=== PATIENT | male | born 1940 | race Caucasian/White ===

== ENCOUNTER 2018-05-03 11:19 | Emergency (ER) | payer OTHER ==
--- OUTSIDE RECORDS SUMMARY | 2018-05-03 11:23 | XMS REPORT | Continuity of Care Document ---
:1940 Author Organization Interface Problems Problem Status Onset Classification Date Comments Source Date Reported Discharge Diagnosis: 09/30/ [facility] Unilateral inguinal 2017 8 hernia, without obstruction or gangrene, not specified as recurrent HYPERTENSIVE EMERGENCY Active 2016 [place] CAD - Coronary artery Active 01/09/ Problem 2 stents 2aced [facility] disease<sup>1, 2</sup> 2016 8 Chest Resolved 01/09/ Problem pt describes [facility] discomfort<sup>4</sup> 2016 8 the feeling that he had in his chest as discomfort, states that he has never felt chest pain, pt has nitroglycerine prescribed to take as needed, he states that he has only taken it once and that was when he felt the discomfort in his chest and was taken to the ER Heart Resolved 01/09/ Problem pt stated that [facility] attack<sup>6</sup> 2016 8 he was told that he had a mild heart attack when he went to the ER with "chest discomfort", heart cath was done and 2 stents placed HTN - Hypertension Active 03/11/ Problem [facility] 1980 8 DM - Diabetes Active 03/11/ Problem fbs- 80-200, [facility] mellitus<sup>5</sup> 1978 8 HgbA1c done 09-10-17 was 7.0, takes 2 different insulins bid Coronary artery Resolved Problem [facility] disease 7 [place] Diabetes mellitus Resolved Problem [facility] 7 [place] Hyperlipidemia Resolved Problem [facility] 7 [place] Hypertension Resolved Problem MH 7 [place] Peripheral neuropathy Resolved Problem [facility] 7 [place] Anxiety Active Problem [facility] 8 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 Depression Active Problem [facility] 8 Hard of hearing Active Problem [facility] 8 Hypercholesterolemia Active Problem [facility] 8 Hypothyroidism Active Problem [facility] 8 [place], [facility] Inguinal hernia Active Problem [facility] 8 Neuropathy<sup>7</sup> Active Problem related to [facility] 8 diabetes Pain<sup>8</sup> Active Problem right groin, [facility] 8 ingunial hernia Umbilical hernia Active Problem [facility] 8 HYPERTENSIVE URGENCY Active [facility] Medications Medication Details Route Status Patient Ordering Order Source Instructions Provider [place] [facility] [place] 900 mL, Inactive Soln-IV, IV, 2017 Once, first dose 09/30/17 16:28:00 CDT, stop date 09/30/17 16:28:00 CDT fentaNYL 50 mcg=1 mL, Inactive Injection, 2017 IV, Once, first dose 09/30/17 16:18:00 CDT, stop date 09/30/17 16:18:00 CDT sugammadex 180 mg=1.8 Inactive mL, 2017 Injection, IV, Once, first dose 09/30/17 16:06:00 CDT, stop date 09/30/17 16:06:00 CDT ketorolac 15 mg=0.5 mL, Inactive I Injection, 2017 IV, Once, first dose 09/30/17 16:01:00 CDT, stop date 09/30/17 16:01:00 CDT phenylephrine + 0.1 mg=0.01 Inactive sterile water 1 mL mL, 2017 Injection, IV, Once, first dose 09/30/17 15:24:00 CDT, stop date 09/30/17 15:24:00 CDT phenylephrine + 0.1 mg=0.01 Inactive sterile water 1 mL mL, 2017 Injection, IV, Once, first dose 09/30/17 15:19:00 CDT, stop date 09/30/17 15:19:00 CDT ePHEDrine 10 mg=0.2 mL, Inactive [facility] Injection, 2017 IV, Once, first dose 09/30/17 15:18:00 CDT, stop date 09/30/17 15:18:00 CDT Misc Medication 1,000 mL, Inactive 09/30/ [facility] Soln-IV, IV, 2018 Once, first dose 09/30/17 15:17:00 CDT, stop date 09/30/17 15:17:00 CDT Diphenhydramine 25 mg=0.5 mL, Inactive 09/30/ [facility] Injection, IV 2018 Push, Once PRN for itching, first dose 09/30/17 15:17:00 CDT Labetalol 5 mg=1 mL, Inactive 09/30/ [facility] Injection, IV 2018 Push, As Indicated PRN for hypertension, first dose 09/30/17 15:17:00 CDT Hydralazine 10 mg=0.5 mL, Inactive 09/30/ [facility] Injection, IV 2018 Push, As Indicated PRN for hypertension, first dose 09/30/17 15:17:00 CDT Promethazine 12.5 mg=0.5 Inactive 09/30/ [facility] mL, 2018 Injection, IM, Once PRN for vomiting, first dose 09/30/17 15:17:00 CDT Ondansetron 4 mg=2 mL, Inactive 09/30/ [facility] Injection, IV 2018 Push, q15min PRN for nausea, order duration: 2 doses, first dose 09/30/17 15:17:00 CDT, stop date Limited # of times Levalbuterol 0.21 0.63 mg=3 mL, Inactive 09/30/ [facility] MG/ML Inhalant Soln, [facility], 2018 Solution [Xopenex] Once PRN for wheezing, first dose 09/30/17 15:17:00 CDT Demerol HCl 12.5 mg=0.5 Inactive 09/30/ [facility] mL, 2018 Injection, IV Push, Once PRN for shivers, first dose 09/30/17 15:17:00 CDT Dilaudid 0.5 mg=0.5 Inactive 09/30/ [facility] mL, 2018 Injection, IV Push, q10min PRN for pain severe (7-10), first dose 09/30/17 15:17:00 CDT Saline Lock Flush 10 mL, Soln, Inactive 09/30/ [facility] IV Push, As 2018 Indicated PRN for flush, first dose 09/30/17 15:17:00 CDT LR 1,000 mL 1,000 mL, IV, Inactive 09/30/ [facility] 75 mL/hr, 2018 start date 09/30/17 15:17:00 CDT ondansetron 4 mg=2 mL, Inactive [facility] Injection, 2018 IV, Once, first dose 09/30/17 15:15:00 CDT, stop date 09/30/17 15:15:00 CDT clindamycin 900 mg, Inactive [facility] Soln-IV, IV, 2018 Once, first dose 09/30/17 15:15:00 CDT, stop date 09/30/17 15:15:00 CDT glycopyrrolate 0.2 mg=1 mL, Inactive [facility] Injection, 2018 IV, Once, first dose 09/30/17 15:14:00 CDT, stop date 09/30/17 15:14:00 CDT ePHEDrine 10 mg=0.2 mL, Inactive [facility] Injection, 2018 IV, Once, first dose 09/30/17 15:14:00 CDT, stop date 09/30/17 15:14:00 CDT dexamethasone 8 mg=2 mL, Inactive [facility] Injection, 2018 IV, Once, first dose 09/30/17 15:08:00 CDT, stop date 09/30/17 15:08:00 CDT ePHEDrine 10 mg=0.2 mL, Inactive [facility] Injection, 2018 IV, Once, first dose 09/30/17 15:08:00 CDT, stop date 09/30/17 15:08:00 CDT rocuronium 45 mg=4.5 mL, Inactive [facility] Injection, 2018 IV, Once, first dose 09/30/17 15:04:00 CDT, stop date 09/30/17 15:04:00 CDT propofol 100 mg=10 mL, Inactive [facility] Emulsion, IV, 2018 Once, first dose 09/30/17 14:59:00 CDT, stop date 09/30/17 14:59:00 CDT lidocaine 3 mL, Inactive [facility] Injection, 2018 IV, Once, first dose 09/30/17 14:59:00 CDT, stop date 09/30/17 14:59:00 CDT fentaNYL 150 mcg=3 mL, Inactive [facility] Injection, 2018 IV, Once, first dose 09/30/17 14:59:00 CDT, stop date 09/30/17 14:59:00 CDT succinylcholine 120 mg=6 mL, Inactive [facility] Injection, 2017 IV, Once, first dose 09/30/17 14:59:00 CDT, stop date 09/30/17 14:59:00 CDT rocuronium 5 mg=0.5 mL, Inactive [facility] Injection, 2017 IV, Once, first dose 09/30/17 14:59:00 CDT, stop date 09/30/17 14:59:00 CDT fentaNYL 50 mcg=1 mL, Inactive [facility] Injection, 2017 IV, Once, first dose 09/30/17 14:48:00 CDT, stop date 09/30/17 14:48:00 CDT LR 1,000 mL 1,000 mL, IV, Inactive [facility] 30 mL/hr, 2017 start date 09/30/17 13:05:00 CDT Lidocaine 2% 0.2 mL 0.2 mL, Inactive [facility] IV Start [[place]] Injection, 2018 Subcutaneous, Once PRN for other (see comment), first dose 09/30/17 13:05:00 CDT Lisinopril 40 mg, Oral, Active [facility] Daily, pt 2018 inst not to take am of sx, 0 Refill(s), htn NIFEdipine 60 mg 60 mg=1 tabs, Active [facility] oral tablet, Oral, qNoon, 2018 extended release pt inst to take if he is scheduled for an afternoon sx, 0 Refill(s), htn vortioxetine 10 MG 10 mg=1 tabs, Active 09/17/ [facility] Oral Tablet Oral, qPM, 0 2018 [Trintellix] Refill(s), depression multivitamin 1 tab, Oral, Active 09/17/ [facility] Daily, 0 2018 Refill(s), supplement Nitroglycerin 1 tab, SL, Active [facility] PRN as needed 2018 for chest pain, last time used , 0 Refill(s), angina Aspirin 81 MG Oral 81 mg=1 tabs, Active 09/17/ [facility] Tablet Oral, Daily, 2018 0 Refill(s), heart health Vitamin D3 2000 intl 2,000 Active [facility] units oral capsule IntUnit=1 2018 caps, Oral, BID, 0 Refill(s), supplement clopidogrel 75 MG 75 mg=1 tabs, Active [facility] Oral Tablet [Plavix] Oral, qAM, 0 2018 Refill(s), blood thinner/stent s 24 HR Isosorbide 60 mg=1 tabs, Active [facility] Mononitrate 60 MG Oral, qAM, # 2018 Extended Release 30 tabs, 0 Tablet Refill(s), angina Saw [place] 1 tab, Oral, Active [facility] BID, 0 2018 Refill(s), supplement 12 HR ranolazine 500 500 mg=1 Active 09/17/ [facility] MG Extended Release tabs, Oral, 2018 Tablet [Ranexa] BID, # 60 tabs, 0 Refill(s), chest pains gabapentin 600 mg, Oral, Active [facility] BID, pt inst 2018 ok to take am of sx, 0 Refill(s), neuropathy carvedilol 12.5 MG 12.5 mg=1 Active [facility] Oral Tablet tabs, Oral, 2018 BID, pt inst to take the am of sx, # 60 tabs, 0 Refill(s), htn biotin 1000 mcg oral 1,000 mcg=1 Active 09/17/ [facility] tablet tabs, Oral, 2018 Daily, # 30 tabs, 0 Refill(s), supplement atorvastatin 80 mg See Active 09/17/ [facility] oral tablet Instructions, 2018 1 tab q Saturday, Saturday and , 0 Refill(s), supplement Levoxyl 100 mcg, Active [facility] Oral, qAM, pt 2018 inst to take am of sx, 0 Refill(s), thyroid Regular Insulin, See Active [facility] Human 100 UNT/ML Instructions, 2018 Injectable Solution Subcutaneous, [Humulin R] bid before meals, pt inst to not take am of sx, 0 Refill(s), diabetes NPH Insulin, Human See Active 07/10/ [facility] 100 UNT/ML Instructions, 2018 Injectable Subcutaneous Suspension [Humulin BID Pt inst N] to not take am of sx, 0 Refill(s), diabetes atorvastatin 80 mg, 2 tab, Inactive Route: PO, 2016 [place] Drug form: TAB, Q-Tu and Th, Dosing Weight 96.2, kg, Start date: 01/22/17 21:00:00 [employer], Duration: 30 day, Stop date: 02/19/17 21:00:00 CSTNotes: (Same as: Lipitor) carvedilol 12.5 mg 12.5 mg=1 Active oral tablet tab, PO, 2016 [place] Q12H, # 60 tab, 3 Refill(s) tamsulosin 0.4 mg 0.4 mg=1 cap, Active oral capsule PO, After 2016 [place] Breakfast, # 30 cap, 5 Refill(s) Benicar 40 mg, 2 tab, Inactive Route: PO, 2016 [place] Drug form: TAB, Daily, Start date: 01/22/17 11:00:00 [employer], Duration: 30 day, Stop date: 02/21/17 9:00:00 [employer] hydrochlorothiazide 12.5 mg, 0.5 Inactive 25 mg oral tablet tab, Route: 2016 [place] PO, Drug form: TAB, Daily, Start date: 01/22/17 11:00:00 [employer], Duration: 30 day, Stop date: 02/21/17 9:00:00 CSTNotes: (Same as: Hydrodiuril) With food. Hydrochlorothiazide 1 tab, Route: Inactive 12.5 MG / Olmesartan PO, Drug 2016 [place] medoxomil 40 MG Oral Form: TAB, Tablet [Benicar HCT Dosing Weight 40/12.5] 96.2, kg, Daily, Start date: 01/22/17 9:50:00 [employer], Duration: 30 day, Stop date: 02/21/17 9:49:00 [employer] normal saline 0.9% 1,000 mL, Inactive IV 1,000 mL Rate: 75 2016 [place] ml/hr, Infuse over: 13.3 hr, Route: IV, Dosing Weight 96.2 kg, Total Volume: 1,000, Priority: STAT, Start date: 01/22/17 9:21:00 [employer], Duration: 24 hr, Stop date: 01/23/17 9:20:00 [employer]PECT[employer], 2.06, m2 Flomax 0.4 mg, 1 Inactive cap, Route: 2017 [place] PO, Drug form: CAP, After Breakfast, Dosing Weight 96.2, kg, Start date: 01/22/17 8:30:00 [employer]PECT[employer], Duration: 30 day, Stop date: 02/21/17 8:29:00 CSTNotes: (Same As: Flomax) "Do Not Crush" atorvastatin 80 mg, 2 tab, Inactive Route: PO, 2016 [place] Drug form: TAB, Bedtime, Dosing Weight 96.2, kg, Start date: 01/21/17 21:00:00 [employer]PECT[employer], Duration: 30 day, Stop date: 02/20/17 20:59:00 CSTNotes: (Same as: Lipitor) Coreg 12.5 mg, 1 No Longer tab, Route: Active 2017 [place] PO, Drug form: TAB, Q12H, Dosing Weight 96.2, kg, Start date: 01/21/17 21:00:00 [employer], Duration: 30 day, Stop date: 02/20/17 20:59:00 CSTNotes: Give with food. (Same As: Coreg) Acetylcysteine 200 1,200 mg, 6 No Longer MG/ML Inhalant mL, Route: Active 2016 [place] Solution PO, Drug form: SOLN, BID, Dosing Weight 96.2, kg, Start date: 01/21/17 17:00:00 [employer]ASS INSPECT[employer], Duration: 2 day, Stop date: 01/23/17 16:59:00 CSTNotes: WASTE: F/P - Black; E - Municipal Trash Bin heparin sodium, 5,000 unit, 1 No Longer porcine 2500 UNT/ML mL, Route: Active 2016 [place] Injectable Solution SUB-Q, Drug form: INJ, Q8H, Dosing Weight 96.2, kg, Start date: 01/21/17 16:00:00 [employer] INSPECTOR, Duration: 30 day, Stop date: 02/20/17 15:59:00 CSTNotes: porcine heparin Enoxaparin 40 mg, 0.4 Inactive mL, Route: 2017 [place] SUB-Q, Drug form: INJ, [id number], Dosing Weight 96.2, kg, Start date: 01/21/17 12:00:00 [employer] INSPECT[employer], Duration: 30 day, Stop date: 02/20/17 11:59:00 CSTNotes: (Same as: Lovenox) normal saline 0.9% 1,000 mL, No Longer IV 1,000 mL Rate: 75 Active 2016 [place] ml/hr, Infuse over: 13.3 hr, Route: IV, Dosing Weight 96.2 kg, Total Volume: 1,000, Priority: STAT, Start date: 01/21/17 11:35:00 [employer]PECTOR, Duration: 30 day, Stop date: 02/20/17 11:34:00 [employer], 2.06, m2 Hydralazine 10 mg, 0.5 No Longer mL, Route: Active 2016 [place] IV, Drug form: INJ, Q4H, Dosing Weight 96.2, kg, PRN Hypertension, Start date: 01/21/17 11:35:00 [employer], Duration: 30 day, Stop date: 02/20/17 11:34:00 CSTNotes: (Same as: Apresoline) Push over 5 minutes Acetaminophen 325 MG 650 mg=2 tab, Active Oral Tablet PO, BID, # 60 2016 [place] [Tylenol] tab, 0 Refill(s) Niacin 1,000 mg, PO, Active BID, 0 2016 [place] Refill(s) [place] 2, PO, BID, 0 Active Refill(s) 2017 [place] Regular Insulin, SUB-Q, Active Human 100 UNT/ML BID-Before 2017 [place] Injectable Solution Meals, use [Humulin R] sliding scale before breakfast and dinner, 0 Refill(s) [facility]PH Insulin, Human 84, SUB-Q, Active 100 UNT/ML BID, # 10 mL, 2017 [place] Injectable 0 Refill(s) Suspension [Humulin N] aspirin 81 mg 81 mg, 1 tab, No Longer tablet, enteric Route: PO, Active 2016 [place] coated Drug form: ECTAB, Daily, Dosing Weight 96.2, kg, Start date: 01/21/17 9:00:00 [employer], Duration: 30 day, Stop date: 02/20/17 8:59:00 CSTNotes: Do not crush or chew. (Same As: Ecotrin) isosorbide 60 mg, 1 tab, No Longer mononitrate extended Route: PO, Active 2016 [place] release Drug form: ERTAB, Daily, Dosing Weight 80, kg, Start date: 01/21/17 9:00:00 GLASS INSPECTOR, Duration: 30 day, Stop date: 02/20/17 8:59:00 CSTNotes: (Same as:Imdur) "Do Not Crush" Take on empty stomach/ full glass of water. Do not crush gabapentin 600 MG 600 mg, 2 Inactive Oral Tablet cap, Route: 2016 [place] PO, Drug form: CAP, TID, Dosing Weight 96.2, kg, Start date: 01/21/17 9:00:00 [employer]ASS INSPECTOR, Duration: 30 day, Stop date: 02/20/17 8:59:00 CSTNotes: (Same as: Neurontin) 12 HR ranolazine 500 500 mg, 1 No Longer MG Extended Release tab, Route: Active 2016 [place] Tablet [Ranexa] PO, Drug form: TAB, BID, Dosing Weight 96.2, kg, Start date: 01/21/17 9:00:00 [employer]ASS INSPECTOR, Duration: 30 day, Stop date: 02/20/17 8:59:00 CSTNotes: Same as Ranexa "Do Not Crush" metoprolol extended 200 mg, 2 Inactive release tab, Route: 2017 [place] PO, Drug form: ERTAB, Daily, Start date: 01/21/17 9:00:00 GLASS INSPECTOR, Duration: 30 day, Stop date: 02/20/17 8:59:00 CSTNotes: (Same as: Toprol XL) May split tab, but do not crush. Plavix 75 mg, 1 tab, No Longer Route: PO, Active 2016 [place] Drug form: TAB, Daily, Dosing Weight 96.2, kg, Start date: 01/21/17 9:00:00 GLASS INSPECTOR, Duration: 30 day, Stop date: 02/20/17 8:59:00 CSTNotes: (Same As: Plavix) Humulin N 65 unit, 0.65 No Longer mL, Route: Active 2016 [place] SUB-Q, Drug form: INJ, BID, Dosing Weight 96.2, kg, Start date: 01/21/17 9:00:00 GLASS INSPECTOR, Stop date: 02/20/17 8:59:00 CSTNotes: Roll in palms of hands gently; Do not shake vigorously. (Same as: NovoLIN N, Humulin N) Do not hold insulin without contacting prescriber "single patient use only" WASTE: F/P - Black; E - Cree Trash Bin Stable for 14 days at room temperature Expires in days from _Date Saline Flush 0.9% 10 ml, Route: No Longer IVP, Drug Active 2016 [place] Form: INJ, Dosing Weight 96.2, kg, Q12H, Start date: 01/21/17 9:00:00 GLASS INSPECTOR, Duration: 30 day, Stop date: 02/20/17 8:59:00 CSTNotes: (Same as: BD Posiflush) Vitamin D3 2000 intl 4,000 Active units oral capsule IntlUnit=2 2017 [place] cap, PO, Daily, # 100 cap, 3 Refill(s) Thyroxine 100 No Longer microgram, 1 Active 2016 [place] tab, Route: PO, Drug form: TAB, [id number], Dosing Weight 96.2, kg, Start date: 01/21/17 6:30:00 GLASS INSPECTOR, Duration: 30 day, Stop date: 02/20/17 6:29:00 CSTNotes: Take 1 hour before or 2 hours after meal; Enteral feeds may interefere with the absorption of this medication. (Same as:Levothroid , Synthroid) Glucagon 1 mg, Route: No Longer IM, Drug Active 2016 [place] form: PDR/INJ, PRN, Dosing Weight 96.2, kg, PRN Blood Glucose Results, Start date: 01/21/17 4:52:00 GLASS INSPECTOR, Duration: 30 day, Stop date: 02/20/17 4:51:00 GLASS INSPECTOR Dextrose 50% Syringe 25 gm, 50 mL, No Longer Route: IVP, Active 2016 [place] Drug Form: INJ, Dosing Weight 96.2, kg, PRN, PRN Blood Glucose Results, Start date: 01/21/17 4:52:00 GLASS INSPECTOR, Duration: 30 day, Stop date: 02/20/17 4:51:00 GLASS INSPECTOR Insulin Lispro 4 unit, 0.04 No Longer mL, Route: Active 2016 [place] SUB-Q, Drug form: SOLN, TID-Before Meals, Dosing Weight 96.2, kg, PRN Blood Glucose Results, Start date: 01/21/17 4:52:00 GLASS INSPECTOR, Duration: 30 day, Stop date: 02/20/17 4:51:00 CSTNotes: Roll in palms of hands gently; Do not shake `vigorously. (Same as: Humalog ) "Single Patient Use Only " WASTE: F/P - Black; E - Municipal Trash Bin Stable for 28 days at room temperature. Expires in days from _Date Vitamin D3 2000 intl 2,000 Inactive units oral capsule IntlUnit=1 2016 [place] cap, PO, Daily, # 100 cap, 3 Refill(s) Aspirin 81 MG 81 mg=1 tab, Active Chewable Tablet CHEW, Daily, 2016 [place] 0 Refill(s) multivitamin 1 tab, Daily, Active 0 Refill(s) 2016 [place] clopidogrel 75 MG 75 mg=1 tab, Active Oral Tablet [Plavix] PO, Daily, 0 2016 [place] Refill(s) atorvastatin 80 mg 80 mg=1 tab, Active oral tablet one tablet on 2017 [place] Saturday, Saturday, PM, 0 Refill(s) gabapentin 600 MG 600 mg=1 tab, Active Oral Tablet PO, BID, 0 2016 [place] Refill(s) Hydrochlorothiazide 1 tab, PO, No Longer 12.5 MG / Olmesartan QMon, 0 Active 2016 [place] medoxomil 40 MG Oral Refill(s) Tablet [Benicar HCT 40/12.5] 12 HR ranolazine 500 1,000 mg=2 Active MG Extended Release tab, PO, BID, 2016 [place] Tablet [Ranexa] 0 Refill(s) Levothyroxine Sodium 100 Active 0.1 MG Oral Tablet microgram=1 2016 [place] [Levoxyl] tab, PO, Daily, 0 Refill(s) isosorbide 60 mg=1 tab, Active mononitrate 60 mg PO, QAM, 0 2016 [place] oral tablet, Refill(s) extended release biotin 1000 mcg oral 1,000 Active tablet microgram=1 2016 [place] tab, PO, Daily, # 30 tab, 0 Refill(s) metoprolol 200 mg 200 mg=1 tab, No Longer oral tablet, PO, Daily, 0 Active 2016 [place] extended release Refill(s) hydrochlorothiazide 12.5 mg, 0.5 Inactive 25 mg oral tablet tab, Route: 2016 [place] PO, Drug form: TAB, Daily, Start date: 01/21/17 4:05:00 GLASS INSPECTOR, Duration: 30 day, Stop date: 02/19/17 9:00:00 CSTNotes: (Same as: Hydrodiuril) With food. Benicar 40 mg, 2 tab, Inactive Route: PO, 2016 [place] Drug form: TAB, Daily, Start date: 01/21/17 4:05:00 GLASS INSPECTOR, Duration: 30 day, Stop date: 02/19/17 9:00:00 [employer]ASS [employer]PECT[employer] Hydrochlorothiazide 1 tab, Route: Inactive 12.5 MG / Olmesartan PO, Drug 2016 [place] medoxomil 40 MG Oral Form: TAB, Tablet [Benicar HCT Dosing Weight 40/12.5] 96.2, kg, Daily, Start date: 01/21/17 4:00:00 GLASS INSPECTOR, Duration: 30 day, Stop date: 02/20/17 3:59:00 GLASS INSPECTOR Nicardipine 40 mg, 200 Inactive mL, Rate: 2016 [place] Titrate, Start Dose: 5 mg/hr, Titration: 2.5 mg/hr every 15 minutes, Goal(s): BP Notes: Same as: Cardene Concentration : (0.2 mg /1 ml ) Nitroglycerin 0.4 mg, 1 No Longer tab, Route: Active 2016 [place] SL, Drug form: TAB, Q5Min, Dosing Weight 96.2, kg, PRN Chest Pain, Start date: 01/21/17 3:25:00 GLASS INSPECTOR, Duration: 3 doses or times, Stop date: Limited # of timesNotes: (Same as:Nitroquick , Nitrostat) "Do Not Crush" Sublingual tablet Morphine 2 mg, 2 mL, No Longer Route: IVP, Active 2016 [place] Drug form: SOLN, Q15Min, Dosing Weight 96.2, kg, PRN Chest Pain, Start date: 01/21/17 3:25:00 GLASS INSPECTOR, Duration: 2 doses or times, Stop date: Limited # of timesNotes: Preservative free. (Same as: Morphine Sulfate-PF) Ondansetron 4 mg, 1 tab, No Longer Route: PO, Active 2016 [place] Drug form: TAB, Q8H, Dosing Weight 96.2, kg, PRN Nausea & Vomiting, Start date: 01/21/17 3:25:00 GLASS INSPECTOR, Duration: 30 day, Stop date: 02/20/17 3:24:00 CSTNotes: (Same as: Zofran) Saline Flush 0.9% 10 ml, Route: No Longer IVP, Drug Active 2016 [place] Form: INJ, Dosing Weight 96.2, kg, PRN, PRN Line Flush, Start date: 01/21/17 3:25:00 GLASS INSPECTOR, Duration: 30 day, Stop date: 02/20/17 3:24:00 CSTNotes: (Same as: BD Posiflush) Allergies, Adverse Reactions, Alerts Substance Category Reaction Severity Reaction Status Date Comments Source type Reported penicillin<s Assertion Drug Active Added as up>1, allergy Codified [place] 2</sup> penicillin Assertion Cutaneous Drug Active [facility] eruption allergy (morpholog ic abnormalit y) Immunizations Immunization Date Given Site Status Last Updated Comments Source Results Order Name Results Value Reference Date Interpretation Comments Source Range LABORATORY Blood 83 mg/dL 74 - 106 09/30 [facility] Glucose, /2018 Capillary CHEM PANEL Creatinine 1.45 mg/dL 0.50 - 01/22 [facility] Lvl 1.40 [place] CHEM PANEL BUN 16 mg/dL 7 - 22 01/22 [place] CHEM PANEL Glucose Lvl 111 mg/dL 70 - 99 01/22 [place] CHEM PANEL AGAP 9.6 meq/L 10.0 - 01/22 [facility] 20.0 [place] CHEM PANEL CO2 28 meq/L 24 - 32 01/22 [place] CHEM PANEL eGFR 47 01/22 Result Comment: The eGFR is calculated using the CKD-EPI formula. In most young, healthy individuals the eGFR will be >90 mL/ min/1.73m2. The eGFR declines with age. An eGFR of 60-89 may be normal in mL/min/1.7 some populations, particularly the elderly, for whom the CKD-EPI formula has not been extensively validated. Use of the eGFR is not recommended in the following populations: [place] [id number] Individuals with unstable creatinine concentrations, including patients and those with serious co-morbid conditions. Patients with extremes in muscle mass or diet. The data above are obtained from the National Kidney Disease Education Program (NKDEP) which additionally recommends that when the eGFR is used in patients with extremes of body mass index for purposes of drug dosing, the eGFR should be multiplied by the estimated BMI. CHEM PANEL Calcium Lvl 8.7 mg/dL 8.5 - 10.5 01/22 [place] CHEM PANEL Chloride Lvl 106 meq/L 95 - 109 01/22 [place] CHEM PANEL Potassium 3.6 meq/L 3.5 - 5.1 01/22 [facility] [place] CHEM PANEL Sodium Lvl 140 meq/L 135 - 145 01/22 [place] CHEM PANEL Magnesium 1.8 mg/dL 1.8 - 2.4 01/22 [facility] [place] LIPIDS CHD Risk 3.15 4.00 - 01/22 [facility] 7.30 [place] LIPIDS VLDL 41 01/22 [place] LIPIDS LDL 43 mg/dL <=99 mg/dL 01/22 (Calculated) [place] LIPIDS HDL 39 mg/dL >=61 mg/dL 01/22 [place] LIPIDS Chol 123 mg/dL <=199 01/22 [facility] mg/dL [place] LIPIDS Trig 205 mg/dL <=149 01/22 mg/dL [place] URINE AND UA RBC 0-2 /HPF 0 - 2 01/21 STOOL [place] URINE AND UA Bacteria None Seen None Seen 01/21 STOOL [place] (01/21/17 5:42 PM) URINE AND UA Sq Epi Occasional Few /LPF 01/21 STOOL /LPF [place] URINE AND UA WBC 0-2 /HPF None Seen 01/21 STOOL /HPF [place] URINE AND Micro? Performed 01/21 STOOL [place] (01/21/17 5:42 PM) URINE AND UA Nitrite Negative Negative 01/21 STOOL [place] (01/21/17 5:42 PM) URINE AND UA Leuk Est Negative Negative 01/21 [place] (01/21/17 5:42 PM) URINE AND UA Protein 100 mg/dL Negative 01/21 [facility]OOL mg/dL [place] URINE AND UA Glucose 500 mg/dL Negative 01/21 STOOL mg/dL [place] URINE AND UA Spec Grav 1.025 <=1.030 01/21 [place] URINE AND UA pH 5.5 5.0 - 8.0 01/21 STOOL [place] URINE AND UA Blood Negative Negative 01/21 [place] (01/21/17 5:42 PM) URINE AND UA 0.2 EU/dL 0.1 - 1.0 01/21 [facility] Urobilinogen [place] URINE AND UA Ketones Negative Negative 01/21 [place] *NA* (01/21/17 5:42 PM) URINE AND UA Bili Negative Negative 01/21 STOOL [place] *NA* (01/21/17 5:42 PM) URINE AND UA Turbidity Clear Clear 01/21 STOOL [place] (01/21/17 5:42 PM) URINE AND UA Color Yellow Yellow 01/21 [place] *NA* (01/21/17 5:42 PM) URINE CHEM U Creatinine 154.00 01/21 mg/dL [place] URINE CHEM U Protein 156.0 01/21 mg/dL [place] URINE CHEM U Prot/Creat 1.0 01/21 [place] URINE CHEM U Osmolality 590 300 - 800 01/21 mOsm/kg [place] URINE CHEM U Chloride 148 meq/L 01/21 [place] URINE CHEM U Potassium 42.4 meq/L 01/21 [place] URINE CHEM U Sodium 114 meq/L 01/21 [place] URINE CHEM U Creatinine 154.00 01/21 mg/dL /2016 [place] CARDIAC Total CK 173 unit/L 12 - 191 01/21 ENZYMES [place] CARDIAC Troponin-I 0.36 ng/mL 0.00 - 01/21 MH ENZYMES 0.40 [place] CARDIAC CK-MB INDEX 2.7 0.0 - 2.5 01/21 EN[facility] [place] CARDIAC CK MB 4.7 ng/mL 0.5 - 3.6 01/21 [facility] [place] Retroperito Retroperiton PROCEDURE: RENAL ULTRASOUND 01/21 - [facility] [place] Complete - [place] Complete US US INDICATION: Acute kidney injury. Read by: Andre Oden MD Dictated Date/time: 01/21/17 19:01 Electronically Signed by: Andre Oden MD 01/21/17 19:02 FINAL REPORT COMPARISON: None. TECHNIQUE: Sonographic evaluation of the kidneys and urinary bladder was performed. FINDINGS: KIDNEYS: The right kidney measures 11.6 cm in length. Normal contour and parenchymal echogenicity. There is no hydronephrosis, nephrolithiasis, mass lesion or perinephric collection. The left kidney measures 13.3 cm in length. Normal contour and parenchymal echogenicity. There is no hydronephrosis, nephrolithiasis, mass lesion or perinephric collection. BLADDER: Normal. IMPRESSION: Normal renal ultrasound. END REPORT [id number]-M CARDIAC Total CK 223 unit/L 12 - 191 01/21 ENZYMES [place] CARDIAC Troponin-I 0.39 ng/mL 0.00 - 01/21 MH ENZYMES 0.40 [place] CARDIAC CK-MB INDEX 2.6 0.0 - 2.5 01/21 EN[facility]YM[facility] [place] CARDIAC CK MB 5.9 ng/mL 0.5 - 3.6 01/21 ENZ[facility] [place] SPECIAL Hgb A1C 7.3 % <=5.6 % 01/21 CHEMISTRY [place] CARDIAC Total CK 232 unit/L 12 - 191 01/21 ENZYMES [place] CARDIAC Troponin-I 0.43 ng/mL 0.00 - 01/21 ENZYMES 0.40 [place] CARDIAC CK MB 6.1 ng/mL 0.5 - 3.6 01/21 EN[facility]YM[facility] [place] CARDIAC CK-MB INDEX 2.6 0.0 - 2.5 01/21 EN[facility] [place] CHEM PANEL Phosphorus 2.0 mg/dL 2.5 - 4.5 01/21 [place] CHEM PANEL Magnesium 1.9 mg/dL 1.8 - 2.4 01/21 Lvl [place] ELECTROLYTE AGAP 11.8 meq/L 10.0 - 01/21 S 20.0 [place] ELECTROLYTE eGFR 43 01/21 Result Comment: The eGFR is calculated using the CKD-EPI formula. In most young, healthy individuals the eGFR will be >90 mL/ min/1.73m2. The eGFR declines with age. An eGFR of 60-89 may be normal in mL/min/1.7 some populations, particularly the elderly, for whom the CKD-EPI formula has not been extensively validated. Use of the eGFR is not recommended in the following populations: [address] Individuals with unstable creatinine concentrations, including patients and those with serious co-morbid conditions. Patients with extremes in muscle mass or diet. The data above are obtained from the National Kidney Disease Education Program (NKDEP) which additionally recommends that when the eGFR is used in patients with extremes of body mass index for purposes of drug dosing, the eGFR should be multiplied by the estimated BMI. ELECTROLYTE Calcium Lvl 9.2 mg/dL 8.5 - 10.5 01/21 S [place] ELECTROLYTE BUN 15 mg/dL 7 - 22 01/21 S [place] ELECTROLYTE Glucose Lvl 223 mg/dL 70 - 99 01/21 S [place] ELECTROLYTE Sodium Lvl 137 meq/L 135 - 145 01/21 S [place] ELECTROLYTE Potassium 3.8 meq/L 3.5 - 5.1 01/21 S Lvl [place] ELECTROLYTE Chloride Lvl 104 meq/L 95 - 109 01/21 S [place] ELECTROLYTE CO2 25 meq/L 24 - 32 01/21 S [place] ELECTROLYTE Creatinine 1.55 mg/dL 0.50 - 01/21 S Lvl 1.40 [place] HEMATOLOGY Platelet 110 K/CMM 133 - 450 01/21 [place] HEMATOLOGY MPV 9.0 fL 7.4 - 10.4 01/21 [place] HEMATOLOGY MCH 31.9 pg 27.0 - 01/21 MH 31.0 [place] HEMATOLOGY Hgb 16.2 g/dL 14.0 - 01/21 MH 18.0 [place] HEMATOLOGY Hct 47.6 % 42.0 - 01/21 MH 54.0 [place] HEMATOLOGY MCV 93.9 fL 80.0 - 01/21 MH 94.0 [place] HEMATOLOGY RDW 13.0 % 11.5 - 01/21 MH 14. [place] HEMATOLOGY MCHC 34.0 g/dL 32.0 - 01/21 MH 36.0 [place] HEMATOLOGY WBC X 10x3 8.5 K/CMM 3.7 - 10.4 01/21 [place] HEMATOLOGY RBC X 10x6 5.07 M/CMM 4.70 - 01/21 MH 6. [place] HEMATOLOGY Basophils 0.5 % 0.0 - 1.0 01/21 [place] HEMATOLOGY Segs-Bands # 6.6 K/CMM 1.5 - 8.1 01/21 [place] HEMATOLOGY Eosinophils 0.9 % 0.0 - 4.0 01/21 [place] HEMATOLOGY Lymphocytes 14.9 % 20.0 - 01/21 MH 40.0 [place] HEMATOLOGY Monocytes 6.1 % 2.0 - 12.0 01/21 [place] HEMATOLOGY Segs 77.6 % 45.0 - 01/21 MH 75.0 [place] HEMATOLOGY Eosinophils 0.1 K/CMM 0.0 - 0.5 01/21 MH # /2016 [place] HEMATOLOGY Lymphocytes 1.3 K/CMM 1.0 - 5.5 01/21 # /2016 [place] HEMATOLOGY Monocytes # 0.5 K/CMM 0.0 - 0.8 01/21 [place] Vital Signs Vital Sign Value Date Comments Source Respitory Rate 12 09/30/2017 [facility] Peripheral Pulse Rate 61 09/30/2017 [facility] Respitory Rate 12 09/30/2017 [facility] Systolic (mm Hg) 139 09/30/2017 [facility] Diastolic (mm Hg) 68 09/30/2017 [facility] Heart Rate 68 09/30/2017 [facility] Systolic (mm Hg) 144 09/30/2017 [facility] Diastolic (mm Hg) 73 09/30/2017 [facility] Respitory Rate 12 09/30/2017 [facility] Heart Rate 63 09/30/2017 [facility] Heart Rate 63 09/30/2017 [facility] Systolic (mm Hg) 149 09/30/2017 [facility] Diastolic (mm Hg) 68 09/30/2017 [facility] Temperature Oral (F) 36.6 Sandhya 09/30/2017 [facility] Height 177.8 cm 09/30/2017 [facility] Weight Measured 90.07 09/30/2017 [facility] Temperature Oral (F) 36.7 Sandhya 09/30/2017 [facility] Peripheral Pulse Rate 58 09/30/2017 [facility] Peripheral Pulse Rate 60 09/16/2017 [facility] Weight Measured 97.07 09/16/2017 [facility] Height 177.8 cm 09/16/2017 [facility] Systolic (mm Hg) 147 01/22/2017 [facility] Diastolic (mm Hg) 71 01/22/2017 [facility] Respitory Rate 10 01/22/2017 [facility] Systolic (mm Hg) 136 01/22/2017 [facility] Diastolic (mm Hg) 60 01/22/2017 [facility] Respitory Rate 20 01/22/2017 [facility] Systolic (mm Hg) 136 01/22/2017 [facility] Diastolic (mm Hg) 61 01/22/2017 [facility] Respitory Rate 13 01/22/2017 [facility] Temperature Oral (F) 98.1 F 01/22/2017 [facility] Temperature Oral (F) 98.1 F 01/22/2017 [facility] Temperature Oral (F) 98.2 F 01/22/2017 [facility] Weight 96.2 01/21/2017 [facility] Height 152.4 cm 01/21/2017 [facility] BMI Calculated 41.42 01/21/2017 [facility] Encounters Location Location Encounter Encounter Reason Attending ADM DC Status Source Details Type Number For Provider Date Date Visit [facility] Inpatient [id number] Monalisa 01/21 01/22 BLAZE [place] /2016 [facility] Outpatient [id number] Prabhu 09/30 09/30 [facility] Outpatient [id number] Prabhu 09/30 09/30 [facility] [place] [facility] Procedures Procedure Code Date Perfomer Comments Source REPAIR HERNIA auto-populated [facility] INGUINAL 8 from documented LAPAROSCOPIC-INITIAL surgical case 52333 (Right)<sup>1</sup> REPAIR HERNIA auto-populated [facility] UMBILICAL-OLDER THAN 8 from documented 5 YEARS surgical case OLD-REDUCIBLE 79238 (Other)<sup>2</sup> heart 2 stents placed [facility] cath<sup>3</sup> 7 hernia repair [facility] 9 sx to stop nosebleed [facility] 7 gall bladder removed [facility] 6 Cholecystectomy [id number] [place] Shoulder repair [phone] [facility] colonoscopy [facility] laser eye diabetic [facility] sx<sup>4</sup> retinopathy shoulder sx [facility]
--- OUTSIDE RECORDS SUMMARY | 2018-05-03 11:24 | XMS REPORT | Summary of Care ---
:1940 Author Organization [facility] Address [id number] [place] [phone] Encounter [employer](FIN) [id number] Date(s): 01/21/17 - 01/22/[address] [phone] [phone] Discharge Disposition: Home or Self Care Attending Physician: Monalisa Healy MD Admitting Physician: Monalisa Healy MD Vital Signs Most recent to oldest 1 2 3 [Reference Range]: Height 152.4 cm (01/21/17 3:23 AM) Temperature Oral [96.4-99.1 98.1 DegF 98.1 DegF 98.2 DegF DegF] (01/22/17 12:00 PM) (01/22/17 9:00 AM) (01/22/17 6:00 AM) Blood Pressure 147/71 mmHg 136/60 mmHg 136/61 mmHg [90-140/60-90 mmHg] *HI* (01/22/17 3:00 PM) (01/22/17 2:00 PM) (01/22/17 3:30 PM) Respiratory Rate [14-20 10 BRMIN 20 BRMIN 13 BRMIN BRMIN] *LOW* (01/22/17 3:00 PM) *LOW* (01/22/17 3:30 PM) (01/22/17 2:00 PM) Weight 96.2 kg (01/21/17 3:23 AM) Body Mass Index 41.42 m2 (01/21/17 3:23 AM) Problem List Condition Effective Dates Status Health Status Informant Coronary artery disease(Confirmed) Resolved Diabetes mellitus(Confirmed) Resolved Hyperlipidemia(Confirmed) Resolved Hypertension(Confirmed) Resolved Hypothyroidism(Confirmed) Resolved Peripheral neuropathy(Confirmed) Resolved Allergies, Adverse Reactions, Alerts Substance Reaction Severity Status penicillin1, 2 Active 1Replaced free text [id number] as Codified Medications acetylcysteine oral solution (mg) 1,200 mg, 6 mL, Route: PO, Drug form: SOLN, BID, Dosing Weight 96.2, kg, Start date: 01/21/17 17:00:00 DINING SERVICE SUPERVISOR, Duration: 2 day, Stop date: 01/23/17 16:59:00 DINING SERVICE SUPERVISOR Notes: WASTE: F/P - Black; E - MENABANQER Trash Bin Start Date: 01/21/17 Stop Date: 01/22/17 Status: Discontinuedaspirin 81 mg tablet, chewable 81 mg=1 tab, CHEW, Daily, 0 Refill(s) Start Date: 01/21/17 Status: Orderedaspirin 81 mg tablet, enteric coated 81 mg, 1 tab, Route: PO, Drug form: ECTAB, Daily, Dosing Weight 96.2, kg, Start date: 01/21/17 9:00:00 DINING SERVICE SUPERVISOR, Duration: 30 day, Stop date: 02/20/17 8:59:00 DINING SERVICE SUPERVISOR Notes: Do not crush or chew.(Same As: Ecotrin) Start Date: 01/21/17 Stop Date: 01/22/17 Status: Discontinuedatorvastatin 80 mg, 2 tab, Route: PO, Drug form: TAB, Bedtime, Dosing Weight 96.2, kg, Start date: 01/21/17 21:00:00 DINING SERVICE SUPERVISOR, Duration: 30 day, Stop date: 02/20/17 20:59:00 DINING SERVICE SUPERVISOR Notes: (Same as: Lipitor) Start Date: 01/21/17 Stop Date: 01/21/17 Status: Canceledatorvastatin 80 mg, 2 tab, Route: PO, Drug form: TAB, Q- and , Dosing Weight 96.2, kg, Start date: 01/22/17 21:00:00 DINING SERVICE SUPERVISOR, Duration: 30 day, Stop date: 02/19/17 21:00: 00 DINING SERVICE SUPERVISOR Notes: (Same as: Lipitor) Start Date: 01/22/17 Stop Date: 01/22/17 Status: Canceledatorvastatin 80 mg oral tablet 80 mg=1 tab, one tablet on Saturday, Saturday, PM, 0 Refill(s) Start Date: 01/21/17 Status: OrderedBenicar 40 mg, 2 tab, Route: PO, Drug form: TAB, Daily, Start date: 01/22/17 11:00:00 DINING SERVICE SUPERVISOR, Duration: 30 day,Stop date: 02/21/17 9:00:00 DINING SERVICE SUPERVISOR Start Date: 01/22/17 Stop Date: 01/22/17 Status: DiscontinuedBenicar 40 mg, 2 tab, Route: PO, Drug form: TAB, Daily, Start date: 01/21/17 4:05:00 DINING SERVICE SUPERVISOR , Duration: 30 day, Stop date: 02/19/17 9:00:00 DINING SERVICE SUPERVISOR Start Date: 01/21/17 Stop Date: 01/21/17 Status: DiscontinuedBenicar HCT 12.5 mg-40 mg oral tablet 1 tab, Route: PO, Drug Form: TAB, Dosing Weight 96.2, kg, Daily, Start date: 4:00:00 DINING SERVICE SUPERVISOR, Duration: 30 day, Stop date: 02/20/17 3:59:00 DINING SERVICE SUPERVISOR Start Date: 01/21/17 Stop Date: 01/21/17 Status: DeletedBenicar HCT 12.5 mg-40 mg oral tablet 1 tab, PO, QMon, 0 Refill(s) Start Date: 01/21/17 Stop Date: 01/22/17 Status: DiscontinuedBenicar HCT 12.5 mg-40 mg oral tablet 1 tab, Route: PO, Drug Form: TAB, Dosing Weight 96.2, kg, Daily, Start date: 9:50:00 DINING SERVICE SUPERVISOR, Duration: 30 day, Stop date: 02/21/17 9:49:00 DINING SERVICE SUPERVISOR Start Date: 01/22/17 Stop Date: 01/22/17 Status: Deletedbiotin 1000 mcg oral tablet 1,000 microgram=1 tab, PO, Daily, # 30 tab, 0 Refill(s) Start Date: 01/21/17 Status: Orderedcarvedilol 12.5 mg oral tablet 12.5 mg=1 tab, PO, Q12H, # 60 tab, 3 Refill(s) Start Date: 01/22/17 Stop Date: 05/22/17 Status: OrderedCoreg 12.5 mg, 1 tab, Route: PO, Drug form: TAB, Q12H, Dosing Weight 96.2, kg, Start date: 01/21/17 21:00:00 DINING SERVICE SUPERVISOR, Duration: 30 day, Stop date: 02/20/17 20:59:00 DINING SERVICE SUPERVISOR Notes: Give with food. (Same As: Coreg) Start Date: 01/21/17 Stop Date: 01/22/17 Status: DiscontinuedDextrose 50% Syringe 25 gm, 50 mL, Route: IVP, Drug Form: INJ, Dosing Weight 96.2, kg, PRN, PRN Blood Glucose Results, Start date: 01/21/17 4:52:00 DINING SERVICE SUPERVISOR, Duration: 30 day, Stop date: 02/20/17 4:51:00 DINING SERVICE SUPERVISOR Start Date: 01/21/17 Stop Date: 01/22/17 Status: DiscontinuedDextrose 50% Syringe 12.5 gm, 25 mL, Route: IVP, Drug Form: INJ, Dosing Weight 96.2, kg, PRN, PRN Blood Glucose Results, Start date: 01/21/17 4:52:00 DINING SERVICE SUPERVISOR, Duration: 30 day, Stop date: 02/20/17 4:51:00 DINING SERVICE SUPERVISOR Start Date: 01/21/17 Stop Date: 01/22/17 Status: Discontinuedenoxaparin 40 mg, 0.4 mL, Route: SUB-Q, Drug form: INJ, [id number], Dosing Weight 96.2, kg, Start date: 01/21/17 12:00:00 DINING SERVICE SUPERVISOR, Duration: 30 day, Stop date: 02/20/17 11:59: 00 DINING SERVICE SUPERVISOR Notes: (Same as: Lovenox) Start Date: 01/21/17 Stop Date: 01/21/17 Status: CanceledFlomax 0.4 mg, 1 cap, Route: PO, Drug form: CAP, After Breakfast, Dosing Weight 96.2, kg, Start date: 01/22/17 8:30:00 DINING SERVICE SUPERVISOR, Duration: 30 day, Stop date: 02/21/17 8:29 :00 DINING SERVICE SUPERVISOR Notes: (Same As: Flomax) "Do Not Crush" Start Date: 01/22/17 Stop Date: 01/22/17 Status: Discontinuedgabapentin 600 mg oral tablet 600 mg, 2 cap, Route: PO, Drug form: CAP, TID, Dosing Weight 96.2, kg, Start date: 01/21/17 9:00:00 DINING SERVICE SUPERVISOR, Duration: 30 day, Stop date: 02/20/17 8:59:00 DINING SERVICE SUPERVISOR Notes: (Same as: Neurontin) Start Date: 01/21/17 Stop Date: 01/21/17 Status: Canceledgabapentin 600 mg oral tablet 600 mg=1 tab, PO, BID, 0 Refill(s) Start Date: 01/21/17 Status: Orderedgabapentin 600 mg oral tablet 600 mg, 2 cap, Route: PO, Drug form: CAP, Q12H, Dosing Weight 96.2, kg, Start date: 01/21/17 9:00:00CST, Duration: 30 day, Stop date: 02/20/17 8:59:00 DINING SERVICE SUPERVISOR Notes: (Same as: Neurontin) Start Date: 01/21/17 Stop Date: 01/22/17 Status: Discontinuedglucagon 1 mg, Route: IM, Drug form: PDR/INJ, PRN, Dosing Weight 96.2, kg, PRN Blood Glucose Results, Start date: 01/21/17 4:52:00 DINING SERVICE SUPERVISOR, Duration: 30 day, Stop date: 02/20/17 4:51:00 DINING SERVICE SUPERVISOR Start Date: 01/21/17 Stop Date: 01/22/17 Status: Discontinuedheparin 5000 units/mL injectable solution 5,000 unit, 1 mL, Route: SUB-Q, Drug form: INJ, Q8H, Dosing Weight 96.2, kg, Start date: 01/21/17 16:00:00 DINING SERVICE SUPERVISOR, Duration: 30 day, Stop date: 02/20/17 15:59: 00 DINING SERVICE SUPERVISOR Notes: porcine heparin Start Date: 01/21/17 Stop Date: 01/22/17 Status: DiscontinuedHumulin N 65 unit, 0.65 mL, Route: SUB-Q, Drug form: INJ, BID, Dosing Weight 96.2, kg, Start date: 01/21/17 9:00:00 DINING SERVICE SUPERVISOR, Stop date: 02/20/17 8:59:00 DINING SERVICE SUPERVISOR Notes: Roll in palms of hands gently; Do not shake vigorously. (Same as: NovoLIN N, Humulin N)Do not hold insulin without contacting prescriber"single patient use only"WASTE: F/P - Black; E - Municipal Trash Bin Stable for 14 days at room temperatureExpires in days from Date Start Date: 01/21/17 Stop Date: 01/22/17 Status: DiscontinuedHumulin N 100 units/mL 84, SUB-Q, BID, # 10 mL, 0 Refill(s) Start Date: 01/21/17 Status: OrderedHumulin R 100 units/mL injectable solution SUB-Q, BID-Before Meals, use sliding scale before breakfast and dinner, 0 Refill(s) Start Date: 01/21/17 Status: OrderedhydrALAZINE 10 mg, 0.5 mL, Route: IV, Drug form: INJ, Q4H, Dosing Weight 96.2, kg, PRN Hypertension, Start date:01/21/17 11:35:00 DINING SERVICE SUPERVISOR, Duration: 30 day, Stop date: 11:34:00 DINING SERVICE SUPERVISOR Notes: (Same as: Apresoline)Push over 5 minutes Start Date: 01/21/17 Stop Date: 01/22/17 Status: Discontinuedhydrochlorothiazide 25 mg oral tablet 12.5 mg, 0.5 tab, Route: PO, Drug form: TAB, Daily, Start date: 01/22/17 11:00: 00 DINING SERVICE SUPERVISOR, Duration: 30 day, Stop date: 02/21/17 9:00:00 DINING SERVICE SUPERVISOR Notes: (Same as: Hydrodiuril) With food. Start Date: 01/22/17 Stop Date: 01/22/17 Status: Discontinuedhydrochlorothiazide 25 mg oral tablet 12.5 mg, 0.5 tab, Route: PO, Drug form: TAB, Daily, Start date: 01/21/17 4:05: 00 DINING SERVICE SUPERVISOR, Duration: 30 day, Stop date: 02/19/17 9:00:00 DINING SERVICE SUPERVISOR Notes: (Same as: Hydrodiuril) With food. Start Date: 01/21/17 Stop Date: 01/21/17 Status: Discontinuedinsulin lispro 4 unit, 0.04 mL, Route: SUB-Q, Drug form: SOLN, TID-Before Meals, Dosing Weight 96.2, kg, PRN Blood Glucose Results, Start date: 01/21/17 4:52:00 DINING SERVICE SUPERVISOR, Duration : 30 day, Stop date: 02/20/17 4:51:00 DINING SERVICE SUPERVISOR Notes: Roll in palms of hands gently; Do not shake `vigorously. (Same as: Humalog )"Single Patient Use Only "WASTE: F/P - Black; E - Municipal Trash Bin Stable for 28 days at room temperature.Expiresin days from Date Start Date: 01/21/17 Stop Date: 01/22/17 Status: Discontinuedinsulin lispro 6 unit, 0.06 mL, Route: SUB-Q, Drug form: SOLN, TID-Before Meals, Dosing Weight 96.2, kg, PRN Blood Glucose Results, Start date: 01/21/17 4:52:00 DINING SERVICE SUPERVISOR, Duration : 30 day, Stop date: 02/20/17 4:51:00 DINING SERVICE SUPERVISOR Notes: Roll in palms of hands gently; Do not shake `vigorously. (Same as: Humalog )"Single Patient Use Only "WASTE: F/P - Black; E - Municipal Trash Bin Stable for 28 days at room temperature.Expiresin days from Date Start Date: 01/21/17 Stop Date: 01/22/17 Status: Discontinuedinsulin lispro 2 unit, 0.02 mL, Route: SUB-Q, Drug form: SOLN, TID-Before Meals, Dosing Weight 96.2, kg, PRN Blood Glucose Results, Start date: 01/21/17 4:52:00 DINING SERVICE SUPERVISOR, Duration : 30 day, Stop date: 02/20/17 4:51:00 DINING SERVICE SUPERVISOR Notes: Roll in palms of hands gently; Do not shake `vigorously. (Same as: Humalog )"Single Patient Use Only "WASTE: F/P - Black; E - Municipal Trash Bin Stable for 28 days at room temperature.Expiresin days from Date Start Date: 01/21/17 Stop Date: 01/22/17 Status: Discontinuedinsulin lispro 10 unit, 0.1 mL, Route: SUB-Q, Drug form: SOLN, TID-Before Meals, Dosing Weight 96.2, kg, PRN Blood Glucose Results, Start date: 01/21/17 4:52:00 DINING SERVICE SUPERVISOR, Duration : 30 day, Stop date: 02/20/17 4:51:00 DINING SERVICE SUPERVISOR Notes: Roll in palms of hands gently; Do not shake `vigorously. (Same as: Humalog )"Single Patient Use Only "WASTE: F/P - Black; E - Municipal Trash Bin Stable for 28 days at room temperature.Expiresin days from Date Start Date: 01/21/17 Stop Date: 01/22/17 Status: Discontinuedinsulin lispro 8 unit, 0.08 mL, Route: SUB-Q, Drug form: SOLN, TID-Before Meals, Dosing Weight 96.2, kg, PRN Blood Glucose Results, Start date: 01/21/17 4:52:00 DINING SERVICE SUPERVISOR, Duration : 30 day, Stop date: 02/20/17 4:51:00 DINING SERVICE SUPERVISOR Notes: Roll in palms of hands gently; Do not shake `vigorously. (Same as: Humalog )"Single Patient Use Only "WASTE: F/P - Black; E - Municipal Trash Bin Stable for 28 days at room temperature.Expiresin days from Date Start Date: 01/21/17 Stop Date: 01/22/17 Status: Discontinuedisosorbide mononitrate 60 mg oral tablet, extended release 60 mg=1 tab, PO, QAM, 0 Refill(s) Start Date: 01/21/17 Status: Orderedisosorbide mononitrate extended release 60 mg, 1 tab, Route: PO, Drug form: ERTAB, Daily, Dosing Weight 80, kg, Start date: 01/21/17 9:00:00CST, Duration: 30 day, Stop date: 02/20/17 8:59:00 DINING SERVICE SUPERVISOR Notes: (Same as:Imdur)"Do Not Crush" Take on empty stomach/ full glass of water. Do not crush Start Date: 01/21/17 Stop Date: 01/22/17 Status: Discontinuedlevothyroxine 100 microgram, 1 tab, Route: PO, Drug form: TAB, Q630AM, Dosing Weight 96.2, kg , Start date: 01/21/17 6:30:00 DINING SERVICE SUPERVISOR, Duration: 30 day, Stop date: 02/20/17 6:29: 00 DINING SERVICE SUPERVISOR Notes: Take 1 hour before or 2 hours after meal; Enteral feeds may interefere with the absorption ofthis medication. (Same as:Levothroid, Synthroid) Start Date: 01/21/17 Stop Date: 01/22/17 Status: DiscontinuedLevoxyl 100 mcg (0.1 mg) oral tablet 100 microgram=1 tab, PO, Daily, 0 Refill(s) Start Date: 01/21/17 Status: Orderedmetoprolol 200 mg oral tablet, extended release 200 mg=1 tab, PO, Daily, 0 Refill(s) Start Date: 01/21/17 Stop Date: 01/22/17 Status: Discontinuedmetoprolol extended release 200 mg, 2 tab, Route: PO, Drug form: ERTAB, Daily, Start date: 01/21/17 9:00:00 DINING SERVICE SUPERVISOR, Duration: 30 day, Stop date: 02/20/17 8:59:00 DINING SERVICE SUPERVISOR Notes: (Same as: Toprol XL) May split tab, but do not crush. Start Date: 01/21/17 Stop Date: 01/21/17 Status: Discontinuedmorphine Sulfate 2 mg, 2 mL, Route: IVP, Drug form: SOLN, Q15Min, Dosing Weight 96.2, kg, PRN Chest Pain, Start date:01/21/17 3:25:00 DINING SERVICE SUPERVISOR, Duration: 2 doses or times, Stop date: Limited # of times Notes: Preservative free. (Same as: Morphine Sulfate-PF) Start Date: 01/21/17 Stop Date: 01/22/17 Status: Discontinuedmultivitamin 1 tab, Daily, 0 Refill(s) Start Date: 01/21/17 Status: Orderedniacin 1,000 mg, PO, BID, 0 Refill(s) Start Date: 01/21/17 Status: OrderedniCARdipine 40 mg in NS 200 mL (Titrate.) IV 40 mg 40 mg, 200 mL, Rate: Titrate, Start Dose: 5 mg/hr, Titration: 2.5 mg/hr every 15 minutes, Goal(s): BP <165/100, Max Dose: 15 mg/hr, Route: IV, Dosing Weight 96.2 kg, Total Volume: 200, Start date: 01/21/17 3:28:00 DINING SERVICE SUPERVISOR, Duration: 30 day, Stop date: .. Notes: Same as: CardeneConcentration: (0.2 mg /1 ml ) Start Date: 01/21/17 Stop Date: 01/21/17 Status: Discontinuednitroglycerin SL Tab 0.4 mg, 1 tab, Route: SL, Drug form: TAB, Q5Min, Dosing Weight 96.2, kg, PRN Chest Pain, Start date:01/21/17 3:25:00 DINING SERVICE SUPERVISOR, Duration: 3 doses or times, Stop date: Limited # of times Notes: (Same as:Nitroquick, Nitrostat)"Do Not Crush" Sublingual tablet Start Date: 01/21/17 Stop Date: 01/22/17 Status: Discontinuednormal saline 0.9% IV 1,000 mL 1,000 mL, Rate: 75 ml/hr, Infuse over: 13.3 hr, Route: IV, Dosing Weight 96.2 kg , Total Volume: 1,000, Priority: STAT, Start date: 01/21/17 11:35:00 DINING SERVICE SUPERVISOR, Duration: 30 day, Stop date: 02/20/17 11:34:00 DINING SERVICE SUPERVISOR, 2.06, m2 Start Date: 01/21/17 Stop Date: 01/22/17 Status: Discontinuednormal saline 0.9% IV 1,000 mL 1,000 mL, Rate: 75 ml/hr, Infuse over: 13.3 hr, Route: IV, Dosing Weight 96.2 kg , Total Volume: 1,000, Priority: STAT, Start date: 01/22/17 9:21:00 DINING SERVICE SUPERVISOR, Duration: 24 hr, Stop date: 01/23/17 9:20:00 DINING SERVICE SUPERVISOR, 2.06, m2 Start Date: 01/22/17 Stop Date: 01/22/17 Status: Discontinuedondansetron 4 mg, 1 tab, Route: PO, Drug form: TAB, Q8H, Dosing Weight 96.2, kg, PRN Nausea & Vomiting, Start date: 01/21/17 3:25:00 DINING SERVICE SUPERVISOR, Duration: 30 day, Stop date: 02/20/17 3:24:00 DINING SERVICE SUPERVISOR Notes: (Same as: Zofran) Start Date: 01/21/17 Stop Date: 01/22/17 Status: DiscontinuedPlavix 75 mg, 1 tab, Route: PO, Drug form: TAB, Daily, Dosing Weight 96.2, kg, Start date: 01/21/17 9:00:00CST, Duration: 30 day, Stop date: 02/20/17 8:59:00 DINING SERVICE SUPERVISOR Notes: (Same As: Plavix) Start Date: 01/21/17 Stop Date: 01/22/17 Status: DiscontinuedPlavix 75 mg oral tablet 75 mg=1 tab, PO, Daily, 0 Refill(s) Start Date: 01/21/17 Status: OrderedRanexa 500 mg oral tablet, extended release 500 mg, 1 tab, Route: PO, Drug form: TAB, BID, Dosing Weight 96.2, kg, Start date: 01/21/17 9:00:00 DINING SERVICE SUPERVISOR, Duration: 30 day, Stop date: 02/20/17 8:59:00 DINING SERVICE SUPERVISOR Notes: Same as Ranexa"Do Not Crush" Start Date: 01/21/17 Stop Date: 01/22/17 Status: DiscontinuedRanexa 500 mg oral tablet, extended release 1,000 mg=2 tab, PO, BID, 0 Refill(s) Start Date: 01/21/17 Status: OrderedSaline Flush 0.9% 10 ml, Route: IVP, Drug Form: INJ, Dosing Weight 96.2, kg, Q12H, Start date: 9:00:00 DINING SERVICE SUPERVISOR, Duration: 30 day, Stop date: 02/20/17 8:59:00 DINING SERVICE SUPERVISOR Notes: (Same as: BD Posiflush) Start Date: 01/21/17 Stop Date: 01/22/17 Status: DiscontinuedSaline Flush 0.9% 10 ml, Route: IVP, Drug Form: INJ, Dosing Weight 96.2, kg, PRN, PRN Line Flush, Start date: 173:25:00 DINING SERVICE SUPERVISOR, Duration: 30 day, Stop date: 02/20/17 3:24:00 DINING SERVICE SUPERVISOR Notes: (Same as: BD Posiflush) Start Date: 01/21/17 Stop Date: 01/22/17 Status: DiscontinuedSaw [place] 2, PO, BID, 0 Refill(s) Start Date: 01/21/17 Status: Orderedtamsulosin 0.4 mg oral capsule 0.4 mg=1 cap, PO, After Breakfast, # 30 cap, 5 Refill(s) Start Date: 01/22/17 Stop Date: 07/21/17 Status: OrderedTylenol 325 mg oral tablet 650 mg=2 tab, PO, BID, # 60 tab, 0 Refill(s) Start Date: 01/21/17 Stop Date: 02/20/17 Status: OrderedVitamin D3 2000 intl units oral capsule 2,000 IntlUnit=1 cap, PO, Daily, # 100 cap, 3 Refill(s) Start Date: 01/21/17 Stop Date: 01/21/17 Status: DiscontinuedVitamin D3 2000 intl units oral capsule 4,000 IntlUnit=2 cap, PO, Daily, # 100 cap, 3 Refill(s) Start Date: 01/21/17 Status: Ordered Results ELECTROLYTES Most recent to oldest [Reference Range]: 1 2 3 Sodium Lvl [135-145 mEq/L] 140 mEq/L 137 mEq/L (01/22/17 3:25 AM) (01/21/17 5:07 AM) Potassium Lvl [3.5-5.1 mEq/L] 3.6 mEq/L 3.8 mEq/L (01/22/17 3:25 AM) (01/21/17 5:07 AM) Chloride Lvl [95-109 mEq/L] 106 mEq/L 104 mEq/L (01/22/17 3:25 AM) (01/21/17 5:07 AM) CO2 [24-32 mEq/L] 28 mEq/L 25 mEq/L (01/22/17 3:25 AM) (01/21/17 5:07 AM) AGAP [10.0-20.0 mEq/L] 9.6 mEq/L 11.8 mEq/L *LOW* (01/21/17 5:07 AM) (01/22/17 3:25 AM) CHEM PANEL Most recent to oldest [Reference Range]: 1 2 3 Creatinine Lvl [0.50-1.40 mg/dL] 1.45 mg/dL 1.55 mg/dL *HI* *HI* (01/22/17 3:25 AM) (01/21/17 5:07 AM) eGFR 47 mL/min/1.73m2 1 43 mL/min/1.73m2 2 *NA* *NA* (01/22/17 3:25 AM) (01/21/17 5:07 AM) BUN [7-22 mg/dL] 16 mg/dL 15 mg/dL (01/22/17 3:25 AM) (01/21/17 5:07 AM) Glucose Lvl [70-99 mg/dL] 111 mg/dL 223 mg/dL *HI* *HI* (01/22/17 3:25 AM) (01/21/17:07 AM) Calcium Lvl [8.5-10.5 mg/dL] 8.7 mg/dL 9.2 mg/dL (01/22/17 3:25 AM) (01/21/17 5:07 AM) Phosphorus [2.5-4.5 mg/dL] 2.0 mg/dL *LOW* (01/21/17 5:07 AM) Magnesium Lvl [1.8-2.4 mg/dL] 1.8 mg/dL 1.9 mg/dL (01/22/17 3:25 AM) (01/21/17 5:07 AM) 1Result Comment: The eGFR is calculated using the CKD-EPI formula. In most young , healthy individualsthe eGFR will be >90 mL/min/1.73m2. The eGFR declines with age. An eGFR of 60-89 may be normal insome populations, particularly the elderly, for whom the CKD-EPI formula has not been extensively validated. Use of the eGFR is not recommended in the following populations: Individuals with unstable creatinine concentrations, including patients and those with serious co-morbid conditions. Patients with extremes in muscle mass or diet. The data above are obtained from the National Kidney Disease Education Program ( NKDEP) which additionally recommends that when the eGFR is used in patients with extremes of body mass index for purposesof drug dosing, the eGFR should be multiplied by the estimated BMI.2Result Comment: The eGFR is calculated using the CKD-EPI formula. In most young, healthy individualsthe eGFR will be >90 mL/min/1.73m2. The eGFR declines with age. An eGFR of 60-89 may be normal insome populations, particularly the elderly, for whom the CKD-EPI formula has not been extensively validated. Use of the eGFR is not recommended in the following populations: Individuals with unstable creatinine concentrations, including patients and those with serious co-morbid conditions. Patients with extremes in muscle mass or diet. The data above are obtained from the National Kidney Disease Education Program ( NKDEP) which additionally recommends that when the eGFR is used in patients with extremes of body mass index for purposesof drug dosing, the eGFR should be multiplied by the estimated BMI.CARDIAC ENZYMES Most recent to oldest 1 2 3 [Reference Range]: Total CK [12-191 unit/L] 173 unit/L 223 unit/L 232 unit/L (01/21/17 1:38 PM) *HI* *HI* (01/21/17 9:33 AM) (01/21/17 5:07 AM) CK MB [0.5-3.6 ng/mL] 4.7 ng/mL 5.9 ng/mL 6.1 ng/mL *HI* *HI* *HI* (01/21/17 1:38 PM) (01/21/17 9:33 AM) (01/21/17 5:07 AM) CK MB Index [0.0-2.5] 2.7 2.6 2.6 *HI* *HI* *HI* (01/21/17 1:38 PM) (01/21/17 9:33 AM) (01/21/17 5:07 AM) Troponin-I [0.00-0.40 0.36 ng/mL 0.39 ng/mL 0.43 ng/mL ng/mL] (01/21/17 1:38 PM) (01/21/17 9:33 AM) *HI* (01/21/17 5:07 AM) LIPIDS Most recent to oldest [Reference Range]: 1 2 3 CHD Risk [4.00-7.30] 3.15 *LOW* (01/22/17 3:25 AM) Chol [<=199 mg/dL] 123 mg/dL (01/22/17 3:25 AM) Trig [<=149 mg/dL] 205 mg/dL *HI* (01/22/17 3:25 AM) HDL [>=61 mg/dL] 39 mg/dL *LOW* (01/22/17 3:25 AM) LDL (Calculated) [<=99 mg/dL] 43 mg/dL (01/22/17 3:25 AM) VLDL 41 *NA* (01/22/17 3:25 AM) SPECIAL CHEMISTRY Most recent to oldest [Reference Range]: 1 2 3 Hgb A1C [<=5.6 %] 7.3 % *HI* (01/21/17 9:33 AM) URINE CHEM Most recent to oldest [Reference Range]: 1 2 3 U Creatinine 154.00 mg/dL 154.00 mg/dL *NA* *NA* (01/21/17 5:42 PM) (01/21/17 5:42 PM) U Protein 156.0 mg/dL *NA* (01/21/17 5:42 PM) U Prot/Creat 1.0 *NA* (01/21/17 5:42 PM) U Sodium 114 mEq/L *NA* (01/21/17 5:42 PM) U Potassium 42.4 mEq/L *NA* (01/21/17 5:42 PM) U Chloride 148 mEq/L *NA* (01/21/17 5:42 PM) U Osmolality [300-800 mOsm/kg] 590 mOsm/kg (01/21/17 5:42 PM) URINE AND STOOL Most recent to oldest [Reference Range]: 1 2 3 UA Turbidity [Clear] Clear (01/21/17 5:42 PM) UA Color [Yellow] Yellow *NA* (01/21/17 5:42 PM) UA pH [5.0-8.0] 5.5 (01/21/17 5:42 PM) UA Spec Grav [<=1.030] 1.025 (01/21/17 5:42 PM) UA Glucose [Negative mg/dL] 500 mg/dL *ABN* (01/21/17 5:42 PM) UA Blood [Negative] Negative (01/21/17 5:42 PM) UA Ketones [Negative] Negative *NA* (01/21/17 5:42 PM) UA Protein [Negative mg/dL] 100 mg/dL *ABN* (01/21/17 5:42 PM) UA Urobilinogen [0.1-1.0 EU/dL] 0.2 EU/dL (01/21/17 5:42 PM) UA Bili [Negative] Negative *NA* (01/21/17 5:42 PM) UA Leuk Est [Negative] Negative (01/21/17 5:42 PM) UA Nitrite [Negative] Negative (01/21/17 5:42 PM) UA WBC [None Seen /HPF] 0-2 /HPF (01/21/17 5:42 PM) UA RBC [0-2 /HPF] 0-2 /HPF (01/21/17 5:42 PM) UA Bacteria [None Seen] None Seen (01/21/17 5:42 PM) UA Sq Epi [Few /LPF] Occasional /LPF (01/21/17 5:42 PM) Micro? Performed (01/21/17 5:42 PM) HEMATOLOGY Most recent to oldest [Reference Range]: 1 2 3 WBC [3.7-10.4 K/CMM] 8.5 K/CMM (01/21/17 5:07 AM) RBC [4.70-6.10 M/CMM] 5.07 M/CMM (01/21/17 5:07 AM) Hgb [14.0-18.0 g/dL] 16.2 g/dL (01/21/17 5:07 AM) Hct [42.0-54.0 %] 47.6 % (01/21/17 5:07 AM) MCV [80.0-94.0 fL] 93.9 fL (01/21/17 5:07 AM) MCH [27.0-31.0 pg] 31.9 pg *HI* (01/21/17 5:07 AM) MCHC [32.0-36.0 g/dL] 34.0 g/dL (01/21/17 5:07 AM) RDW [11.5-14.5 %] 13.0 % (01/21/17 5:07 AM) Platelet [133-450 K/CMM] 110 K/CMM *LOW* (01/21/17 5:07 AM) MPV [7.4-10.4 fL] 9.0 fL (01/21/17 5:07 AM) Segs [45.0-75.0 %] 77.6 % *HI* (01/21/17 5:07 AM) Lymphocytes [20.0-40.0 %] 14.9 % *LOW* (01/21/17 5:07 AM) Monocytes [2.0-12.0 %] 6.1 % (01/21/17 5:07 AM) Eosinophils [0.0-4.0 %] 0.9 % (01/21/17 5:07 AM) Basophils [0.0-1.0 %] 0.5 % (01/21/17 5:07 AM) Segs-Bands # [1.5-8.1 K/CMM] 6.6 K/CMM (01/21/17 5:07 AM) Lymphocytes # [1.0-5.5 K/CMM] 1.3 K/CMM (01/21/17 5:07 AM) Monocytes # [0.0-0.8 K/CMM] 0.5 K/CMM (01/21/17 5:07 AM) Eosinophils # [0.0-0.5 K/CMM] 0.1 K/CMM (01/21/17 5:07 AM) Immunizations No data available for this section Procedures Procedure Date Related Diagnosis Body Site Cholecystectomy Shoulder repair Social History Social History Type Response Alcohol Never Smoking Status Never smoker; Exposure to Tobacco Smoke None; Cigarette Smoking Last 365 Days No; Reg Smoking Cessation Counseling No Assessment and Plan Extracted from: Title: PCCM Author: Arturo Buck MD Date: 01/22/17 [facility] Pulmonary/Critical Care Progress Note History of Present Illness Mr. Abad is a 76 year old man with history of hypertension, diabetes, CAD, hypothyroidism who was admitted 01/21/17 for hypertensive urgency and NSTEMI. Overnight events Had low glucose yesterday evening, not eating much Had cardiac catheterization this morning, no intervention needed Review of systems Constitutional: no fever, no chills Respiratory: no cough, no shortness of breath Cardiovascular: no chest pain, no palpitations GI: no vomiting, no diarrhea Allergies (1) Active Reaction penicillin None Documented Vital Signs (last 24 hrs) Last Charted Temp Oral 98.1 DegF (JAN 22 09:00) Heart Rate Apical 69 bpm (JAN 22 12:00) Resp Rate 16 BRMIN (JAN 22 12:00) SBP H 146 mmHg (JAN 22 12:00) DBP 64 mmHg (JAN 22 12:00) SpO2 95 % (JAN 22:00) Physical examination General: Lying in bed with head of bed at 30 degrees, in no distress, appears comfortable Heart: Regular rate and rhythm, S1 and S2 heard Lungs: Clear to auscultation bilaterally, normal work of breathing Abdomen: Soft, nondistended, bowel sounds normoactive Extremities: No edema in legs, extremities are warm Skin: No rashes, no bruises Neurologic: Awake/alert, speech fluent I/O Intake Output Balance 01/21/2017 7a-3p 730.00 400.00 330.00 3p-11p 1241.00 1080.00 161.00 11p-7a 600.00 800.00 -200.00 Totals 2571.00 2280.00 291.00 01/20/2017 7a-3p 0.00 0.00 0.00 3p-11p 0.00 0.00 0.00 11p-7a 204.75 220.00 -15.25 Totals 204.75 220.00 -15.25 Labs Most Recent Results Previous Results Previous Results Previous Results WBC 8.5 (JAN 21) -- -- -- Hgb 16.2 (JAN 21) -- -- -- Hct 47.6 (JAN 21) -- -- -- Plt L 110 (JAN 21) -- -- -- Na 140 (JAN 22) 137 (JAN 21) -- -- K 3.6 (JAN 22) 3.8 (JAN 21) -- -- CO2 28 (JAN 22) 25 (JAN 21) -- -- Cl 106 (JAN 22) 104 (JAN 21) -- -- Cr H 1.45 (JAN 22) H 1.55 (JAN 21) -- -- BUN 16 (JAN 22) 15 (JAN 21) -- -- Glucose Random H 111 (JAN 22) H 223 (JAN 21) -- -- Mg 1.8 (JAN 22) 1.9 (JAN 21) -- -- Phos L 2.0 (JAN 21) -- -- -- Ca 8.7 (JAN 22) 9.2 (JAN 21) -- -- Troponin 0.36 (JAN 21) 0.39 (JAN 21) H 0.43 (JAN 21) -- CK MB H 4.7 (JAN 21) H 5.9 (JAN 21) H 6.1 (JAN 21) -- Total CK 173 (JAN 21) H 223 (JAN 21) H 232 (JAN 21) [facility], -- Imaging/Studies No new studies Impression 1. Hypertensive urgency 2. NSTEMI 3. Acute vs. chronic renal failure 4. Type 2 diabetes Plan 1. Continue antihypertensives, may need uptitration depending on BP during day 2. Holding insulin, decreased scheduled dose by 25% for hypoglycemia and decreased appetite 3. Transfer to telemetry Lines: PIVs, no Banks Prophylaxis: DVT - heparin SQ ; Stress ulcer - not indicated Arturo Buck MD #[id number] Pulmonary/Critical Care Medicine [facility] Extracted from: Title: Nephrology Consultation Author: Michael Wong Date: 01/21/17 Zhou BURROUG[facility] Impression and Plan 76 yo male with history of HTN, DM, Hyperlipidemia, CAD, hypothyodism, admitted with HTN urgency, found to have elevated cardiac enzymes/NSTEMI. Seen by cardiology and planned for Cardiac cath tomorrow. Creat on admission 1.55. No known history of renal failure. Renal was consulted for evaluation renal failure and optimization before contrast studies. 1. BALA. Etiology likely Pre vs ATN vs Acute hypertensive nephrosclerosis in setting of HTN crisis. Proteinuria in outside UA. Evaluate for proteinuria. 2. HTN urgency. BP better controlled. 3. Increased troponin. Supected NSTEMI. History of CAD. Planned for PCI tomorrow. 4. Hypothyroidysm. 5. DM type 2. 6. History of BPH. Low urinary tract symptoms. Add flomax. Recommendaitons. Patient is at risk for contrast nephropathy. IV hydration with Normal saline 75 ml/hour. Mucomyst 1200 po q 12 h x 4 doses. Hold VALERY/ARB and diuretics the day of the proedure. Renal US. Protein/creat random studies. UA. Urine electrolytes. Add flomax. Extracted from: Title: Clinical Document Author: Vera Singleton MD Date: 01/21/17 CC: high blood pressure HPI: 76 yo male with a past medical history of HTN, HLD, CAD, IDDM2 who has undergone some blood pressure medication adjustments in the past week. He knows that one medication was discontinued and another m edication was doubled, but he's unable to provide their names. He was checking his BP at home as part of his routine, and noticed that it was 200s/ 100s. He reports some nausea and dizziness, but no ot her symptoms, including CP or SOB. His took him to a nearby ER, where his blood pressure remained 200s/100s despite interventions. His labs showed a troponin leak of 0.125. He was transferred he re for further evaluation and cardiology consultation. ROS: all 12 systems reviewed, negative except as above PMH: as above PSH: cardiac stents, hernia repain, shoulder surgery Home Meds: please see med rec SH: (-) tobacco FH: (+) father had MIs Physical: Vitals: BP 190/100s on arrival, with reduction to 160s/70s with nicardipine drip. HR 70s, O2 99, RR 16 Gen: Alert, oriented x3, no distress HEENT: moist membranes, no jvd Resp: CTAB Cardio: RRR, no mrg GI: soft, NT, ND, normal BS Neuro: intact grossly MSK: normal mass, no edema. : not examined Psych: normal affect Labs/Imaging: pending Assessment/Plan: Hypertensive emergency NSTEMI IDDM2 HLD Hypothyroidism -nicardipine drip -benicar-HCTZ -metoprolol -aspirin -plavix -statin -troponins x 3 -BMP, Mag, phos -Echocardiogram -Telemetry -EKG -Cardiology consult -restart home insulin -levothyroxine.
--- OUTSIDE RECORDS SUMMARY | 2018-05-03 11:24 | XMS REPORT | Summary of Care ---
:1940 Author Organization [facility] Address [address] [place] [address] Encounter [facility] [id number] Date(s): 09/30/17 - 09/30/17 [facility] [address] [place] [address]- Discharge Diagnosis: Unilateral inguinal hernia, without obstruction or gangrene , not specified as recurrent Discharge Disposition: Discharged to Home or Self Care Attending Physician: Prabhu Luu MD Admitting Physician: Prabhu Luu MD Vital Signs Most recent to oldest 1 2 3 [Reference Range]: Temperature Oral [35.8-37.3 36.7 DegC DegC] (09/30/17 1:21 PM) Temperature Tympanic [36.6-38.1 36.6 DegC DegC] (09/30/17 4:20 PM) Temperature Tympanic Fahrenheit 97.88 (09/30/17 4:20 PM) Peripheral Pulse Rate [55-105 61 bpm 58 bpm 60 bpm bpm] (09/30/17 5:54 PM) (09/30/17 1:21 PM) (09/16/17 2:53 PM) Heart Rate Monitored [60-100 68 bpm 63 bpm 63 bpm bpm] (09/30/17 5:00 PM) (09/30/17 4:50 PM) (09/30/17 4:40 PM) Respiratory Rate [12-20] 12 12 12 (09/30/17 5:54 PM) (09/30/17 5:00 PM) (09/30/17 4:50 PM) SpO2 [90-100 %] 98 % 95 % 95 % (09/30/17 5:54 PM) (09/30/17 5:00 PM) (09/30/17 4:50 PM) Blood Pressure [110-120/65-85 139/68 mmHg 144/73 mmHg 149/68 mmHg mmHg] *HI* *HI* *HI* (09/30/17 5:00 PM) (09/30/17 4:50 PM) (09/30/17 4:40 PM) Mean Arterial Pressure, Cuff 91.7 mmHg 96.7 mmHg 95 mmHg (09/30/17 5:00 PM) (09/30/17 4:50 PM) (09/30/17 4:40 PM) Height 177.8 cm 177.8 cm (09/30/17 1:21 PM) (09/16/17 2:53 PM) Height/Length Dosing 177.8 cm 177.8 cm (09/30/17 1:21 PM) (09/16/17 2:53 PM) Height Inches 70 in 70 in (09/30/17 1:21 PM) (09/16/17 2:53 PM) Weight 90.07 kg 97.07 kg (09/30/17 1:21 PM) (09/16/17 2:53 PM) Weight Dosing 90.07 kg 97.07 kg (09/30/17 1:21 PM) (09/16/17 2:53 PM) Weight Pounds 198 lb 214 lb (09/30/17 1:21 PM) (09/16/17 2:53 PM) Body Mass Index 28.49 kg/m2 30.71 kg/m2 (09/30/17 1:21 PM) (09/16/17 2:53 PM) Problem List Condition Effective Dates Status Health Status Informant Anxiety(Confirmed) Active CAD - Coronary artery 01/2017 Active disease(Confirmed)1, 2 Cancer of skin(Confirmed)3 Resolved Chest discomfort(Confirmed)4 01/2017 Resolved Depression(Confirmed) Active DM - Diabetes mellitus(Confirmed)1978 Active Hard of hearing(Confirmed) Active Heart attack(Confirmed)6 01/2017 - 2016 Resolved HTN - Hypertension(Confirmed) 1979 Active Hypercholesterolemia(Confirmed) Active Hypothyroidism(Confirmed) Active Inguinal hernia(Confirmed) Active Neuropathy(Confirmed)7 Active Pain(Confirmed)8 Active Umbilical hernia(Confirmed) Active 12 stents placed , pt was feeling "discomfort " in his chest, went to ER and some test were done that led to a heart cath where 2 stents were placed, 22 stents [id number] basal cell skin cancers removed from [id number] describes the feeling that he had in his chest as discomfort, states that he has never felt chest pain, pt has nitroglycerine prescribed to take as needed, he states that he has only taken it once and that was when he felt the discomfort in his chest and was taken to the ER5fbs- 80-200, HgbA1c done 09-10-17 was 7.0, takes 2 different insulins bid6pt stated that he was told that he had a mild heart attack when he went to the ER with "chest discomfort", heart cath was done and 2 stents [id number] to [id number] groin, ingunial hernia Allergies, Adverse Reactions, Alerts Substance Reaction Severity Status penicillin Rash Active Medications aspirin 81 mg oral tablet 81 mg=1 tabs, Oral, Daily, 0 Refill(s), heart health Start Date: 09/17/17 Stop Date: 10/01/17 Status: Orderedatorvastatin 80 mg oral tablet See Instructions, 1 tab q Saturday, Saturday and , 0 Refill(s), supplement Start Date: 09/17/17 Status: Orderedbiotin 1000 mcg oral tablet 1,000 mcg=1 tabs, Oral, Daily, # 30 tabs, 0 Refill(s), supplement Start Date: 09/17/17 Stop Date: 10/01/17 Status: Orderedcarvedilol 12.5 mg oral tablet 12.5 mg=1 tabs, Oral, BID, pt inst to take the am of sx, # 60 tabs, 0 Refill(s) , htn Start Date: 09/17/17 Stop Date: 10/01/17 Status: Orderedclindamycin 900 mg, Soln-IV, IV, Once, first dose 09/30/17 15:15:00 CDT, stop date 09/30/17 15:15:00 CDT Start Date: 09/30/17 Stop Date: 09/30/17 Status: CompletedDemerol HCl 12.5 mg=0.5 mL, Injection, IV Push, Once PRN for shivers, first dose 09/30/17 15 :17:00 CDT Start Date: 09/30/17 Stop Date: 09/30/17 Status: Discontinueddexamethasone 8 mg=2 mL, Injection, IV, Once, first dose 09/30/17 15:08:00 CDT, stop date 15:08:00 CDT Start Date: 09/30/17 Stop Date: 09/30/17 Status: CompletedDilaudid 0.5 mg=0.5 mL, Injection, IV Push, q10min PRN for pain severe (7-10), first dose 09/30/17 15:17:00 CDT Start Date: 09/30/17 Stop Date: 09/30/17 Status: DiscontinueddiphenhydrAMINE 25 mg=0.5 mL, Injection, IV Push, Once PRN for itching, first dose 09/30/17 15: 17:00 CDT Start Date: 09/30/17 Stop Date: 09/30/17 Status: DiscontinuedePHEDrine 10 mg=0.2 mL, Injection, IV, Once, first dose 09/30/17 15:14:00 CDT, stop date 09/30/17 15:14:00 CDT Start Date: 09/30/17 Stop Date: 09/30/17 Status: CompletedePHEDrine 10 mg=0.2 mL, Injection, IV, Once, first dose 09/30/17 15:18:00 CDT, stop date 09/30/17 15:18:00 CDT Start Date: 09/30/17 Stop Date: 09/30/17 Status: CompletedePHEDrine 10 mg=0.2 mL, Injection, IV, Once, first dose 09/30/17 15:08:00 CDT, stop date 09/30/17 15:08:00 CDT Start Date: 09/30/17 Stop Date: 09/30/17 Status: CompletedfentaNYL 150 mcg=3 mL, Injection, IV, Once, first dose 09/30/17 14:59:00 CDT, stop date 09/30/17 14:59:00 CDT Start Date: 09/30/17 Stop Date: 09/30/17 Status: CompletedfentaNYL 50 mcg=1 mL, Injection, IV, Once, first dose 09/30/17 14:48:00 CDT, stop date 14:48:00 CDT Start Date: 09/30/17 Stop Date: 09/30/17 Status: CompletedfentaNYL 50 mcg=1 mL, Injection, IV, Once, first dose 09/30/17 16:18:00 CDT, stop date 16:18:00 CDT Start Date: 09/30/17 Stop Date: 09/30/17 Status: Completedgabapentin 600 mg, Oral, BID, pt inst ok to take am of sx, 0 Refill(s), neuropathy Start Date: 09/17/17 Stop Date: 10/01/17 Status: Orderedglycopyrrolate 0.2 mg=1 mL, Injection, IV, Once, first dose 09/30/17 15:14:00 CDT, stop date 15:14:00 CDT Start Date: 09/30/17 Stop Date: 09/30/17 Status: CompletedHumuLIN N 100 units/mL subcutaneous suspension See Instructions, Subcutaneous BID Pt inst to not take am of sx, 0 Refill(s), diabetes Start Date: 09/17/17 Status: OrderedHumuLIN R 100 units/mL injectable solution See Instructions, Subcutaneous, bid before meals, pt inst to not take am of sx, 0 Refill(s), diabetes Start Date: 09/17/17 Status: OrderedhydrALAZINE 10 mg=0.5 mL, Injection, IV Push, As Indicated PRN for hypertension, first dose 09/30/17 15:17:00 CDT Start Date: 09/30/17 Stop Date: 09/30/17 Status: Discontinuedisosorbide mononitrate 60 mg oral tablet, extended release 60 mg=1 tabs, Oral, qAM, # 30 tabs, 0 Refill(s), angina Start Date: 09/17/17 Stop Date: 10/01/17 Status: Orderedketorolac 15 mg=0.5 mL, Injection, IV, Once, first dose 09/30/17 16:01:00 CDT, stop date 09/30/17 16:01:00 CDT Start Date: 09/30/17 Stop Date: 09/30/17 Status: Completedlabetalol 5 mg=1 mL, Injection, IV Push, As Indicated PRN for hypertension, first dose 15:17:00 CDT Start Date: 09/30/17 Stop Date: 09/30/17 Status: DiscontinuedLevoxyl 100 mcg, Oral, qAM, pt inst to take am of sx, 0 Refill(s), thyroid Start Date: 09/17/17 Stop Date: 10/01/17 Status: Orderedlidocaine 3 mL, Injection, IV, Once, first dose 09/30/17 14:59:00 CDT, stop date 09/30/17 14:59:00 CDT Start Date: 09/30/17 Stop Date: 09/30/17 Status: CompletedLidocaine 2% 0.2 mL IV Start [[place]] 0.2 mL, Injection, Subcutaneous, Once PRN for other (see comment), first dose 13:05:00 CDT Start Date: 09/30/17 Stop Date: 09/30/17 Status: Completedlisinopril 40 mg, Oral, Daily, pt inst not to take am of sx, 0 Refill(s), htn Start Date: 09/17/17 Stop Date: 10/01/17 Status: OrderedLR 1,000 mL 1,000 mL, IV, 30 mL/hr, start date 09/30/17 13:05:00 CDT Start Date: 09/30/17 Stop Date: 09/30/17 Status: DiscontinuedLR 1,000 mL 1,000 mL, IV, 75 mL/hr, start date 09/30/17 15:17:00 CDT Start Date: 09/30/17 Stop Date: 09/30/17 Status: DiscontinuedMisc Medication 900 mL, Soln-IV, IV, Once, first dose 09/30/17 16:28:00 CDT, stop date 09/30/17 16:28:00 CDT Start Date: 09/30/17 Stop Date: 09/30/17 Status: CompletedMisc Medication 1,000 mL, Soln-IV, IV, Once, first dose 09/30/17 15:17:00 CDT, stop date 15:17:00 CDT Start Date: 09/30/17 Stop Date: 09/30/17 Status: Completedmultivitamin 1 tab, Oral, Daily, 0 Refill(s), supplement Start Date: 09/17/17 Stop Date: 10/01/17 Status: OrderedNIFEdipine 60 mg oral tablet, extended release 60 mg=1 tabs, Oral, qNoon, pt inst to take if he is scheduled for an afternoon sx, 0 Refill(s), htn Start Date: 09/17/17 Stop Date: 10/01/17 Status: Orderednitroglycerin 1 tab, SL, PRN as needed for chest pain, last time used , 0 Refill(s), angina Start Date: 09/17/17 Stop Date: 10/01/17 Status: Orderedondansetron 4 mg=2 mL, Injection, IV, Once, first dose 09/30/17 15:15:00 CDT, stop date 15:15:00 CDT Start Date: 09/30/17 Stop Date: 09/30/17 Status: Completedondansetron 4 mg=2 mL, Injection, IV Push, q15min PRN for nausea, order duration: 2 doses, first dose 09/30/17 15:17:00 CDT, stop date Limited # of times Start Date: 09/30/17 Stop Date: 09/30/17 Status: Discontinuedphenylephrine + sterile water 1 mL 0.1 mg=0.01 mL, Injection, IV, Once, first dose 09/30/17 15:24:00 CDT, stop date 09/30/17 15:24:00 CDT Start Date: 09/30/17 Stop Date: 09/30/17 Status: Completedphenylephrine + sterile water 1 mL 0.1 mg=0.01 mL, Injection, IV, Once, first dose 09/30/17 15:19:00 CDT, stop date 09/30/17 15:19:00 CDT Start Date: 09/30/17 Stop Date: 09/30/17 Status: CompletedPlavix 75 mg oral tablet 75 mg=1 tabs, Oral, qAM, 0 Refill(s), blood thinner/stents Start Date: 09/17/17 Stop Date: 10/01/17 Status: Orderedpromethazine 12.5 mg=0.5 mL, Injection, IM, Once PRN for vomiting, first dose 09/30/17 15:17: 00 CDT Start Date: 09/30/17 Stop Date: 09/30/17 Status: Discontinuedpropofol 100 mg=10 mL, Emulsion, IV, Once, first dose 09/30/17 14:59:00 CDT, stop date 14:59:00 CDT Start Date: 09/30/17 Stop Date: 09/30/17 Status: CompletedRanexa 500 mg oral tablet, extended release 500 mg=1 tabs, Oral, BID, # 60 tabs, 0 Refill(s), chest pains Start Date: 09/17/17 Stop Date: 10/01/17 Status: Orderedrocuronium 5 mg=0.5 mL, Injection, IV, Once, first dose 09/30/17 14:59:00 CDT, stop date 14:59:00 CDT Start Date: 09/30/17 Stop Date: 09/30/17 Status: Completedrocuronium 45 mg=4.5 mL, Injection, IV, Once, first dose 09/30/17 15:04:00 CDT, stop date 09/30/17 15:04:00 CDT Start Date: 09/30/17 Stop Date: 09/30/17 Status: CompletedSaline Lock Flush 10 mL, Soln, IV Push, As Indicated PRN for flush, first dose 09/30/17 15:17:00 CDT Start Date: 09/30/17 Stop Date: 09/30/17 Status: DiscontinuedSaw [place] 1 tab, Oral, BID, 0 Refill(s), supplement Start Date: 09/17/17 Stop Date: 10/01/17 Status: Orderedsuccinylcholine 120 mg=6 mL, Injection, IV, Once, first dose 09/30/17 14:59:00 CDT, stop date 14:59:00 CDT Start Date: 09/30/17 Stop Date: 09/30/17 Status: Completedsugammadex 180 mg=1.8 mL, Injection, IV, Once, first dose 09/30/17 16:06:00 CDT, stop date 09/30/17 16:06:00 CDT Start Date: 09/30/17 Stop Date: 09/30/17 Status: CompletedTrintellix 10 mg oral tablet 10 mg=1 tabs, Oral, qPM, 0 Refill(s), depression Start Date: 09/17/17 Stop Date: 10/01/17 Status: OrderedVitamin D3 2000 intl units oral capsule 2,000 IntUnit=1 caps, Oral, BID, 0 Refill(s), supplement Start Date: 09/17/17 Stop Date: 10/01/17 Status: OrderedXopenex 0.63 mg/3 mL inhalation solution 0.63 mg=3 mL, Soln, NEB, Once PRN for wheezing, first dose 09/30/17 15:17:00 CDT Start Date: 09/30/17 Stop Date: 09/30/17 Status: Discontinued Results LABORATORY Most recent to oldest [Reference Range]: 1 Blood Glucose, Capillary [74-106 mg/dL] 83 mg/dL (09/30/17 1:54 PM) Immunizations No data available for this section Procedures Procedure Date Related Diagnosis Body Site REPAIR HERNIA INGUINAL LAPAROSCOPIC-INITIAL 72536 09/30/17 (Right)1 REPAIR HERNIA UMBILICAL-OLDER THAN 5 YEARS 09/30/17 OLD-REDUCIBLE 14349 (Other)2 heart cath3 01/2017 hernia repair 2009 sx to stop nosebleed 2007 gall bladder removed 2005 colonoscopy laser eye sx4 shoulder sx 1auto-populated from documented surgical [id number] from documented surgical case32 stents [id number] retinopathy Social History Social History Type Response Smoking Status Never smoker Assessment and Plan No data available for this section
[2018-05-03] MEDS ORDERED: MORPHINE 4 MG/ML SYR ONE (12:12)
[2018-05-03] MEDS ORDERED: ONDANSETRON 4 MG/2 ML VIAL ONE ×2 (12:12→18:49)
[2018-05-03] MEDS ORDERED: NA CHLORIDE 0.9% 1,000 ML ONE (12:12)
[2018-05-03 12:30] LABS: Absolute Lymphocytes (CBC) 0.9 K/uL (0.7-4.9); Absolute Monocytes 0.7 K/uL (0.1-1.3); Absolute Neutrophil 9.8 K/uL (1.8-8.0); Basophils % 0.8 % (0-1.3); Hematocrit 38.3 % (39.6-49.0); Lymphocytes % 7.7 % (15.3-44.8); MPV 7.6 fL (7.6-11.3); RBC Red Blood Cell Count 4.17 M/uL (4.33-5.43)
--- NOTE | 2018-05-03 12:34 | RAD REPORT ---
EXAM DESCRIPTION: RAD - Chest Single View - 05/03/2018 12:18 pm CLINICAL HISTORY: Abdominal pain, abdominal distention, recent abdominal surgery for hernia repair COMPARISON: None. TECHNIQUE: AP portable chest image was obtained 1216 hours . FINDINGS: Lungs are clear. Heart and vasculature are normal. No measurable pleural effusion and no p neumothorax. No acute bony abnormality seen. No acute aortic findings suspected. IMPRESSION: No acute cardiopulmonary process.
[2018-05-03 12:36] LABS: Protime INR 1.2
[2018-05-03 12:48] LABS: Albumin 2.9 g/dL (3.4-5.0); Bilirubin Direct 0.3 mg/dL (0-0.2); Bilirubin Total 0.8 mg/dL (0.2-1.0); Magnesium 2.6 mg/dL (1.8-2.4); Potassium 4.2 mmol/L (3.5-5.1); Protein, Total 7.5 g/dL (6.4-8.2); Troponin (Emerg Dept Use Only) 0.06 ng/mL (0.0-0.045)
--- NOTE | 2018-05-03 14:35 | RAD REPORT ---
EXAM DESCRIPTION: CT - Abdomen Pelvis Wo Contrast - 05/03/2018 2:17 pm CLINICAL HISTORY: Abdominal pain, scrotal pain and swelling, history of recent hernia repair 1 week earlier COMPARISON: None. TECHNIQUE: Axial [address] imaging of the abdomen and pelvis was performed without IV contrast. No IV contrast was given because of allergy, abnormal renal function, patient refusal or physician re quest. Oral contrast was given. All CT scans are performed using dose optimization technique as appropriate and may include automated exposure control or mA/KV adjustment according to patient size. FINDINGS: No suspicious findings in the lung bases. The liver, spleen and pancreas show no suspicious findings on non-contrast imaging. Cholecystectomy c lips are present. No biliary tree dilatation. No hydronephrosis or suspicious renal mass. No significant adrenal finding. Isodense renal masses an d pyelonephritis cannot be excluded in the absence of IV contrast. No dilated bowel loops or bowel wall thickening. No hernia, mass or bulky lymphadenopathy. Appendix i s normal. No suspicious bony findings. Banks catheter is in place. No acute finding in a partially filled urinary bladder. Prostate gland is enlarged. No invasion of the bladder, pelvic side hadley or rectum. Enlarged prostate does projecting into the bladder base. No peritoneal or retroperitoneal air, fluid or blood. Postsurgical changes ar e present at the right inguinal canal from hernia repair. Small amount of fat extends into the origin of an otherwise unremarkable left inguinal canal. Left-sided testicle appears unremarkable. No signi ficant left-sided scrotal abnormality seen. Overall scrotal detail is limited due to lack of contrast . There is a large 11 x 7 centimeter area of soft tissue attenuation that is likely a combination of the right testicle along with a large amount of blood within the right-side scrotum. No pneumatosis, free air or other emergent finding. Scrotal wall is mildly edematous overall. IMPRESSION: Large 11 x 7 centimeter area of soft tissue attenuation filling and enlarging the right- side of the scrotum. Given the recent inguinal surgery this is most likely a large hematoma. No intraperitoneal or retroperitoneal air, fluid or blood. Enlarged prostate gland. Full assessment is limited is the absence of IV contrast.
--- NOTE | 2018-05-03 14:43 | RAD REPORT ---
EXAM DESCRIPTION: US - Scrotum Testicles - 05/03/2018 12:52 pm CLINICAL HISTORY: Scrotal pain and swelling, recent hernia surgery COMPARISON: None. FINDINGS: Right testicle is identifiable in shows no intra testicular abnormality. Doppler evaluatio n shows normal blood flow within the right testicle. Left testicle also shows no focal abnormality as well as a normal blood flow pattern. Minimal left hydrocele is present. Left varicocele is suspected as well. There is a large heterogeneous 8-10 cm mass in the right-side of the scrotum. Given the recent surger y this is most likely a large collection of hemorrhagic byproducts. IMPRESSION: Normal blood flow in the right testicle. Large heterogeneous 8-10 cm subacute hematoma in the right-side scrotum. No left testicle abnormality. Small left varicocele is present.
--- NOTE | 2018-05-03 16:04 | ER ---
Nurse's Notes [facility] Name: Fred Bloom III Age: 77 yrs Sex: Male : 1940 Arrival Date: 05/03/2018 Time: 11:23 Bed 6 Private MD: Diagnosis: Abdominal tenderness-sp herrniorraphy with large right scrotal hematoma Presentation: 05/03 11:28 Presenting complaint: Patient states: Had hernia surgery repair in [facility] about a week ago with , reports abd swelling, scrotal swelling and abd pain that is not controlled with pain medications has prescribed. Transition of care: patient was not received from another setting of care. Onset of symptoms was May 03, 2018. Risk Assessment: Do you want to hurt yourself or someone else? Patient reports no desire to harm self or others. Initial Sepsis Screen: Does the patient meet any 2 criteria? No. Patient's initial sepsis screen is negative. Does the patient have a suspected source of infection? Yes: Skin breakdown/wound Other: surgical incision. Care prior to arrival: None. 11:28 Method Of Arrival: Ambulatory 11:28 Acuity: RASHMI 3 sg Historical: - Allergies: 11:30 PENICILLINS; sg - Home Meds: 11:53 Zofran (as hydrochloride) 4 mg Oral tab 2 tabs every 8 hours for prn [Active]; Tylenol ch #3 Oral [Active]; Levaquin 500 mg Oral tab 1 tab once daily [Active]; levothyroxine oral [Active]; Insulin: Novolin R Sub-Q [Active]; Insulin: Regular Sub-Q [Active]; 13:36 Levoxyl 100 mcg Oral tab 1 tab once daily [Active]; Plavix 75 mg Oral tab 1 tab once ch daily [Active]; Ranexa 1,000 mg oral Tb12 1 tab 2 times per day [Active]; 14:25 Lasix 20 mg Oral tab 1 tab once daily [Active]; aspirin 81 mg Oral chew 1 tab once ch daily [Active]; Lipitor 80 mg Oral tab 1 tab saturday, , [Active]; biotin 1,000 mcg oral chew [Active]; carvedilol 12.5 mg oral tab 1 tab 2 times per day [Active]; gabapentin 600 mg oral tab 1 tab 3 times per day [Active]; isosorbide dinitrate 40 mg Oral TbER 1 tab once daily [Active]; nifedipine 30 mg Oral TbER 1 tab once daily [Active]; Trintellix 10 mg oral tab 1 tab once daily [Active]; lisinopril 20 mg Oral tab 1 tab once daily [Active]; - PMHx: 11:30 Hypertension; sg 11:53 basal carcinoma- resolved; nose bleeds; sciatica; Hyperlipidemia; Hypothyroidism; ch Myocardial infarction; blood pressure, lipid medications unknown; Diabetes - IDDM; - PSHx: 11:30 Hernia repair; sg 11:53 diabetic retinopathy laser eye sx; cardic stents; shoulder; Cholecystectomy; heart cath;ch - Immunization history:: Adult Immunizations up to date. - Social history:: Smoking status: Patient/guardian denies using tobacco. - Ebola Screening: : Patient negative for fever greater than or equal to 101.5 degrees Fahrenheit, and additional compatible Ebola Virus Disease symptoms Patient denies exposure to infectious person Patient denies travel to an Ebola-affected area in the 21 days before illness onset No symptoms or risks identified at this time. - Family history:: not pertinent. Screenin:54 Abuse screen: Denies threats or abuse. Denies injuries from another. Nutritional ch screening: No deficits noted. Tuberculosis screening: No symptoms or risk factors identified. Fall Risk None identified. Assessment: 11:54 General: Appears in no apparent distress. uncomfortable, Behavior is cooperative, ch appropriate for age. Pain: Complains of pain in left testicle, right testicle and scrotum Pain currently is 8 out of 10 on a pain scale. Pain began gradually, 2 weeks ago. Neuro: Level of Consciousness is awake, alert, obeys commands, Oriented to person, place, time, situation, pt is slightly confused and forgetful, per pt norm daughter says. Project Scheduler are equal bilaterally Moves all extremities. Gait is steady, Speech is normal. Cardiovascular: No deficits noted. Respiratory: Airway is patent Respiratory effort is even, unlabored. GI: No signs and/or symptoms were reported involving the gastrointestinal system. Abdomen is round non-distended, Bowel sounds present X 4 quads. : Banks in place to gravity drainage pt has blood at the meatus Urine is clear, bloody, Swelling noted on scrotum pt has tenerness to scrotum, no gurgling or gas movement felt. Derm: Skin is pink, warm \T\ dry. Musculoskeletal: No signs and/or symptoms reported regarding the musculoskeletal system. 12:26 Reassessment: Patient appears in no apparent distress at this time. Patient and/or ch family updated on plan of care and expected duration. Pain level reassessed. pt medicated for pain, and has finished contrast. 13:26 Reassessment: Patient appears in no apparent distress at this time. Patient and/or ch family updated on plan of care and expected duration. Pain level reassessed. Patient is alert, oriented x 3, equal unlabored respirations, skin warm/dry/pink. Patient states feeling better. Patient states symptoms have improved. 13:36 Reassessment: Patient appears in no apparent distress at this time. Patient and/or ch family updated on plan of care and expected duration. Pain level reassessed. Patient is alert, oriented x 3, equal unlabored respirations, skin warm/dry/pink. Patient states feeling better. Patient states symptoms have improved. 16:01 Reassessment: Patient appears in no apparent distress at this time. No changes from previously documented assessment. Patient and/or family updated on plan of care and expected duration. Pain level reassessed. Patient is alert, oriented x 3, equal unlabored respirations, skin warm/dry/pink. General: Appears in no apparent distress. comfortable, Behavior is calm, cooperative, appropriate for age. 17:02 Reassessment: Patient appears in no apparent distress at this time. Patient and/or ch family updated on plan of care and expected duration. Pain level reassessed. Patient is alert, oriented x 3, equal unlabored respirations, skin warm/dry/pink. pt states he feels better, Dr. Browne is still attempting to transfer pt. Dr. Browne speaks with pt daughter about plan of care, and consults another . the issue is the pt surgeon is out of town and the physician covering for him will not accept the pt. 18:01 Reassessment: Patient appears in no apparent distress at this time. No changes from previously documented assessment. Patient and/or family updated on plan of care and expected duration. Pain level reassessed. Patient is alert, oriented x 3, equal unlabored respirations, skin warm/dry/pink. 18:45 Reassessment: Patient appears in no apparent distress at this time. Patient and/or ch family updated on plan of care and expected duration. Pain level reassessed. Patient is alert, oriented x 3, equal unlabored respirations, skin warm/dry/pink. pt c/o increase in pain, pt medicated per orders. pt bgl checked, 197. pt and family are greatful, verb understanding of transfer. report called to Yancy Guerra tower 16. 19:15 General: Appears in no apparent distress. Behavior is calm, cooperative, appropriate ea for age. Pain: Complains of pain in left lower quadrant and right lower quadrant and scrotum and groin. Neuro: Level of Consciousness is awake, alert, obeys commands, Oriented to person, place, time, situation. Cardiovascular: Patient's skin is warm and dry. Respiratory: Airway is patent Respiratory effort is even, unlabored. GI: Abdomen is round distended, Bowel sounds present X 4 quads. Derm: Skin is pink, warm \T\ dry. Derm: Skin is pink, warm \T\ dry. 19:20 Reassessment: Patient and/or family updated on plan of care and expected duration. Pain ea level reassessed. Patient is alert, oriented x 3, equal unlabored respirations, skin warm/dry/pink. EMS at facility for transfer, report given to EMS. Pt left via stretcher per EMS. Tolerating well. Patient states feeling better. Patient states symptoms have improved. Vital Signs: 11:29 BP 203 / 69; Pulse 62; Resp 17; Temp 97.7; Pulse Ox 100% on R/A; Weight 95.25 kg; sg Height 5 ft. 10 in. (177.80 cm); Pain 10/10; 11:54 BP 185 / 102; Pulse 70; Resp 16; Pulse Ox 98% on R/A; Pain 10/10; ch 13:26 BP 181 / 96; Pulse 77; Resp 14; Temp 98.4(O); Pulse Ox 99% on R/A; Pain 2/10; ch 16:01 BP 171 / 59; Pulse 61; Resp 18; Temp 98.4; Pulse Ox 99% on R/A; Pain 3/10; ch 17:02 BP 188 / 78; Pulse 64; Resp 18; Temp 98.4; Pulse Ox 99% on R/A; Pain 2/10; ch 18:01 BP 161 / 72; Pulse 58; Resp 14; Temp 98.4; Pulse Ox 99% on R/A; Pain 6/10; ch 18:45 BP 178 / 62; Pulse 57; Resp 16; Pulse Ox 97% on R/A; Pain 5/10; ch 19:00 BP 177 / 69; Pulse 60; Resp 18; Pulse Ox 100% ; ea 11:29 Body Mass Index 30.13 (95.25 kg, 177.80 cm) ED Course: 11:23 Patient arrived in ED. mr 11:28 René Browne MD is Attending Physician. chemo 11:29 Triage completed. sg 11:29 Chana Ferrera, RN is Primary Nurse. ch 11:30 Arm band placed on. sg 11:54 No apparent distress. Resting quietly. ch 11:54 Patient has correct armband on for positive identification. Bed in low position. Call light in reach. Side rails up X2. Adult w/ patient. Pulse ox on. NIBP on. Warm blanket given. Verbal reassurance given. pt brief changed, cleaned of small amount of stool. 12:17 XRAY Chest (1 view) In Process Unspecified. EDMS 12:22 Initial lab(s) drawn, by me, sent to lab. EKG done, by ED staff, reviewed by René emCarrington Browne MD. Inserted saline lock: 20 gauge in right forearm, using aseptic technique. Blood collected. 12:53 US Scrotum Testicles In Process Unspecified. EDMS 12:55 Ultrasound completed. Patient tolerated well. sg3 14:17 Abdomen In Process Unspecified. EDMS 14:18 CT completed. Patient tolerated procedure well. Patient moved back from CT. kw1 19:17 No provider procedures requiring assistance completed. Patient transferred, IV remains ea in place. Administered Medications: 12:25 Drug: morphine 4 mg Route: IVP; Site: right forearm; ch 13:28 Follow up: Response: No adverse reaction; Marked relief of symptoms ch 12:25 Drug: Zofran 4 mg Route: IVP; Site: left forearm; ch 13:28 Follow up: Response: No adverse reaction; Marked relief of symptoms ch 12:26 Drug: NS 0.9% 1000 ml Route: IV; Rate: 1 bolus; Site: right forearm; ch 13:28 Follow up: IV Status: Completed infusion; IV Intake: 1000ml ch 17:40 Drug: Aspirin 81 mg Route: PO; ch 18:01 Follow up: Response: No adverse reaction ch 18:44 Drug: morphine 2 mg Route: IVP; Site: right forearm; ch 18:47 Follow up: Response: No adverse reaction ch 18:44 Drug: Zofran 4 mg Route: IVP; Site: right forearm; ch 18:47 Follow up: Response: No adverse reaction ch 19:15 Drug: morphine 2 mg Route: IVP; Site: right forearm; ea 19:15 Follow up: Response: No adverse reaction; No adverse reaction, medication administered ea at [facility]. Point of Care Testing: Blood Glucose: 18:45 Blood Glucose: 197 mg/dL; ch Ranges: Intake: 13:28 IV: 1000ml; Total: 1000ml. Outcome: 16:03 ER care complete, transfer ordered by . chemo 19:00 Instructed on the need for transfer. ea 19:22 Transferred by ground EMS to [facility], Transfer form completed. ea 19:22 Condition: stable 19:24 Patient left the ED. ea Signatures: Dispatcher [employer] EDMS Chana Ferrera RN RN ch Gay, Steven, RN RN sg Anderson, Corey, MD MD cha Rivera, Sandra mr Jigar, Neo em1 Kayla Fuchs RN RN ea Wilhelm, Kimberly kw1 Yulia Ritchie sg3 Corrections: (The following items were deleted from the chart) 13:36 11:53 Home Meds: unknown; [facility]
--- NOTE | 2018-05-03 16:04 | EDPHYS ---
Physician Documentation [facility] Name: Fred Bloom III Age: 77 yrs Sex: Male : 1940 Arrival Date: 05/03/2018 Time: 11:23 Bed 6 Private MD: René Lopez HPI: 05/03 11:58 This 77 yrs old Male presents to ER via Ambulatory with complaints of Pain chemo from hernia surgery. 11:58 The patient presents with abdominal pain abdominal distention. Onset: The chemo symptoms/episode began/occurred 3 day(s) ago. The patient presents with a Banks catheter problem, scrotal pain, swelling, tenderness. Onset: The symptoms/episode began/occurred 3 day(s) ago. Modifying factors: The symptoms are alleviated by remaining still, the symptoms are aggravated by movement, pressure. Associated signs and symptoms: Pertinent positives: abdominal pain. The symptoms do not radiate. Severity of pain: At its worst the pain was moderate 3 day(s) ago. Historical: - Allergies: 11:30 PENICILLINS; sg - Home Meds: 11:53 Zofran (as hydrochloride) 4 mg Oral tab 2 tabs every 8 hours for prn [Active]; Tylenol ch #3 Oral [Active]; Levaquin 500 mg Oral tab 1 tab once daily [Active]; levothyroxine oral [Active]; Insulin: Novolin R Sub-Q [Active]; Insulin: Regular Sub-Q [Active]; 13:36 Levoxyl 100 mcg Oral tab 1 tab once daily [Active]; Plavix 75 mg Oral tab 1 tab once ch daily [Active]; Ranexa 1,000 mg oral Tb12 1 tab 2 times per day [Active]; 14:25 Lasix 20 mg Oral tab 1 tab once daily [Active]; aspirin 81 mg Oral chew 1 tab once ch daily [Active]; Lipitor 80 mg Oral tab 1 tab saturday, , [Active]; biotin 1,000 mcg oral chew [Active]; carvedilol 12.5 mg oral tab 1 tab 2 times per day [Active]; gabapentin 600 mg oral tab 1 tab 3 times per day [Active]; isosorbide dinitrate 40 mg Oral TbER 1 tab once daily [Active]; nifedipine 30 mg Oral TbER 1 tab once daily [Active]; Trintellix 10 mg oral tab 1 tab once daily [Active]; lisinopril 20 mg Oral tab 1 tab once daily [Active]; - PMHx: 11:30 Hypertension; sg 11:53 basal carcinoma- resolved; nose bleeds; sciatica; Hyperlipidemia; Hypothyroidism; ch Myocardial infarction; blood pressure, lipid medications unknown; Diabetes - IDDM; - PSHx: 11:30 Hernia repair; sg 11:53 diabetic retinopathy laser eye sx; cardic stents; shoulder; Cholecystectomy; heart cath;ch - Immunization history:: Adult Immunizations up to date. - Social history:: Smoking status: Patient/guardian denies using tobacco. - Ebola Screening: : Patient negative for fever greater than or equal to 101.5 degrees Fahrenheit, and additional compatible Ebola Virus Disease symptoms Patient denies exposure to infectious person Patient denies travel to an Ebola-affected area in the 21 days before illness onset No symptoms or risks identified at this time. - Family history:: not pertinent. ROS: 11:58 Constitutional: Negative for fever, chills, and weight loss, Eyes: Negative for injury, chemo pain, redness, and discharge, ENT: Negative for injury, pain, and discharge, Neck: Negative for injury, pain, and swelling, Cardiovascular: Negative for chest pain, palpitations, and edema, Respiratory: Negative for shortness of breath, cough, wheezing, and pleuritic chest pain, Back: Negative for injury and pain, : Negative for injury, bleeding, discharge, and swelling, MS/Extremity: Negative for injury and deformity, Skin: Negative for injury, rash, and discoloration, Neuro: Negative for headache, weakness, numbness, tingling, and seizure, Psych: Negative for depression, anxiety, suicide ideation, homicidal ideation, and hallucinations, Allergy/Immunology: Negative for hives, rash, and allergies, Endocrine: Negative for neck swelling, polydipsia, polyuria, polyphagia, and marked weight changes, Hematologic/Lymphatic: Negative for swollen nodes, abnormal bleeding, and unusual bruising. 11:58 Abdomen/GI: Positive for abdominal pain, abdominal distension. 11:58 : Positive for testicular pain of the head of penis, left testicle, right testicle and meatus. Exam: 11:58 Constitutional: This is a well developed, well nourished patient who is awake, alert, chemo and in no acute distress. Head/Face: Normocephalic, atraumatic. Eyes: Pupils equal round and reactive to light, extra-ocular motions intact. Lids and lashes normal. Conjunctiva and sclera are non-icteric and not injected. Cornea within normal limits. Periorbital areas with no swelling, redness, or edema. ENT: Nares patent. No nasal discharge, no septal abnormalities noted. Tympanic membranes are normal and external auditory canals are clear. Oropharynx with no redness, swelling, or masses, exudates, or evidence of obstruction, uvula midline. Mucous membranes moist. Neck: Trachea midline, no thyromegaly or masses palpated, and no cervical lymphadenopathy. Supple, full range of motion without nuchal rigidity, or vertebral point tenderness. No Meningismus. Chest/axilla: Normal chest wall appearance and motion. Nontender with no deformity. No lesions are appreciated. Cardiovascular: Regular rate and rhythm with a normal S1 and S2. No gallops, murmurs, or rubs. Normal PMI, no JVD. No pulse deficits. Respiratory: Lungs have equal breath sounds bilaterally, clear to auscultation and percussion. No rales, rhonchi or wheezes noted. No increased work of breathing, no retractions or nasal flaring. Back: No spinal tenderness. No costovertebral tenderness. Full range of motion. Skin: Warm, dry with normal turgor. Normal color with no rashes, no lesions, and no evidence of cellulitis. MS/ Extremity: Pulses equal, no cyanosis. Neurovascular intact. Full, normal range of motion. Neuro: Awake and alert, GCS 15, oriented to person, place, time, and situation. Cranial nerves II-XII grossly intact. Motor strength 5/5 in all extremities. Sensory grossly intact. Cerebellar exam normal. Normal gait. Psych: Awake, alert, with orientation to person, place and time. Behavior, mood, and affect are within normal limits. 11:58 Abdomen/GI: Inspection: distension, Bowel sounds: hyperactive, Palpation: moderate abdominal tenderness, in the right lower quadrant and left lower quadrant, Liver: no appreciated palpable abnormalities, Hernia: not appreciated. Vital Signs: 11:29 BP 203 / 69; Pulse 62; Resp 17; Temp 97.7; Pulse Ox 100% on R/A; Weight 95.25 kg; sg Height 5 ft. 10 in. (177.80 cm); Pain 10/10; 11:54 BP 185 / 102; Pulse 70; Resp 16; Pulse Ox 98% on R/A; Pain 10/10; ch 13:26 BP 181 / 96; Pulse 77; Resp 14; Temp 98.4(O); Pulse Ox 99% on R/A; Pain 2/10; ch 16:01 BP 171 / 59; Pulse 61; Resp 18; Temp 98.4; Pulse Ox 99% on R/A; Pain 3/10; ch 17:02 BP 188 / 78; Pulse 64; Resp 18; Temp 98.4; Pulse Ox 99% on R/A; Pain 2/10; ch 18:01 BP 161 / 72; Pulse 58; Resp 14; Temp 98.4; Pulse Ox 99% on R/A; Pain 6/10; ch 18:45 BP 178 / 62; Pulse 57; Resp 16; Pulse Ox 97% on R/A; Pain 5/10; ch 19:00 BP 177 / 69; Pulse 60; Resp 18; Pulse Ox 100% ; ea 11:29 Body Mass Index 30.13 (95.25 kg, 177.80 cm) sg MDM: 11:28 Patient medically screened. [facility] 12:00 Data reviewed: vital signs, nurses notes, lab test result(s), EKG, radiologic studies, [facility] CT scan, plain films. 05/03 11:57 Order name: Basic Metabolic Panel; Complete Time: 13:27 [facility] 05/03 11:57 Order name: CBC with Diff; Complete Time: 13:27 [facility] 05/03 11:57 Order name: LFT's; Complete Time: 13:27 [facility] 05/03 11:57 Order name: Magnesium; Complete Time: 13:27 [facility] 05/03 11:57 Order name: NT PRO-BNP; Complete Time: 13:27 [facility] 05/03 11:57 Order name: PT-INR; Complete Time: 13:27 [facility] 05/03 11:57 Order name: Troponin (emerg Dept Use Only); Complete Time: 13:27 [facility] 05/03 11:57 Order name: XRAY Chest (1 view); Complete Time: 13:27 [facility] 05/03 11:57 Order name: Lipase; Complete Time: 13:27 [facility] 05/03 11:57 Order name: US Scrotum Testicles; Complete Time: 15:03 [facility] 05/03 14:16 Order name: Abdomen ; Complete Time: 15:03 EDPR 05/03 18:44 Order name: Glucose, Ancillary Testing [facility] 05/03 11:57 Order name: EKG; Complete Time: 11:57 [facility] 05/03 11:57 Order name: Cardiac monitoring; Complete Time: 12:27 [facility] 05/03 11:57 Order name: EKG - Nurse/Tech; Complete Time: 12:22 [facility] 05/03 11:57 Order name: IV Saline Lock; Complete Time: 12:22 [facility] 05/03 11:57 Order name: Labs collected and sent; Complete Time: 12:22 [facility] 05/03 11:57 Order name: O2 Per Protocol; Complete Time: 12:27 [facility] 05/03 11:57 Order name: O2 Sat Monitoring; Complete Time: 12:27 [facility] Administered Medications: 12:25 Drug: morphine 4 mg Route: IVP; Site: right forearm; ch 13:28 Follow up: Response: No adverse reaction; Marked relief of symptoms ch 12:25 Drug: Zofran 4 mg Route: IVP; Site: left forearm; ch 13:28 Follow up: Response: No adverse reaction; Marked relief of symptoms ch 12:26 Drug: NS 0.9% 1000 ml Route: IV; Rate: 1 bolus; Site: right forearm; ch 13:28 Follow up: IV Status: Completed infusion; IV Intake: 1000ml ch 17:40 Drug: Aspirin 81 mg Route: PO; ch 18:01 Follow up: Response: No adverse reaction ch 18:44 Drug: morphine 2 mg Route: IVP; Site: right forearm; ch 18:47 Follow up: Response: No adverse reaction ch 18:44 Drug: Zofran 4 mg Route: IVP; Site: right forearm; ch 18:47 Follow up: Response: No adverse reaction ch 19:15 Drug: morphine 2 mg Route: IVP; Site: right forearm; ea 19:15 Follow up: Response: No adverse reaction; No adverse reaction, medication administered ea at [facility]. Point of Care Testing: Blood Glucose: 18:45 Blood Glucose: 197 mg/dL; ch Ranges: Critical Glucose Levels:Adult <50 mg/dl or >400 mg/dl <40 mg/dl or >180 mg/dl Disposition: 05/03/18 16:[address] [facility]. Diagnosis is Abdominal tenderness - sp herrniorraphy with large right scrotal hematoma. - Reason for transfer: Higher level of care. - Accepting physician is to [facility]. - Condition is Fair. - Problem is new. - Symptoms have improved. Signatures: Dispatcher [employer] [facility] Chana Ferrera, RN Good Paz ch, RN RN sg Anderson, Corey, MD MD cha Antunez, Elena, RN RN ea Corrections: (The following items were deleted from the chart) 13:36 11:53 Home Meds: unknown; [facility] 14:16 11:58 Abdomen Pelvis W Con+CT.RAD.BRZ ordered. [facility] 17:30 16:03 05/03/2018 16:03 Transfer ordered to Other Acute Care Facility. Diagnosis is chemo Abdominal tenderness - sp herrniorraphy with large right scrotal hematoma. Reason for transfer: Higher level of care. Accepting physician is to [facility]. Condition is Fair. Problem is new. Symptoms have improved. [facility] 19:24 17:30 05/03/2018 16:[address] [facility]. Diagnosis is ea Abdominal tenderness - sp herrniorraphy with large right scrotal hematoma. Reason for transfer: Higher level of care. Accepting physician is to [facility]. Condition is Fair. Problem is new. Symptoms have improved. chemo
[2018-05-03] MEDS ORDERED: ASPIRIN 81 MG CHEWABLE TABLET ONE (17:50)
--- NOTE | 2018-05-03 18:31 | EKG ---
Test Date: 2018-05-03 Test Time: 12:03:42 [employer]oline Service Attendant: ANGELINA MEASUREMENT RESULTS: Intervals: Rate: 60 OK: 174 QRSD: 82 QT: 440 QTc: 440 [place]: P: 46 OK: 174 QRS: 10 T: 56 INTERPRETIVE STATEMENTS: Normal sinus rhythm Cannot rule out Inferior infarct, age undetermined Abnormal ECG No previous ECG available for comparison Electronically Signed On 05-03-18 18:30:38 AUXILIARY EQUIPMENT OPERATOR by Amado Dennison
[2018-05-03] MEDS ORDERED: MORPHINE 2 MG/ML SYR ONE ×2 (18:48→19:20)
== END 2018-05-03 19:24 | disposition short-term general hospital (02) ==
LOC: ER 11:19
DX: R10.9 Unspecified abdominal pain (principal); S30.22XA Contusion of scrotum and testes, initial encounter; Z98.890 Other specified postprocedural states; I10 Essential (primary) hypertension; Z85.828 Personal history of other malignant neoplasm of skin; E78.5 Hyperlipidemia, unspecified; E03.9 Hypothyroidism, unspecified; I25.2 Old myocardial infarction; Z79.4 Long term (current) use of insulin; Z79.82 Long term (current) use of aspirin; Z88.0 Allergy status to penicillin
CPT/HCPCS: 36415; 71045; 74176; 76870; 80048; 80076; 82962; 83690; 83735; 83880; 84484; 85025; 85610; 93005; 99285; J2270 ×2; J2405 ×2; J7030

== ENCOUNTER 2022-02-26 14:12 | Emergency (ER) | payer OTHER ==
--- OUTSIDE RECORDS SUMMARY | 2022-02-26 14:21 | XMS REPORT | Continuity of Care Document ---
:1940 Author Organization [facility] t Address [address] [place] [address] Care Team Providers Name Role Phone Ramonita Ray Primary Care Physician ARTURO HERNANDEZ Attending Clinician Unavailable Arturo Hernandez MD Attending Clinician Doctor Unassigned, [place] Attending Clinician Unavailable Only, Adc Test Attending Clinician Unavailable Pob, Adc Lab Main Attending Clinician Unavailable IHDE_G Attending Clinician Unavailable ALYCIA SCOTT Attending Clinician Unavailable Prabhu Luu Attending Clinician Monalisa Healy Attending Clinician ARTURO HERNANDEZ Admitting Clinician Unavailable Arturo Hrenandez MD Admitting Clinician IHDE_G Admitting Clinician Unavailable ALYCIA SCOTT Admitting Clinician Unavailable Prabhu Luu Admitting Clinician Monalisa Healy Admitting Clinician Payers Payer Name Policy Type Policy Number Effective Date Expiration Date [facility] [id number] 2020 [facility] [place] 00:00:00 PPO [employer] (MEDICARE [id number] REPLACEMENT/ADVANTA GE - PPO) Problems Condition Condition Condition Status Onset Resolution Last Treating Co mments Source Name Details Category Date Date Treatment Clinician Date Hematoma Hematoma Disease [facility] HYPERTENSI Diagnosis Active 2016-032017-01-25 Memoria VE HYPERTENSI -12 21:59:00 l EMERGENCY VE 00:00: [place] EMERG[facility] 00 Active 01/20/2017 [facility] Coronary Coronary Problem Active 2016-032017-10-02 Memoria arterioscl arterioscl 1 04:00:43 l erosis erosis 00:00: [place] (disorder) (disorder) 00 Active 01/09/2017 Problem 10/02/2017 2 stents placed , pt was feeling "discomfor t " in his chest, went to ER and some test were done that led to a heart cath where 2 stents were placed,
2 stents 2aced [facility] Hypertensi Hypertens Problem Active 2017-10-02 Memoria ve william 03-11 04:00:43 l disorder, disorder, 00:00: Herm edward systemic systemic 00 arterial arterial (disorder) (disorder) Active 03/11/1979 Problem 10/02/2017 [facility] Diabetes Diabetes Problem Active 2017-10-02 Memoria mellitus mellitus 1- 04:00:43 l (disorder) (disorder) 00:00: He r[place] Active 03/11/1978 Problem 10/02/2017 fbs- 80-200, HgbA1c done 09-10-17 was 7.0, takes 2 different insulins bid [facility] Hyperlipid Problem Resolve 2017-01-25 Memoria emia Hyperlipid d 03:41:16 l (disorder) emia [place] n (disorder) Resolved Problem 01/25/2017 [facility] Peripheral Periphera Problem Resolve 2017-01-25 Memoria nerve l nerve d 03:41:16 l disease disease [place] (disorder) (disorder) Resolved Problem 01/25/2017 [facility] Malignant Malignant Problem Resolve 2017-10-02 Memoria neoplasm neoplasm d 04:00:43 l of skin of skin Arnie (disorder) (disorder) Resolved Problem 10/02/2017 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 [facility] Anxiety Anxiety Problem Active 2017-10-02 Me moria (finding) (finding) 04:00:43 l Active [place] Problem 10/02/2017 [facility] Depressive Problem Active 2017-10-02 M emoria disorder Depressive 04:00:43 l (disorder) disorder Herm edward (disorder) Active Problem 10/02/2017 [facility] Hearing Hearing Problem Active 2017-10-02 Me moria loss loss 04:00:43 l (finding) (finding) Herm edward Active Problem 10/02/2017 [facility] Hyperchole Hyperchol Problem Active 2017-10-02 Memoria sterolemia esterolemi 04:00:43 l (disorder) a [place] n (disorder) Active Problem 10/02/2017 [facility] Hypothyroi Problem Active 2017-10-02 M emoria dism Hypothyroi 04:00:43 l (disorder) dism [place] n (disorder) Active Problem 10/02/2017 [facility] Inguinal Inguinal Problem Active 2017-10-02 Memoria hernia hernia 04:00:43 l (disorder) (disorder) [place] r[place] Active Problem 10/02/2017 [facility] Neuropathy Neuropath Problem Active 2017-10-02 Memoria (disorder) y 04:00:43 l (disorder) [place] n Active Problem 10/02/2017 related to diabetes [facility] Pain Pain Problem Active 2017-10-02 Memor ia (finding) (finding) 04:00:43 l Active Arnie Problem 10/02/2017 right groin, ingunial hernia [facility] Umbilical Umbilical Problem Active 2017-10-02 Memoria hernia hernia 04:00:43 l (disorder) (disorder) [place] rmann Active Problem 10/02/2017 [facility] HYPERTENSI HYPERTENS Diagnosis Active 2017-01-25 Memoria VE URGENCY WILLIAM 21:59:00 l URGENCY [place] Active [facility] Chest Chest Problem Resolve 2016-032017-10-02 2017-10-02 Memoria discomfort discomfort d 03-11 04:00:43 04:00:43 l (finding) (finding) 00:00: Herm edward Resolved 00 01/09/2017 Problem 10/02/2017 pt describes the feeling that he had in his chest as discomfort , states that he has never felt chest pain, pt has nitroglyce rine prescribed to take as needed, he states that he has only taken it once and that was when he felt the discomfort in his chest and was taken to the ER [facility] Myocardial Myocardia Problem Resolve 2016-032017-10-02 2017-10-02 Memoria infarction l d 03-11 04:00:43 04:00:43 l (disorder) infarction 00:00: [place] rmann (disorder) 00 Resolved 01/09/2017 Problem 10/02/2017 pt stated that he was told that he had a mild heart attack when he went to the ER with "chest discomfort ", heart cath was done and 2 stents placed [facility] History of Past Illness Condition Condition Condition Status Onset Resolution Last Treating Co mments Source Name Details Category Date Date Treatment Clinician Date Unilateral Unilatera Problem 2017-10-02 2017-10-02 Memoria inguinal l inguinal 09-30 04:00:43 04:00:43 l hernia, hernia, 05:00: [place] without without 00 obstructio obstructio n or n or gangrene, gangrene, not not specified specified as as recurrent recurrent 09/30/2017 10/02/2017 [facility] Allergies, Adverse Reactions, Alerts Allergy Allergy Status Severity Reaction(s) Onset Inactive Treating Comm ents Source Name Type Date Date Clinician PENICILL Drug Active Rash Univers INS Class 3-16 ity of 00:00: [place] 00 Medical Branch Penicill Propensi Active Rash Univer s ins ty to 3-16 ity of adverse 00:00: [place] reaction 00 Medical s Branch Penicill Propensi Active Rash Univer s ins ty to 3-16 ity of adverse 00:00: [place] reaction 00 Medical s Branch Penicill Propensi Active Hives, Rash [facility] adverse [facility] Medical reaction 00 Center s NO KNOWN Drug Active Univers ALLERGIE Class ity of S [place] [facility] penicill penicill Active Memori a in<sup>1 in<sup>1 l , , Arnie 2</sup> 2</sup> penicill 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 (event) Branch History SDOH 2018-05-04 2018-05-[address] [facility] Alcohol Frequency 00:00:00 00:00:00 [facility] Tobacco use and 2018-05-03 2018-05-[address] [facility] [facility] exposure 00:00:00 00:00:00 [facility] Alcohol intake 2018-05-03 2018-05-[address] [facility] 00:00:00 00:00:00 non-drinker of Medical Ce nter alcohol (finding) Social History 2017-01-21 2017-01-21 [facility] 09:44:26 09:44:26 Sex Assigned At [address] [facility] 00:00:00 00:00:00 [facility] Smoking Status Start Date Stop Date Source Unknown if ever smoked [facility] Social History [facility] Medications Ordered Filled Start Stop Current Ordering Indication Dosage Frequency Signature Comments Components Source Medication Medication Date Date Medication? Clinician (SIG) Name Name lactated Yes 1000mL at 75 Univer s ringers IV 9-14 mL/hr, ity of infusion 14:30: 1,000 [place], [place] 1[place]000 [place] 00 IV Medical Infusion, Branch CONTINUOUS , Starting on Sat11/22/21 at 0930, Until Discontinu ed, Routine, PACU lactated 2021- No 1000mL at 75 Unive rs ringers IV 9-14 09-14 mL/hr, ity of infusion 14:30: 17:08 1,000 mL, Alan as 1,000 mL 00 :01 IV Medical Infusion, Branch CONTINUOUS , Starting on Sat11/22/21 at 0930, Until Sat11/22/21 at 1208, Routine, PACU HYDROmorphO Yes .2mg 0.2 mg, Uni vers ne 11-22 Slow IV ity of (DILAUDID) 14:24: Push, [place] injection 04 Q5MIN PRN, Medi luci 0.2 mg 10 doses, Branch Starting on Sat11/22/21 at 0924, Until Discontinu ed, Routine, Pain (scale 7-10), PACU
Us e approved by (Faculty): PACU USE -ANESTHESI A SERVICE-HY DROMORPHON E INJECTIONS FENTanyl PF 0 Yes 25ug 25 mcg, Uni vers (SUBLIMAZE 11-22 Slow IV ity of (PF)) 14:24: Push, [place] injection 04 Q5MIN PRN, Medi luci 25 mcg 4 doses, Branch Starting on Sat11/22/21 at 0924, Until Discontinu ed, Routine, Pain (scale 4-6), PACU ondansetron Yes 4mg 4 mg, Slow Univers (ZOFRAN 11-22 IV Push, ity of (PF)) 14:24: PRN, 1 [place] injection 4 04 dose, Medical mg Starting Branch on Sat11/22/21 at 0924, Until Discontinu ed, Routine, Nausea and Vomiting (N/V), PACU HYDROmorphO 2021- No .2mg 0.2 mg, Un pat ne 11-22 Slow IV ity of (DILAUDID) 14:24: 17:08 Push, [place] injection 04 :01 Q5MIN PRN, Medi luci 0.2 mg 10 doses, Branch Starting on Sat11/22/21 at 0924, Until Sat11/22/21 at 1208, Routine, Pain (scale 7-10), PACU
Us e approved by (Faculty): PACU USE -ANESTHESI A SERVICE-HY DROMORPHON E INJECTIONS FENTanyl PF 2021-0 2021- No 25ug 25 mcg, Un pat (SUBLIMAZE 11-22 Slow IV ity o f (PF)) 14:24: 17:08 Push, [place] injection 04 :01 Q5MIN PRN, Medi luci 25 mcg 4 doses, Branch Starting on Sat11/22/21 at 0924, Until Sat11/22/21 at 1208, Routine, Pain (scale 4-6), PACU ondansetron 2021- No 4mg 4 mg, Slow Univers (ZOFRAN 11-22 IV Push, ity of (PF)) 14:24: 17:08 PRN, 1 [place] injection 4 04 :01 dose, Medical mg Starting Branch on Sat11/22/21 at 0924, Until Sat11/22/21 at 1208, Routine, Nausea and Vomiting (N/V), PACU neomycin-po 2021- No PRN, Unive rs lymyxin-dex 11-22 Starting ity of amethasone 14:19: 14:37 on Sat [place] (MAXITROL) 00 :36 11/22/21 at Med ical 3.5 0919, Branch mg/g-10,000 Until Sat unit/g-0.1 11/22/21 at % 0937, ophthalmic Routine, ointment Intra-op sodium 2021- No PRN, Univers chloride 11-22 Starting ity of (NS) 14:17: 14:37 on Sat [place] injection 00 :36 11/22/21 at Medi luci 0917, Branch Until Sat11/22/21 at 0937, Routine, Intra-op dexamethaso 2021- No PRN, Unive rs ne 11-22 Starting ity of (DECADRON 14:17: 14:37 on Sat [place] PHOSPHATE) 00 :36 11/22/21 at Med ical injection 17, Branch Until Sat11/22/21 at 0937, Routine, Intra-op ceFAZolin 2021- No PRN, Univers (ANCEF) 11-22 Starting ity of injection 14:17: 14:37 on Sat [place] 00 :36 11/22/21 at Medical 0917, Branch Until Sat11/22/21 at 0937, DORIAN, Intra-op carbachoL 2021- No PRN, Univers (MIOSTAT) 11-22 Starting ity o f 0.01 % 14:14: 14:37 on Sat [place] intraocular 00 :36 11/22/21 at Dc dical injection 14, Branch Until Sat11/22/21 at 0937, Routine, Intra-op EPINEPHrine 2021- No PRN, Unive rs 1:1,000 (1 11-22 Starting ity of mg/mL) 14:04: 14:37 on Sat (ADRENALIN) 00 :36 11/22/21 at Dc dical injection 0904, Branch Until Sat11/22/21 at 0937, Routine, Intra-op chondroitin 2021- No PRN, Unive rs sulf-sod 11-22 Starting ity of hyaluronate 14:04: 14:37 on Sat Alan as (DUOVISC 00 :36 11/22/21 at Medic al VISCO 0904, Branch ELASTIC) Until Sat intraocular 11/22/21 at injection 0937, Routine, Intra-op balanced 2021- No PRN, Univers salt irrig 11-22 Starting ity of soln comb1 14:04: 14:37 on Sat [place] (BSS PLUS) 00 :36 11/22/21 at Med ical ophthalmic 0904, Branch solution Until Sat 500 mL bag 11/22/21 at 0937, Routine, Intra-op water for 2021- No PRN, Univers irrigation 11-22 Starting ity of irrigation 14:00: 14:37 on Sat [place] solution 00 :36 11/22/21 at Medic al 0900, Branch Until Sat11/22/21 at 0937, Routine, Intra-op Hyaluronida 2021- No PRN, Unive rs se, Human 11-22 Starting ity o f Recomb. 13:56: 14:37 on Sat [place] (HYLENEX) 00 :36 11/22/21 at [facility] injection 0856, Branch Until Sat11/22/21 at 0937, Routine, Intra-op eye block 2021- No PRN, Univers syringe 11 11-22 Starting ity of mL 13:56: 14:37 on Sat [place] 00 :36 11/22/21 at Medical 0856, Branch Until Sat11/22/21 at 0937, Intra-op cyclopent 2021- No .5mL 0.5 mL, Univ ers 1%-tropic 11-22 Left Eye, ity of 1%-phenyl 13:00: 13:09 ONCE, 1 [place] 2.5%-ketor 00 :00 dose, On Medic al 0.5% [facility] Branch (MYDRIATIC 11/22/21 at #5) 0800, ophthalmic Routine, solution DSU Pre-op syringe 0.5 mL lactated 2021- No 1000mL at 42 Unive rs ringers IV 11-22 09-14 mL/hr, ity of infusion 13:00: 13:09 1,000 mL, [place] as 1,000 mL 00 :00 IV Medical Infusion, Branch ONCE, 1 dose, On Sat11/22/21 at 0800, Routine, DSU Pre-op cyclopent 2021- No .5mL 0.5 mL, Univ ers 1%-tropic 11-22 Left Eye, ity of 1%-phenyl 13:00: 13:09 ONCE, 1 [place] 2.5%-ketor 00 :00 dose, On Medic al 0.5% Sat Branch (MYDRIATIC 11/22/21 at #5) 0800, ophthalmic Routine, solution DSU Pre-op syringe 0.5 mL lactated 2021- No 1000mL at 42 Unive rs ringers IV 11-22 09-14 mL/hr, ity of infusion 13:00: 13:09 1,000 mL, [place] as 1,000 mL 00 :00 IV Medical Infusion, Branch ONCE, 1 dose, On Sat11/22/21 at 0800, Routine, DSU Pre-op clopidogreL 0 Yes 75mg Take 75 mg Univers 75 mg 9-14 by mouth ity of tablet 10:07: daily. [address] aspirin 81 0 Yes 81mg Take 81 mg U nivers mg chewable -14 by mouth ity of tablet 10:07: daily. [address] insulin NPH Yes 48U inject 48 U nivers human 9-14 Units ity of isophane 10:07: under the [place] (HUMULIN N 58 skin 2 Medical PEN SC) (two) Branch times daily. insulin Yes Inject as Unive rs regular, -14 directed. ity of human 10:07: Sliding [place] (HUMULIN R 58 scale Medical REGULAR Branch U-100 INSULN INJECTION) furosemide Yes 20mg Take 20 mg U nivers 20 mg 9-14 by mouth ity of tablet 10:07: daily. [address] atorvastati Yes 80mg Take 80 mg Univers n 80 mg 9-14 by mouth ity of tablet 10:07: every [place] [address] Saturday, Medical Saturday and Branch Saturday in the evening. Takes sun, e, thur carvediloL 0 Yes 12.5mg Take 12.5 Univers 12.5 mg 9-14 mg by ity of tablet 10:07: mouth 2 [place] [address] (two) Medical times Branch daily with meals. gabapentin 0 Yes Take by Univ ers ER 600 mg 9-14 mouth 2 ity of tablet, 10:07: (two) [place] extended times Medical release 24 daily. Branch hr tamsulosin 0 Yes 1{capsu Take 1 Un pat 0.4 mg 24 9-14 le} capsule by ity of hr capsule 10:07: mouth in [place] [address] the Medical morning. Branch lisinopriL 0 Yes 10mg Take 10 mg U nivers 10 mg 9-14 by mouth ity of tablet 10:07: daily. [place] [address] Medical Branch vortioxetin 0 Yes 1{tbl} Take 1 Un pat e 9-14 tablet by ity of (TRINTELLIX 10:07: mouth [place] ) 10 mg Tab 58 daily. Medica l Branch isosorbide 0 Yes 60mg Take 60 mg U nivers mononitrate 9-14 by mouth. ity of 60 mg 24 hr 10:07: [place] tablet 58 Medical Branch NIFEdipine 2021-0 Yes 15mg Take 15 mg U nivers ER 30 mg 9-14 by mouth ity of tablet 10:07: in the [place] [address] morning. Medical Branch ranolazine 0 Yes 500mg Take 500 Un pat 500 mg 12 9-14 mg by ity of hr tablet 10:07: mouth 2 [place] [address] (two) Medical times Branch daily. levothyroxi 0 Yes 100ug Take 100 U nivers ne 100 mcg 9-14 mcg by ity of tablet 10:07: mouth. [place] [address] Medical Branch Saw 2021-0 Yes 2{capsu Take 2 Univers [place] 9-14 le} capsules ity of Fruit 450 10:07: by mouth 2 [place] mg Cap (two) Medical times Branch daily. Cholecalcif 0 Yes 1{capsu Take 1 U nivers [place], 9-14 le} capsule by ity of Vitamin D3, 10:07: mouth in [place] 50 mcg 58 the Medical (2,000 morning Branch unit) and 1 capsule capsule in the evening. niacin 500 Yes 1000mg Take 1,000 Univers mg tablet 9-14 mg by ity of 10:07: mouth in [place] [address] the Medical morning Branch and 1,000 mg in the evening. Take with meals. multivitami Yes 1{capsu Take 1 U nivers n capsule 9-14 le} capsule by ity of 10:07: mouth in [place] [address] the Medical morning. Branch BIOTIN, Yes 1000ug 1,000 mcg Uni vers BULK, MISC 9-14 daily. ity of 10:07: [address] Branch vit C/vit E Yes 1{tbl} Take 1 Un pat ac/selenium 9-14 tablet by ity of /ginkgo 10:07: mouth [place] (MEMORY 58 daily. Medical COMPLEX Prevagen Branch ORAL) clopidogreL Yes 75mg Take 75 mg Univers 75 mg 9-14 by mouth ity of tablet 10:07: daily. [address] Branch aspirin 81 Yes 81mg Take 81 mg U nivers mg chewable 9-14 by mouth ity of tablet 10:07: daily. [address] Branch insulin NPH Yes 48U inject 48 U nivers human 9-14 Units ity of isophane 10:07: under the [facility] s (HUMULIN N 58 skin 2 Medical PEN SC) (two) Branch times daily. insulin Yes Inject as Unive rs regular, 9-14 directed. ity of human 10:07: Sliding [place] (HUMULIN R 58 scale Medical REGULAR Branch U-100 INSULN INJECTION) furosemide Yes 20mg Take 20 mg U nivers 20 mg 9-14 by mouth ity of tablet 10:07: daily. [address] Branch atorvastati Yes 80mg Take 80 mg Univers n 80 mg 9-14 by mouth ity of tablet 10:07: every [place] [address] Saturday, Medical Saturday and Branch Saturday in the evening. Takes sun, tue, thur carvediloL Yes 12.5mg Take 12.5 Univers 12.5 mg 9-14 mg by ity of tablet 10:07: mouth 2 [place] [address] (two) Medical times Branch daily with meals. gabapentin 2021-0 Yes Take by Univ ers ER 600 mg 9-14 mouth 2 ity of tablet, 10:07: (two) [place] extended 58 times Medical release 24 daily. Branch hr tamsulosin 2021-0 Yes 1{capsu Take 1 Un pat 0.4 mg 24 9-14 le} capsule by ity of hr capsule 10:07: mouth in [place] 58 the Medical morning. Branch lisinopriL 0 Yes 10mg Take 10 mg U nivers 10 mg 9-14 by mouth ity of tablet 10:07: daily. [place] [address] Medical Branch vortioxetin 0 Yes 1{tbl} Take 1 Un pat e 9-14 tablet by ity of (TRINTELLIX 10:07: mouth [place] ) 10 mg Tab 58 daily. Medica l Branch isosorbide 0 Yes 60mg Take 60 mg U nivers mononitrate 9-14 by mouth. ity of 60 mg 24 hr 10:07: [place] tablet 58 Medical Branch NIFEdipine 2021-0 Yes 15mg Take 15 mg U nivers ER 30 mg 9-14 by mouth ity of tablet 10:07: in the [place] [address] morning. Medical Branch ranolazine 0 Yes 500mg Take 500 Un pat 500 mg 12 9-14 mg by ity of hr tablet 10:07: mouth 2 [place] [address] (two) Medical times Branch daily. levothyroxi 0 Yes 100ug Take 100 U nivers ne 100 mcg 9-14 mcg by ity of tablet 10:07: mouth. [place] [address] Medical Branch Saw 2021-0 Yes 2{capsu Take 2 Univers [place] 9-14 le} capsules ity of Fruit 450 10:07: by mouth 2 [place] mg Cap 58 (two) Medical times Branch daily. Cholecalcif 2021-0 Yes 1{capsu Take 1 U nivers [place], 9-14 le} capsule by ity of Vitamin D3, 10:07: mouth in [place] 50 mcg 58 the Medical (2,000 morning Branch unit) and 1 capsule capsule in the evening. niacin 500 2021-0 Yes 1000mg Take 1,000 Univers mg tablet 9-14 mg by ity of 10:07: mouth in [place] [address] the Medical morning Branch and 1,000 mg in the evening. Take with meals. multivitami Yes 1{capsu Take 1 U nivers n capsule 914 le} capsule by ity of 10:07: mouth in [place] [address] the Medical morning. Branch BIOTIN, Yes 1000ug 1,000 mcg Uni vers BULK, MISC 9-14 daily. ity of 10:07: [place] [address] Medical Branch vit C/vit E Yes 1{tbl} Take 1 Un pat ac/selenium 9-14 tablet by ity of /ginkgo 10:07: mouth [place] (MEMORY 58 daily. Medical COMPLEX Prevagen Branch ORAL) clopidogreL Yes 75mg Take 75 mg Univers 75 mg 9-14 by mouth ity of tablet 10:07: daily. [address] Branch aspirin 81 Yes 81mg Take 81 mg U nivers mg chewable 914 by mouth ity of tablet 10:07: daily. [place] [address] Medical Branch insulin NPH Yes 48U inject 48 U nivers human 9-14 Units ity of isophane 10:07: [place] the [place] (HUMULIN N 58 skin 2 Medical PEN SC) (two) Branch times daily. insulin Yes Inject as Unive rs regular, 9-14 directed. ity of human 10:07: Sliding [place] (HUMULIN R 58 scale Medical REGULAR Branch U-100 INSULN INJECTION) furosemide Yes 20mg Take 20 mg U nivers 20 mg 9-14 by mouth ity of tablet 10:07: daily. [address] Branch atorvastati Yes 80mg Take 80 mg Univers n 80 mg 9-14 by mouth ity of tablet 10:07: every [place] [address] Saturday, Medical Saturday and Branch Saturday in the evening. Takes sun, tue, thur carvediloL Yes 12.5mg Take 12.5 Univers 12.5 mg 9-14 mg by ity of tablet 10:07: mouth 2 [place] [address] (two) Medical times Branch daily with meals. gabapentin Yes Take by Univ ers ER 600 mg 9-14 mouth 2 ity of tablet, 10:07: (two) [place] extended times Medical release 24 daily. Branch hr tamsulosin Yes 1{capsu Take 1 Un pat 0.4 mg 24 9-14 le} capsule by ity of hr capsule 10:07: mouth in [facility] 58 the Medical morning. Branch lisinopriL Yes 10mg Take 10 mg U nivers 10 mg 9-14 by mouth ity of tablet 10:07: daily. [place] [address] Medical Branch vortioxetin 0 Yes 1{tbl} Take 1 Un pat e 9-14 tablet by ity of (TRINTELLIX 10:07: mouth [place] ) 10 mg Tab 58 daily. Medica l Branch isosorbide Yes 60mg Take 60 mg U nivers mononitrate 9-14 by mouth. ity of 60 mg 24 hr 10:07: [place] tablet 58 Medical Branch NIFEdipine 0 Yes 15mg Take 15 mg U nivers ER 30 mg 9-14 by mouth ity of tablet 10:07: in the [place] [address] morning. Medical Branch ranolazine 0 Yes 500mg Take 500 Un pat 500 mg 12 9-14 mg by ity of hr tablet 10:07: mouth 2 [place] [address] (two) Medical times Branch daily. levothyroxi Yes 100ug Take 100 U nivers ne 100 mcg 9-14 mcg by ity of tablet 10:07: mouth. [place] [address] Medical Branch Saw 0 Yes 2{capsu Take 2 Univers [place] 9-14 le} capsules ity of Fruit 450 10:07: by mouth 2 [place] mg Cap (two) Medical times Branch daily. Cholecalcif Yes 1{capsu Take 1 U nivers [place], 9-14 le} capsule by ity of Vitamin D3, 10:07: mouth in [place] 50 mcg 58 the Medical (2,000 morning Branch unit) and 1 capsule capsule in the evening. niacin 500 0 Yes 1000mg Take 1,000 Univers mg tablet 9-14 mg by ity of 10:07: mouth in [place] [address] the Medical morning Branch and 1,000 mg in the evening. Take with meals. multivitami Yes 1{capsu Take 1 U nivers n capsule 9-14 le} capsule by ity of 10:07: mouth in [place] [address] the Medical morning. Branch BIOTIN, Yes 1000ug 1,000 mcg Uni vers BULK, MISC 9-14 daily. ity of 10:07: [address] vit C/vit E Yes 1{tbl} Take 1 Un pat ac/selenium 9-14 tablet by ity of /ginkgo 10:07: mouth [place] (MEMORY 58 daily. Medical COMPLEX Prevagen Branch ORAL) niacin 500 Yes 1000mg Take 1,000 Univers mg tablet 9-08 mg by ity of 16:59: mouth in [place] 20 the Medical morning Branch and 1,000 mg in the evening. Take with meals. multivitami Yes 1{capsu Take 1 U nivers n capsule 08 le} capsule by ity of 16:59: mouth in [place] [address] the Medical morning. Branch BIOTIN, Yes 1000ug 1,000 mcg Uni vers BULK, MISC 9-08 daily. ity of 16:59: [address] vit C/vit E Yes 1{tbl} Take 1 Un pat ac/selenium 9-08 tablet by ity of /ginkgo 16:59: mouth [place] (MEMORY 20 daily. Medical COMPLEX Prevagen Branch ORAL) clopidogreL Yes 75mg Take 75 mg Univers 75 mg 08 by mouth ity of tablet 16:45: daily. [address] aspirin 81 Yes 81mg Take 81 mg U nivers mg chewable 08 by mouth ity of tablet 16:45: daily. [address] insulin NPH Yes 48U inject 48 U nivers human 08 Units ity of isophane 16:45: [place] (HUMULIN N 34 skin 2 Medical PEN SC) (two) Branch times daily. insulin Yes Inject as Unive rs regular, 08 directed. ity of human 16:45: Sliding [place] (HUMULIN R 34 scale Medical REGULAR Branch U-100 INSULN INJECTION) furosemide Yes 20mg Take 20 mg U nivers 20 mg 08 by mouth ity of tablet 16:45: daily. [address] atorvastati Yes 80mg Take 80 mg Univers n 80 mg 9-08 by mouth ity of tablet 16:45: every [place] [address] Saturday, Medical Saturday and Branch Saturday in the evening. Takes sun, e, thur carvediloL 0 Yes 12.5mg Take 12.5 Univers 12.5 mg 9-08 mg by ity of tablet 16:45: mouth 2 [place] [address] (two) Medical times [place] daily with meals. gabapentin 0 Yes Take by Univ ers ER 600 mg 9-08 mouth 2 ity of tablet, 16:45: (two) [place] extended times Medical release 24 daily. Branch hr tamsulosin 0 Yes 1{capsu Take 1 Un pat 0.4 mg 24 9-08 le} capsule by ity of hr capsule 16:45: mouth in [place] [address] the Medical morning. Branch lisinopriL 0 Yes 10mg Take 10 mg U nivers 10 mg 9-08 by mouth ity of tablet 16:45: daily. [address] Branch vortioxetin 0 Yes 1{tbl} Take 1 Un pat e 9-08 tablet by ity of (TRINTELLIX 16:45: mouth [place] ) 10 mg Tab 34 daily. Medica l Branch isosorbide 0 Yes 60mg Take 60 mg U nivers mononitrate 9-08 by mouth. ity of 60 mg 24 hr 16:45: [place] [address] Medical Branch NIFEdipine 2021-0 Yes 15mg Take 15 mg U nivers ER 30 mg 9-08 by mouth ity of tablet 16:45: in the [place] [address] morning. Medical Branch ranolazine 0 Yes 500mg Take 500 Un pat 500 mg 12 9-08 mg by ity of hr tablet 16:45: mouth 2 [place] [address] (two) Medical times Branch daily. levothyroxi 0 Yes 100ug Take 100 U nivers ne 100 mcg 9-08 mcg by ity of tablet 16:45: mouth. [place] [address] Medical Branch Saw 2021-0 Yes 2{capsu Take 2 [facility] [place] 9-08 le} capsules ity of Fruit 450 16:45: by mouth 2 [place] mg [facility] (two) Medical times [place] daily. Cholecalcif 0 Yes 1{capsu Take 1 U nivers marion, 9-08 le} capsule by ity of Vitamin D3, 16:45: mouth [place] 50 mcg 34 the Medical (2,000 morning Branch unit) and 1 capsule capsule in the evening. VASCEPA 1 Yes 2{capsu Take 2 Uni vers gram 8-15 le} capsules ity of capsule 00:00: [place] 2 [place] (two) Medical times Branch daily. VASCEPA 1 Yes 2{capsu Take 2 Uni vers gram 8-15 le} capsules ity of capsule 00:00: by mouth 2 [place] (two) Medical times Branch daily. VASCEPA 1 Yes 2{capsu Take 2 Uni vers gram 8-15 le} capsules ity of capsule 00:00: by mouth 2 [place] (two) Medical times Branch daily. VASCEPA 1 Yes 2{capsu Take 2 Uni vers gram 8-15 le} capsules ity of capsule 00:00: by mouth 2 [place] (two) Medical times Branch daily. ACCU-CHEK Yes 1{strip 1 Strip as [facility] [place] PLUS 8-11 } needed. ity of TEST STRP 00:00: [place] strip 00 Medical Branch ACCU-CHEK Yes 1{strip 1 Strip as [facility] [place] PLUS 8-11 } needed. ity of TEST STRP 00:00: [place] strip 00 Medical Branch ACCU-CHEK Yes 1{strip 1 Strip as [facility] HUDS[place] PLUS 8-11 } needed. ity of TEST STRP 00:00: [place] strip 00 Medical Branch ACCU-CHEK Yes 1{strip 1 Strip as [facility] HUDS[place] PLUS 8-11 } needed. ity of TEST STRP 00:00: [place] strip 00 Medical Branch Saw Yes Take by [facility] [place] 3-17 mouth. ity of Fruit 450 15:03: [place] mg Cap 36 Medical Branch Cholecalcif Yes Take by Uni vers marion, 3-17 mouth. ity of Vitamin D3, 15:03: [place] (VITAMIN 36 Medical D3) 50 mcg Branch (2,000 unit) capsule niacin 500 Yes 500mg Take 500 Un pat mg tablet 3-17 mg by ity of 15:03: mouth [place] 36 daily with Medical breakfast. Branch clopidogreL Yes 75mg Take 75 mg Univers (PLAVIX) 75 3-17 by mouth ity of mg tablet 15:03: daily. [place] [address] Medical Branch aspirin 81 Yes 81mg Take 81 mg U nivers mg chewable 3-17 by mouth ity of tablet 15:03: daily. [place] [address] Medical Branch insulin NPH Yes 46U inject 46 U nivers human 3-17 Units ity of isophane 15:03: under the [facility] s (HUMULIN N 36 skin 2 Medical PEN SC) (two) Branch times daily. insulin Yes Inject as Unive rs regular, 3-17 directed. ity of human 15:03: Sliding [place] (HUMULIN R 36 scale Medical REGULAR Branch U-100 INSULN INJECTION) furosemide Yes 20mg Take 20 mg U nivers (LASIX) 20 3-17 by mouth ity o f mg tablet 15:03: daily. [place] [address] Medical Branch atorvastati Yes 80mg Take 80 mg Univers n 80 mg 3-17 by mouth ity of tablet 15:03: at [place] [address] bedtime. Medical Branch carvediloL Yes 12.5mg Take 12.5 Univers 12.5 mg 3-17 mg by ity of tablet 15:03: mouth 2 [place] [address] (two) Medical times Branch daily with meals. gabapentin Yes Take by [facility] ers ER 600 mg 3-17 mouth 2 ity of tablet, 15:03: (two) [place] extended times Medical release 24 daily. Branch hr tamsulosin Yes Take by Univ ers HCl 3-17 mouth. ity of (TAMSULOSIN 15:03: [place] ORAL) Medical Branch lisinopriL Yes 10mg Take 10 mg U nivers 10 mg 3-17 by mouth ity of tablet 15:03: daily. [place] [address] Medical Branch vortioxetin Yes Take by Uni vers e 3-17 mouth. ity of (TRINTELLIX 15:03: [place] ) 10 mg Tab Medical Branch isosorbide Yes 60mg Take 60 mg U nivers mononitrate 3-17 by mouth. ity of 60 mg 24 hr 15:03: [place] tablet Medical Branch NIFEdipine Yes 15mg Take 15 mg U nivers 20 mg 3-17 by mouth 3 ity of capsule 15:03: (three) [place] [address] times Medical daily. Branch ranolazine Yes 500mg Take 500 Un pat (RANEXA) 3-17 mg by ity of 500 mg 12 15:03: mouth 2 [place] hr tablet 36 (two) Medical times Branch daily. levothyroxi Yes 100ug Take 100 U nivers ne 3-17 mcg by ity of (LEVOXYL) 15:03: mouth. [place] 100 mcg Medical tablet Branch Saw Yes Take by [facility] [place] 3-17 mouth. ity of Fruit 450 15:03: [facility] Cap Medical Branch Cholecalcif Yes Take by Uni vers marion, 3-17 mouth. ity of Vitamin D3, 15:03: [place] (VITAMIN Medical D3) 50 mcg [place] (2,000 unit) capsule niacin 500 Yes 500mg Take 500 Un pat mg tablet 3-17 mg by ity of 15:03: mouth [place] [address] daily with Medical breakfast. Branch clopidogreL Yes 75mg Take 75 mg Univers (PLAVIX) 75 3-17 by mouth ity of mg tablet 15:03: daily. [place] [address] Medical Branch aspirin 81 Yes 81mg Take 81 mg U nivers mg chewable 3-17 by mouth ity of tablet 15:03: daily. [address] Branch insulin NPH Yes 46U inject 46 U nivers human 3-17 Units ity of isophane 15:03: [place] the [place] (HUMULIN N 36 skin 2 Medical PEN SC) (two) Branch times daily. insulin Yes Inject as Unive rs regular, 3-17 directed. ity of human 15:03: Sliding [place] (HUMULIN R 36 scale Medical REGULAR Branch U-100 INSULN INJECTION) furosemide Yes 20mg Take 20 mg U nivers (LASIX) 20 3-17 by mouth ity o f mg tablet 15:03: daily. [place] [address] Medical Branch atorvastati Yes 80mg Take 80 mg Univers n 80 mg 3-17 by mouth ity of tablet 15:03: at [place] [address] bedtime. Medical Branch carvediloL Yes 12.5mg Take 12.5 Univers 12.5 mg 3-17 mg by ity of tablet 15:03: mouth 2 [place] 36 (two) Medical times [place] daily with meals. gabapentin Yes Take by [facility] ers ER 600 mg 3-17 mouth 2 ity of tablet, 15:03: (two) [place] extended 36 times Medical release 24 daily. [place] hr tamsulosin Yes Take by [facility] ers HCl 3-17 mouth. ity of (TAMSULOSIN 15:03: [place] ORAL) 36 Medical Branch lisinopriL Yes 10mg Take 10 mg U nivers 10 mg 3-17 by mouth ity of tablet 15:03: daily. [address] Branch vortioxetin Yes Take by [facility] vers e 3-17 mouth. ity of (TRINTELLIX 15:03: [place] ) 10 mg Tab 36 [facility] isosorbide Yes 60mg Take 60 mg U nivers mononitrate 3-17 by mouth. ity of 60 mg 24 hr 15:03: [place] tablet 36 [facility] Branch NIFEdipine Yes 15mg Take 15 mg U nivers 20 mg 3-17 by mouth 3 ity of capsule 15:03: (three) [place] 36 times Medical daily. Branch ranolazine Yes 500mg Take 500 Un pat (RANEXA) 3-17 mg by ity of 500 mg 12 15:03: mouth 2 [place] hr tablet 36 (two) Medical times [place] daily. levothyroxi Yes 100ug Take 100 U nivers ne 3-17 mcg by ity of (LEVOXYL) 15:03: mouth. [place] 100 mcg Medical tablet [place] water for Yes PRN, Univers irrigation 3-17 Starting ity o f irrigation 14:02: Wed [place] solution 00 05/25/20 at Medic al 0902, [place] Until Discontinu ed, Routine, Intra-op sodium Yes PRN, Univers chloride 3-17 Starting ity of (NS) 14:02: Wed [place] injection 00 05/25/20 at Medi luci 0902, [place] Until Discontinu ed, Routine, Intra-op neomycin-po Yes PRN, Univer s lymyxin-dex 3-17 Starting ity of amethasone 14:02: Sat (MAXITROL) 00 05/25/20 at [facility] ical 3.5 0902, Branch mg/g-10,000 Until unit/g-0.1 Discontinu % ed, ophthalmic Routine, ointment Intra-op Hyaluronida Yes PRN, Univer s se, Human 05-25 Starting ity of Recomb. 14:01: Sat (HYLENEX) 00 05/25/20 at [facility] luci injection 09, Branch Until Discontinu ed, Routine, Intra-op gentamicin Yes PRN, Univers injection 05-25 Starting ity of 14:01: Sat05/25/20 at [facility] 0901, Branch Until Discontinu ed, DORIAN, Intra-op eye block Yes PRN, Univers syringe 11 05-25 Starting ity o f mL 14:01: Sat05/25/20 at [facility] 0901, Branch Until Discontinu ed, Intra-op EPINEPHrine Yes PRN, Univer s 1:1,000 (1 05-25 Starting ity o f mg/mL) 14:00: Sat (ADRENALIN) 05/25/20 at [facility] dical injection 0900, Branch Until Discontinu ed, Routine, Intra-op DUOVISC Yes PRN, Univers (DUOVISC 05-25 Starting ity of VISCO 14:00: Sat ELASTIC) 3 05/25/20 at [facility] ical %-4 %(0.5 0900, Branch mL) 1 % Until (0.55 mL) Discontinu intraocular ed, injection Routine, Intra-op dexamethaso Yes PRN, Univer s ne 05-25 Starting ity of (DECADRON 14:00: Sat PHOSPHATE) 00 05/25/20 at [facility] ical injection 0900, Branch Until Discontinu ed, Routine, Intra-op ceFAZolin Yes PRN, Univers (ANCEF) 05-25 Starting ity of injection 13:59: Sat05/25/20 at [facility] 0859, Branch Until Discontinu ed, DORIAN, Intra-op carbachoL Yes PRN, Univers (MIOSTAT) 05-25 Starting ity of 0.01 % 13:59: Wed [place] intraocular 00 05/25/20 at [facility] dical injection 0859, [place] Until Discontinu ed, Routine, Intra-op balanced Yes PRN, Univers salt irrig -17 Starting ity o f soln comb1 13:59: Wed [place] (BSS PLUS) 00 05/25/20 at [facility] ical ophthalmic 0859, [place] solution Until 500 mL bag Discontinu ed, Routine, Intra-op mydriatic 2020- No .5mL 0.5 mL, Univ ers #5 [id number] Right Eye, ity of ophthalmic 12:45: 12:52 ONCE, 1 Alan as solution 00 :00 dose, Sat Medica l 0.5 mL 05/25/20 at [place] syringe 0745, Routine clopidogreL Yes 75mg Take 75 mg Univers (PLAVIX) 75 3-17 by mouth ity of mg tablet 10:03: daily. [address] aspirin 81 Yes 81mg Take 81 mg U nivers mg chewable 17 by mouth ity of tablet 10:03: daily. [address] insulin NPH Yes 46U inject 46 U nivers human 3-17 Units ity of isophane 10:03: [place] (HUMULIN N 36 skin 2 Medical PEN SC) (two) Branch times daily. insulin Yes Inject as Unive rs regular, 3-17 directed. ity of human 10:03: Sliding [place] (HUMULIN R 36 scale Medical REGULAR Branch U-100 INSULN INJECTION) furosemide Yes 20mg Take 20 mg U nivers (LASIX) 20 -17 by mouth ity o f mg tablet 10:03: daily. [address] Branch atorvastati Yes 80mg Take 80 mg Univers n 80 mg -17 by mouth ity of tablet 10:03: at [place] [address] bedtime. [facility] Branch carvediloL Yes 12.5mg Take 12.5 Univers 12.5 mg 3-17 mg by ity of tablet 10:03: mouth 2 [place] [address] (two) Medical times [place] daily with meals. gabapentin Yes Take by Univ ers ER 600 mg 3-17 mouth 2 ity of tablet, 10:03: (two) [place] extended 36 times Medical release 24 daily. Branch hr tamsulosin Yes Take by [facility] ers HCl 3-17 mouth. ity of (TAMSULOSIN 10:03: [place] ORAL) Medical Branch lisinopriL Yes 10mg Take 10 mg U nivers 10 mg 3-17 by mouth ity of tablet 10:03: daily. [place] [address] Medical Branch vortioxetin Yes Take by Uni vers e 3-17 mouth. ity of (TRINTELLIX 10:03: [place] ) 10 mg Tab Medical Branch isosorbide Yes 60mg Take 60 mg U nivers mononitrate 3-17 by mouth. ity of 60 mg 24 hr 10:03: [place] tablet Medical Branch NIFEdipine Yes 15mg Take 15 mg U nivers 20 mg 3-17 by mouth 3 ity of capsule 10:03: (three) [place] 36 times Medical daily. Branch ranolazine Yes 500mg Take 500 Un pat (RANEXA) 3-17 mg by ity of 500 mg 12 10:03: mouth 2 [place] hr tablet 36 (two) Medical times Branch daily. levothyroxi Yes 100ug Take 100 U nivers ne 3-17 mcg by ity of (LEVOXYL) 10:03: mouth. [place] 100 mcg Medical tablet Branch Saw Yes Take by [facility] 3-17 mouth. ity of Fruit 450 10:03: [place] mg Cap Medical Branch Cholecalcif Yes Take by Uni vers marion, 3-17 mouth. ity of Vitamin D3, 10:03: [place] (VITAMIN [address] [place] [address] D3) 50 mcg [place] (2,000 unit) capsule niacin 500 Yes 500mg Take 500 Un pat mg tablet 3-17 mg by ity of 10:03: mouth [place] [address] daily with Medical breakfast. Branch clopidogreL Yes 75mg Take 75 mg Univers (PLAVIX) 75 3-17 by mouth ity of mg tablet 10:03: daily. [address] Branch aspirin 81 Yes 81mg Take 81 mg U nivers mg chewable 3-17 by mouth ity of tablet 10:03: daily. [address] Branch insulin NPH Yes 46U inject 46 U nivers human 3-17 Units ity of isophane 10:03: [place] the [place] (HUMULIN N 36 skin 2 Medical PEN SC) (two) Branch times daily. insulin Yes Inject as Unive rs regular, 3-17 directed. ity of human 10:03: Sliding [place] (HUMULIN R 36 scale Medical REGULAR Branch U-100 INSULN INJECTION) furosemide Yes 20mg Take 20 mg U nivers (LASIX) 20 3-17 by mouth ity o f mg tablet 10:03: daily. [place] [address] Medical Branch atorvastati Yes 80mg Take 80 mg Univers n 80 mg 3-17 by mouth ity of tablet 10:03: at [place] [address] bedtime. Medical Branch carvediloL Yes 12.5mg Take 12.5 Univers 12.5 mg 3-17 mg by ity of tablet 10:03: mouth 2 [place] [address] (two) Medical times Branch daily with meals. gabapentin Yes Take by [facility] ers ER 600 mg 3-17 mouth 2 ity of tablet, 10:03: (two) [place] extended times Medical release 24 daily. Branch hr tamsulosin Yes Take by [facility] ers HCl 3-17 mouth. ity of (TAMSULOSIN 10:03: [place] ORAL) Medical Branch lisinopriL Yes 10mg Take 10 mg U nivers 10 mg 3-17 by mouth ity of tablet 10:03: daily. [place] [address] Medical Branch vortioxetin Yes Take by Un pat e 3-17 mouth. ity of (TRINTELLIX 10:03: [place] ) 10 mg Tab Medical Branch isosorbide Yes 60mg Take 60 mg U nivers mononitrate 3-17 by mouth. ity of 60 mg 24 hr 10:03: [place] tablet Medical Branch NIFEdipine Yes 15mg Take 15 mg U nivers 20 mg 3-17 by mouth 3 ity of capsule 10:03: (three) [place] 36 times Medical daily. Branch ranolazine Yes 500mg Take 500 Un pat (RANEXA) 3-17 mg by ity of 500 mg 12 10:03: mouth 2 [place] hr tablet 36 (two) Medical times Branch daily. levothyroxi 2021-0 Yes 100ug Take 100 U nivers ne 3-17 mcg by ity of (LEVOXYL) 10:03: mouth. [place] 100 mcg 36 Medical tablet Branch Saw Yes Take by [facility] [place] 3-17 mouth. ity of Fruit 450 10:03: [place] mg Cap 36 Medical Branch Cholecalcif Yes Take by Uni vers marion, 3-17 mouth. ity of Vitamin D3, 10:03: [place] (VITAMIN 36 Medical D3) 50 mcg Branch (2,000 unit) capsule niacin 500 Yes 500mg Take 500 Un pat mg tablet 3-17 mg by ity of 10:03: mouth [place] 36 daily with Medical breakfast. Branch tamsulosin Yes .4mg QD Take [facility]FL[facility] mg Cap 00:00: (0.4 mg Medi luci 24 hr 00 total) by Center capsule mouth daily For your prostate. levothyroxi Yes hypothyroid 100ug Take [address] [facility] [address] ne 2-26 ism mcg by [facility] (SYNTHROID, 16:33: mouth Medic al LEVOTHROID) 31 Every Center 100 MCG morning on tablet an empty stomach. clopidogrel Yes 75mg QD Take [address] (PLAVIX) 75 2-26 by mouth Luke s mg tablet 16:33: daily. Medica l 31 Center ranolazine Yes 500mg Q.5D Take [address] (RANEXA) 2-26 mg by [facility] 500 MG 12 16:33: mouth 2 Medic al hr tablet 31 (two) Center times daily. saw Yes 900mg Q.5D Take [address] palmetto 2-26 mg by [facility] 500 MG 16:33: mouth 2 Medical capsule 31 (two) Center times daily. cholecalcif Yes 2000U Q.5D Take 2,[address] marion, 2-26 Units by [facility] vitamin D3, 16:33: mouth 2 Med ical 2,000 unit 31 (two) Center Cap times daily. aspirin 81 Yes 81mg QD Take [address] MG chewable 2-26 by mouth Luke s tablet 16:33: daily. Medical 31 Center atorvastati Yes 80mg [id number] Take [address] [facility] n (LIPITOR) 2-26 [id number] by mouth 3 [facility] 80 MG 16:33: 3W (three) Medical tablet 31 times a Center week. carvedilol 2019-0 Yes 12.5mg Take 12.[address] (COREG) 2-26 mg by [facility] 12.5 MG 16:33: mouth 2 Medical tablet 31 (two) Center times daily with breakfast and dinner. gabapentin 2019-0 Yes 600mg Q.5D Take [address] (NEURONTIN) 2-26 mg by [facility] 600 MG 16:33: mouth 2 Medical tablet 31 (two) Center times daily. isosorbide 2019-0 Yes 60mg QD Take [address] mononitrate 2-26 by mouth Luke s (IMDUR) 60 16:33: daily. Medic al MG 24 hr 31 Center tablet multivitami 2018-0 Yes 1{capsu QD Take [address] n capsule 2-26 le} capsule by Luke s 16:33: mouth Medical 31 daily. [place] niacin 500 2018-0 Yes 500mg Take [address] MG tablet 2-26 mg by [facility] 16:33: mouth 2 Medical 31 (two) Center times daily with breakfast and dinner. NIFEdipine 2018-0 Yes 30mg QD Take [address] (ADALAT CC) 2-26 by mouth Luke s 30 MG 24 hr 16:33: daily. Medi luci tablet 31 Center vortioxetin 2018-0 Yes QD Take by [facility] e 10 mg Tab 2-26 mouth [facility] 16:33: daily. [facility] 31 Center insulin NPH 2018-0 Yes type 1 84U Inject [address] (HUMULIN N) 2-26 diabetes Units Wilian es 100 unit/mL 16:33: mellitus subcutaneo Medical injection 31 usly 2 Center (two) times daily before meals Use as directed . insulin 2018-0 Yes type [address] [facility] [facility] regular 2-26 diabetes subcutaneo Berta kes (HUMULIN R 16:33: mellitus usly 3 M edical REGULAR 31 (three) Center U-100 times INSULN) 100 daily with unit/mL meals Use injection as directed . ondansetron 0 Yes 4mg Take [address] (ZOFRAN) 4 2-26 by mouth [facility] MG tablet 16:33: every 6 Medic al 31 (six) Center hours as needed for Nausea. acetaminoph Yes pain 1{tbl} Take [address] en-codeine 2-26 tablet by Nicholas salomon (TYLENOL 00:00: mouth Medical #3) 300-30 00 every 6 Center mg per (six) tablet hours as needed for Pain. Max Daily Amount: 4 tablets Novolin N Novolin N No Novolin N [place] NPH U-100 NPH U-100 1-10 NPH U-100 da Insulin Insulin 00:00: Insulin Medi luci isophane isophane 00 isophane Cedric up 100 unit/mL 100 unit/mL 100 subcutaneou subcutaneou unit/mL s susp 84 s susp 84 subcutaneo units units us susp 84 units [facility] No 900 mL, Memoria Medication 7- Soln-IV, l 21:28: IV, Once, first dose 09/30/17 16:28:00 CDT, stop date 09/30/17 16:28:00 CDT Misc No 900 mL, Memoria Medication 09-30 Soln-IV, l 21:28: IV, Once, first dose 09/30/17 16:28:00 CDT, stop date 09/30/17 16:28:00 CDT fentaNYL 2017-0 No 50 mcg = 1 Mem oria 7-23 mL, l 21:18: Injection, IV, Once, first dose 09/30/17 16:18:00 CDT, stop date 09/30/17 16:18:00 CDT fentaNYL No 50 mcg = 1 Mem oria 7-23 mL, l 21:18: Injection, Arnie 00 IV, Once, first dose 09/30/17 16:18:00 CDT, stop date 09/30/17 16:18:00 CDT sugammadex 0 No 180 mg = Mem oria 7-23 1.8 mL, l 21:06: Injection, Arnie 00 IV, Once, first dose 09/30/17 16:06:00 CDT, stop date 09/30/17 16:06:00 CDT sugammadex No 180 mg = Mem oria 7-23 1.8 mL, l 21:06: Injection, [place] 00 IV, Once, first dose 09/30/17 16:06:00 CDT, stop date 09/30/17 16:06:00 CDT ketorolac 2018-0 No 15 mg = Memor ia 7-23 0.5 mL, l 21:01: Injection, Arnie 00 IV, Once, first dose 09/30/17 16:01:00 CDT, stop date 09/30/17 16:01:00 CDT ketorolac 2018-0 No 15 mg = Memor ia 7-23 0.5 mL, l 21:01: Injection, Arnie 00 IV, Once, first dose 09/30/17 16:01:00 CDT, stop date 09/30/17 16:01:00 CDT phenylephri 2018-0 No 0.1 mg = Me moria ne + 7-23 0.01 mL, l sterile 20:24: Injection, Herm edward water 1 mL 00 IV, Once, first dose 09/30/17 15:24:00 CDT, stop date 09/30/17 15:24:00 CDT phenylephri 2018-0 No 0.1 mg = Me moria ne + 7-23 0.01 mL, l sterile 20:24: Injection, Herm edward water 1 mL 00 IV, Once, first dose 09/30/17 15:24:00 CDT, stop date 09/30/17 15:24:00 CDT phenylephri 2018-0 No 0.1 mg = Me moria ne + 7-23 0.01 mL, l sterile 20:19: Injection, Herm [place] water 1 mL 00 IV, Once, first dose 09/30/17 15:19:00 CDT, stop date 09/30/17 15:19:00 CDT phenylephri 2018-0 No 0.1 mg = Me moria ne + 7-23 0.01 mL, l sterile 20:19: Injection, Herm edward water 1 mL 00 IV, Once, first dose 09/30/17 15:19:00 CDT, stop date 09/30/17 15:19:00 CDT ePHEDrine 2018-0 No 10 mg = Memor ia 7-23 0.2 mL, l 20:18: Injection, [place] 00 IV, Once, first dose 09/30/17 15:18:00 CDT, stop date 09/30/17 15:18:00 CDT ePHEDrine 2018-0 No 10 mg = Memor ia 7-23 0.2 mL, l 20:18: Injection, IV, Once, first dose 09/30/17 15:18:00 CDT, stop date 09/30/17 15:18:00 CDT Misc 2018-0 No 1,000 mL, Memoria Medication 09-30 Soln-IV, l 20:17: IV, Once, first dose 09/30/17 15:17:00 CDT, stop date 09/30/17 15:17:00 CDT Diphenhydra 2018-0 No 25 mg = Mem oria mine 7- 0.5 mL, l 20:17: Injection, IV Push, Once PRN for itching, first dose 09/30/17 15:17:00 CDT Labetalol 2018-0 No 5 mg = 1 Sean carly 7-23 mL, l 20:17: Injection, IV Push, As Indicated PRN for hypertensi on, first dose 09/30/17 15:17:00 CDT Hydralazine 2017-0 No 10 mg = Mem oria 7- 0.5 mL, l 20:17: Injection, IV Push, As Indicated PRN for hypertensi on, first dose 09/30/17 15:17:00 CDT Promethazin 2018-0 No 12.5 mg = M emoria e 7-23 0.5 mL, l 20:17: Injection, IM, Once PRN for vomiting, first dose 09/30/17 15:17:00 CDT Ondansetron 2017-0 No 4 mg = 2 Me moria 7-23 mL, l 20:17: Injection, IV Push, q15min PRN for nausea, order duration: 2 doses, first dose 09/30/17 15:17:00 CDT, stop date Limited # of times Levalbutero 2018-0 No 0.63 mg = M emoria l 0.21 7-23 3 mL, l MG/ML 20:17: Soln, NEB, [place] n Inhalant 00 Once PRN Solution for [Xopenex] wheezing, first dose 09/30/17 15:17:00 CDT Demerol HCl 2017-0 No 12.5 mg = M emoria 7-23 0.5 mL, l 20:17: Injection, IV Push, Once PRN for shivers, first dose 09/30/17 15:17:00 CDT Dilaudid 2017-0 No 0.5 mg = Memor ia 7-23 0.5 mL, l 20:17: Injection, IV Push, q10min PRN for pain severe (7-10), first dose 09/30/17 15:17:00 CDT Saline Lock 0 No 10 mL, Sean carly Flush - Soln, IV l 20:17: Push, As Indicated PRN for flush, first dose 09/30/17 15:17:00 CDT LR 1,000 mL 0 No 1,000 mL, M emoria - IV, 75 l 20:17: mL/hr, start date 09/30/17 15:17:00 CDT Misc 0 No 1,000 mL, Memoria Medication 09-30 Soln-IV, l 20:17: IV, Once, first dose 09/30/17 15:17:00 CDT, stop date 09/30/17 15:17:00 CDT Diphenhydra 2017-0 No 25 mg = Mem oria mine 7-23 0.5 mL, l 20:17: Injection, IV Push, Once PRN for itching, first dose 09/30/17 15:17:00 CDT Labetalol 0 No 5 mg = 1 Sean carly 7-23 mL, l 20:17: Injection, IV Push, As Indicated PRN for hypertensi on, first dose 09/30/17 15:17:00 CDT Hydralazine 2017-0 No 10 mg = Mem oria 7-23 0.5 mL, l 20:17: Injection, IV Push, As Indicated PRN for hypertensi on, first dose 09/30/17 15:17:00 CDT Promethazin 0 No 12.5 mg = M emoria e 7-23 0.5 mL, l 20:17: Injection, Arnie 00 IM, Once PRN for vomiting, first dose 09/30/17 15:17:00 CDT Ondansetron 2017-0 No 4 mg = 2 Me moria 7-23 mL, l 20:17: Injection, IV Push, q15min PRN for nausea, order duration: 2 doses, first dose 09/30/17 15:17:00 CDT, stop date Limited # of times Levalbutero 2017-0 No 0.63 mg = M emoria l 0.21 09-30 3 mL, l MG/ML 20:17: Soln, NEB, [place] n Inhalant 00 Once PRN Solution for [Xopenex] wheezing, first dose 09/30/17 15:17:00 CDT Demerol HCl 0 No 12.5 mg = M emoria 7-23 0.5 mL, l 20:17: Injection, IV Push, Once PRN for shivers, first dose 09/30/17 15:17:00 CDT Dilaudid 2017-0 No 0.5 mg = Memor ia 09-30 0.5 mL, l 20:17: Injection, IV Push, q10min PRN for pain severe (7-10), first dose 09/30/17 15:17:00 CDT Saline Lock 2017-0 No 10 mL, Sean carly Flush 09-30 Soln, IV l 20:17: Push, As Indicated PRN for flush, first dose 09/30/17 15:17:00 CDT LR 1,000 mL 0 No 1,000 mL, M emoria 09-30 IV, 75 l 20:17: mL/hr, start date 09/30/17 15:17:00 CDT ondansetron 2017-0 No 4 mg = 2 Me moria 7-23 mL, l 20:15: Injection, IV, Once, first dose 09/30/17 15:15:00 CDT, stop date 09/30/17 15:15:00 CDT clindamycin 2017-0 No 900 mg, Mem oria 09-30 Soln-IV, l 20:15: IV, Once, Arnie 00 first dose 09/30/17 15:15:00 CDT, stop date 09/30/17 15:15:00 CDT ondansetron 2018-0 No 4 mg = 2 Me moria 7-23 mL, l 20:15: Injection, IV, Once, first dose 09/30/17 15:15:00 CDT, stop date 09/30/17 15:15:00 CDT clindamycin 2018-0 No 900 mg, Mem oria 7-23 Soln-IV, l 20:15: IV, Once, first dose 09/30/17 15:15:00 CDT, stop date 09/30/17 15:15:00 CDT glycopyrrol 2018-0 No 0.2 mg = 1 Memoria ate 7-23 mL, l 20:14: Injection, IV, Once, first dose 09/30/17 15:14:00 CDT, stop date 09/30/17 15:14:00 CDT ePHEDrine 2018-0 No 10 mg = Memor ia 7-23 0.2 mL, l 20:14: Injection, IV, Once, first dose 09/30/17 15:14:00 CDT, stop date 09/30/17 15:14:00 CDT glycopyrrol 2018-0 No 0.2 mg = 1 Memoria ate 7-23 mL, l 20:14: Injection, IV, Once, first dose 09/30/17 15:14:00 CDT, stop date 09/30/17 15:14:00 CDT ePHEDrine 2018-0 No 10 mg = Memor ia 7-23 0.2 mL, l 20:14: Injection, IV, Once, first dose 09/30/17 15:14:00 CDT, stop date 09/30/17 15:14:00 CDT dexamethaso 2018-0 No 8 mg = 2 Me moria ne 7-23 mL, l 20:08: Injection, IV, Once, first dose 09/30/17 15:08:00 CDT, stop date 09/30/17 15:08:00 CDT ePHEDrine 2018-0 No 10 mg = Memor ia 7-23 0.2 mL, l 20:08: Injection, IV, Once, first dose 09/30/17 15:08:00 CDT, stop date 09/30/17 15:08:00 CDT dexamethaso 2018-0 No 8 mg = 2 Me moria ne 7-23 mL, l 20:08: Injection, [place] 00 IV, Once, first dose 09/30/17 15:08:00 CDT, stop date 09/30/17 15:08:00 CDT ePHEDrine 2018-0 No 10 mg = Memor ia 7-23 0.2 mL, l 20:08: Injection, Arnie 00 IV, Once, first dose 09/30/17 15:08:00 CDT, stop date 09/30/17 15:08:00 CDT rocuronium 2018-0 No 45 mg = Sean carly 7-23 4.5 mL, l 20:04: Injection, Arnie 00 IV, Once, first dose 09/30/17 15:04:00 CDT, stop date 09/30/17 15:04:00 CDT rocuronium 2018-0 No 45 mg = Sean carly 7-23 4.5 mL, l 20:04: Injection, Arnie 00 IV, Once, first dose 09/30/17 15:04:00 CDT, stop date 09/30/17 15:04:00 CDT propofol 2018-0 No 100 mg = Memor ia 7-23 10 mL, l 19:59: Emulsion, [place] 00 IV, Once, first dose 09/30/17 14:59:00 CDT, stop date 09/30/17 14:59:00 CDT lidocaine 2018-0 No 3 mL, Memoria 7-23 Injection, l 19:59: IV, Once, first dose 09/30/17 14:59:00 CDT, stop date 09/30/17 14:59:00 CDT fentaNYL 2018-0 No 150 mcg = Sean carly 7-23 3 mL, l 19:59: Injection, Arnie 00 IV, Once, first dose 09/30/17 14:59:00 CDT, stop date 09/30/17 14:59:00 CDT succinylcho 2018-0 No 120 mg = 6 Memoria line 7-23 mL, l 19:59: Injection, Arnie 00 IV, Once, first dose 09/30/17 14:59:00 CDT, stop date 09/30/17 14:59:00 CDT rocuronium 2018-0 No 5 mg = 0.5 M emoria 7-23 mL, l 19:59: Injection, [place] 00 IV, Once, first dose 09/30/17 14:59:00 CDT, stop date 09/30/17 14:59:00 CDT propofol 2018-0 No 100 mg = Memor ia 7-23 10 mL, l 19:59: Emulsion, Arnie 00 IV, Once, first dose 09/30/17 14:59:00 CDT, stop date 09/30/17 14:59:00 CDT lidocaine 2018-0 No 3 mL, Memoria 7-23 Injection, l 19:59: IV, Once, Arnie 00 first dose 09/30/17 14:59:00 CDT, stop date 09/30/17 14:59:00 CDT fentaNYL 2018-0 No 150 mcg = Sean carly 7-23 3 mL, l 19:59: Injection, [place] 00 IV, Once, first dose 09/30/17 14:59:00 CDT, stop date 09/30/17 14:59:00 CDT succinylcho 2018-0 No 120 mg = 6 Memoria line 7-23 mL, l 19:59: Injection, [place] 00 IV, Once, first dose 09/30/17 14:59:00 CDT, stop date 09/30/17 14:59:00 CDT rocuronium 2018-0 No 5 mg = 0.5 M emoria 7-23 mL, l 19:59: Injection, [place] 00 IV, Once, first dose 09/30/17 14:59:00 CDT, stop date 09/30/17 14:59:00 CDT fentaNYL 2018-0 No 50 mcg = 1 Mem oria 7-23 mL, l 19:48: Injection, [place] 00 IV, Once, first dose 09/30/17 14:48:00 CDT, stop date 09/30/17 14:48:00 CDT fentaNYL 2018-0 No 50 mcg = 1 Mem oria 7-23 mL, l 19:48: Injection, [place] 00 IV, Once, first dose 09/30/17 14:48:00 CDT, stop date 09/30/17 14:48:00 CDT LR 1,000 mL 2018-0 No 1,000 mL, M emoria 7-23 IV, 30 l 18:05: mL/hr, Arnie 00 start date 09/30/17 13:05:00 CDT Lidocaine 2018-0 No 0.2 mL, Memor ia 2% 0.2 mL 09-30 Injection, l IV Start 18:05: [facility] , Once PRN for other (see comment), first dose 09/30/17 13:05:00 CDT LR 1,000 mL 2018-0 No 1,000 mL, M emoria 7-23 IV, 30 l 18:05: mL/hr, start date 09/30/17 13:05:00 CDT Lidocaine 2017-0 No 0.2 mL, Memor ia 2% 0.2 mL 09-30 Injection, l IV Start 18:05[facility] , Once PRN for other (see comment), first dose 09/30/17 13:05:00 CDT Lisinopril 2018-0 Yes 40 mg, Memor ia 7-10 Oral, l 14:42: Daily, pt [place] 00 inst not to take am of sx, 0 Refill(s), htn NIFEdipine 2017- Yes 60 mg = 1 Me moria 60 mg oral 7-10 tabs, l tablet, 14:42: Oral, Arnie extended 00 qNoon, pt release inst to take if he is scheduled for an afternoon sx, 0 Refill(s), htn Lisinopril 2018-0 Yes 40 mg, Memor ia 7-10 Oral, l 14:42: Daily, pt [place] 00 inst not to take am of sx, 0 Refill(s), htn NIFEdipine 2018-0 Yes 60 mg = 1 Me moria 60 mg oral 7-10 tabs, l tablet, 14:42: Oral, [place] extended 00 qNoon, pt release inst to take if he is scheduled for an afternoon sx, 0 Refill(s), htn vortioxetin 2018-0 Yes 10 mg = 1 M emoria e 10 MG 7-10 tabs, l Oral Tablet 14:37: Oral, qPM, Arnie [Trintellix 00 0 ] Refill(s), depression multivitami Yes 1 tab, Sean carly n 7-10 Oral, l 14:37: Daily, 0 [place] 00 Refill(s), supplement Nitroglycer Yes 1 tab, SL, Memoria in 7-10 PRN as l 14:37: needed for Arnie chest pain, last time used , 0 Refill(s), angina vortioxetin Yes 10 mg = 1 M emoria e 10 MG 7-10 tabs, l Oral Tablet 14:37: Oral, qPM, [place] [Trintellix 00 0 ] Refill(s), depression multivitami Yes 1 tab, Sean carly n 7-10 Oral, l 14:37: Daily, 0 [place] 00 Refill(s), supplement Nitroglycer Yes 1 tab, SL, Memoria in 7-10 PRN as l 14:37: needed for [place] chest pain, last time used , 0 Refill(s), angina Aspirin 81 Yes 81 mg = 1 Me moria MG Oral 7-10 tabs, l Tablet 14:36: Oral, Arnie 00 Daily, 0 Refill(s), heart Eight19 Vitamin D3 Yes 2,000 Memori a 2000 intl 7-10 IntUnit = l units oral 14:36: 1 caps, Herm edward capsule 00 Oral, BID, 0 Refill(s), supplement clopidogrel Yes 75 mg = 1 M emoria 75 MG Oral 7-10 tabs, l Tablet 14:36: Oral, qAM, Venecia nn [Plavix] 00 0 Refill(s), blood thinner/st ents 24 HR Yes 60 mg = 1 Memoria Isosorbide 7-10 tabs, l Mononitrate 14:36: Oral, qAM, [place] 60 MG 00 # 30 tabs, Extended 0 Release Refill(s), Tablet angina Saw Yes 1 tab, Memoria [place] 7-10 Oral, BID, l 14:36: 0 Arnie 00 Refill(s), supplement 12 HR Yes 500 mg = 1 Memori a ranolazine 7-10 tabs, l 500 MG 14:36: Oral, BID, Venecia nn Extended 00 # 60 tabs, Release 0 Tablet Refill(s), [Ranexa] chest pains gabapentin Yes 600 mg, Sean carly 7-10 Oral, BID, l 14:36: pt inst ok Arnie 00 to take am of sx, 0 Refill(s), neuropathy carvedilol Yes 12.5 mg = Me moria 12.5 MG 7-10 1 tabs, l Oral Tablet 14:36: Oral, BID, [place] 00 pt inst to take the am of sx, # 60 tabs, 0 Refill(s), htn biotin 1000 Yes 1,000 mcg M emoria mcg oral 7-10 = 1 tabs, l tablet 14:36: Oral, Arnie 00 Daily, # 30 tabs, 0 Refill(s), supplement atorvastati Yes See Memori a n 80 mg 7-10 Instructio l oral tablet 14:36: ns, 1 tab H ermann 00 q Saturday, Saturday and , 0 Refill(s), supplement Levoxyl Yes 100 mcg, Memori a 7-10 Oral, qAM, l 14:36: pt inst to take am of sx, 0 Refill(s), thyroid Regular Yes See Memoria Insulin, 7-10 Instructio l Human 100 14:36: ns, [place] UNT/ML 00 Subcutaneo Injectable us, bid Solution before [Humulin R] meals, pt inst to not take am of sx, 0 Refill(s), diabetes NPH Yes See Memoria Insulin, 7-10 Instructio l Human 100 14:36: ns, Arnie UNT/ML 00 Subcutaneo Injectable us BID Pt Suspension inst to [Humulin N] not take am of sx, 0 Refill(s), diabetes Aspirin 81 Yes 81 mg = 1 Me moria MG Oral 7-10 tabs, l Tablet 14:36: Oral, Arnie 00 Daily, 0 Refill(s), heart health Vitamin D3 Yes 2,000 Memori a 2000 intl 7-10 IntUnit = l units oral 14:36: 1 caps, Herm edward capsule 00 Oral, BID, 0 Refill(s), supplement clopidogrel Yes 75 mg = 1 M emoria 75 MG Oral 7-10 tabs, l Tablet 14:36: Oral, qAM, Venecia nn [Plavix] 00 0 Refill(s), blood thinner/st ents 24 HR Yes 60 mg = 1 Memoria Isosorbide 7-10 tabs, l Mononitrate 14:36: Oral, qAM, [place] 60 MG 00 # 30 tabs, Extended 0 Release Refill(s), Tablet angina Saw Yes 1 tab, Memoria [place] 7-10 Oral, BID, l 14:36: 0 [place] 00 Refill(s), supplement 12 HR Yes 500 mg = 1 Memori a ranolazine 7-10 tabs, l 500 MG 14:36: Oral, BID, Venecia nn Extended 00 # 60 tabs, Release 0 Tablet Refill(s), [Ranexa] chest pains gabapentin Yes 600 mg, Sean carly 7-10 Oral, BID, l 14:36: pt inst ok Arnie 00 to take am of sx, 0 Refill(s), neuropathy carvedilol Yes 12.5 mg = Me moria 12.5 MG 7-10 1 tabs, l Oral Tablet 14:36: Oral, BID, [place] 00 pt inst to take the am of sx, # 60 tabs, 0 Refill(s), htn biotin 1000 Yes 1,000 mcg M emoria mcg oral 7-10 = 1 tabs, l tablet 14:36: Oral, [place] 00 Daily, # 30 tabs, 0 Refill(s), supplement atorvastati Yes See Memori a n 80 mg 7-10 Instructio l oral tablet 14:36: ns, 1 tab H ermann 00 q Saturday, Saturday and , 0 Refill(s), supplement Levoxyl Yes 100 mcg, Memori a 7-10 Oral, qAM, l 14:36: pt inst to Arnie 00 take am of sx, 0 Refill(s), thyroid Regular Yes See Memoria Insulin, 7-10 Instructio l Human 100 14:36: ns, [place] UNT/ML 00 Subcutaneo Injectable us, bid Solution before [Humulin R] meals, pt inst to not take am of sx, 0 Refill(s), diabetes NPH Yes See Memoria Insulin, 7-10 Instructio l Human 100 14:36: ns, Arnie UNT/ML 00 Subcutaneo Injectable us BID Pt Suspension inst to [Humulin N] not take am of sx, 0 Refill(s), diabetes atorvastati 2016-03 No Notes: Sean carly n 1-15 (Same as: l 03:00: Lipitor) atorvastati 2016-03 No Notes: Sean carly n 1-15 (Same as: l 03:00: Lipitor) carvedilol 2016-03 Yes 12.5 mg = Me moria 12.5 mg 1-14 1 tab, PO, l oral tablet 19:43: Q12H, # 60 Arnie 00 tab, 3 Refill(s) tamsulosin 2016-03 Yes 0.4 mg = 1 M emoria 0.4 mg oral 1-14 cap, PO, l capsule 19:43: After [place] 00 Breakfast, # 30 cap, 5 Refill(s) carvedilol 2016-03 Yes 12.5 mg = Me moria 12.5 mg 1-14 1 tab, PO, l oral tablet 19:43: Q12H, # 60 Arnie 00 tab, 3 Refill(s) tamsulosin 2016-03 Yes 0.4 mg = 1 M emoria 0.4 mg oral 1-14 cap, PO, l capsule 19:43: After Arnie 00 Breakfast, # 30 cap, 5 Refill(s) Benicar 2016-03 No 40 mg, 2 Memori a 1-14 tab, l 17:00: Route: PO, [place] 00 Drug form: TAB, Daily, Start date: 01/22/17 11:00:00 BUSINESS TEAM LEADER, Duration: 30 day, Stop date: 02/21/17 9:00:00 BUSINESS TEAM LEADER hydrochloro 2016-03 No Notes: Sean carly thiazide 25 1-14 (Same as: l mg oral 17:00: Hydrodiuri Herm edward tablet 00 l) With food. Benicar 2016-03 No 40 mg, 2 Memori a 1-14 tab, l 17:00: Route: PO, [place] 00 Drug form: TAB, Daily, Start date: 01/22/17 11:00:00 BUSINESS TEAM LEADER, Duration: 30 day, Stop date: 02/21/17 9:00:00 BUSINESS TEAM LEADER hydrochloro 2017- No Notes: Sean carly thiazide 25 1-14 (Same as: l mg oral 17:00: Hydrodiuri Herm edward tablet 00 l) With food. Hydrochloro 2016- No 1 tab, Sean carly thiazide 1-14 Route: PO, l 12.5 MG / 15:50: Drug Form: Mike rmann Olmesartan 00 TAB, medoxomil Dosing 40 MG Oral Weight Tablet 96.2, kg, [Benicar Daily, HCT Start 40/12.5] date: 01/22/17 9:50:00 BUSINESS TEAM LEADER, Duration: 30 day, Stop date: 02/21/17 9:49:00 BUSINESS TEAM LEADER Hydrochloro 2017- No 1 tab, Sean carly thiazide 1-14 Route: PO, l 12.5 MG / 15:50: Drug Form: Mike rmann Olmesartan 00 TAB, medoxomil Dosing 40 MG Oral Weight Tablet 96.2, kg, [Benicar Daily, HCT Start 40/12.5] date: 01/22/17 9:50:00 BUSINESS TEAM LEADER, Duration: 30 day, Stop date: 02/21/17 9:49:00 BUSINESS TEAM LEADER normal 2016-03 No 1,000 mL, Memori a saline 0.9% 1-14 Rate: 75 l IV 1,000 mL 15:21: ml/hr, Herm edward 00 Infuse over: 13.3 hr, Route: IV, Dosing Weight 96.2 kg, Total Volume: 1,000, Priority: STAT, Start date: 01/22/17 9:21:00 BUSINESS TEAM LEADER, Duration: 24 hr, Stop date: 01/23/17 9:20:00 BUSINESS TEAM LEADER, 2.06, m2 normal 2016-03 No 1,000 mL, Memori a saline 0.9% 1-14 Rate: 75 l IV 1,000 mL 15:21: ml/hr, Herm edward 00 Infuse over: 13.3 hr, Route: IV, Dosing Weight 96.2 kg, Total Volume: 1,000, Priority: STAT, Start date: 01/22/17 9:21:00 BUSINESS TEAM LEADER, Duration: 24 hr, Stop date: 01/23/17 9:20:00 BUSINESS TEAM LEADER, 2.06, m2 Flomax 2016-03 No Notes: Memoria 1-14 (Same As: l 14:30: Flomax) Arnie "Do Not Crush" Flomax 2016-03 No Notes: Memoria 1-14 (Same As: l 14:30: Flomax) Arnie "Do Not Crush" atorvastati 2016-03 No Notes: Sean carly n 1-14 (Same as: l 03:00: Lipitor) Arnie 00 Coreg 2016-03 No Notes: Memoria 1-14 Give with l 03:00: food. [place] (Same As: Coreg) atorvastati 2016-03 No Notes: Sean carly n 1-14 (Same as: l 03:00: Lipitor) Arnie 00 Coreg 2016-03 No Notes: Memoria 1-14 Give with l 03:00: food. Arnie (Same As: Coreg) Acetylcyste 2016-03 No Notes: Sean carly ine 200 1-13 WASTE: F/P l MG/ML 23:00: - Black; E [place] n Inhalant 00 - Solution Municipal Trash Bin Acetylcyste 2016-03 No Notes: Sean carly ine 200 1-13 WASTE: F/P l MG/ML 23:00: - Black; E [place] n Inhalant 00 - Solution [employer] Trash Bin heparin 2016-03 No Notes: Memoria sodium, 1-13 porcine l porcine 22:00: heparin [place] 2500 UNT/ML 00 Injectable Solution heparin 2016-03 No Notes: Memoria sodium, 1-13 porcine l porcine 22:00: heparin [place] 2500 UNT/ML 00 Injectable Solution Enoxaparin 2016-03 No Notes: Memor ia 1-13 (Same as: l 18:00: Lovenox) Arnie 00 Enoxaparin 2016-03 No Notes: Memor ia 1-13 (Same as: l 18:00: Lovenox) Arnie normal 2016-03 No 1,000 mL, Memori a saline 0.9% 03-23 Rate: 75 l IV 1,000 mL 17:35: ml/hr, Herm edward 00 Infuse over: 13.3 hr, Route: IV, Dosing Weight 96.2 kg, Total Volume: 1,000, Priority: STAT, Start date: 01/21/17 11:35:00 BUSINESS TEAM LEADER, Duration: 30 day, Stop date: 02/20/17 11:34:00 BUSINESS TEAM LEADER, 2.06, m2 Hydralazine 2016-03 No Notes: Sean carly -13 (Same as: l 17:35: Apresoline ) Push over 5 minutes normal 2016-03 No 1,000 mL, Memori a saline 0.9% 03-23 Rate: 75 l IV 1,000 mL 17:35: ml/hr, Infuse over: 13.3 hr, Route: IV, Dosing Weight 96.2 kg, Total Volume: 1,000, Priority: STAT, Start date: 01/21/17 11:35:00 BUSINESS TEAM LEADER, Duration: 30 day, Stop date: 02/20/17 11:34:00 BUSINESS TEAM LEADER, 2.06, m2 Hydralazine 2016-03 No Notes: Sean carly 1-13 (Same as: l 17:35: Apresoline ) Push over 5 minutes Acetaminoph 2016-03 Yes 650 mg = 2 Memoria en 325 MG 1-13 tab, PO, l Oral Tablet 15:48: BID, # 60 H ermann [Tylenol] 00 tab, 0 Refill(s) Acetaminoph 2016-03 Yes 650 mg = 2 Memoria en 325 MG 1-13 tab, PO, l Oral Tablet 15:48: BID, # 60 H ermann [Tylenol] 00 tab, 0 Refill(s) Niacin 2016-03 Yes 1,000 mg, Memori a 1-13 PO, BID, 0 l 15:47: Refill(s) Niacin 2016-03 Yes 1,000 mg, Memori a 1-13 PO, BID, 0 l 15:47: Refill(s) Arnie 00 Saw 2016-03 Yes 2, PO, Memoria [place] 1-13 BID, 0 l 15:45: Refill(s) [place] 00 Saw 2016-03 Yes 2, PO, Memoria [place] 1-13 BID, 0 l 15:45: Refill(s) [place] 00 Regular 2016-03 Yes SUB-Q, Memoria Insulin, 1-13 BID-Before l Human 100 15:43: Meals, use He rmann UNT/ML 00 sliding Injectable scale Solution before [Humulin R] breakfast and dinner, 0 Refill(s) Regular 2016-03 Yes SUB-Q, Memoria Insulin, 1-13 BID-Before l Human 100 15:43: Meals, use He rmann UNT/ML 00 sliding Injectable scale Solution before [Humulin R] breakfast and dinner, 0 Refill(s) NPH 2016-03 Yes 84, SUB-Q, Memoria Insulin, 1-13 BID, # 10 l Human 100 15:41: mL, 0 [place] UNT/ML 00 Refill(s) Injectable Suspension [Humulin N] NPH 2016-03 Yes 84, SUB-Q, Memoria Insulin, 1-13 BID, # 10 l Human 100 15:41: mL, 0 Arnie UNT/ML 00 Refill(s) Injectable Suspension [Humulin N] aspirin 81 2016-03 No Notes: Do Me moria mg tablet, 03-23 not crush l enteric 15:00: or chew. [place] n coated 00 (Same As: Ecotrin) isosorbide 2016-03 No Notes: Memor ia mononitrate - (Same l extended 15:00: as:Imdur) Herm edward release 00 "Do Not Crush" Take on empty stomach/ full glass of water. Do not crush gabapentin 2016-03 No Notes: Memor ia 600 MG Oral - (Same as: l Tablet 15:00: Neurontin) Venecia nn 00 12 HR 2016-03 No Notes: Memoria ranolazine - Same as l 500 MG 15:00: Ranexa "Do Venecia nn Extended 00 Not Crush" Release Tablet [Ranexa] metoprolol 2016-03 No Notes: Memor ia extended - (Same as: l release 15:00: Toprol XL) Herm edward 00 May split tab, but do not crush. Plavix 2016-03 No Notes: Memoria 1-13 (Same As: l 15:00: Plavix) Arnie 00 Humulin N 2016-03 No Notes: Memori a -13 Roll in l 15:00: palms of [place] 00 hands gently; Do not shake vigorously . (Same as: NovoLIN N, Humulin N) Do not hold insulin without contacting prescriber "single patient use only" WASTE: F/P - Black; E - Municipal Trash Bin Stable for 14 days at room temperatur e Expires in days from ____Date Saline 2016-03 No Notes: Memoria Flush 0.9% 1-13 (Same as: l 15:00: BD [place] 00 Posiflush) aspirin 81 2016-03 No Notes: Do Me moria mg tablet, 1-13 not crush l enteric 15:00: or chew. [place] n coated 00 (Same As: Ecotrin) isosorbide 2016-03 No Notes: Memor ia mononitrate -13 (Same l extended 15:00: as:Imdur) Herm edward release 00 "Do Not Crush" Take on empty stomach/ full glass of water. Do not crush gabapentin 2016-03 No Notes: Memor ia 600 MG Oral - (Same as: l Tablet 15:00: Neurontin) Venecia nn 00 12 HR 2016-03 No Notes: Memoria ranolazine -13 Same as l 500 MG 15:00: Ranexa "Do Venecia nn Extended 00 Not Crush" Release Tablet [Ranexa] metoprolol 2016-03 No Notes: Memor ia extended -13 (Same as: l release 15:00: Toprol XL) Herm edward 00 May split tab, but do not crush. Plavix 2016-03 No Notes: Memoria 1-13 (Same As: l 15:00: Plavix) [place] 00 Humulin N 2016-03 No Notes: Memori a 1-13 Roll in l 15:00: palms of Arnie 00 hands gently; Do not shake vigorously . (Same as: NovoLIN N, Humulin N) Do not hold insulin without contacting prescriber "single patient use only" WASTE: F/P - Black; E - [employer] Trash Bin Stable for 14 days at room temperatur e Expires in days from ____Date Saline 2016-03 No Notes: Memoria Flush 0.9% 1-13 (Same as: l 15:00: BD Arnie 00 Posiflush) Vitamin D3 2016-03 Yes 4,000 Memori a 2000 intl - IntlUnit = l units oral 12:51: 2 cap, PO, H ermann capsule 00 Daily, # 100 cap, 3 Refill(s) Vitamin D3 2016-03 Yes 4,000 Memori a 2000 intl -13 IntlUnit = l units oral 12:51: 2 cap, PO, H ermann capsule 00 Daily, # 100 cap, 3 Refill(s) Thyroxine 2016-03 No Notes: Memori a 1-13 Take 1 l 12:30: hour Arnie 00 before or 2 hours after meal; Enteral feeds may interefere with the absorption of this medication . (Same as:Levothr oid, Synthroid) Thyroxine 2016-03 No Notes: Memori a 1-13 Take 1 l 12:30: hour [place] 00 before or 2 hours after meal; Enteral feeds may interefere with the absorption of this medication . (Same as:Levothr oid, Synthroid) Glucagon 2016-03 No 1 mg, Memoria 1-13 Route: IM, l 10:52: Drug form: [place] 00 PDR/INJ, PRN, Dosing Weight 96.2, kg, PRN Blood Glucose Results, Start date: 01/21/17 4:52:00 BUSINESS TEAM LEADER, Duration: 30 day, Stop date: 02/20/17 4:51:00 BUSINESS TEAM LEADER Dextrose 2016-03 No 25 gm, 50 Sean carly 50% Syringe 1-13 mL, Route: l 10:52: IVP, Drug Arnie 00 Form: INJ, Dosing Weight 96.2, kg, PRN, PRN Blood Glucose Results, Start date: 01/21/17 4:52:00 BUSINESS TEAM LEADER, Duration: 30 day, Stop date: 02/20/17 4:51:00 BUSINESS TEAM LEADER Insulin 2016-03 No Notes: Memoria Lispro 1-13 Roll in l 10:52: palms of Arnie 00 hands gently; Do not shake `vigorousl y. (Same as: Humalog ) "Single Patient Use Only " WASTE: F/P - Black; E - [employer] Trash Bin Stable for 28 days at room temperatur e. Expires in days from ____Date Glucagon 2016-03 No 1 mg, Memoria 1-13 Route: IM, l 10:52: Drug form: [place] 00 PDR/INJ, PRN, Dosing Weight 96.2, kg, PRN Blood Glucose Results, Start date: 01/21/17 4:52:00 BUSINESS TEAM LEADER, Duration: 30 day, Stop date: 02/20/17 4:51:00 BUSINESS TEAM LEADER Dextrose 2016-03 No 25 gm, 50 Sean carly 50% Syringe 1-13 mL, Route: l 10:52: IVP, Drug Form: INJ, Dosing Weight 96.2, kg, PRN, PRN Blood Glucose Results, Start date: 01/21/17 4:52:00 BUSINESS TEAM LEADER, Duration: 30 day, Stop date: 02/20/17 4:51:00 BUSINESS TEAM LEADER Insulin 2016-03 No Notes: Memoria Lispro 03-23 Roll in l 10:52: palms of hands gently; Do not shake `vigorousl y. (Same as: Humalog ) "Single Patient Use Only " WASTE: F/P - Black; E - [place] Trash Bin Stable for 28 days at room temperatur e. Expires in days from ____Date Vitamin D3 2016-03 No 2,000 Memori a 2000 intl -13 IntlUnit = l units oral 10:12: 1 cap, PO, H ermann capsule 00 Daily, # 100 cap, 3 Refill(s) Aspirin 81 2016-03 Yes 81 mg = 1 Me moria MG Chewable -13 tab, CHEW, l Tablet 10:12: Daily, 0 [place] 00 Refill(s) multivitami 2016-03 Yes 1 tab, Sean carly n -13 Daily, 0 l 10:12: Refill(s) Arnie clopidogrel 2016-03 Yes 75 mg = 1 M emoria 75 MG Oral -13 tab, PO, l Tablet 10:12: Daily, 0 Arnie [Plavix] 00 Refill(s) atorvastati 2016-03 Yes 80 mg = 1 M emoria n 80 mg -13 tab, one l oral tablet 10:12: tablet on H ermann 00 Saturday, Saturday, PM, 0 Refill(s) gabapentin 2016-03 Yes 600 mg = 1 M emoria 600 MG Oral 1-13 tab, PO, l Tablet 10:12: BID, 0 [place] 00 Refill(s) Hydrochloro 2016-03 No 1 tab, PO, Memoria thiazide 1-13 QMon, 0 l 12.5 MG / 10:12: Refill(s) Her araujo Olmesartan 00 medoxomil 40 MG Oral Tablet [Benicar HCT 40/12.5] 12 HR 2016-03 Yes 1,000 mg = Memori a ranolazine -13 2 tab, PO, l 500 MG 10:12: BID, 0 Arnie Extended 00 Refill(s) Release Tablet [Ranexa] Levothyroxi 2016-03 Yes 100 Memori a ne Sodium 1-13 microgram l 0.1 MG Oral 10:12: = 1 tab, He rmann Tablet 00 PO, Daily, [Levoxyl] 0 Refill(s) isosorbide 2016-03 Yes 60 mg = 1 Me moria mononitrate 1-13 tab, PO, l 60 mg oral 10:12: QAM, 0 Venecia nn tablet, 00 Refill(s) extended release biotin 1000 2016-03 Yes 1,000 Memor ia mcg oral 1-13 microgram l tablet 10:12: = 1 tab, [place] 00 PO, Daily, # 30 tab, 0 Refill(s) metoprolol 2016-03 No 200 mg = 1 M emoria 200 mg oral 1-13 tab, PO, l tablet, 10:12: Daily, 0 [place] n extended 00 Refill(s) release Vitamin D3 2016-03 No 2,000 Memori a 2000 intl -13 IntlUnit = l units oral 10:12: 1 cap, PO, H ermann capsule 00 Daily, # 100 cap, 3 Refill(s) Aspirin 81 2016-03 Yes 81 mg = 1 Me moria MG Chewable 1-13 tab, CHEW, l Tablet 10:12: Daily, 0 Arnie 00 Refill(s) multivitami 2016-03 Yes 1 tab, Sean carly n 1-13 Daily, 0 l 10:12: Refill(s) [place] 00 clopidogrel 2016-03 Yes 75 mg = 1 M emoria 75 MG Oral 1-13 tab, PO, l Tablet 10:12: Daily, 0 [place] [Plavix] 00 Refill(s) atorvastati 2016-03 Yes 80 mg = 1 M emoria n 80 mg 1-13 tab, one l oral tablet 10:12: tablet on H erm 00 Saturday, Saturday, PM, 0 Refill(s) gabapentin 2016-03 Yes 600 mg = 1 M emoria 600 MG Oral 1-13 tab, PO, l Tablet 10:12: BID, 0 [place] 00 Refill(s) Hydrochloro 2016-03 No 1 tab, PO, Memoria thiazide 1-13 QMon, 0 l 12.5 MG / 10:12: Refill(s) Her araujo Olmesartan 00 medoxomil 40 MG Oral Tablet [Benicar HCT 40/12.5] 12 HR 2016-03 Yes 1,000 mg = Memori a ranolazine 1-13 2 tab, PO, l 500 MG 10:12: BID, 0 [place] Extended 00 Refill(s) Release Tablet [Ranexa] Levothyroxi 2016-03 Yes 100 Memori a ne Sodium 1-13 microgram l 0.1 MG Oral 10:12: = 1 tab, He rmann Tablet 00 PO, Daily, [Levoxyl] 0 Refill(s) isosorbide 2016-03 Yes 60 mg = 1 Me moria mononitrate 1-13 tab, PO, l 60 mg oral 10:12: QAM, 0 Venecia nn tablet, 00 Refill(s) extended release biotin 1000 2016-03 Yes 1,000 Memor ia mcg oral 1-13 microgram l tablet 10:12: = 1 tab, [place] 00 PO, Daily, # 30 tab, 0 Refill(s) metoprolol 2016-03 No 200 mg = 1 M emoria 200 mg oral 1-13 tab, PO, l tablet, 10:12: Daily, 0 Everton n extended 00 Refill(s) release hydrochloro 2016-03 No Notes: Sean carly thiazide 25 1-13 (Same as: l mg oral 10:05: Hydrodiuri Herm edward tablet 00 l) With food. Benicar 2016-03 No 40 mg, 2 Memori a 1-13 tab, l 10:05: Route: PO, [place] 00 Drug form: TAB, Daily, Start date: 01/21/17 4:05:00 [employer], Duration: 30 day, Stop date: 02/19/17 9:00:00 [employer] hydrochloro 2016-03 No Notes: Sean carly thiazide 25 1-13 (Same as: l mg oral 10:05: Hydrodiuri Herm edward tablet 00 l) With food. Benicar 2016- No 40 mg, 2 Memori a 1-13 tab, l 10:05: Route: PO, Arnie 00 Drug form: TAB, Daily, Start date: 01/21/17 4:05:00 [employer], Duration: 30 day, Stop date: 02/19/17 9:00:00 [employer] Hydrochloro 2016-03 No 1 tab, Sean carly thiazide -13 Route: PO, l 12.5 MG / 10:00: Drug Form: Mike rmedward Olmesartan 00 TAB, medoxomil Dosing 40 MG Oral Weight Tablet 96.2, kg, [Benicar Daily, HCT Start 40/12.5] date: 01/21/17 4:00:00 [employer], Duration: 30 day, Stop date: 02/20/17 3:59:00 [employer] Hydrochloro 2016-03 No 1 tab, Sean carly thiazide -13 Route: PO, l 12.5 MG / 10:00: Drug Form: Mike rmedward Olmesartan 00 TAB, medoxomil Dosing 40 MG Oral Weight Tablet 96.2, kg, [Benicar Daily, HCT Start 40/12.5] date: 01/21/17 4:00:00 [employer] TE[employer] LE[employer], Duration: 30 day, Stop date: 02/20/17 3:59:00 [employer] TE[employer] LE[employer] Nicardipine 2016-03 No Notes: Sean carly - Same as: l 09:28: Cardene Arnie Concentrat ion: (0.2 mg /1 ml ) Nicardipine 2016-03 No Notes: Sean carly - Same as: l 09:28: Cardene Arnie Concentrat ion: (0.2 mg /1 ml ) Nitroglycer 2016-03 No Notes: Sean carly in 03-23 (Same l 09:25: as:Nitroqu Arnie 00 ick, Nitrostat) "Do Not Crush" Sublingual tablet Morphine 2016-03 No Notes: Memoria 03-23 Preservati l 09:25: ve free. [place] (Same as: Morphine Sulfate-PF ) Ondansetron 2016-03 No Notes: Sean carly -13 (Same as: l 09:25: Zofran) Saline 2016-03 No Notes: Memoria Flush 0.9% 03-23 (Same as: l 09:25: BD Arnie 00 Posiflush) Nitroglycer 2016-03 No Notes: Sean carly in 03-23 (Same l 09:25: as:Nitroqu ick, Nitrostat) "Do Not Crush" Sublingual tablet Morphine 2016-03 No Notes: Memoria 03-23 Preservati l 09:25: ve free. (Same as: Morphine Sulfate-PF ) Ondansetron 2016-03 No Notes: Sean carly 03-23 (Same as: l 09:25: Zofran) Saline 2016-03 No Notes: Memoria Flush 0.9% 03-23 (Same as: l 09:25: BD Arnie 00 Posiflush) acetaminoph acetaminoph No acetaminop [place] en 300 en 300 hen 300 da mg-codeine mg-codeine mg-codeine Medical 30 mg 30 mg 30 mg Group tablet 1 tablet 1 tablet 1 tabs p.o. q tabs p.o. q tabs p.o. 6 hours PRN 6 hours PRN q 6 hours pain pain PRN pain Asprin Ec Asprin Ec No 1 Q1D Asprin Ec [place] Low Dose 81 Low Dose 81 Low Dose da mg mg 81 mg Medical tablet,colby tablet,colby tablet,del Group yed release yed release ayed Take 1 Take 1 release tablet tablet Take 1 every day every day tablet by oral by oral every day route. route. by oral route. atorvastati atorvastati No 1 Q1D atorvastat [place] n 80 mg n 80 mg in 80 mg da tablet Take tablet Take tablet Medical 1 tablet 1 tablet Take 1 Group every day every day tablet by oral by oral every day route. route. by oral route. BD Insulin BD Insulin No BD Insulin [place] Syringe Syringe Syringe da Ultra-Fine Ultra-Fine Ultra-Fine Medical 1 mL 31 1 mL 31 1 mL 31 Group gauge x gauge x gauge x /16" 16" 07/24" carvedilol carvedilol No carvedilol [place] 12.5 mg 12.5 mg 12.5 mg da tablet tablet tablet Medical Group clopidogrel clopidogrel No clopidogre [place] 75 mg 75 mg l 75 mg da tablet tablet tablet Medical Group furosemide furosemide No 1 Q1D furosemide [place] 20 mg 20 mg 20 mg da tablet Take tablet Take tablet Medical 1 tablet 1 tablet Take 1 Group every day every day tablet by oral by oral every day route. route. by oral route. furosemide furosemide No furosemide [place] 40 mg 40 mg 40 mg da tablet tablet tablet Medical Group gabapentin gabapentin No gabapentin [place] 600 mg 600 mg 600 mg da tablet tablet tablet Medical Group isosorbide isosorbide No isosorbide [place] mononitrate mononitrate mononitrat da ER 60 mg ER 60 mg e ER 60 mg M edical tablet,exte tablet,exte tablet,ext Group nded nded ended release 24 release 24 release 24 hr hr hr levofloxaci levofloxaci No levofloxac [place] n 250 mg n 250 mg in 250 mg da tablet tablet tablet Medical Group levothyroxi levothyroxi No levothyrox [place] ne 100 mcg ne 100 mcg ine 100 da tablet tablet mcg tablet Medic al Group lisinopril lisinopril No lisinopril [place] 10 mg 10 mg 10 mg da tablet tablet tablet Medical Group nifedipine nifedipine No nifedipine [place] ER 30 mg ER 30 mg ER 30 mg da tablet,exte tablet,exte tablet,ext Medical nded nded ended Group release release release Take 1 Take 1 Take 1 tablet tablet tablet every day every day every day by oral by oral by oral route. route. route. ondansetron ondansetron No ondansetro [place] HCl 4 mg HCl 4 mg n HCl 4 mg d a tablet Take tablet Take tablet Medical 1 tablet 1 tablet Take 1 Group every 6 every 6 tablet hours by hours by every 6 oral route oral route hours by as needed. as needed. oral route as needed. Ranexa 500 Ranexa 500 No Ranexa 500 [place] mg mg mg da tablet,exte tablet,exte tablet,ext Medical nded nded ended Group release release release tamsulosin tamsulosin No tamsulosin [place] 0.4 mg 0.4 mg 0.4 mg da capsule capsule capsule Medica l Group tramadol 50 tramadol 50 No tramadol [place] mg tablet mg tablet 50 mg da Take 1 Take 1 tablet Medical tablet tablet Take 1 Group every 6 every 6 tablet hours by hours by every 6 oral route oral route hours by as needed. as needed. oral route as needed. Trintellix Trintellix No Trintellix [place] 10 mg 10 mg 10 mg da tablet tablet tablet Medical Group Vital Signs Vital Name Observation Time Observation Value Comments Source Systolic blood 2021-11-22 14:50:00 159 mm[Hg] Univer sity of pressure [facility] Diastolic blood 2021-11-22 14:50:00 69 mm[Hg] Unive rsity of [facility] Heart rate 2021-11-22 14:50:00 58 /min Universi ty of [facility] Respiratory rate 2021-11-22 14:50:00 12 /min Univ ersity [facility] Oxygen saturation in 2021-11-22 14:50:00 98 /min University of Arterial blood by [facility] Pulse oximetry Branch Body temperature 2021-11-22 14:24:00 36.11 Sandhya [facility] Body height 2021-11-14 15:23:00 177.8 cm Universi ty [facility] Medical [place] Body weight 2021-11-14 15:23:[address] [facility] BMI 2021-11-14 15:23:00 28.69 kg/m2 Universi ty [facility] Systolic blood 2021-11-22 14:30:00 128 mm[Hg] Univer sity of [facility][note 2] Branch Diastolic blood 2021-11-22 14:30:00 69 mm[Hg] Unive rsity of [facility] Heart rate 2021-11-22 14:30:00 54 /min Universi ty [facility] Respiratory rate 2021-11-22 14:30:00 22 /min Univ ersity [facility] Branch Oxygen saturation in 2021-11-22 14:30:00 99 /min University of Arterial blood by [facility] Pulse oximetry Branch Body temperature 2021-11-22 14:24:00 36.11 Sandhya [facility] ersity [facility] Body height 2021-11-14 15:23:[address] [facility] Body weight 2021-11-14 15:23:00 90.7 kg [facility] BMI 2021-11-14 15:23:00 28.69 kg/m2 [facility] Systolic blood 2020-05-25 14:35:00 127 mm[Hg] Univer sity of pressure [facility] Diastolic blood 2020-05-25 14:35:00 53 mm[Hg] Unive rsity of [facility] Heart rate 2020-05-25 14:35:00 54 /min [facility] Oxygen saturation in 2020-05-25 14:35:00 98 /min [facility] Arterial blood by [facility] Pulse oximetry Branch Respiratory rate 2020-05-25 14:25:00 16 /min [facility] Body temperature 2020-05-25 14:18:00 36.67 Sandhya [facility] Body height 2020-05-25 01:15:00 177.8 cm [facility] Body weight 2020-05-25 01:15:00 90.719 kg [facility] BMI 2020-05-25 01:15:00 28.70 kg/m2 [facility] BP Diastolic 2018-05-20 00:00:00 62 mm[Hg] [facility] Height 2018-05-20 00:00:00 70 [in_i] [facility] BMI (Body Mass 2018-05-20 00:00:00 28.7 kg/m2 [facility] Medical Index) Group BP Systolic 2018-05-20 00:00:00 128 mm[Hg] [facility] Body Weight 2018-05-20 00:00:00 200 [lb_av] [facility] BP Diastolic 2018-04-24 00:00:00 60 mm[Hg] [facility] Height 2018-04-24 00:00:00 70 [in_i] [facility] BMI (Body Mass 2018-04-24 00:00:00 31.6 kg/m2 [facility] Medical Index) Group BP Systolic 2018-04-24 00:00:00 132 mm[Hg] [facility] Body Weight 2018-04-24 00:00:00 220 [lb_av] [facility] BP Diastolic 2018-04-03 00:00:00 62 mm[Hg] [facility] Height 2018-04-03 00:00:00 70 [in_i] [facility] BMI (Body Mass 2018-04-03 00:00:00 31.6 kg/m2 [facility] Medical Index) Group BP Systolic 2018-04-03 00:00:00 138 mm[Hg] [facility] Body Weight 2018-04-03 00:00:00 220 [lb_av] [facility] BP Diastolic 2018-03-20 00:00:00 62 mm[Hg] [facility] Height 2018-03-20 00:00:00 70 [in_i] [facility] BMI (Body Mass 2018-03-20 00:00:00 31.7 kg/m2 [facility] Medical Index) Group BP Systolic 2018-03-20 00:00:00 138 mm[Hg] [facility] Body Weight 2018-03-20 00:00:00 220.9 [lb_av] [facility] Respitory Rate 2017-09-30 22:54:00 Memori al Arnie Respitory Rate 2017-09-30 22:00:00 Memori al Arnie Systolic (mm Hg) 2017-09-30 22:00:00 Sean rial [place] Diastolic (mm Hg) 2017-09-30 22:00:00 Mem orial [place] Heart Rate 2017-09-30 22:00:00 Memorial Arnie Systolic (mm Hg) 2017-09-30 21:50:00 Sean rial [place] Diastolic (mm Hg) 2017-09-30 21:50:00 Mem orial [place] Respitory Rate 2017-09-30 21:50:00 Memori al [place] Heart Rate 2017-09-30 21:50:00 [facility] [place] Heart Rate 2017-09-30 21:40:00 Memorial Arnie Systolic (mm Hg) 2017-09-30 21:40:00 Sean rial [place] Diastolic (mm Hg) 2017-09-30 21:40:00 Mem orial [place] Temperature Oral (F) 2017-09-30 21:20:00 36.6 Sandhya [facility] Height 2017-09-30 18:21:00 177.8 cm [facility] [place] Temperature Oral (F) 2017-09-30 18:21:00 36.7 Sandhya [facility] [place] Height 2017-09-16 19:53:00 177.8 cm [facility]nie Systolic (mm Hg) 2017-01-22 21:30:00 Sean rial Arnie Diastolic (mm Hg) 2017-01-22 21:30:00 Mem orial Arnei Respitory Rate 2017-01-22 21:30:00 Memori al [place] Systolic (mm Hg) 2017-01-22 21:00:00 Sean rial [place] Diastolic (mm Hg) 2017-01-22 21:00:00 Mem orial Arnie Respitory Rate 2017-01-22 21:00:00 Memori al [place] Systolic (mm Hg) 2017-01-22 20:00:00 Sean rial [place] Diastolic (mm Hg) 2017-01-22 20:00:00 Mem orial Arnie Respitory Rate 2017-01-22 20:00:00 Memori al [place] Temperature Oral (F) 2017-01-22 18:00:00 98.1 F [facility]nie Temperature Oral (F) 2017-01-22 15:00:00 98.1 F [facility] Temperature Oral (F) 2017-01-22 12:00:00 98.2 F [facility] Weight 2017-01-21 09:23:00 [facility] Height 2017-01-21 09:23:00 152.4 cm [facility] BMI Calculated 2017-01-21 09:23:00 Memori al Arnie Procedures Procedure Date / Time Performing Source Performed Clinician PHACOEMULSIFICATION OF 2021-11-22 Arturo Hernandez [facility] CATARACT WITH INTRAOCULAR 13:46:00 Medica l Branch LENS IMPLANT POCT GLUCOSE(AGE >30DAYS) 2021-11-22 Samson Agarwal [facility] 13:04:00 [facility] Branch POCT GLUCOSE(AGE >30DAYS) 2021-11-22 Samson Agarwal [facility] 13:04:00 Medical Branch DAY SURGERY - ADC 2021-11-22 Doctor Unassigned, [facility] 05:01:00 [facility] ASSIGNMENT OF BENEFITS 2021-11-06 Doctor Unassigned, [facility] 17:33:49 [facility] POCT GLUCOSE (AUTOMATED) 2020-05-25 Arturo Hernandez [facility] 12:52:00 Medical Branch DAY SURGERY - ADC 2020-05-25 Doctor Unassigned, [facility] 05:01:00 [facility] COVID-19 (ID NOW RAPID 2020-05-24 Arturo Hernandez [facility] TESTING) 16:49:00 Medical Branch ASSIGNMENT OF BENEFITS 2020-05-16 Doctor Unassigned, [facility] 22:05:16 [facility] unlisted imaging order 2018-03-20 [facility] 00:00:[address], abdomen + pelvis, w/ [facility] 00:[facility]:00 Group REPAIR HERNIA INGUINAL 2017-09-30 [facility] LAPAROSCOPIC-INITIAL [id number] 20:24:00 (Right)<sup>1</sup> REPAIR HERNIA UMBILICAL-OLDER 2017-09-30 Me morial Arnie THAN 5 YEARS OLD-REDUCIBLE 20:24:00 [id number] (Other)<sup>2</sup> heart cath<sup>3</sup> 2017-01-09 [facility] 00:00:00 hernia repair 2008-03-11 [facility] 00:00:00 Shoulder Surgery Procedure 2007-03-11 [facility] 00:00:00 Group sx to stop nosebleed 2006-03-11 [facility] rmann 00:00:00 gall bladder [facility]03[facility]gu[facility] Hernia Repair (Surg) [facility] Cholecystectomy [facility] Shoulder repair [facility] colonoscopy [facility] laser eye sx<sup>4</sup> Memoria l [place] shoulder sx [facility] Encounters Start End Encounter Admission Attending Care Care Encounter Source Date/Time Date/Time Type Type Clinicians Facility Department ID 2021-01-08 Outpatient R DAVID ORMICHAEL OPH [id number] Univers 04:15:18 ARTURO [facility] 2021-11-22 2021-11-22 Outpatient R DAVID [facility] OPH [id number] Univers 07:51:00 10:07:00 ARTURO [facility] 2021-11-22 2021-11-22 Hospital [facility] [id number] Univers 07:51:00 10:07:00 Encounter Arturo VALLE 350.1.13.10 it[place] [id number] [facility] 071 Branch 2021-11-22 2021-11-22 Surgery [facility] [id number] Univers 09:00:00 09:34:00 Arturo VALLE 350.1.13.10 [place] [id number] [facility] 020 Branch 2021-11-22 2021-11-22 Orders Doctor JAZIEL 1.2.840.114 [id number] Univers 00:00:00 00:00:00 Only Unassigned, GALO 350.1.13.10 ity of [place] [facility] 4.2.7.2.686 Alan as [id number] [facility] 009 Branch 2021-11-20 2021-11-20 Laboratory Only, Adc Test [facility] 1.2.840. 114 [id number] Univers 10:15:00 10:30:00 Only Arturo Hernandez 350.1.13.1 0 [place] [id number] [facility] 353 Branch 2021-11-20 2021-11-20 Outpatient R DAVID [facility] [id number] Univers 10:15:00 10:15:[address] [facility] 2021-11-06 2021-11-06 Ambulatory Technologist Gonzalo, Adc Lab Main [facility] 1.2.8 40.114 [id number] Univers 13:00:00 13:15:00 Visit Arturo Hernandez 350.1.13.1 0 ity of [facility] [place] [id number] [facility] 353 [facility] 2021-11-06 2021-11-06 Outpatient R DAVID [facility] [id number] Univers 13:00:00 13:00:[address] [facility] 2021-11-06 2021-11-06 Orders Doctor JAZIEL 1.2.840.114 [id number] Univers 00:00:00 00:00:00 Only Unassigned, GALO 350.1.13.10 ity of [place] [facility] 4.2.7.2.686 Alan as [id number] [facility] 009 [place] 2020-05-25 2020-05-25 [facility] [id number] Univers 07:30:00 09:49:00 Encounter Arturo Valle 350.1.13.10 [place] of [place] Surgical [id number] [facility] 071 Branch 2020-05-25 2020-05-25 Orders Doctor JAZIEL 1.2.840.114 [id number] Univers 00:00:00 00:00:00 Only Unassigned, GALO 350.1.13.10 ity of [place] [facility] 4.2.7.2.686 Alan as [id number] [facility] 009 Branch 2020-05-24 2020-05-24 Laboratory Only, Adc Test [facility] 1.2.840. 114 [id number] Univers 11:19:37 11:34:37 Only Arturo Hernandez 350.1.13.1 0 [place] [id number] [facility] 353 [place] 2020-05-24 2020-05-24 Outpatient R DAVID [facility] [id number] Univers 11:30:00 11:30:[address] [facility] 2020-05-16 2020-05-16 Ambulatory Technologist Gonzalo, Adc Lab Main [facility] 1.2.8 40.114 [id number] Univers 16:05:25 16:20:25 Visit Arturo Hernandez 350.1.13.1 0 [place] of [place] [id number] [address] 2020-05-16 2020-05-16 Outpatient R DAVID [facility] [id number] Univers 15:45:00 15:45:[address] [facility] 2020-05-16 2020-05-16 Orders Doctor JAZIEL 1.2.840.114 [id number] Univers 00:00:00 00:00:00 Only Unassigned, GALO 350.1.13.10 ity of [place] [facility] 4.2.7.2.686 Alan as [id number] [address] 2020-01-27 2020-01-27 [facility] [id number] [place] 02:20:00 02:20:00 1118 [facility] 2019-11-03 2019-11-03 Outpatient IHDE_G [facility] [id number] [place] 11:36:00 11:36:00 0825 [facility] 2018-05-20 2018-05-20 [facility] [place] - [address] [place] 00:00:00 00:00:00 Phillip Georges 0312 ashley Farmer MD: [address], General [address], surgery [place] [address] , Ph. [phone] 2018-04-24 2018-04-24 Jose [facility] [place] - [id number] [place] 00:00:00 00:00:00 Phillip Georges 0214 ashley Farmer MD: [address], General [address], [place] [address] , Ph. [phone] 2018-04-03 2018-04-03 Jose [facility] [place] - [address] [place] 00:00:00 00:00:00 Phillip Georges 0124 ashley Farmer MD: [address], General [address], surgery [place] [address] , Ph. [phone] 2018-03-20 2018-03-20 Jose [facility] [place] - [id number] [place] 00:00:00 00:00:00 Phillip Cardoso0 ashley Farmer MD: [address], General [address], surgery [place] [address] , Ph. [phone] 2017-09-30 2017-09-30 Outpatient [facility] [id number] Memoria 17:39:22 22:58:00 r [facility] 2017-09-30 2017-09-30 Outpatient [facility] 6517 [id number] Memoria 17:39:22 22:58:00 r [facility] 2017-09-30 2017-09-30 Outpatient Tramaine Bowles [id number] 12:39:22 17:58:00 Vik Desir 2017-09-30 2017-09-30 [facility] [address] Memoria 12:39:22 17:58:00 r [facility] 2017-01-21 2017-01-22 Inpatient [facility] [id number] Memoria 09:02:00 21:45:[address] 2017-01-21 2017-01-22 Inpatient [facility] [id number] Memoria 09:02:00 21:45:[address] 2017-01-21 2017-01-22 Outpatient ANATOLY Healy [facility] [id number] 03:02:00 15:45:00 Monalisa 17 Yvonne Results Test Description Test Time Test Comments Results Result Comments Source POCT Glucose 2021-11-22 13:04:00 Test Item Value Reference Range Interpretation Comme nts POCT Glu (age>30days) (test code = 3342) 216 mg/dL 70-110 A Lab Interpretation (test code = 05007-8) Abnormal [facility] [id number] 13:04:00 Test Item Value Reference Range Interpretation Comments POCT Glu (age>30days) (test code = 216 mg/dL 70-110 A 3342) Lab Interpretation (test code = Abnormal 95787-1) [facility] GLUCOSE (AUTOMATED)2020-05-25 13:06:02 Test Item Value Reference Range Interpretation Comments POCT GLU (test code = 4480245235) 156 mg/dL 70-110 H Lab Interpretation (test code = Abnormal 25949-0) [facility] [id number] 12:52:00 Test Item Value Reference Range Interpretation Comments POCT Glu (age>30days) (test code = 157 mg/dL 70-110 A 3342) Lab Interpretation (test code = Abnormal 17941-6) [facility] NOW RAPID TESTING)2020-05-24 18:04:41 Test Item Value Reference Range Interpretation Comments SARS-CoV-2 Rapid ID NOW Not Detected Not Detected (test code = 82426-0) CHRISTI (test code = CHRISTI) ID NOW COVID-19 Assay is an isothermal nucleic acid amplification test intended for the qualitative detection of nucleic acid from SARS-CoV-2 viral RNA in nasopharyngeal (DRUM BARKER OPERATOR) specimens. It is used under Emergency Use Authorization (EUA) by FDA. The limit of detection (LOD) of the assay is 125 Genome Equivalents/mL. A positive result is indicative of the presence of SARS-CoV-2 RNA. ?Clinical correlation with patient history and other diagnostic information is necessary to determine patient infection status. A negative (Not Detected) result does not preclude SARS-CoV-2 infection. In patients with clinical symptoms and other tests that are consistent with SARS-CoV-2 infection, negative results should be treated as presumptive negative and a new specimen should be tested with alternative PCR molecular test. Invalid: Please collect a new specimen for repeat patient testing if clinically indicated. Lab Interpretation Normal (test code = 48738-6) [facility] [id number] 12:39:00 Test Item Value Reference Range Interpretation Comments POC-GLUCOSE METER 139 mg/dL 70-110 H TESTED AT [place] [address] ([facility]) (test code = [facility] 1538) [id number] POCT-GLUCOSE [id number] 08:20:00 Test Item Value Reference Range Interpretation Comments POC-GLUCOSE METER 168 mg/dL 70-110 H TESTED AT [place] [address] ([facility]) (test code = [facility] 1538) [address] BASIC METABOLIC [id number] 05:59:00 Test Item Value Reference Range Interpretation Comments SODIUM (BEAKER) 137 meq/L 136-145 (test code = 381) POTASSIUM (BEAKER) 4.2 meq/L 3.5-5.1 (test code = 379) CHLORIDE (BEAKER) 103 meq/L 98-107 (test code = 382) CO2 (BEAKER) (test 24 meq/L 22-29 code = 355) BLOOD UREA NITROGEN 24 mg/dL 7-21 H (BEAKER) (test code = 354) CREATININE (BEAKER) 1.64 mg/dL 0.57-1.25 H (test code = 358) GLUCOSE RANDOM 158 mg/dL 70-105 H (BEAKER) (test code = 652) CALCIUM (BEAKER) 9.2 mg/dL 8.4-10.2 (test code = 697) EGFR (BEAKER) (test 41 mL/min/1.73 ESTIMA BETTYE GFR IS code = 1092) sq m NOT ACCURATE CREATININE CLEARANCE IN PREDICTING GLOMERULAR FILTRATION RATE . ESTIMATED GFR I S NOT APPLICABLE FOR DIALYSIS PATIEN TS. PROTHROMBIN [id number] 05:50:00 Test Item Value Reference Range Interpretation Comments PROTIME (BEAKER) (test code = 13.8 seconds 11.7-14.7 759) INR (BEAKER) (test code = 370) 1.1 <=5.9 RECOMMENDED COUMADIN/WARFARIN INR THERAPY RANGESSTANDARD DOSE: 2.0 - 3.0 Includes: PROPHYLAXIS for venous thrombosis, systemic embolization; TREATMENT for venous thrombosis and/or pulmonary embolus.HIGH RISK: Target INR is 2.5-3.5 for patients with mechanical heart valves.CBC W/PLT COUNT & AUTO [id number] 05:32:00 Test Item Value Reference Range Interpretation Comments WHITE BLOOD CELL COUNT (BEAKER) 7.7 K/ L 3.5-10.5 (test code = 775) RED BLOOD CELL COUNT (BEAKER) 3.37 M/ L 4.63-6.08 L (test code = 761) HEMOGLOBIN (BEAKER) (test code = 10.5 GM/DL 13.7-17.5 L 410) HEMATOCRIT (BEAKER) (test code = 31.5 % 40.1-51.0 L 411) MEAN CORPUSCULAR VOLUME (BEAKER) 93.5 fL 79.0-92.2 H (test code = 753) MEAN CORPUSCULAR HEMOGLOBIN 31.2 pg 25.7-32.2 (BEAKER) (test code = 751) MEAN CORPUSCULAR HEMOGLOBIN CONC 33.3 GM/DL 32.3-36.5 (BEAKER) (test code = 752) RED CELL DISTRIBUTION WIDTH 12.6 % 11.6-14.4 (BEAKER) (test code = 412) PLATELET COUNT (BEAKER) (test 225 K/CU MM 150-450 code = 756) MEAN PLATELET VOLUME (BEAKER) 9.2 fL 9.4-12.4 L (test code = 754) NUCLEATED RED BLOOD CELLS 0 /100 WBC 0-0 (BEAKER) (test code = 413) NEUTROPHILS RELATIVE PERCENT 73 % (BEAKER) (test code = 429) LYMPHOCYTES RELATIVE PERCENT 13 % (BEAKER) (test code = 430) MONOCYTES RELATIVE PERCENT 8 % (BEAKER) (test code = 431) EOSINOPHILS RELATIVE PERCENT 4 % (BEAKER) (test code = 432) BASOPHILS RELATIVE PERCENT 1 % (BEAKER) (test code = 437) NEUTROPHILS ABSOLUTE COUNT 5.66 K/ L 1.78-5.38 H (BEAKER) (test code = 670) LYMPHOCYTES ABSOLUTE COUNT 1.03 K/ L 1.32-3.57 L (BEAKER) (test code = 414) MONOCYTES ABSOLUTE COUNT (BEAKER) 0.58 K/ L 0.30-0.82 (test code = 415) EOSINOPHILS ABSOLUTE COUNT 0.28 K/ L 0.04-0.54 (BEAKER) (test code = 416) BASOPHILS ABSOLUTE COUNT (BEAKER) 0.06 K/ L 0.01-0.08 (test code = 417) IMMATURE GRANULOCYTES-RELATIVE 2 % 0-1 H PERCENT (BEAKER) (test code = 2801) U/S, RENAL, [id number] 23:57:00Reason for exam:->retention, rising creatinineFINAL REPORT U/S, RENAL, COMPLETE CLINICAL INDICATION: retention, rising creatinine COMPARISON: None TECHNIQUE: The kidneys and urinary bladder were evaluated using real time gan scale and color Doppler sonography. FINDINGS:Right kidney: Size: 11.9 x 5.8 x 5.9 cm. Parenchyma: Norm al echogenicity. No cysts. No stones. Hydronephrosis: None. Left kidney: Size: 11.2 x 6.4 x 4.8 cm. Parenchyma: Normal echogenicity. No cysts. No stones. Hydronephrosis: None. Renal Vasculature: Doppler interrogation reveals preserved vascular flow in the main renal arteries and veins bilaterally. Urinary bladder: Unremarkable. Additional findings: Patient unable to void . IMPRESSION: Unremarkable renal ultrasound. Patient unable to void during the examination. Signed: Hay Minor Verified Date/Time: 05/05/2018 23:57:18 Reading Location: [address] Transitional Reading Room POCT-GLUCOSE METER 2018-05-05 22:19:00 Test Item Value Reference Range Interpretation Comments POC-GLUCOSE METER 186 mg/dL 70-110 H TESTED AT [facility] 6720 (BEAKER) (test code = [facility] [employer] [place] 1538) [address] POCT-GLUCOSE [id number] 18:59:00 Test Item Value Reference Range Interpretation Comments POC-GLUCOSE METER 223 mg/dL 70-110 H TESTED AT [facility] 6720 (BEAKER) (test code = [facility] [employer] [facility] 1538) [address] BASIC METABOLIC [id number] 14:10:00 Test Item Value Reference Range Interpretation Comments SODIUM (BEAKER) 137 meq/L 136-145 (test code = 381) POTASSIUM (BEAKER) 4.7 meq/L 3.5-5.1 (test code = 379) CHLORIDE (BEAKER) 100 meq/L 98-107 (test code = 382) CO2 (BEAKER) (test 26 meq/L 22-29 code = 355) BLOOD UREA NITROGEN 27 mg/dL 7-21 H (BEAKER) (test code = 354) CREATININE (BEAKER) 1.81 mg/dL 0.57-1.25 H (test code = 358) GLUCOSE RANDOM 151 mg/dL 70-105 H (BEAKER) (test code = 652) CALCIUM (BEAKER) 9.1 mg/dL 8.4-10.2 (test code = 697) EGFR (BEAKER) (test 37 mL/min/1.73 ESTIMA BETTYE GFR IS code = 1092) sq m NOT ACCURATE CREATININE CLEARANCE IN PREDICTING GLOMERULAR FILTRATION RATE . ESTIMATED GFR I S NOT APPLICABLE FOR DIALYSIS PATIEN TS. POCT-GLUCOSE [id number] 08:27:00 Test Item Value Reference Range Interpretation Comments POC-GLUCOSE METER 156 mg/dL 70-110 H [facility] (BEAKER) (test code = [facility] [employer] [place] 1538) [address] BASIC METABOLIC [id number] 05:13:00 Test Item Value Reference Range Interpretation Comments SODIUM (BEAKER) 132 meq/L 136-145 L (test code = 381) POTASSIUM (BEAKER) 4.0 meq/L 3.5-5.1 (test code = 379) CHLORIDE (BEAKER) 97 meq/L 98-107 L (test code = 382) CO2 (BEAKER) (test 24 meq/L 22-29 code = 355) BLOOD UREA NITROGEN 30 mg/dL 7-21 H (BEAKER) (test code = 354) CREATININE (BEAKER) 1.78 mg/dL 0.57-1.25 H (test code = 358) GLUCOSE RANDOM 148 mg/dL 70-105 H (BEAKER) (test code = 652) CALCIUM (BEAKER) 9.2 mg/dL 8.4-10.2 (test code = 697) EGFR (BEAKER) (test 37 mL/min/1.73 ESTIMA BETTYE GFR IS code = 1092) sq m NOT ACCURATE CREATININE CLEARANCE IN PREDICTING GLOMERULAR FILTRATION RATE . ESTIMATED GFR I S NOT APPLICABLE FOR DIALYSIS PATIEN TS. CBC W/PLT COUNT & AUTO [id number] 05:03:00 Test Item Value Reference Range Interpretation Comments WHITE BLOOD CELL COUNT (BEAKER) 11.2 K/ L 3.5-10.5 H (test code = 775) RED BLOOD CELL COUNT (BEAKER) 3.33 M/ L 4.63-6.08 L (test code = 761) HEMOGLOBIN (BEAKER) (test code = 10.4 GM/DL 13.7-17.5 L 410) HEMATOCRIT (BEAKER) (test code = 31.0 % 40.1-51.0 L 411) MEAN CORPUSCULAR VOLUME (BEAKER) 93.1 fL 79.0-92.2 H (test code = 753) MEAN CORPUSCULAR HEMOGLOBIN 31.2 pg 25.7-32.2 (BEAKER) (test code = 751) MEAN CORPUSCULAR HEMOGLOBIN CONC 33.5 GM/DL 32.3-36.5 (BEAKER) (test code = 752) RED CELL DISTRIBUTION WIDTH 12.5 % 11.6-14.4 (BEAKER) (test code = 412) PLATELET COUNT (BEAKER) (test 227 K/CU MM 150-450 code = 756) MEAN PLATELET VOLUME (BEAKER) 9.2 fL 9.4-12.4 L (test code = 754) NUCLEATED RED BLOOD CELLS 0 /100 WBC 0-0 (BEAKER) (test code = 413) NEUTROPHILS RELATIVE PERCENT 75 % (BEAKER) (test code = 429) LYMPHOCYTES RELATIVE PERCENT 14 % (BEAKER) (test code = 430) MONOCYTES RELATIVE PERCENT 6 % (BEAKER) (test code = 431) EOSINOPHILS RELATIVE PERCENT 3 % (BEAKER) (test code = 432) BASOPHILS RELATIVE PERCENT 0 % (BEAKER) (test code = 437) NEUTROPHILS ABSOLUTE COUNT 8.45 K/ L 1.78-5.38 H (BEAKER) (test code = 670) LYMPHOCYTES ABSOLUTE COUNT 1.55 K/ L 1.32-3.57 (BEAKER) (test code = 414) MONOCYTES ABSOLUTE COUNT (BEAKER) 0.67 K/ L 0.30-0.82 (test code = 415) EOSINOPHILS ABSOLUTE COUNT 0.31 K/ L 0.04-0.54 (BEAKER) (test code = 416) BASOPHILS ABSOLUTE COUNT (BEAKER) 0.03 K/ L 0.01-0.08 (test code = 417) IMMATURE GRANULOCYTES-RELATIVE 2 % 0-1 H PERCENT (BEAKER) (test code = 2801) PROTHROMBIN [id number] 05:00:00 Test Item Value Reference Range Interpretation Comments PROTIME (BEAKER) (test code = 14.7 seconds 11.7-14.7 759) INR (BEAKER) (test code = 370) 1.1 <=5.9 RECOMMENDED COUMADIN/WARFARIN INR THERAPY RANGESSTANDARD DOSE: 2.0 - 3.0 Includes: PROPHYLAXIS for venous thrombosis, systemic embolization; TREATMENT for venous thrombosis and/or pulmonary embolus.HIGH RISK: Target INR is 2.5-3.5 for patients with mechanical heart valves.POCT-GLUCOSE [id number] 20:56:00 Test Item Value Reference Range Interpretation Comments POC-GLUCOSE METER 301 mg/dL 70-110 H Notified Booker Rock MD/TESTED (GAMAL) (test code = AT [facility] [address] [address]) [facility] [address] 0 POCT-GLUCOSE [id number] 17:41:00 Test Item Value Reference Range Interpretation Comments POC-GLUCOSE METER 288 mg/dL 70-110 H TESTED AT [place] [address] ([facility]) (test code = [facility] 1538) [address] POCT-GLUCOSE [id number] 14:20:00 Test Item Value Reference Range Interpretation Comments POC-GLUCOSE METER 237 mg/dL 70-110 H TESTED AT [place] [address] (BEAKER) (test code = [place] [facility] 1538) [address] POCT-GLUCOSE [id number] 11:48:00 Test Item Value Reference Range Interpretation Comments POC-GLUCOSE METER 193 mg/dL 70-110 H TEST[facility] [place] [address] [facility] (test code = [facility] Booker [facility] 1538) [address] POCT-GLUCOSE [id number] 06:23:00 Test Item Value Reference Range Interpretation Comments POC-GLUCOSE METER 161 mg/dL 70-110 H TESTED AT [place] [address] ([facility] (test code = [facility] Booker [facility] 1538) [address] HEPATIC FUNCTION [id number] 05:35:00 Test Item Value Reference Range Interpretation Comments TOTAL PROTEIN (BEAKER) (test code = 6.3 gm/dL 6.0-8.3 770) ALBUMIN (BEAKER) (test code = 1145) 3.2 g/dL 3.5-5.0 L BILIRUBIN TOTAL (BEAKER) (test code 0.8 mg/dL 0.2-1.2 = 377) BILIRUBIN DIRECT (BEAKER) (test 0.4 mg/dL 0.1-0.5 code = 706) ALKALINE PHOSPHATASE (BEAKER) (test 73 U/L 40-150 code = 346) AST (SGOT) (BEAKER) (test code = 32 U/L 5-34 353) ALT (SGPT) (BEAKER) (test code = 30 U/L 6-55 347) BASIC METABOLIC [id number] 05:35:00 Test Item Value Reference Range Interpretation Comments SODIUM (BEAKER) 137 meq/L 136-145 (test code = 381) POTASSIUM (BEAKER) 4.4 meq/L 3.5-5.1 (test code = 379) CHLORIDE (BEAKER) 101 meq/L 98-107 (test code = 382) CO2 (BEAKER) (test 27 meq/L 22-29 code = 355) BLOOD UREA NITROGEN 21 mg/dL 7-21 (BEAKER) (test code = 354) CREATININE (BEAKER) 1.37 mg/dL 0.57-1.25 H (test code = 358) GLUCOSE RANDOM 169 mg/dL 70-105 H (BEAKER) (test code = 652) CALCIUM (BEAKER) 9.3 mg/dL 8.4-10.2 (test code = 697) EGFR (BEAKER) (test 51 mL/min/1.73 ESTIMA BETTYE GFR IS code = 1092) sq m NOT ACCURATE CREATININE CLEARANCE IN PREDICTING GLOMERULAR FILTRATION RATE . ESTIMATED GFR I S NOT APPLICABLE FOR DIALYSIS PATIEN TS. [id number] 05:13:00 Test Item Value Reference Range Interpretation Comments PROTIME (BEAKER) (test code = 15.3 seconds 11.7-14.7 H 759) INR (BEAKER) (test code = 370) 1.2 <=5.9 PARTIAL THROMBOPLASTIN TIME 33.8 seconds 22.5-36.0 (BEAKER) (test code = 760) RECOMMENDED COUMADIN/WARFARIN INR THERAPY RANGESSTANDARD DOSE: 2.0 - 3.0 Includes: PROPHYLAXIS for venous thrombosis, systemic embolization; TREATMENT for venous thrombosis and/or pulmonary embolus.HIGH RISK: Target INR is 2.5-3.5 for patients with mechanical heart valves.PROTHROMBIN [id number] 05:12:00 Test Item Value Reference Range Interpretation Comments PROTIME (BEAKER) (test code = 15.3 seconds 11.7-14.7 H 759) INR (BEAKER) (test code = 370) 1.2 <=5.9 RECOMMENDED COUMADIN/WARFARIN INR THERAPY RANGESSTANDARD DOSE: 2.0 - 3.0 Includes: PROPHYLAXIS for venous thrombosis, systemic embolization; TREATMENT for venous thrombosis and/or pulmonary embolus.HIGH RISK: Target INR is 2.5-3.5 for patients with mechanical heart valves.CBC W/PLT COUNT & AUTO [id number] 04:52:00 Test Item Value Reference Range Interpretation Comments WHITE BLOOD CELL COUNT (BEAKER) 9.9 K/ L 3.5-10.5 (test code = 775) RED BLOOD CELL COUNT (BEAKER) 3.61 M/ L 4.63-6.08 L (test code = 761) HEMOGLOBIN (BEAKER) (test code = 11.3 GM/DL 13.7-17.5 L 410) HEMATOCRIT (BEAKER) (test code = 33.8 % 40.1-51.0 L 411) MEAN CORPUSCULAR VOLUME (BEAKER) 93.6 fL 79.0-92.2 H (test code = 753) MEAN CORPUSCULAR HEMOGLOBIN 31.3 pg 25.7-32.2 (BEAKER) (test code = 751) MEAN CORPUSCULAR HEMOGLOBIN CONC 33.4 GM/DL 32.3-36.5 (BEAKER) (test code = 752) RED CELL DISTRIBUTION WIDTH 12.2 % 11.6-14.4 (BEAKER) (test code = 412) PLATELET COUNT (BEAKER) (test 228 K/CU MM 150-450 code = 756) MEAN PLATELET VOLUME (BEAKER) 9.1 fL 9.4-12.4 L (test code = 754) NUCLEATED RED BLOOD CELLS 0 /100 WBC 0-0 (BEAKER) (test code = 413) NEUTROPHILS RELATIVE PERCENT 79 % (BEAKER) (test code = 429) LYMPHOCYTES RELATIVE PERCENT 11 % (BEAKER) (test code = 430) MONOCYTES RELATIVE PERCENT 7 % (BEAKER) (test code = 431) EOSINOPHILS RELATIVE PERCENT 1 % (BEAKER) (test code = 432) BASOPHILS RELATIVE PERCENT 1 % (BEAKER) (test code = 437) NEUTROPHILS ABSOLUTE COUNT 7.83 K/ L 1.78-5.38 H (BEAKER) (test code = 670) LYMPHOCYTES ABSOLUTE COUNT 1.13 K/ L 1.32-3.57 L (BEAKER) (test code = 414) MONOCYTES ABSOLUTE COUNT (BEAKER) 0.68 K/ L 0.30-0.82 (test code = 415) EOSINOPHILS ABSOLUTE COUNT 0.14 K/ L 0.04-0.54 (BEAKER) (test code = 416) BASOPHILS ABSOLUTE COUNT (BEAKER) 0.05 K/ L 0.01-0.08 (test code = 417) IMMATURE GRANULOCYTES-RELATIVE 1 % 0-1 PERCENT (BEAKER) (test code = 2801) POCT-GLUCOSE [id number] 22:02:00 Test Item Value Reference Range Interpretation Comments POC-GLUCOSE METER 204 mg/dL 70-110 H TESTED AT [facility] 6720 (BEAKER) (test code = [place] 85[address]) [address] CBC W Auto Differential panel - [id number] 08:17:00 Test Item Value Reference Range Interpretation Comments white blood count (test code = 11.7 K/uL 4.0-12.3 white blood count) red blood count (test code = red 4.31 M/uL 3.80-5.80 blood count) Hemoglobin [Mass/volume] in Blood 13.8 g/dL 11.67-17.22 (test code = 718-7) hematocrit (test code = hematocrit) 40.5 % 35.0-51.0 Erythrocyte mean corpuscular volume 94.0 fL 78-96 [Entitic volume] (test code = 45458-7) Erythrocyte mean corpuscular 31.9 pg 26.8-33.4 hemoglobin [Entitic mass] (test code = 96981-1) mean corpuscular HGB conc (test 34.0 g/dL 32.3-36.7 code = mean corpuscular HGB conc) red cell distribution width (test 12.2 % 11.6-15.4 code = red cell distribution width) Platelets [#/volume] in Blood (test 149 K/uL 115-328 code = 56509-0) Platelet mean volume [Entitic 8.0 fL 8.4-11.8 L volume] in Blood (test code = 63656-3) Neutrophils [#/volume] in Blood by 76 37.0-80.0 Automated count (test code = 751-8) lymphocyte (test code = lymphocyte) 16 10-50 Monocytes [#/volume] in Blood by 2 0-12 Manual count (test code = 743-5) eosinophil (test code = eosinophil) 6 0-7 Platelets [#/volume] in Blood by normal normal Automated count (test code = 777-3) [facility] - [facility] or Plasma 2018-04-21 08:17:00 Test Item Value Reference Range Interpretation Comments Glucose [Mass/volume] in Serum or 54 mg/dL 82-115 L Plasma (test code = 2345-7) Urea nitrogen [Mass/volume] in 22 mg/dL 8-23 Serum or Plasma (test code = 3094-0) Osmolality of Serum or Plasma 284 280-300 (test code = 2692-2) creatinine (test code = 2.2 mg/dL 0.70-1.20 H creatinine) glomerular filtration rate (test 29.25 L code = glomerular filtration rate) Urea nitrogen/Creatinine [Mass 10.0 12-20 L Ratio] in Serum or Plasma (test code = 3097-3) sodium level (test code = sodium 142 mmol/L 135-145 level) potassium level (test code = 4.0 mmol/L 3.5-5.2 potassium level) chloride level (test code = 105 mmol/L 98-108 chloride level) CO2 (test code = CO2) 25 mmol/L 21-32 anion gap (test code = anion gap) 16.0 mEq/L 12-20 calcium level (test code = calcium 9.9 mg/dL 8.8-10.2 level) total protein (test code = total 7.2 g/dL 6.6-8.7 protein) albumin (test code = albumin) 4.2 g/dL 3.5-5.2 globulin (test code = globulin) 3.0 gm/dL A/G ratio (test code = A/G ratio) 1.4 >1.0 bilirubin,total (test code = 0.5 mg/dL 0.0-1.2 bilirubin,total) AST/SGOT (test code = AST/SGOT) 17 U/L 15-40 Alanine aminotransferase 15 U/L 0-41 [Enzymatic activity/volume] in Serum or Plasma (test code = 1742-6) Alkaline phosphatase [Enzymatic 93 U/L 40-130 activity/volume] in Serum or Plasma (test code = 6768-6) [facility] [id number] 18:54:00 Test Item Value Reference Range Interpretation Comments Blood Glucose, Capillary (test code = 83 74-106 Blood Glucose, Capillary) [id number] 18:54:00 Test Item Value Reference Range Interpretation Comments Blood Glucose, Capillary (test code = 83 74-106 Blood Glucose, Capillary) [facility] [id number] 09:25:00 Test Item Value Reference Range Interpretation Comments Creatinine Lvl (test code = Creatinine 1.45 0.50-1.40 Lvl) [facility] [id number] 09:25:00 Test Item Value Reference Range Interpretation Comments BUN (test code = BUN) 16 7-22 [facility]2017-11-14 09:25:00 Test Item Value Reference Range Interpretation Comments Glucose Lvl (test code = Glucose Lvl) 111 70-99 [facility]2017-11-14 09:25:00 Test Item Value Reference Range Interpretation Comments AGAP (test code = AGAP) 9.6 10.0-20.0 [facility]2017-11-14 09:25:00 Test Item Value Reference Range Interpretation Comments CO2 (test code = CO2) 28 24-32 [place] [id number] 09:25:00 Test Item Value Reference Range Interpretation Comments eGFR (test code = eGFR) 47 [facility]2017-11-14 09:25:00 Test Item Value Reference Range Interpretation Comments Calcium Lvl (test code = Calcium Lvl) 8.7 8.5-10.5 [place] 646417-11-14 09:25:00 Test Item Value Reference Range Interpretation Comments Chloride Lvl (test code = Chloride Lvl) 106 95-109 [place] 646417-11-14 09:25:00 Test Item Value Reference Range Interpretation Comments Potassium Lvl (test code = Potassium 3.6 3.5-5.1 Lvl) [facility]2017-11-14 09:25:00 Test Item Value Reference Range Interpretation Comments Sodium Lvl (test code = Sodium Lvl) 140 135-145 [facility]2017-11-14 09:25:00 Test Item Value Reference Range Interpretation Comments Magnesium Lvl (test code = Magnesium 1.8 1.8-2.4 Lvl) [id number] 09:25[facility]00 Test Item Value Reference Range Interpretation Comments CHD Risk (test code = CHD Risk) 3.15 4.00-7.30 [place] [address]-11-14 09:25:00 Test Item Value Reference Range Interpretation Comments VLDL (test code = VLDL) 41 [place] [address]-11-14 09:25:00 Test Item Value Reference Range Interpretation Comments LDL (Calculated) (test code = LDL 43 (Calculated)) [place] 570537-11-14 09:25:00 Test Item Value Reference Range Interpretation Comments HDL (test code = HDL) 39 [id number] 09:25:00 Test Item Value Reference Range Interpretation Comments Chol (test code = Chol) 123 [id number] 09:25:00 Test Item Value Reference Range Interpretation Comments Trig (test code = Trig) 205 [facility]2017-11-14 09:25:00 Test Item Value Reference Range Interpretation Comments Creatinine Lvl (test code = Creatinine 1.45 0.50-1.40 Lvl) [facility]2017-11-14 09:25:00 Test Item Value Reference Range Interpretation Comments BUN (test code = BUN) 16 7-22 [facility]2017-11-14 09:25:00 Test Item Value Reference Range Interpretation Comments Glucose Lvl (test code = Glucose Lvl) 111 70-99 [facility]2017-11-14 09:25:00 Test Item Value Reference Range Interpretation Comments AGAP (test code = AGAP) 9.6 10.0-20.0 [facility]2017-11-14 09:25:00 Test Item Value Reference Range Interpretation Comments CO2 (test code = CO2) 28 24-32 [facility]2017-11-14 09:25:00 Test Item Value Reference Range Interpretation Comments eGFR (test code = eGFR) 47 [facility]2017-11-14 09:25:00 Test Item Value Reference Range Interpretation Comments Calcium Lvl (test code = Calcium Lvl) 8.7 8.5-10.5 [facility]2017-11-14 09:25:00 Test Item Value Reference Range Interpretation Comments Chloride Lvl (test code = Chloride Lvl) 106 95-109 [facility]2017-11-14 09:25:00 Test Item Value Reference Range Interpretation Comments Potassium Lvl (test code = Potassium 3.6 3.5-5.1 Lvl) [facility]2017-11-14 09:25:00 Test Item Value Reference Range Interpretation Comments Sodium Lvl (test code = Sodium Lvl) 140 135-145 [facility]2017-11-14 09:25:00 Test Item Value Reference Range Interpretation Comments Magnesium Lvl (test code = Magnesium 1.8 1.8-2.4 Lvl) [id number] 09:25:00 Test Item Value Reference Range Interpretation Comments CHD Risk (test code = CHD Risk) 3.15 4.00-7.30 [facility] [id number] 09:25:00 Test Item Value Reference Range Interpretation Comments VLDL (test code = VLDL) 41 [facility] JtodwdcXDEUZO6419-51-60 09:25:00 Test Item Value Reference Range Interpretation Comments LDL (Calculated) (test code = LDL 43 (Calculated)) [facility] [id number] 09:25:00 Test Item Value Reference Range Interpretation Comments HDL (test code = HDL) 39 [facility] BepefszPAFKOO6766-15-37 09:25:00 Test Item Value Reference Range Interpretation Comments Chol (test code = Chol) 123 [facility] [id number] 09:25:00 Test Item Value Reference Range Interpretation Comments Trig (test code = Trig) 205 [facility] [id number] 23:42:00 Test Item Value Reference Range Interpretation Comments U Sodium (test code = U Sodium) 114 [facility] [id number] 23:42:00 Test Item Value Reference Range Interpretation Comments U Creatinine (test code = U 154.00 Creatinine) [facility] [id number] 23:42:00 Test Item Value Reference Range Interpretation Comments UA RBC (test code = 0-2 /HPF See_Comment [Automa bettye message] The UA RBC) system which ge nerated this result tra nsmitted reference range : <=2. The reference range was not used to interpr et this result as cory l/abnormal. [facility] [id number] 23:42:00 Test Item Value Reference Range Interpretation Comments UA Bacteria (test code = None Seen (01/21/17 UA Bacteria) 5:42 PM) [facility] [id number] 23:42:00 Test Item Value Reference Range Interpretation Comments UA Sq Epi (test code = UA Sq Occasional /LPF Epi) [facility] [id number] 23:42:00 Test Item Value Reference Range Interpretation Comments UA WBC (test code = UA WBC) 0-2 /HPF [facility] [id number] 23:42:00 Test Item Value Reference Range Interpretation Comments Micro? (test code = Performed (01/21/17 5:42 Micro?) PM) [facility] AND [id number] 23:42:00 Test Item Value Reference Range Interpretation Comments UA Nitrite (test code Negative (01/21/17 5:42 = UA Nitrite) PM) [facility] AND [id number] 23:42:00 Test Item Value Reference Range Interpretation Comments UA Leuk Est (test Negative (01/21/17 5:42 code = UA Leuk Est) PM) [facility] AND [id number] 23:42:00 Test Item Value Reference Range Interpretation Comments UA Protein (test code = UA Protein) 100 mg/dL [facility] AND [id number] 23:42:00 Test Item Value Reference Range Interpretation Comments UA Glucose (test code = UA Glucose) 500 mg/dL [facility] AND [id number] 23:42:00 Test Item Value Reference Range Interpretation Comments UA Spec Grav (test code = UA Spec 1.025 1 Grav) [facility] AND [id number] 23:42:00 Test Item Value Reference Range Interpretation Comments UA pH (test code = UA pH) 5.5 1 5.0-8.0 [facility] AND [id number] 23:42:00 Test Item Value Reference Range Interpretation Comments UA Blood (test code = Negative (01/21/17 5:42 UA Blood) PM) [facility] AND [id number] 23:42:00 Test Item Value Reference Range Interpretation Comments UA RBC (test code = 0-2 /HPF See_Comment [Automa bettye message] The UA RBC) system which ge nerated this result tra nsmitted reference range : <=2. The reference range was not used to interpr et this result as cory l/abnormal. [facility] AND [id number] 23:42:00 Test Item Value Reference Range Interpretation Comments UA Bacteria (test code = None Seen (01/21/17 UA Bacteria) 5:42 PM) [facility] AND [id number] 23:42:00 Test Item Value Reference Range Interpretation Comments UA Sq Epi (test code = UA Sq Occasional /LPF Epi) [facility] AND [id number] 23:42:00 Test Item Value Reference Range Interpretation Comments UA WBC (test code = UA WBC) 0-2 /HPF [facility] AND [id number] 23:42:00 Test Item Value Reference Range Interpretation Comments Micro? (test code = Performed (01/21/17 5:42 Micro?) PM) [facility] AND [id number] 23:42:00 Test Item Value Reference Range Interpretation Comments UA Nitrite (test code Negative (01/21/17 5:42 = UA Nitrite) PM) [facility] AND [id number] 23:42:00 Test Item Value Reference Range Interpretation Comments UA Leuk Est (test Negative (01/21/17 5:42 code = UA Leuk Est) PM) [facility] AND [id number] 23:42:00 Test Item Value Reference Range Interpretation Comments UA Protein (test code = UA Protein) 100 mg/dL [facility] AND [id number] 23:42:00 Test Item Value Reference Range Interpretation Comments UA Glucose (test code = UA Glucose) 500 mg/dL [facility] AND [id number] 23:42:00 Test Item Value Reference Range Interpretation Comments UA Spec Grav (test code = UA Spec 1.025 1 Grav) [facility] AND [id number] 23:42:00 Test Item Value Reference Range Interpretation Comments UA pH (test code = UA pH) 5.5 1 5.0-8.0 [facility] AND [id number] 23:42:00 Test Item Value Reference Range Interpretation Comments UA Blood (test code = Negative (01/21/17 5:42 UA Blood) PM) [facility] AND [id number] 23:42:00 Test Item Value Reference Range Interpretation Comments UA Urobilinogen (test code = UA 0.2 0.1-1.0 Urobilinogen) [facility] AND [id number] 23:42:00 Test Item Value Reference Range Interpretation Comments UA Ketones (test code Negative *NA*(01/21/17 = UA Ketones) 5:42 PM) [facility] AND [id number] 23:42:00 Test Item Value Reference Range Interpretation Comments UA Bili (test code = Negative *NA*(01/21/17 UA Bili) 5:42 PM) [facility] AND [id number] 23:42:00 Test Item Value Reference Range Interpretation Comments UA Turbidity (test code = Clear (01/21/17 5:42 UA Turbidity) PM) [facility] AND [id number] 23:42:00 Test Item Value Reference Range Interpretation Comments UA Urobilinogen (test code = UA 0.2 0.1-1.0 Urobilinogen) [facility] AND [id number] 23:42:00 Test Item Value Reference Range Interpretation Comments UA Color (test code = Yellow *NA*(01/21/17 UA Color) 5:42 PM) [id number] 23:42:00 Test Item Value Reference Range Interpretation Comments U Creatinine (test code = U 154.00 Creatinine) [facility]2017-11-13 23:42:00 Test Item Value Reference Range Interpretation Comments U Protein (test code = U Protein) 156.0 [facility]2017-11-13 23:42:00 Test Item Value Reference Range Interpretation Comments U Prot/Creat (test code = U Prot/Creat) 1.0 [facility]2017-11-13 23:42:00 Test Item Value Reference Range Interpretation Comments U Osmolality (test code = U Osmolality) 590 300-800 [facility]2017-11-13 23:42:00 Test Item Value Reference Range Interpretation Comments U Chloride (test code = U Chloride) 148 [facility]2017-11-13 23:42:00 Test Item Value Reference Range Interpretation Comments U Potassium (test code = U Potassium) 42.4 [facility]2017-11-13 23:42:00 Test Item Value Reference Range Interpretation Comments U Sodium (test code = U Sodium) 114 [facility]2017-11-13 23:42:00 Test Item Value Reference Range Interpretation Comments U Creatinine (test code = U 154.00 Creatinine) [facility] AND [id number] 23:42:00 Test Item Value Reference Range Interpretation Comments UA Ketones (test code Negative *NA*(01/21/17 = UA Ketones) 5:42 PM) [facility] AND [id number] 23:42:00 Test Item Value Reference Range Interpretation Comments UA Bili (test code = Negative *NA*(01/21/17 UA Bili) 5:42 PM) [facility] [id number] 23:42:00 Test Item Value Reference Range Interpretation Comments UA Turbidity (test code = Clear (01/21/17 5:42 UA Turbidity) PM) [facility] [id number] 23:42:00 Test Item Value Reference Range Interpretation Comments UA Color (test code = Yellow *NA*(01/21/17 UA Color) 5:42 PM) [facility] [id number] 23:42:00 Test Item Value Reference Range Interpretation Comments U Creatinine (test code = U 154.00 Creatinine) [facility] [id number] 23:42:00 Test Item Value Reference Range Interpretation Comments U Protein (test code = U Protein) 156.0 [facility] [id number] 23:42:00 Test Item Value Reference Range Interpretation Comments U Prot/Creat (test code = U Prot/Creat) 1.0 [facility] [id number] 23:42:00 Test Item Value Reference Range Interpretation Comments U Osmolality (test code = U Osmolality) 590 300-800 [facility] [id number] 23:42:00 Test Item Value Reference Range Interpretation Comments U Chloride (test code = U Chloride) 148 [facility] [id number] 23:42:00 Test Item Value Reference Range Interpretation Comments U Potassium (test code = U Potassium) 42.4 [facility] [id number] 19:38:00 Test Item Value Reference Range Interpretation Comments Total CK (test code = Total CK) 173 12-191 [facility] [id number] 19:38:00 Test Item Value Reference Range Interpretation Comments Troponin-I (test code 0.36 See_Comment [Auto mated message] The = Troponin-I) system which g enerated this result transmit bettye reference range : <=0.40. The reference r naif was not used to interpr et this result as cory l/abnormal. [facility] [id number] 19:38:00 Test Item Value Reference Range Interpretation Comments CK-MB INDEX (test 2.7 See_Comment [Automate d message] The code = CK-MB INDEX) system w [employer] generated this result transmit bettye reference range : <=2.5. The reference range was not used to interpr et this result as cory l/abnormal. [facility] [id number] 19:38:00 Test Item Value Reference Range Interpretation Comments CK MB (test code = CK MB) 4.7 0.5-3.6 [facility] [id number] 19:38:00 Test Item Value Reference Range Interpretation Comments Total CK (test code = Total CK) 173 12-191 [facility] [id number] 19:38:00 Test Item Value Reference Range Interpretation Comments Troponin-I (test code 0.36 See_Comment [Auto mated message] The = Troponin-I) system which g enerated this result transmit bettye reference range : <=0.40. The reference r naif was not used to interpr et this result as cory l/abnormal. [facility] [id number] 19:38:00 Test Item Value Reference Range Interpretation Comments CK-MB INDEX (test 2.7 See_Comment [Automate d message] The code = CK-MB INDEX) system w [employer] generated this result transmit bettye reference range : <=2.5. The reference range was not used to interpr et this result as cory l/abnormal. [facility] [id number] 19:38:00 Test Item Value Reference Range Interpretation Comments CK MB (test code = CK MB) 4.7 0.5-3.6 [facility] [id number] 15:33:00 Test Item Value Reference Range Interpretation Comments Total CK (test code = Total CK) 223 12-191 [facility] [id number] 15:33:00 Test Item Value Reference Range Interpretation Comments Troponin-I (test code 0.39 See_Comment [Auto mated message] The = Troponin-I) system which g enerated this result transmit bettye reference range : <=0.40. The reference r naif was not used to interpr et this result as cory l/abnormal. [facility] [id number] 15:33:00 Test Item Value Reference Range Interpretation Comments CK-MB INDEX (test 2.6 See_Comment [Automate d message] The code = CK-MB INDEX) system w [employer] generated this result transmit bettye reference range : <=2.5. The reference range was not used to interpr et this result as cory l/abnormal. [facility] PurePhotoannCARDIAC [id number] 15:33:00 Test Item Value Reference Range Interpretation Comments CK MB (test code = CK MB) 5.9 0.5-3.6 [facility] PurePhotoannNMT MedicalIAL [id number] 15:33:00 Test Item Value Reference Range Interpretation Comments Hgb A1C (test code = Hgb A1C) 7.3 [facility] [id number] 15:33:00 Test Item Value Reference Range Interpretation Comments Total CK (test code = Total CK) 223 12-191 [facility] PurePhotoannCARGordon GamesAC [id number] 15:33:00 Test Item Value Reference Range Interpretation Comments Troponin-I (test code 0.39 See_Comment [Auto mated message] The = Troponin-I) system which g enerated this result transmit bettye reference range : <=0.40. The reference r naif was not used to interpr et this result as cory l/abnormal. [facility] [employer] MedicalAC [id number] 15:33:00 Test Item Value Reference Range Interpretation Comments CK-MB INDEX (test 2.6 See_Comment [Automate d message] The code = CK-MB INDEX) system w [employer] generated this result transmit bettye reference range : <=2.5. The reference range was not used to interpr et this result as cory l/abnormal. [facility] PurePhotoannCARDIAC [id number] 15:33:00 Test Item Value Reference Range Interpretation Comments CK MB (test code = CK MB) 5.9 0.5-3.6 [facility] PurePhotoannNMT MedicalIAL [id number] 15:33:00 Test Item Value Reference Range Interpretation Comments Hgb A1C (test code = Hgb A1C) 7.3 [facility] PurePhotoannCARDIAC [id number] 11:07:00 Test Item Value Reference Range Interpretation Comments Total CK (test code = Total CK) 232 12-191 [facility] PurePhotoannCARDIAC [id number] 11:07:00 Test Item Value Reference Range Interpretation Comments Troponin-I (test code 0.43 See_Comment [Auto mated message] The = Troponin-I) system which g enerated this result transmit bettye reference range : <=0.40. The reference r naif was not used to interpr et this result as cory l/abnormal. [facility] HospitalWhite [facility]psFR[facility] [id number] 11:07:00 Test Item Value Reference Range Interpretation Comments CK MB (test code = CK MB) 6.1 0.5-3.6 [facility] [id number] 11:07:00 Test Item Value Reference Range Interpretation Comments CK-MB INDEX (test 2.6 See_Comment [Automate d message] The code = CK-MB INDEX) system w [facility] generated this result transmit bettye reference range : <=2.5. The reference range was not used to interpr et this result as cory l/abnormal. [facility] Runway [id number] 11:07:00 Test Item Value Reference Range Interpretation Comments Phosphorus (test code = Phosphorus) 2.0 2.5-4.5 [facility] DallasDeehubsCHEM [id number] 11:07:00 Test Item Value Reference Range Interpretation Comments Magnesium Lvl (test code = Magnesium 1.9 1.8-2.4 Lvl) [facility] HospitalFjewsjlSXEJOAGTSXOD4190-76-61 11:07:00 Test Item Value Reference Range Interpretation Comments AGAP (test code = AGAP) 11.8 10.0-20.0 [facility] HospitalJcswxzgAPZCPJBICUEH3453-33-07 11:07:00 Test Item Value Reference Range Interpretation Comments eGFR (test code = eGFR) 43 [facility] HospitalYduibrgYWMGOWUGSDDP3768-72-41 11:07:00 Test Item Value Reference Range Interpretation Comments Calcium Lvl (test code = Calcium Lvl) 9.2 8.5-10.5 [facility] HospitalYrjnglmLGWDZMBFAPCE9454-19-30 11:07:00 Test Item Value Reference Range Interpretation Comments BUN (test code = BUN) 15 7-22 [facility] HospitalTvephebCAOAFCXYYZAE3419-28-00 11:07:00 Test Item Value Reference Range Interpretation Comments Glucose Lvl (test code = Glucose Lvl) 223 70-99 [facility] HospitalBglwikaELBXHXGXXGMI7556-01-42 11:07:00 Test Item Value Reference Range Interpretation Comments Sodium Lvl (test code = Sodium Lvl) 137 135-145 [facility] HospitalJqmlzvtXAGLBTZMCGKA8920-01-62 11:07:00 Test Item Value Reference Range Interpretation Comments Potassium Lvl (test code = Potassium 3.8 3.5-5.1 Lvl) [facility] HospitalMiajfgvGTAHEYLBQZIS6029-82-03 11:07:00 Test Item Value Reference Range Interpretation Comments Chloride Lvl (test code = Chloride Lvl) 104 95-109 [facility] HospitalIsmvatrAVJQASRPYOCV2289-86-58 11:07:00 Test Item Value Reference Range Interpretation Comments CO2 (test code = CO2) 25 24-32 [facility] HospitalGgxxjvcHCTEPCSUQFHJ1874-87-01 11:07:00 Test Item Value Reference Range Interpretation Comments Creatinine Lvl (test code = Creatinine 1.55 0.50-1.40 Lvl) [facility]inteWehqpxjWBGFVQBVMA4027-73-07 11:07:00 Test Item Value Reference Range Interpretation Comments Platelet (test code = Platelet) 110 133-450 [facility] PointeHhfrxmrKIWXUHYCND5757-25-80 11:07:00 Test Item Value Reference Range Interpretation Comments MPV (test code = MPV) 9.0 7.4-10.4 [facility] PointeJqusivpMEFBJGZYFI6816-75-82 11:07:00 Test Item Value Reference Range Interpretation Comments MCH (test code = MCH) 31.9 pg 27.0-31.0 [facility] PointeBuqhdiqIIMKPAHAXO5865-97-70 11:07:00 Test Item Value Reference Range Interpretation Comments Hgb (test code = Hgb) 16.2 14.0-18.0 [facility] PointeOldkaddZQUJYVXULZ1910-33-97 11:07:00 Test Item Value Reference Range Interpretation Comments Hct (test code = Hct) 47.6 42.0-54.0 [facility] PointeYuymuooWOZVDYALXC6507-15-16 11:07:00 Test Item Value Reference Range Interpretation Comments MCV (test code = MCV) 93.9 80.0-94.0 [facility] PointeFncatprWXGVINXGYD1955-68-83 11:07:00 Test Item Value Reference Range Interpretation Comments RDW (test code = RDW) 13.0 11.5-14.5 [facility] PointeJltlvrsFCKJNUVNBW9567-59-40 11:07:00 Test Item Value Reference Range Interpretation Comments MCHC (test code = MCHC) 34.0 32.0-36.0 [facility] PointeEbmidysOFLTTKZIGW5697-05-93 11:07:00 Test Item Value Reference Range Interpretation Comments WBC X 10x3 (test code = WBC X 10x3) 8.5 3.7-10.4 [facility] PointeEefgcdrIJHCIPEINH4486-79-60 11:07:00 Test Item Value Reference Range Interpretation Comments RBC X 10x6 (test code = RBC X 10x6) 5.07 4.70-6.10 [facility] PointeHxyblcgQXKANJXFUB4973-44-73 11:07:00 Test Item Value Reference Range Interpretation Comments Basophils (test code = 0.5 See_Comment [Aut omated message] The Basophils) system which ge nerated this result tra nsmitted reference range : <=1.0. The reference r naif was not used to int erpret this result as normal/abnormal . [facility] PointeNhbbojiAEMTGQJNAL7586-97-34 11:07:00 Test Item Value Reference Range Interpretation Comments Segs-Bands # (test code = Segs-Bands #) 6.6 1.5-8.1 [facility] PointeDotythsXGTRSSIEYY1624-87-57 11:07:00 Test Item Value Reference Range Interpretation Comments Eosinophils (test code = 0.9 See_Comment [A utomated message] The Eosinophils) system which ge nerated this result tra nsmitted reference range : <=4.0. The reference r naif was not used to int erpret this result as normal/abnormal . [facility] PointeClzovolLQMFPCCVGU5978 11:07:00 Test Item Value Reference Range Interpretation Comments Lymphocytes (test code = Lymphocytes) 14.9 20.0-40.0 [facility] PointeNeupbtlHMOZWKEXRB0723-83-69 11:07:00 Test Item Value Reference Range Interpretation Comments Monocytes (test code = Monocytes) 6.1 2.0-12.0 [facility] PointeQhyugalQIVXYAUSLU0850-93-26 11:07:00 Test Item Value Reference Range Interpretation Comments Segs (test code = Segs) 77.6 45.0-75.0 [facility] PointeCkhklxlBBNWXYWXPC6146-61-98 11:07:00 Test Item Value Reference Range Interpretation Comments Eosinophils # (test code 0.1 See_Comment [A utomated message] The = Eosinophils #) system [facility] h generated this result tra nsmitted reference range : <=0.5. The reference r naif was not used to int erpret this result as normal/abnormal . [facility] DallasCkdaafcFZICTUZPOP3471-28-21 11:07:00 Test Item Value Reference Range Interpretation Comments Lymphocytes # (test code = Lymphocytes 1.3 1.0-5.5 #) [facility] HospitalBoblhuuGQAXGPGEOQ2985-88-67 11:07:00 Test Item Value Reference Range Interpretation Comments Monocytes # (test code 0.5 See_Comment [Aut omated message] The = Monocytes #) system which generated this result tra nsmitted reference range : <=0.8. The reference r naif was not used to int erpret this result as normal/abnormal . [facility] DallasannCARDIAC PSLESMQ5160-86-49 11:07:00 Test Item Value Reference Range Interpretation Comments Total CK (test code = Total CK) 232 12-191 [facility] HospitalCARAC JJIACFS5557-28-03 11:07:00 Test Item Value Reference Range Interpretation Comments Troponin-I (test code 0.43 See_Comment [Auto mated message] The = Troponin-I) system which g enerated this result transmit bettye reference range : <=0.40. The reference r naif was not used to interpr et this result as cory l/abnormal. [facility] HospitalCARGordon GamesAC UEPIZPT8077-50-52 11:07:00 Test Item Value Reference Range Interpretation Comments CK MB (test code = CK MB) 6.1 0.5-3.6 [facility] HospitalCARAC BAFMJZN8513-02-92 11:07:00 Test Item Value Reference Range Interpretation Comments CK-MB INDEX (test 2.6 See_Comment [Automate d message] The code = CK-MB INDEX) system w [facility] generated this result transmit bettye reference range : <=2.5. The reference range was not used to interpr et this result as cory l/abnormal. [facility] DallasannCHEM KFOWO8226-27-65 11:07:00 Test Item Value Reference Range Interpretation Comments Phosphorus (test code = Phosphorus) 2.0 2.5-4.5 [facility] DallasannCHEM UVOFC4875-94-52 11:07:00 Test Item Value Reference Range Interpretation Comments Magnesium Lvl (test code = Magnesium 1.9 1.8-2.4 Lvl) [facility] DallasNxpbxwbNCDVYQMXWYMR2797-12-68 11:07:00 Test Item Value Reference Range Interpretation Comments AGAP (test code = AGAP) 11.8 10.0-20.0 [facility] HospitalGgxbxzvZBWGWBMQGVYJ5724-27-96 11:07:00 Test Item Value Reference Range Interpretation Comments eGFR (test code = eGFR) 43 [facility] HospitalJztwjphOUGTIYJADOLN6891-68-98 11:07:00 Test Item Value Reference Range Interpretation Comments Calcium Lvl (test code = Calcium Lvl) 9.2 8.5-10.5 [facility] HospitalFpjzuyvNKUMCUYBDCZV8690-50-19 11:07:00 Test Item Value Reference Range Interpretation Comments BUN (test code = BUN) 15 7-22 [facility] HospitalOfrucnxYHNMBHZMWTYN6351-57-34 11:07:00 Test Item Value Reference Range Interpretation Comments Glucose Lvl (test code = Glucose Lvl) 223 70-99 [facility] HospitalGvcixkiMCWIAIZXUBEJ0988-31-57 11:07:00 Test Item Value Reference Range Interpretation Comments Sodium Lvl (test code = Sodium Lvl) 137 135-145 [facility] HospitalHudyjalWQWSOAMTQCNQ5299-27-51 11:07:00 Test Item Value Reference Range Interpretation Comments Potassium Lvl (test code = Potassium 3.8 3.5-5.1 Lvl) [facility] HospitalRnoyhfoDSFCHYFYWIUP2046-60-67 11:07:00 Test Item Value Reference Range Interpretation Comments Chloride Lvl (test code = Chloride Lvl) 104 95-109 [facility] HospitalOecqqgfFFJXQKQCLNWH7079-47-60 11:07:00 Test Item Value Reference Range Interpretation Comments CO2 (test code = CO2) 25 24-32 [facility] HospitalNgncdojKNKSMIEPUNBQ8129-79-86 11:07:00 Test Item Value Reference Range Interpretation Comments Creatinine Lvl (test code = Creatinine 1.55 0.50-1.40 Lvl) [facility] PointeGwducflFSQRGFTOSO1578-58-35 11:07:00 Test Item Value Reference Range Interpretation Comments Platelet (test code = Platelet) 110 133-450 [facility] PointeYatvvanFGULRYXZWG8636-95-93 11:07:00 Test Item Value Reference Range Interpretation Comments MPV (test code = MPV) 9.0 7.4-10.4 [facility] PointeElgpanhAZUEBWMEDA0984-73-50 11:07:00 Test Item Value Reference Range Interpretation Comments MCH (test code = MCH) 31.9 pg 27.0-31.0 [facility] PointeMygjmokVMLMFKUHKM6433-42-48 11:07:00 Test Item Value Reference Range Interpretation Comments Hgb (test code = Hgb) 16.2 14.0-18.0 [facility] PointeCizgvrjDCETNCZNGX7819-89-23 11:07:00 Test Item Value Reference Range Interpretation Comments Hct (test code = Hct) 47.6 42.0-54.0 [facility] PointeYqplihwSSNIXZOQOG4219-88-02 11:07:00 Test Item Value Reference Range Interpretation Comments MCV (test code = MCV) 93.9 80.0-94.0 [facility] PointeCudwwygJWOHFGKIRZ4119-94-95 11:07:00 Test Item Value Reference Range Interpretation Comments RDW (test code = RDW) 13.0 11.5-14.5 [facility] PointeOvtjnvuRCZTESUWPH4785-72-92 11:07:00 Test Item Value Reference Range Interpretation Comments MCHC (test code = MCHC) 34.0 32.0-36.0 [facility] PointeJqoyxwtCEGMKFYKWE9850-83-97 11:07:00 Test Item Value Reference Range Interpretation Comments WBC X 10x3 (test code = WBC X 10x3) 8.5 3.7-10.4 [facility] PointeAanzjjhOKGNXDQUHZ3347-65-67 11:07:00 Test Item Value Reference Range Interpretation Comments RBC X 10x6 (test code = RBC X 10x6) 5.07 4.70-6.10 [facility] PointeZopzwfvFPEBWYGWYD2652-21-16 11:07:00 Test Item Value Reference Range Interpretation Comments Basophils (test code = 0.5 See_Comment [Aut omated message] The Basophils) system which ge nerated this result tra nsmitted reference range : <=1.0. The reference r naif was not used to int erpret this result as normal/abnormal . [facility] PointeJtxuvcvNFRXBMDMLM9736-11-46 11:07:00 Test Item Value Reference Range Interpretation Comments Segs-Bands # (test code = Segs-Bands #) 6.6 1.5-8.1 [facility] PointeYkpzmibWXSQOKVDMZ1166-50-99 11:07:00 Test Item Value Reference Range Interpretation Comments Eosinophils (test code = 0.9 See_Comment [A utomated message] The Eosinophils) system which ge nerated this result tra nsmitted reference range : <=4.0. The reference r naif was not used to int erpret this result as normal/abnormal . [facility] PointeWtrkxjeABYRXTCKWQ5738-22-22 11:07:00 Test Item Value Reference Range Interpretation Comments Lymphocytes (test code = Lymphocytes) 14.9 20.0-40.0 [facility] PointeQybrhsjLQFBCKONPW7151-80-51 11:07:00 Test Item Value Reference Range Interpretation Comments Monocytes (test code = Monocytes) 6.1 2.0-12.0 [facility] PointeJuoecooNTYSTWPLTK4851-84-54 11:07:00 Test Item Value Reference Range Interpretation Comments Segs (test code = Segs) 77.6 45.0-75.0 [facility] PointeWiwdjkqTORODRSTJK8995-77-27 11:07:00 Test Item Value Reference Range Interpretation Comments Eosinophils # (test code 0.1 See_Comment [A utomated message] The = Eosinophils #) system [facility] generated this result tra nsmitted reference range : <=0.5. The reference r naif was not used to int erpret this result as normal/abnormal . [facility] PointeAycancuWDVOMPPTYJ9813-08-47 11:07:00 Test Item Value Reference Range Interpretation Comments Lymphocytes # (test code = Lymphocytes 1.3 1.0-5.5 #) [facility] PointeAcwzbvgKVTOFDGIGG2470-23-83 11:07:00 Test Item Value Reference Range Interpretation Comments Monocytes # (test code 0.5 See_Comment [Aut omated message] The = Monocytes #) system which generated this result tra nsmitted reference range : <=0.8. The reference r naif was not used to int erpret this result as normal/abnormal . [facility]
[2022-02-26 14:57] LABS: Absolute Lymphocytes (CBC) 1.1 K/uL (0.7-4.9); Hematocrit 41.1 % (39.6-49.0); Lymphocytes % 12.7 % (15.3-44.8); MPV 8.9 fL (7.6-11.3); RBC Red Blood Cell Count 4.42 M/uL (4.33-5.43)
[2022-02-26 15:23] LABS: Albumin 3.4 g/dL (3.4-5.0); Potassium 4.6 mmol/L (3.5-5.1); Protein, Total 6.8 g/dL (6.4-8.2)
[2022-02-26 15:30] LABS: Troponin High Sensitivity 20.8 pg/mL (<58.9)
--- NOTE | 2022-02-26 16:22 | RAD REPORT ---
EXAM DESCRIPTION: CT - Head C Spine Mpr Wo Con - 02/26/2022 4:11 pm CLINICAL HISTORY: Head and neck injury status post fall. Head and neck pain COMPARISON: None. TECHNIQUE: Computed axial tomography of the head and cervical spine was obtained. Sagittal and coronal reconstruction was performed. All CT scans are performed using dose optimization technique as appropriate and may include automated exposure control or mA/KV adjustment according to patient size. FINDINGS: An intracranial bleed is not seen. The ventricles are normal in caliber. Mild to moderate low-density areas within periventricular, deep and subcortical white matter probably ischemic changes secondary to small vessel disease An extra-axial fluid collection is not noted.Fluid within the visualized sinuses and mastoids is not seen A cervical fracture is not visualized. No dislocation is noted. Spondylosis cervical spine IMPRESSION: No acute intracranial abnormality is seen. A cervical fracture is not visualized. If the patient continues to have symptoms to suggest intracra nial /spinal cord pathology then MRI would be recommended
--- NOTE | 2022-02-26 16:30 | RAD REPORT ---
EXAM DESCRIPTION: CT - Abdomen Pelvis Wo Contrast - 02/26/2022 4:11 pm CLINICAL HISTORY: Abdominal pain COMPARISON: 2019 TECHNIQUE: Computed axial tomography of the abdomen and pelvis was obtained. IV and oral contrast we re not requested. All CT scans are performed using dose optimization technique as appropriate and may include automated exposure control or mA/KV adjustment according to patient size. FINDINGS: The evaluation of solid organs, vessels and bowel is limited secondary to the lack of con trast administration. A pulmonary and splenic granulomata. Cholecystectomy Liver, pancreas, adrenals and kidneys appear grossly normal The appendix is normal. There is no evidence of diverticulitis. Mild prostatic enlargement Ankylosing spondylitis IMPRESSION: No acute abnormality is displayed.
--- NOTE | 2022-02-26 16:42 | RAD REPORT ---
EXAM DESCRIPTION: Lex Single View02/26/2022 3:14 pm CLINICAL HISTORY: Hypertension/vomiting COMPARISON: 2018 FINDINGS: The lungs appear clear of acute infiltrate. The heart is normal size IMPRESSION: No acute abnormalities displayed
[2022-02-26 17:32] LABS: Urine Blood Negative (Negative); Urine Glucose 2+ (Negative); Urine Protein 1+ (Negative)
--- NOTE | 2022-02-26 17:55 | ER ---
Nurse's Notes [facility] Name: Fred Bloom III Age: 81 yrs Sex: Male : 1940 Arrival Date: 02/26/2022 Time: 14:15 Bed 2 Private MD: Diagnosis: Hyperglycemia, unspecified;Vomiting;Muscle weakness (generalized) Presentation: 02/26 14:29 Chief complaint: Patient states: has been having stomach problems, vomiting, abdominal jh5 pain, and dehydration since the day after thanksgiving. went to [place] 02/19 and they gave him some fluids but he isnt any better; having repeated daily falls. Coronavirus screen: Vaccine status: Patient reports receiving the 2nd dose of the covid vaccine. Client denies travel out of the [place] in the last 14 days. Ebola Screen: Patient negative for fever greater than or equal to 101.5 degrees Fahrenheit, and additional compatible Ebola Virus Disease symptoms Patient denies exposure to infectious person. Patient denies travel to an Ebola-affected area in the 21 days before illness onset. No acute neurological deficit is noted. Initial Sepsis Screen: Does the patient meet any 2 criteria? No. Patient's initial sepsis screen is negative. Does the patient have a suspected source of infection? No. Patient's initial sepsis screen is negative. Risk Assessment: Do you want to hurt yourself or someone else? Patient reports no desire to harm self or others. Onset of symptoms was February 02, 2022. 14:29 Method Of Arrival: Wheelchair jh5 14:29 Acuity: RASHMI 3 jh5 Triage Assessment: 14:31 General: Appears in no apparent distress. uncomfortable, slender, well groomed, well jh5 developed, Behavior is calm, cooperative, appropriate for age. Pain: Complains of pain in abdomen. Neuro: Reports weakness. Historical: - Allergies: 14:31 PENICILLINS; jh5 - PMHx: 14:31 basal carcinoma- resolved; blood pressure, lipid medications unknown; Hypothyroidism; jh5 NOSE BLEEDS; Diabetes - IDDM; Hyperlipidemia; Hypertension; Myocardial infarction; sciatica; - Immunization history:: Adult Immunizations up to date. - Social history:: Smoking status: Patient denies any tobacco usage or history of. Screenin:[facility] ED Fall Risk Assessment (Adult) History of falling in the last 3 months, ko1 including since admission Yes- physiologic fall (2 pts) Confusion or Disorientation No (0 pts) Intoxicated or Sedated No (0 pts) Impaired Gait No (0 pts) Mobility Assist Device Used No (0 pt) Altered Elimination No (0 pt) Score/Fall Risk Level 3 or more points = High Risk. Abuse screen: Denies threats or abuse. Denies injuries from another. Nutritional screening: No deficits noted. Tuberculosis screening: No symptoms or risk factors identified. Fall Risk Fall in past 12 months (25 points). IV access (20 points). Assessment: 15:00 General: Appears in no apparent distress. uncomfortable, Behavior is calm, cooperative, ko1 appropriate for age. Pain: Complains of pain in abdomen. Neuro: No deficits noted. Cardiovascular: No deficits noted. Respiratory: No deficits noted. GI: Reports diarrhea, nausea, vomiting. : No deficits noted. EENT: No deficits noted. Derm: No deficits noted. Musculoskeletal: No deficits noted. Vital Signs: 14:29 BP 149 / 72; Pulse 82; Resp 16; Temp 97.9; Pulse Ox 100% ; Weight 8.16 kg; Height 5 ft. [facility] 11 in. (180.34 cm); Pain 2/10; 15:30 BP 121 / 55; Pulse 67; Resp 18; Pulse Ox 98% on R/A; vg1 16:30 BP 125 / 67; Pulse 65; Resp 20; Pulse Ox 100% on R/A; vg1 18:15 BP 127 / 62; Pulse 68; Resp 18; Pulse Ox 99% on R/A; ko1 14:29 Body Mass Index 2.51 (8.16 kg, 180.34 cm) [facility] ED Course: 14:15 Patient arrived in ED. as 14:18 Chuy Abbasi DO is Attending Physician. ms3 14:31 Triage completed. [facility] 14:31 Arm band placed on right wrist. 5 14:32 Magda Evans, ROSALINDA is Primary Nurse. ko1 14:50 CBC with Diff Sent. ko1 14:50 Troponin HS Sent. ko1 14:50 Lipase Sent. ko1 14:50 CMP Sent. ko1 14:51 Patient has correct armband on for positive identification. Placed in gown. Bed in low ko1 position. Call light in reach. Side rails up X2. Client placed on continuous cardiac and pulse oximetry monitoring. NIBP monitoring applied. court recording monitor on. 14:51 Inserted saline lock: 20 gauge in right antecubital area, using aseptic technique. ko1 Blood collected. 15:16 XRAY Chest (1 view) In Process Unspecified. EDMS 16:13 CT Head C Spine In Process Unspecified. EDMS 16:13 Abdomen In Process Unspecified. EDMS 17:25 No provider procedures requiring assistance completed. ko1 18:20 IV discontinued, intact, bleeding controlled, No redness/swelling at site. Pressure ko1 dressing applied. Administered Medications: No medications were administered Medication: 17:26 VIS not applicable for this client. ko1 Outcome: 17:55 Discharge ordered by . ms3 18:20 Discharged to home via wheelchair, with family. ko1 18:20 Condition: improved 18:20 Discharge instructions given to patient, family, Instructed on discharge instructions, follow up and referral plans. Demonstrated understanding of instructions, follow-up care. 18:27 Patient left the ED. ko1 Signatures: Dispatcher [employer] Selena Hui Victoria, RN RN vg1 Chuy Abbasi DO DO ms3 Rhonda Salgado, ROSALINDA RN jh5 Magda Evans, ROSALINDA RN ko1 Corrections: (The following items were deleted from the chart) 18:20 17:25 Patient transferred, IV remains in place. ko1 ko1 18:21 17:24 BP 122 / 57; Pulse 74bpm; Pulse Ox 95% 4 lpm Nasal Cannula; ko1 ko1 18:21 17:22 Admitted to Med/surg accompanied by tech, via stretcher, with chart, Report ko1 called to rosalinda sweet ko1 18:21 17:22 Condition: stable ko1 ko1 18:21 17:22 Discharge instructions given to Instructed on the need for admit, Demonstrated ko1 understanding of ko1
--- NOTE | 2022-02-26 17:55 | EDPHYS ---
Physician Documentation [facility] Name: Fred Bloom III Age: 81 yrs Sex: Male : 1940 Arrival Date: 02/26/2022 Time: 14:15 Bed 2 Private MD: ED Physician Chuy Abbasi HPI: 02/26 15:27 This 81 yrs old Male presents to ER via Wheelchair with complaints of Weakness, ms3 Vomiting, repeated falls. 15:27 The patient presents to the emergency department with weakness of the entire body, ms3 generalized weakness. Onset: The symptoms/episode began/occurred 1 month(s) ago. Context:. Associated signs and symptoms: Pertinent positives: nausea, Pertinent negatives: chills, fever, headache. Severity of symptoms: At their worst the symptoms were moderate in the emergency department the symptoms are unchanged Pain is currently a 2 / 10. Patient's baseline: Neuro: alert and fully oriented, Motor: no deficits, Ambulation: walks without assistance, Speech: normal. Current symptoms: Currently, the patient is not experiencing any symptoms, no decreased level of consciousness, no confusion, no dysphasia, no headache, no paralysis, no visual changes. Historical: - Allergies: 14:31 PENICILLINS; jh5 - PMHx: 14:31 basal carcinoma- resolved; blood pressure, lipid medications unknown; Hypothyroidism; jh5 NOSE BLEEDS; Diabetes - IDDM; Hyperlipidemia; Hypertension; Myocardial infarction; sciatica; - Immunization history:: Adult Immunizations up to date. - Social history:: Smoking status: Patient denies any tobacco usage or history of. ROS: 15:27 Abdomen/GI: Positive for abdominal pain, nausea and vomiting. ms3 15:27 All other systems are negative. 15:27 Constitutional: Negative for fever, and chills. ENT: Negative for injury, pain, and ms3 discharge, Neck: Negative for injury, pain, and swelling, Cardiovascular: Negative for chest pain, and palpitations. Respiratory: Negative for shortness of breath, cough, wheezing, and pleuritic chest pain, Skin: Negative for injury, rash, and discoloration. Exam: 15:27 Constitutional: This is a well developed, well nourished patient who is awake, alert, ms3 and in no acute distress. Head/Face: Normocephalic, atraumatic. Neck: Trachea midline, no cervical lymphadenopathy. Supple, full range of motion without nuchal rigidity, or vertebral point tenderness. No Meningismus. Chest/axilla: Normal chest wall appearance and motion. Nontender with no deformity. Cardiovascular: Regular rate and rhythm with a normal S1 and S2. No gallops, murmurs, or rubs. Normal PMI, no JVD. No pulse deficits. Respiratory: Lungs have equal breath sounds bilaterally, clear to auscultation and percussion. No rales, rhonchi or wheezes noted. No increased work of breathing, no retractions or nasal flaring. Abdomen/GI: Soft, non-tender, with normal bowel sounds. No distension or tympany. No guarding or rebound. No evidence of tenderness throughout. Skin: Warm, dry with normal turgor. Normal color with no rashes, no lesions, and no evidence of cellulitis. MS/ Extremity: Pulses equal, no cyanosis. Neurovascular intact. Full, normal range of motion. 15:27 ECG was reviewed by the Attending Physician. Vital Signs: 14:29 BP 149 / 72; Pulse 82; Resp 16; Temp 97.9; Pulse Ox 100% ; Weight 8.16 kg; Height 5 ft. jh5 11 in. (180.34 cm); Pain 2/10; 15:30 BP 121 / 55; Pulse 67; Resp 18; Pulse Ox 98% on R/A; vg1 16:30 BP 125 / 67; Pulse 65; Resp 20; Pulse Ox 100% on R/A; vg1 18:15 BP 127 / 62; Pulse 68; Resp 18; Pulse Ox 99% on R/A; ko1 14:29 Body Mass Index 2.51 (8.16 kg, 180.34 cm) 5 MDM: 14:40 Patient medically screened. ms3 17:56 Data reviewed: vital signs, nurses notes, lab test result(s), EKG, radiologic studies, ms3 and as a result, I will discharge patient. 17:56 Counseling: I had a detailed discussion with the patient and/or guardian regarding: the ms3 historical points, exam findings, and any diagnostic results supporting the discharge/admit diagnosis, lab results, radiology results, the need for outpatient follow up, to return to the emergency department if symptoms worsen or persist or if there are any questions or concerns that arise at home. ED course: Discussed labs, imaging with patient and his family. On reevaluation patient is alert and oriented x4, in no apparent distress, nontoxic, speaking full sentences. Patient to follow-up with his primary care physician in 2 to 3 days. Patient is family understand and agree with plan. All questions were answered. Return precautions discussed include worsening symptoms, numbness, weakness gait, inability to tolerate p.o., or any other concerns.. 02/26 14:37 Order name: CBC with Diff; Complete Time: 15:47 ms3 02/26 14:37 Order name: Troponin HS; Complete Time: 15:47 ms3 02/26 14:39 Order name: CMP; Complete Time: 15:47 ms3 02/26 14:39 Order name: Lipase; Complete Time: 15:47 ms3 02/26 17:32 Order name: Urine Dipstick-Ancillary EDMS 02/26 14:37 Order name: XRAY Chest (1 view); Complete Time: 17:05 ms3 02/26 14:37 Order name: EKG; Complete Time: 14:38 ms3 02/26 14:37 Order name: Cardiac monitoring; Complete Time: 14:50 ms3 02/26 14:37 Order name: EKG - Nurse/Tech; Complete Time: 14:50 ms3 02/26 14:37 Order name: IV Saline Lock; Complete Time: 14:50 ms3 02/26 14:39 Order name: CT Head C Spine; Complete Time: 16:38 ms3 02/26 15:48 Order name: Abdomen ; Complete Time: 16:38 EDMS 02/26 14:37 Order name: Labs collected and sent; Complete Time: 14:50 ms3 02/26 14:37 Order name: O2 Per Protocol; Complete Time: 14:40 ms3 02/26 14:37 Order name: O2 Sat Monitoring; Complete Time: 14:40 ms3 02/26 14:39 Order name: IV Saline Lock; Complete Time: 14:50 ms3 02/26 14:39 Order name: Labs collected and sent; Complete Time: 14:50 ms3 02/26 16:46 Order name: Urine Dipstick-Ancillary (obtain specimen); Complete Time: 17:32 ms3 EC:27 Rate is 72 beats/min. Rhythm is regular. QRS [place] is Normal. OR interval is normal. QRS ms3 interval is normal. Clinical impression: NSR w/ Non-specific ST/T Changes. Interpreted by me. Reviewed by me. Administered Medications: No medications were administered Disposition Summary: 02/26/22 17:55 Discharge Ordered Location: Home ms3 Condition: Stable ms3 Diagnosis - Hyperglycemia, unspecified ms3 - Vomiting ms3 - Muscle weakness (generalized) ms3 Followup: ms3 - With: Private Physician - When: 2 - 3 days - Reason: Recheck today's complaints Discharge Instructions: - Discharge Summary Sheet ms3 - Hyperglycemia ms3 - Weakness, [id number] ms3 Forms: - Medication Reconciliation Form ms3 - Thank You Letter ms3 - Antibiotic Education ms3 - Prescription Opioid Use ms3 Signatures: Dispatcher [employer] EDMS Chuy Abbasi, DO ms3 Rhonda Salgado, RN RN jh5 Corrections: (The following items were deleted from the chart) 15:48 14:43 Abdomen Pelvis W Con+CT.RAD.BRZ ordered. EDMS EDMS
[2022-02-26 18:32] VITALS: TEMP 97.9
[2022-02-26 18:35] VITALS: BP 127/62; O2SAT 99
--- NOTE | 2022-02-27 15:17 | EKG ---
Test Date: 2022-02-26 Test Time: 14:49:16 Office Executive: ABBY MEASUREMENT RESULTS: Intervals: Rate: 72 SD: 210 QRSD: 88 QT: 398 QTc: 435 [place]: P: 78 SD: 210 QRS: 36 T: 51 INTERPRETIVE STATEMENTS: Sinus rhythm with 1st degree AV block Possible Inferior infarct, age undetermined Cannot rule out Anterior infarct, age undetermined Abnormal ECG Compared to ECG 05/03/2018 12:03:42 First degree AV block now present Myocardial infarct finding still present Electronically Signed On 02-27-22 15:15:08 BABY NURSE by Gelacio Ingram
== END 2022-02-26 18:27 | disposition home or self-care (01) ==
LOC: ER 14:12
DX: E11.65 Type 2 diabetes mellitus with hyperglycemia (principal); M62.81 Muscle weakness (generalized); R10.9 Unspecified abdominal pain; Z88.0 Allergy status to penicillin; I10 Essential (primary) hypertension
CPT/HCPCS: 36415; 70450; 71045; 72125; 74176; 80053; 81003; 83690; 84484; 85025; 93005; 99284

== ENCOUNTER 2022-03-01 20:12 | Emergency (ER) | payer OTHER ==
--- OUTSIDE RECORDS SUMMARY | 2022-03-01 20:22 | XMS REPORT | Continuity of Care Document ---
:1940 Author Organization [facility] t Address [address] [place] [address] Care Team Providers Name Role Phone No, Pcp [facility] Primary Care Physician Unavailable ARTURO HERNANDEZ Attending Clinician Unavailable Arturo Hernandez MD Attending Clinician Doctor Unassigned, [place] Attending Clinician Unavailable Only, Adc Test Attending Clinician Unavailable Pob, Adc Lab Main Attending Clinician Unavailable IHDE_G Attending Clinician Unavailable ALYCIA SCOTT Attending Clinician Unavailable Prabhu Luu Attending Clinician Monalisa Healy Attending Clinician ARTURO HERNANDEZ Admitting Clinician Unavailable Arturo Hernandez MD Admitting Clinician IHDE_G Admitting Clinician Unavailable ALYCIA SCOTT Admitting Clinician Unavailable Prabhu Luu Admitting Clinician Monalisa Healy Admitting Clinician Payers Payer Name Policy Type Policy Number Effective Date Expiration Date [facility] [id number] 2020 [facility] 00:00:00 PPO [employer] (MEDICARE [id number] REPLACEMENT/[place] GE - PPO) Problems Condition Condition Condition Status Onset Resolution Last Treating Co mments Source Name Details Category Date Date Treatment Clinician Date Hematoma Hematoma Disease [facility] HYPERTENSI HYPERTENS Diagnosis Active 2016-032017-01-25 Memoria VE WILLIAM - 21:59:00 l EMERGENCY EMERGENCY 00:00: Herm edward Active 00 01/20/2017 [facility] Arnie Coronary Coronary Problem Active 2016-032017-10-02 Memoria arterioscl arterioscl 03-11 04:00:43 l erosis erosis 00:00: Arnie (disorder) (disorder) 00 Active 01/09/2017 Problem 10/02/2017 2 stents placed , pt was feeling "discomfor t " in his chest, went to ER and some test were done that led to a heart cath where 2 stents were placed,
2 stents 2aced [facility] Hypertensi Hypertens Problem Active 2017-10-02 Memoria ve william 03-11 04:00:43 l disorder, disorder, 00:00: Herm edward systemic systemic 00 arterial arterial (disorder) (disorder) Active 03/11/1979 Problem 10/02/2017 [facility] Diabetes Diabetes Problem Active 2017-10-02 Memoria mellitus mellitus 03-11 04:00:43 l (disorder) (disorder) 00:00: He rmann Active 03/11/1978 Problem 10/02/2017 fbs- 80-200, HgbA1c done 09-10-17 was 7.0, takes 2 different insulins bid [facility] Hyperlipid Problem Resolve 2017-01-25 Memoria emia Hyperlipid d 03:41:16 l (disorder) emia [place] n (disorder) Resolved Problem 01/25/2017 [facility] Peripheral Periphera Problem Resolve 2017-01-25 Memoria nerve l nerve d 03:41:16 l disease disease Arnie (disorder) (disorder) Resolved Problem 01/25/2017 [facility] Malignant Malignant Problem Resolve 2017-10-02 Memoria neoplasm neoplasm d 04:00:43 l of skin of skin Arnie (disorder) (disorder) Resolved Problem 10/02/2017 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 [facility] Anxiety Anxiety Problem Active 2017-10-02 Me moria (finding) (finding) 04:00:43 l Active Arnie Problem 10/02/2017 [facility] Depressive Depressiv Problem Active 2017-10-02 Memoria disorder e disorder 04:00:43 l (disorder) (disorder) He rmann Active Problem 10/02/2017 [facility] Hearing Hearing Problem Active 2017-10-02 Me moria loss loss 04:00:43 l (finding) (finding) Herm edward Active Problem 10/02/2017 [facility] Hyperchole Hyperchol Problem Active 2017-10-02 Memoria sterolemia esterolemi 04:00:43 l (disorder) a [place] n (disorder) Active Problem 10/02/2017 [facility] Hypothyroi Hypothyro Problem Active 2017-10-02 Memoria dism idism 04:00:43 l (disorder) (disorder) He rmann Active Problem 10/02/2017 [facility] Inguinal Inguinal Problem Active 2017-10-02 Memoria hernia [...] Memoria VE URGENCY WILLIAM 21:59:00 l URGENCY [place] [facility] [place] Chest Chest Problem Resolve 2016-2017-10-02 2017-10-02 Memoria discomfort discomfort d 03-11 04:00:43 [...] 09-30 04:00:43 04:00:43 l hernia, hernia, 05:00: [place] without without 00 obstructio obstructio n or [...] Rash [facility] adverse 00:[facility]: Medical reaction 00 Center s NO KNOWN Drug Active [facility] ALLERGIE Class [facility] [place] [facility] PENICILL Allergy Active Severe Other [place] to da substanc Medical e Group penicill penicill Active Memori a in<sup>1 in<sup>1 l , , Arnie 2</sup> 2</sup> penicill 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) Social History Social Habit Start Date Stop Date Quantity Comments Source History SDOH [facility] Std [facility] r Drinks History SDOH [facility] Alcohol Binge Medical Reena ter History SDOH [facility] Alcohol Comment Medical C enter Exposure to 2021-11-06 2021-11-16 Not sure [facility]-CoV-2 00:00:00 17:07:00 [facility] (event) Branch History SDOH 2018-05-04 2018-05-[address] [facility] Alcohol Frequency 00:00:00 00:00:00 [facility] Tobacco use and 2018-05-03 2018-05-[address] [facility] kes exposure 00:00:00 00:00:00 [facility] Alcohol intake 2018-05-03 2018-05-[address] [facility] es 00:00:00 00:00:00 non-drinker of Medical Ce nter alcohol (finding) Social History 2017-01-21 2017-01-21 [facility] 09:44:26 09:44:26 Sex Assigned At [birth year] BERTHA De Guzman 00:00:00 00:00:00 [facility] Smoking Status Start Date Stop Date Source Unknown if ever smoked [facility] Social History [facility] Medications Ordered Filled Start Stop Current [...] A SERVICE-HY DROMORPHON E INJECTIONS FENTanyl PF Yes 25ug 25 mcg, Uni vers (SUBLIMAZE [...] A SERVICE-HY DROMORPHON E INJECTIONS FENTanyl PF 2021-2021- No 25ug 25 mcg, Un pat (SUBLIMAZE [...] 00 :36 11/22/21 at Med ical injection 0917, Branch Until Sat11/22/21 at 0937, Routine, Intra-op ceFAZolin 2021- No PRN, Univers (ANCEF) 11-22 Starting ity of injection 14:17: 14:37 on Sat 00 :36 11/22/21 at Medical 0917, Branch Until Sat11/22/21 at 0937, DORIAN, Intra-op carbachoL 2021- No PRN, Univers (MIOSTAT) 11-22 Starting ity o f 0.01 % 14:14: 14:37 on Sat [place] intraocular 00 :36 11[place]22/21 [place] injection 0914, Branch Until Sat11/22/21 at 0937, Routine, Intra-op EPINEPHrine 2021- No PRN, Unive rs 1:1,000 (1 11-22 Starting ity of mg/mL) 14:04: 14:37 on Sat (ADRENALIN) 00 :36 11/22/21 at [place] d[place] injection 0904, Branch Until Sat11/22/21 at [...] Sat [place] (HYLENEX) 00 :36 11/22/21 at [facility] luci injection 0856, Branch Until Sat11/22/21 at 0937, [...] 00 :00 dose, On Medic al 0.5% [facility] Branch (MYDRIATIC 11/22/21 at #5) 0800, ophthalmic [...] Sat11/22/21 at 0800, Routine, DSU Pre-op clopidogreL Yes 75mg Take 75 mg Univers 75 mg 9-14 by mouth ity of tablet 10:07: daily. [address] aspirin 81 Yes 81mg Take 81 mg U nivers mg chewable -14 by mouth ity of tablet 10:07: daily. [address] insulin NPH Yes 48U inject 48 U nivers human 9-14 Units ity of isophane 10:07: [place] (HUMULIN N 58 skin 2 Medical PEN SC) (two) Branch times daily. insulin Yes Inject as Unive rs regular, 9-14 directed. ity of human 10:07: Sliding [place] (HUMULIN R 58 scale Medical REGULAR Branch U-100 INSULN INJECTION) furosemide Yes 20mg Take 20 mg U nivers 20 mg 9-14 by mouth ity of tablet 10:07: daily. [address] atorvastati Yes 80mg Take 80 mg Univers n 80 mg 9-14 by mouth ity of tablet 10:07: every [address] Medical Saturday and Branch Saturday in the evening. Takes sun, tue, thur carvediloL 0 Yes 12.5mg Take 12.5 Univers 12.5 mg 9-14 mg by ity of tablet 10:07: mouth 2 [place] [address] (two) Medical times Branch daily with meals. gabapentin 0 Yes Take by Univ ers ER 600 mg 9-14 mouth 2 ity of tablet, 10:07: (two) [place] extended times Medical release 24 daily. Branch hr tamsulosin 0 Yes 1{capsu Take 1 Un pat 0.4 mg 24 9-14 le} capsule by ity of hr capsule 10:07: mouth in [facility] as 58 the Medical morning. Branch lisinopriL 0 Yes 10mg Take 10 mg U nivers 10 mg 9-14 by mouth ity of tablet 10:07: daily. [place] [address] Medical Branch vortioxetin 0 Yes 1{tbl} Take 1 Un pat e 9-14 tablet by ity of (TRINTELLIX 10:07: mouth [place] ) 10 mg Tab 58 daily. Medica l Branch isosorbide 0 Yes 60mg Take 60 mg U nivers mononitrate 9-14 by mouth. ity of 60 mg 24 hr 10:07: [place] tablet 58 Medical Branch NIFEdipine 2021-0 Yes 15mg Take 15 mg U nivers ER 30 mg 9-14 by mouth ity of tablet 10:07: in the [place] [address] morning. Medical Branch ranolazine 0 Yes 500mg Take 500 Un pat 500 mg 12 9-14 mg by ity of hr tablet 10:07: mouth 2 [place] [address] (two) Medical times Branch daily. levothyroxi 0 Yes 100ug Take 100 U nivers ne 100 mcg 9-14 mcg by ity of tablet 10:07: mouth. [place] [address] Medical Branch Saw 0 Yes 2{capsu Take 2 Univers Cullen 9-14 le} capsules ity of Fruit 450 10:07: by mouth 2 [place] mg Cap 58 (two) Medical times Branch daily. Cholecalcif 0 Yes 1{capsu Take 1 U nivers marion, 9-14 le} capsule by ity of Vitamin D3, 10:07: mouth in [place] 50 mcg 58 the Medical (2,000 morning Branch unit) and 1 capsule capsule in the evening. niacin 500 Yes 1000mg Take 1,000 Univers mg tablet 9-14 mg by ity of 10:07: mouth in [place] [address] the Medical morning Branch and 1,000 mg in the evening. Take with meals. multivitami Yes 1{capsu Take 1 U nivers n capsule 9-14 le} capsule by ity of 10:07: mouth in [place] [address] the Medical morning. Branch BIOTIN, Yes 1000ug 1,000 mcg Uni vers BULK, MISC 9-14 daily. ity of 10:07: [address] vit C/vit E Yes 1{tbl} Take 1 Un pat ac/selenium 9-14 tablet by ity of /ginkgo 10:07: mouth [place] (MEMORY 58 daily. Medical COMPLEX Prevagen Branch ORAL) clopidogreL Yes 75mg Take 75 mg Univers 75 mg 9-14 by mouth ity of tablet 10:07: daily. [address] aspirin 81 Yes 81mg Take 81 mg U nivers mg chewable 9-14 by mouth ity of tablet 10:07: daily. [address] Branch insulin NPH Yes 48U inject 48 U nivers human 9-14 Units ity of isophane 10:07: under the [facility] s (HUMULIN N 58 skin 2 Medical PEN SC) (two) Branch times daily. insulin Yes Inject as Unive rs regular, 9-14 directed. ity of human 10:07: Sliding [place] (HUMULIN R 58 scale Medical REGULAR Branch U-100 INSULN INJECTION) furosemide Yes 20mg Take 20 mg U nivers 20 mg 9-14 by mouth ity of tablet 10:07: daily. [address] Branch atorvastati Yes 80mg Take 80 mg Univers n 80 mg 9-14 by mouth ity of tablet 10:07: every [place] [address] Saturday, Medical Saturday and Branch Saturday in the evening. Takes sun, tue, thur carvediloL Yes 12.5mg Take 12.5 Univers 12.5 mg 9-14 mg by ity of tablet 10:07: mouth 2 [place] 58 (two) Medical times Branch daily with meals. gabapentin 2021-0 Yes Take by Univ ers ER 600 mg 9-14 mouth 2 ity of tablet, 10:07: (two) [place] extended 58 times Medical release 24 daily. Branch hr tamsulosin 2021-0 Yes 1{capsu Take 1 Un pat 0.4 mg 24 9-14 le} capsule by ity of hr capsule 10:07: mouth in [facility] as 58 the Medical morning. Branch lisinopriL 2021-0 Yes 10mg Take 10 mg U nivers 10 mg 9-14 by mouth ity of tablet 10:07: daily. [place] [address] Medical Branch vortioxetin 2021-0 Yes 1{tbl} Take 1 Un pat e 9-14 tablet by ity of (TRINTELLIX 10:07: mouth [place] ) 10 mg Tab 58 daily. Medica l Branch isosorbide 2021-0 Yes 60mg Take 60 mg U nivers mononitrate 9-14 by mouth. ity of 60 mg 24 hr 10:07: [place] tablet Medical Branch NIFEdipine 2021-0 Yes 15mg Take 15 mg U nivers ER 30 mg 9-14 by mouth ity of tablet 10:07: in the [place] [address] morning. Medical Branch ranolazine 2021-0 Yes 500mg Take 500 Un pat 500 mg 12 9-14 mg by ity of hr tablet 10:07: mouth 2 [place] [address] (two) Medical times Branch daily. levothyroxi 2021-0 Yes 100ug Take 100 U nivers ne 100 mcg 9-14 mcg by ity of tablet 10:07: mouth. [place] [address] Medical Branch Saw 2021-0 Yes 2{capsu Take 2 Univers Cullen 9-14 le} capsules ity of Fruit 450 [...] mg by ity of 10:07: mouth in [place] [address] the Medical morning Branch and 1,000 mg in the evening. Take with meals. multivitami Yes 1{capsu Take 1 U nivers n capsule 9-14 le} capsule by ity of 10:07: mouth in [place] [address] the Medical morning. Branch BIOTIN, Yes 1000ug 1,000 mcg Uni vers BULK, MISC 9-14 daily. ity of 10:07: [place] [address] Medical Branch vit C/vit E Yes 1{tbl} Take 1 Un pat ac/selenium 9-14 tablet by ity of /ginkgo 10:07: mouth [place] (MEMORY 58 daily. Medical COMPLEX Prevagen Branch ORAL) clopidogreL Yes 75mg Take 75 mg Univers 75 mg 9-14 by mouth ity of tablet 10:07: daily. [address] Branch aspirin 81 0 Yes 81mg Take 81 mg U nivers mg chewable 9-14 by mouth ity of tablet 10:07: daily. [place] [address] Medical Branch insulin NPH Yes 48U inject 48 U nivers human 9-14 Units ity of isophane 10:07: [place] (HUMULIN N 58 skin 2 Medical PEN SC) (two) Branch times daily. insulin Yes Inject as Unive rs regular, 9-14 directed. ity of human 10:07: Sliding [place] (HUMULIN R 58 scale Medical REGULAR Branch U-100 INSULN INJECTION) furosemide Yes 20mg Take 20 mg U nivers 20 mg 9-14 by mouth ity of tablet 10:07: daily. [address] Branch atorvastati Yes 80mg Take 80 mg Univers n 80 mg 9-14 by mouth ity of tablet 10:07: every [place] [address] Saturday, Medical Saturday and Branch Saturday in the evening. Takes sun, tue, thur carvediloL Yes 12.5mg Take 12.5 Univers 12.5 mg 9-14 mg by ity of tablet 10:07: mouth 2 [place] [address] (two) Medical times Branch daily with meals. gabapentin Yes Take by Univ ers ER 600 mg 9-14 mouth 2 ity of tablet, 10:07: (two) [place] extended times Medical release 24 daily. Branch hr tamsulosin Yes 1{capsu Take 1 Un pat 0.4 mg 24 9-14 le} capsule by ity of hr capsule 10:07: mouth in [facility] 58 the Medical morning. Branch lisinopriL Yes 10mg Take 10 mg U nivers 10 mg 9-14 by mouth ity of tablet 10:07: daily. [place] [address] Medical Branch vortioxetin Yes 1{tbl} Take 1 Un pat e 9-14 tablet by ity of (TRINTELLIX 10:07: mouth [place] ) 10 mg Tab 58 daily. Medica l Branch isosorbide Yes 60mg Take 60 mg U nivers mononitrate 9-14 by mouth. ity of 60 mg 24 hr 10:07: [place] tablet 58 Medical Branch NIFEdipine Yes 15mg Take 15 mg U nivers ER 30 mg 9-14 by mouth ity of tablet 10:07: in the [place] [address] morning. Medical Branch ranolazine Yes 500mg Take 500 Un pat 500 mg 12 9-14 mg by ity of hr tablet 10:07: mouth 2 [place] [address] (two) Medical times Branch daily. levothyroxi Yes 100ug Take 100 U nivers ne 100 mcg 9-14 mcg by ity of tablet 10:07: mouth. [place] [address] Medical Branch Saw Yes 2{capsu Take 2 Univers Cullen 9-14 le} capsules ity of Fruit 450 [...] mg by ity of 10:07: mouth in [place] [address] the Medical morning Branch and 1,000 mg in the evening. Take with meals. multivitami Yes 1{capsu Take 1 U nivers n capsule 9-14 le} capsule by ity of 10:07: mouth in [place] [address] the Medical morning. Branch BIOTIN, Yes 1000ug 1,000 mcg Uni vers BULK, MISC 9-14 daily. ity of 10:07: [place] 58 [facility] Branch vit C/vit E Yes 1{tbl} Take 1 Un pat ac/selenium 9-14 tablet by ity of /ginkgo 10:07: mouth [place] (MEMORY 58 daily. Medical COMPLEX Prevagen Branch ORAL) niacin 500 Yes 1000mg Take 1,000 Univers mg tablet 9-08 mg by ity of 16:59: mouth in [place] 20 the Medical morning Branch and 1,000 mg in the evening. Take with meals. multivitami Yes 1{capsu Take 1 U nivers n capsule 908 le} capsule by ity of 16:59: mouth in [place] 20 the Medical morning. Branch BIOTIN, Yes 1000ug 1,000 mcg Uni vers BULK, MISC 9-08 daily. ity of 16:59: [place] 20 [facility] vit C/vit E Yes 1{tbl} Take 1 Un pat ac/selenium 9-08 tablet by ity of /ginkgo 16:59: mouth [place] (MEMORY 20 daily. Medical COMPLEX Prevagen Branch ORAL) clopidogreL Yes 75mg Take 75 mg Univers 75 mg 908 by mouth ity of tablet 16:45: daily. [address] aspirin 81 Yes 81mg Take 81 mg U nivers mg chewable 08 by mouth ity of tablet 16:45: daily. [address] insulin NPH Yes 48U inject 48 U nivers human 11-16 Units ity of isophane 16:45: [place] (HUMULIN N 34 skin 2 Medical PEN SC) (two) Branch times daily. insulin Yes Inject as Unive rs regular, 08 directed. ity of human 16:45: Sliding [place] (HUMULIN R 34 scale Medical REGULAR Branch U-100 INSULN INJECTION) furosemide Yes 20mg Take 20 mg U nivers 20 mg 08 by mouth ity of tablet 16:45: daily. [address] atorvastati Yes 80mg Take 80 mg Univers n 80 mg 08 by mouth ity of tablet 16:45: every [place] [address] Saturday, Medical Saturday and Branch Saturday in the evening. Takes sun, tue, thur carvediloL 0 Yes 12.5mg Take 12.5 Univers 12.5 mg 9-08 mg by ity of tablet 16:45: mouth 2 [place] [address] (two) Medical times [place] daily with meals. gabapentin 0 Yes Take by Univ ers ER 600 mg 9-08 mouth 2 ity of tablet, 16:45: (two) [place] extended times Medical release 24 daily. Branch hr tamsulosin 0 Yes 1{capsu Take 1 Un pat 0.4 mg 24 9-08 le} capsule by ity of hr capsule 16:45: mouth in [place] [address] the Medical morning. Branch lisinopriL 0 Yes 10mg Take 10 mg U nivers 10 mg 9-08 by mouth ity of tablet 16:45: daily. [address] Branch vortioxetin Yes 1{tbl} Take 1 Un pat e 9-08 tablet by ity of (TRINTELLIX 16:45: mouth [place] ) 10 mg Tab 34 daily. Medica l Branch isosorbide 0 Yes 60mg Take 60 mg U nivers mononitrate 9-08 by mouth. ity of 60 mg 24 hr 16:45: [place] [address] Medical Branch NIFEdipine 0 Yes 15mg Take 15 mg U nivers ER 30 mg 9-08 by mouth ity of tablet 16:45: in the [place] [address] morning. Medical Branch ranolazine 0 Yes 500mg Take 500 Un pat 500 mg 12 9-08 mg by ity of hr tablet 16:45: mouth 2 [place] [address] (two) Medical times Branch daily. levothyroxi 0 Yes 100ug Take 100 U nivers ne 100 mcg 9-08 mcg by ity of tablet 16:45: mouth. [address] Branch Saw 0 Yes 2{capsu Take 2 Univers Cullen 9-08 le} capsules ity of Fruit 450 16:45: by mouth 2 [place] mg [facility] (two) Medical times [place] daily. Cholecalcif 0 Yes 1{capsu Take 1 [...] } needed. ity of TEST STRP 00:00: [facility] 00 Medical Branch ACCU-CHEK Yes 1{strip 1 Strip as Univers HUDSON PLUS 8-11 } needed. ity of TEST STRP 00:00: [facility] 00 Medical Branch ACCU-CHEK Yes 1{strip 1 Strip as Univers HUDSON PLUS 8-11 } needed. ity of TEST STRP 00:00: [facility] 00 Medical Branch ACCU-CHEK Yes 1{strip 1 Strip as Univers HUDSON PLUS 8-11 } needed. ity of TEST STRP 00:00: [facility] 00 Medical Branch Saw Yes Take by Univers Cullen 3-17 mouth. ity of Fruit 450 15:03: [place] mg Cap 36 [facility] Branch Cholecalcif Yes Take by Uni vers marion, 3-17 mouth. ity of Vitamin D3, 15:03: [place] (VITAMIN 36 Medical D3) 50 mcg Branch (2,000 unit) capsule niacin 500 Yes 500mg Take 500 Un pat mg tablet 3-17 mg by ity of 15:03: mouth [place] 36 daily with Medical breakfast. Branch clopidogreL Yes 75mg Take 75 mg Univers (PLAVIX) 75 3-17 by mouth ity of mg tablet 15:03: daily. [address] Branch aspirin 81 Yes 81mg Take 81 mg U nivers mg chewable 3-17 by mouth ity of tablet 15:03: daily. [address] Branch insulin NPH Yes 46U inject 46 U nivers human 3-17 Units ity of isophane 15:03: [place] the [place] (HUMULIN N 36 skin 2 Medical PEN SC) (two) Branch times daily. insulin Yes Inject as Unive rs regular, 3-17 directed. ity of human 15:03: Sliding [place] (HUMULIN R 36 scale Medical REGULAR Branch U-100 INSULN INJECTION) furosemide Yes 20mg Take 20 mg U nivers (LASIX) 20 3-17 by mouth ity o f mg tablet 15:03: daily. [address] Branch atorvastati Yes 80mg Take 80 mg Univers n 80 mg 3-17 by mouth ity of tablet 15:03: at [place] [address] bedtime. Medical Branch carvediloL Yes 12.5mg Take 12.5 Univers 12.5 mg 3-17 mg by ity of tablet 15:03: mouth 2 [place] [address] (two) Medical times [place] daily with meals. gabapentin Yes Take by [facility] ers ER 600 mg 3-17 mouth 2 ity of tablet, 15:03: (two) [place] extended times Medical release 24 daily. Branch hr tamsulosin Yes Take by [facility] ers HCl 3-17 mouth. ity of (TAMSULOSIN 15:03: [place] ORAL) Medical Branch lisinopriL Yes 10mg Take 10 mg U nivers 10 mg 3-17 by mouth ity of tablet 15:03: daily. [place] [address] Medical Branch vortioxetin Yes Take by Uni vers e 3-17 mouth. ity of (TRINTELLIX 15:03: [place] ) 10 mg Tab Medical Branch isosorbide Yes 60mg Take 60 mg U nivers mononitrate 3-17 by mouth. ity of 60 mg 24 hr 15:03: [place] tablet Medical Branch NIFEdipine 2021-0 Yes 15mg Take 15 mg U nivers 20 mg 3-17 by mouth 3 ity of capsule 15:03: (three) [place] [address] times Medical daily. Branch ranolazine Yes 500mg Take 500 Un pat (RANEXA) 3-17 mg by ity of 500 mg 12 15:03: mouth 2 [place] hr tablet 36 (two) Medical times Branch daily. levothyroxi Yes 100ug Take 100 U nivers ne 3-17 mcg by ity of (LEVOXYL) 15:03: mouth. [place] 100 mcg Medical tablet Branch Saw Yes Take by Univers Cullen 3-17 mouth. ity of Fruit 450 15:03: [place] mg Cap [address] [place] [address] Branch Cholecalcif Yes Take by Uni vers marion, 3-17 mouth. ity of Vitamin D3, 15:03: [place] (VITAMIN Medical D3) 50 mcg [place] (2,000 unit) capsule niacin 500 Yes 500mg Take 500 Un pat mg tablet 3-17 mg by ity of 15:03: mouth [place] [address] daily with Medical breakfast. Branch clopidogreL Yes 75mg Take 75 mg Univers (PLAVIX) 75 3-17 by mouth ity of mg tablet 15:03: daily. [address] Branch aspirin 81 Yes 81mg Take 81 mg U nivers mg chewable 3-17 by mouth ity of tablet 15:03: daily. [address] Branch insulin NPH Yes 46U inject 46 U nivers human 3-17 Units ity of isophane 15:03: [place] the [place] (HUMULIN N 36 skin 2 Medical PEN SC) (two) Branch times daily. insulin Yes Inject as Unive rs regular, 3-17 directed. ity of human 15:03: Sliding [place] (HUMULIN R 36 scale Medical REGULAR Branch U-100 INSULN INJECTION) furosemide Yes 20mg Take 20 mg U nivers (LASIX) 20 3-17 by mouth ity o f mg tablet 15:03: daily. [address] Branch atorvastati Yes 80mg Take 80 mg Univers n 80 mg 3-17 by mouth ity of tablet 15:03: at [place] [address] bedtime. Medical Branch carvediloL Yes 12.5mg Take 12.5 Univers 12.5 mg 3-17 mg by ity of tablet 15:03: mouth 2 [place] [address] (two) Medical times [place] daily with meals. gabapentin Yes Take by [facility] ers ER 600 mg 3-17 mouth 2 ity of tablet, 15:03: (two) [place] extended 36 times Medical release 24 daily. [place] hr tamsulosin Yes Take by [facility] ers HCl 3-17 mouth. ity of (TAMSULOSIN 15:03: [place] ORAL) 36 [facility] Branch lisinopriL Yes 10mg Take 10 mg U nivers 10 mg 3-17 by mouth ity of tablet 15:03: daily. [address] vortioxetin Yes Take by [facility] vers e 3-17 mouth. ity of (TRINTELLIX 15:03: [place] ) 10 mg Tab [address] [place] [address] isosorbide Yes 60mg Take 60 mg U nivers mononitrate 3-17 by mouth. ity of 60 mg 24 hr 15:03: [place] tablet [address] [place] [address] NIFEdipine Yes 15mg Take 15 mg U nivers 20 mg 3-17 by mouth 3 ity of capsule 15:03: (three) [place] 36 times Medical daily. [place] ranolazine Yes 500mg Take 500 Un pat (RANEXA) 3-17 mg by ity of 500 mg 12 15:03: mouth 2 [place] hr tablet 36 (two) Medical times [place] daily. levothyroxi Yes 100ug Take 100 U nivers ne 3-17 mcg by ity of (LEVOXYL) 15:03: mouth. [place] 100 mcg 36 Medical tablet [place] water for Yes PRN, Univers irrigation 3-17 Starting ity o f irrigation 14:02: Sat [place] solution 00 05/25/20 at Medic al 0902, [place] Until Discontinu ed, Routine, Intra-op sodium 0 Yes PRN, Univers chloride 3-17 Starting ity of (NS) 14:02: Sat [place] injection 00 05/25/20 at Medi luci 0902, [place] Until Discontinu ed, Routine, Intra-op neomycin-po 0 Yes PRN, Univer s lymyxin-dex 3-17 Starting ity of amethasone 14:02: Wed [place] (MAXITROL) 00 05/25/20 at [facility] ical 3.5 0902, Branch mg/g-10,000 Until unit/g-0.1 Discontinu % ed, ophthalmic Routine, ointment Intra-op Hyaluronida Yes PRN, Univer s se, Human 05-25 Starting ity of Recomb. 14:01: Sat (HYLENEX) 00 05/25/20 at [facility] luci injection 0901, [place] Until Discontinu ed, Routine, Intra-op gentamicin 0 Yes PRN, Univers injection 05-25 Starting ity of 14:01: Sat05/25/20 at [facility] 0901, [place] Until Discontinu ed, DORIAN, Intra-op eye block 0 Yes PRN, Univers syringe 11 05-25 Starting ity o f mL 14:01: Sat05/25/20 at [facility] 0901, [place] Until Discontinu ed, Intra-op EPINEPHrine Yes PRN, Univer s 1:1,000 (1 05-25 Starting ity o f mg/mL) 14:00: Sat (ADRENALIN) 05/25/20 at [place] dical injection 0900, [place] Until Discontinu ed, Routine, Intra-op DUOVISC Yes PRN, Univers (DUOVISC 05-25 Starting ity of VISCO 14:00: Sat ELASTIC) 3 05/25/20 at [facility] ical %-4 %(0.5 0900, Branch mL) 1 % Until (0.55 mL) Discontinu intraocular ed, injection Routine, Intra-op dexamethaso Yes PRN, Univer s ne 05-25 Starting ity of (DECADRON 14:00: Sat PHOSPHATE) 00 05/25/20 at [facility] ical injection 0900, [place] Until Discontinu ed, Routine, Intra-op ceFAZolin Yes PRN, Univers (ANCEF) 05-25 Starting ity of injection 13:59: Sat05/25/20 at [facility] 0859, [place] Until Discontinu ed, DORIAN, Intra-op carbachoL 0 Yes PRN, Univers (MIOSTAT) 05-25 Starting ity of 0.01 % 13:59: Wed [place] intraocular 00 05/25/20 [place] dical injection 0859, Branch Until Discontinu ed, Routine, Intra-op balanced Yes PRN, Univers salt irrig -17 Starting ity o f soln comb1 13:59: Sat [place] (BSS PLUS) 00 05/25/20 at [facility] ical ophthalmic 0859, Branch solution Until 500 mL bag Discontinu ed, Routine, Intra-op mydriatic 2020- No .5mL 0.5 mL, Univ ers #5 05-25 Right Eye, ity of ophthalmic 12:45: 12:52 ONCE, 1 Alan as solution 00 :00 dose, Sat Medica l 0.5 mL 05/25/20 at [place] syringe 0745, Routine clopidogreL Yes 75mg Take 75 mg Univers (PLAVIX) 75 -17 by mouth ity of mg tablet 10:03: daily. [address] aspirin 81 Yes 81mg Take 81 mg U nivers mg chewable 17 by mouth ity of tablet 10:03: daily. [address] insulin NPH Yes 46U inject 46 U nivers human 3-17 Units ity of isophane 10:03: under the [facility] s (HUMULIN N 36 skin 2 Medical PEN SC) (two) Branch times daily. insulin Yes Inject as Unive rs regular, 3-17 directed. ity of human 10:03: Sliding [place] (HUMULIN R 36 scale Medical REGULAR Branch U-100 INSULN INJECTION) furosemide Yes 20mg Take 20 mg U nivers (LASIX) 20 -17 by mouth ity o f mg tablet 10:03: daily. [address] Branch atorvastati Yes 80mg Take 80 mg Univers n 80 mg -17 by mouth ity of tablet 10:03: at [place] [address] bedtime. [facility] Branch carvediloL Yes 12.5mg Take 12.5 Univers 12.5 mg 3-17 mg by ity of tablet 10:03: mouth 2 [place] [address] (two) Medical times [place] daily with meals. gabapentin Yes Take by Univ ers ER 600 mg 3-17 mouth 2 ity of tablet, 10:03: (two) [place] extended times Medical release 24 daily. [place] hr tamsulosin Yes Take by Univ ers HCl 3-17 mouth. ity of (TAMSULOSIN 10:03: [place] ORAL) Medical Branch lisinopriL Yes 10mg Take 10 mg U nivers 10 mg 3-17 by mouth ity of tablet 10:03: daily. [place] [address] Medical Branch vortioxetin Yes Take by Uni vers e 3-17 mouth. ity of (TRINTELLIX 10:03: [place] ) 10 mg Tab Medical Branch isosorbide Yes 60mg Take 60 mg U nivers mononitrate 3-17 by mouth. ity of 60 mg 24 hr 10:03: [place] tablet Medical Branch NIFEdipine Yes 15mg Take 15 mg U nivers 20 mg 3-17 by mouth 3 ity of capsule 10:03: (three) [place] [address] times Medical daily. Branch ranolazine Yes 500mg Take 500 Un pat (RANEXA) 3-17 mg by ity of 500 mg 12 10:03: mouth 2 [place] tablet 36 (two) Medical times Branch daily. levothyroxi Yes 100ug Take 100 U nivers ne 3-17 mcg by ity of (LEVOXYL) 10:03: mouth. [place] 100 mcg Medical tablet Branch Saw Yes Take by [facility] Cullen 3-17 mouth. ity of Fruit 450 10:03: [place] mg Cap Medical Branch Cholecalcif Yes Take by Uni vers marion, 3-17 mouth. ity of Vitamin D3, 10:03: [place] (VITAMIN [address] [place] [address] D3) 50 mcg [place] (2,000 unit) capsule niacin 500 Yes 500mg Take 500 Un pat mg tablet 3-17 mg by ity of 10:03: mouth [place] [address] daily with Medical breakfast. Branch clopidogreL Yes 75mg Take 75 mg Univers (PLAVIX) 75 3-17 by mouth ity of mg tablet 10:03: daily. [address] Branch aspirin 81 0 Yes 81mg Take 81 mg U nivers mg chewable 3-17 by mouth ity of tablet 10:03: daily. [address] Branch insulin NPH Yes 46U inject [...] ity o f mg tablet 10:03: daily. [place] [address] Medical Branch atorvastati Yes 80mg Take 80 mg Univers n 80 mg 3-17 by mouth ity of tablet 10:03: at [place] [address] bedtime. Medical Branch carvediloL Yes 12.5mg Take 12.5 Univers 12.5 mg 3-17 mg by ity of tablet 10:03: mouth 2 [place] [address] (two) Medical times Branch daily with meals. gabapentin Yes Take by [facility] ers ER 600 mg 3-17 mouth 2 ity of tablet, 10:03: (two) [place] extended times Medical release 24 daily. Branch hr tamsulosin Yes Take by [facility] ers HCl 3-17 mouth. ity of (TAMSULOSIN 10:03: [place] ORAL) Medical Branch lisinopriL Yes 10mg Take 10 mg U nivers 10 mg 3-17 by mouth ity of tablet 10:03: daily. [place] [address] Medical Branch vortioxetin Yes Take by Uni [...] mouth 3 ity of capsule 10:03: (three) [place] [address] times Medical daily. Branch ranolazine Yes 500mg Take 500 Un pat (RANEXA) 3-17 mg by ity of 500 mg 12 10:03: mouth 2 [place] hr tablet 36 (two) Medical times Branch daily. levothyroxi 2021-0 Yes 100ug Take 100 U nivers ne 3-17 mcg by ity of (LEVOXYL) 10:03: mouth. [place] 100 mcg 36 Medical tablet Branch Saw Yes Take by [facility] 3-17 mouth. ity of Fruit 450 10:03: [place] mg Cap 36 Medical Branch Cholecalcif Yes Take by Uni vers marion, 3-17 mouth. ity of Vitamin D3, 10:03: [place] (VITAMIN 36 Medical D3) 50 mcg Branch [...] Center capsule mouth daily For your prostate. cholecalcif Yes 2000U Q.5D Take 2,[address] [facility] marion, 2-26 Units by [facility] vitamin D3, 16:33: mouth 2 Med ical 2,000 unit 31 (two) Center Cap times daily. aspirin 81 Yes 81mg QD Take [address] MG chewable 2-26 by mouth Luke s tablet 16:33: daily. Medical 31 Center atorvastati Yes 80mg [id number] Take [address] [facility] [facility] n (LIPITOR) 2-26 [id number] by mouth 3 [facility] 80 MG 16:33: 3W (three) Medical tablet 31 times a Center week. carvedilol Yes 12.5mg Take 12.[address] [facility] [facility] (COREG) 2-26 mg by [facility] 12.5 MG 16:33: mouth 2 Medical tablet 31 (two) Center times daily with breakfast and dinner. gabapentin 2018- Yes 600mg Q.5D Take [address] (NEURONTIN) 2-26 mg by [facility] 600 MG 16:33: mouth 2 Medical tablet 31 (two) Center times daily. isosorbide 0 Yes 60mg QD Take [address] mononitrate 2-26 by mouth Luke s (IMDUR) 60 16:33: daily. Medic al MG 24 hr 31 Center tablet multivitami 2018-0 Yes 1{capsu QD Take [address] n capsule 2- le} capsule by Luke s 16:33: mouth Medical 31 daily. Center niacin 500 2019 Yes 500mg Take [address] MG tablet 2-26 mg by [facility] 16:33: mouth 2 Medical 31 (two) Center times daily with breakfast and dinner. NIFEdipine 2019 Yes 30mg QD Take [address] (ADALAT CC) 2-26 by mouth Luke s 30 MG 24 hr 16:33: daily. Medi [place] tablet 31 Center vortioxetin 0 Yes QD Take by [facility] e 10 mg Tab 2-26 mouth [facility] 16:33: daily. Medical 31 Center insulin NPH Yes type 1 84U Inject [address] (HUMULIN N) 2- diabetes Units Wilian es 100 unit/mL 16:33: mellitus subcutaneo Medical injection 31 usly 2 Center (two) times daily before meals Use as directed . insulin Yes type [address] [facility] [facility] regular 2- diabetes subcutaneo Berta kes (HUMULIN R 16:33: mellitus usly 3 M edical REGULAR 31 (three) Center U-100 times INSULN) 100 daily with unit/mL meals Use injection as directed . ondansetron Yes 4mg Take [address] (ZOFRAN) 4 2-26 by mouth [facility]ukes MG tablet 16:33: every 6 Medic al 31 (six) Center hours as needed for Nausea. levothyroxi Yes hypothyroid 100ug Take [address] ne 2-26 ism mcg by [facility]ukes (SYNTHROID, 16:33: mouth Medic al LEVOTHROID) 31 Every Center 100 MCG morning on tablet an empty stomach. clopidogrel 0 Yes 75mg QD Take [address] (PLAVIX) 75 2-26 by mouth Luke s mg tablet 16:33: daily. Medica l 31 Center ranolazine 0 Yes 500mg Q.5D Take [address] (RANEXA) 2-26 mg by [facility] 500 MG 12 16:33: mouth 2 Medic al hr tablet 31 (two) Center times daily. saw 0 Yes 900mg Q.5D Take [address] palmetto 2-26 mg by [facility] 500 MG 16:33: mouth 2 Medical capsule 31 (two) Center times daily. acetaminoph 2018-0 Yes pain 1{tbl} Take [address] en-codeine 2-26 tablet by Nicholas salomon (TYLENOL 00:00: mouth Medical #3) 300-30 00 every 6 Center mg per (six) tablet hours as needed for Pain. Max Daily Amount: 4 tablets Novolin N Novolin N 2018- No Novolin N [place] NPH U-100 NPH U-100 1-10 NPH U-100 da Insulin Insulin 00:00: Insulin Medi luci isophane isophane 00 isophane Cedric up 100 unit/mL 100 unit/mL 100 subcutaneou subcutaneou unit/mL s susp 84 s susp 84 subcutaneo units units us susp 84 units [facility] No 900 mL, Memoria Medication 7-23 Soln-IV, l 21:28: IV, Once, first dose 09/30/17 16:28:00 CDT, stop date 09/30/17 16:28:00 CDT [facility] No 900 mL, Memoria Medication 09-30 Soln-IV, l 21:28: IV, Once, first dose 09/30/17 16:28:00 CDT, stop date 09/30/17 16:28:00 CDT [facility] No 900 mL, Memoria Medication 7- Soln-IV, l 21:28: IV, Once, first dose 09/30/17 16:28:00 CDT, stop date 09/30/17 16:28:00 CDT fentaNYL No 50 mcg = 1 [...] Mem oria 7-23 mL, l 21:18: Injection, [place] 00 IV, Once, first dose 09/30/17 16:18:00 CDT, stop date 09/30/17 16:18:00 CDT sugammadex 2018-0 No 180 mg = Mem oria 7-23 1.8 mL, l 21:06: Injection, [place] 00 IV, Once, first dose 09/30/17 16:06:00 CDT, stop date 09/30/17 16:06:00 CDT sugammadex 2018-0 No 180 mg = Mem oria 7-23 1.8 mL, l 21:06: Injection, [place] 00 IV, Once, first dose 09/30/17 16:06:00 CDT, stop date 09/30/17 16:06:00 CDT sugammadex 2018-0 No 180 mg = Mem oria 7-23 [...] ia 7-23 0.5 mL, l 21:01: Injection, [place] 00 IV, Once, first dose 09/30/17 16:01:00 [...] ia 7-23 0.2 mL, l 20:18: Injection, [place] 00 IV, Once, first dose 09/30/17 15:18:00 CDT, stop date 09/30/17 15:18:00 CDT ePHEDrine 2018-0 No 10 mg = Memor ia 7-23 0.2 mL, l 20:18: Injection, [place] 00 IV, Once, first dose 09/30/17 15:18:00 CDT, stop date 09/30/17 15:18:00 CDT ePHEDrine 2018-0 No 10 mg = Memor ia 7-23 0.2 mL, l 20:18: Injection, [place] 00 IV, Once, first dose 09/30/17 15:18:00 CDT, stop date 09/30/17 15:18:00 CDT Misc 2018-0 No 1,000 mL, Memoria Medication 09-30 Soln-IV, l 20:17: IV, Once, first dose 09/30/17 15:17:00 CDT, stop date 09/30/17 15:17:00 CDT Diphenhydra 2017-0 No 25 mg = Mem oria mine - 0.5 mL, l 20:17: Injection, IV Push, Once PRN for itching, first dose 09/30/17 15:17:00 CDT Labetalol 2018-0 No 5 mg = 1 Sean carly -23 mL, l 20:17: Injection, IV Push, As Indicated PRN for hypertensi on, first dose 09/30/17 15:17:00 CDT Hydralazine 2017-0 No 10 mg = Mem oria - 0.5 mL, l 20:17: Injection, IV Push, As Indicated PRN for hypertensi on, first dose 09/30/17 15:17:00 CDT Promethazin 2017-0 No 12.5 mg = M emoria e 7- 0.5 mL, l 20:17: Injection, IM, Once PRN for vomiting, first dose 09/30/17 15:17:00 CDT Ondansetron 2017-0 No 4 mg = 2 Me moria -23 mL, l 20:17: Injection, IV Push, q15min PRN for nausea, order duration: 2 doses, first dose 09/30/17 15:17:00 CDT, stop date Limited # of times Levalbutero 2017-0 No 0.63 mg = M emoria l 0.21 23 3 mL, l MG/ML 20:17: Soln, NEB, [place] n Inhalant 00 Once PRN Solution for [Xopenex] wheezing, first dose 09/30/17 15:17:00 CDT Demerol HCl 2017-0 No 12.5 mg = M emoria 7-23 0.5 mL, l 20:17: Injection, [place] 00 IV Push, Once PRN for shivers, first dose 09/30/17 15:17:00 CDT Dilaudid 2018-0 No 0.5 mg = Memor ia 7-23 0.5 mL, l 20:17: Injection, IV Push, q10min PRN for pain severe (7-10), first dose 09/30/17 15:17:00 CDT Saline Lock 2017-0 No 10 mL, Sean carly Flush 09-30 Soln, IV l 20:17: Push, As Indicated PRN for flush, first dose 09/30/17 15:17:00 CDT LR 1,000 mL 2017-0 No 1,000 mL, M emoria - IV, 75 l 20:17: mL/hr, start date 09/30/17 15:17:00 CDT Misc 2017-0 No 1,000 mL, Memoria Medication 09-30 Soln-IV, l 20:17: IV, Once, first dose 09/30/17 15:17:00 CDT, stop date 09/30/17 15:17:00 CDT Diphenhydra 2017-0 No 25 mg = Mem oria mine - 0.5 mL, l 20:17: Injection, IV Push, Once PRN for itching, first dose 09/30/17 15:17:00 CDT Labetalol 2017-0 No 5 mg = 1 Sean carly 7-23 mL, l 20:17: Injection, IV Push, As Indicated PRN for hypertensi on, first dose 09/30/17 15:17:00 CDT Hydralazine 2017-0 No 10 mg = Mem oria 7-23 0.5 mL, l 20:17: Injection, IV Push, As Indicated PRN for hypertensi on, first dose 09/30/17 15:17:00 CDT Promethazin 2017-0 No 12.5 mg = M emoria e [...] first dose 09/30/17 15:17:00 CDT Demerol HCl No 12.5 mg = M emoria 7-23 0.5 mL, l 20:17: Injection, IV Push, Once PRN for shivers, first dose 09/30/17 15:17:00 CDT Dilaudid 2017- No 0.5 mg = Memor ia 7-23 0.5 mL, l 20:17: Injection, IV Push, q10min PRN for pain severe (7-10), first dose 09/30/17 15:17:00 CDT Saline Lock 0 No 10 mL, Sean carly Flush - Soln, IV l 20:17: Push, As Indicated PRN for flush, first dose 09/30/17 15:17:00 CDT LR 1,000 mL 2017-0 No 1,000 mL, M emoria -23 IV, 75 l 20:17: mL/hr, start date [...] on, first dose 09/30/17 15:17:00 CDT Hydralazine 2017- No 10 mg = Mem oria 7-23 0.5 mL, l 20:17: Injection, IV Push, As Indicated PRN for hypertensi on, first dose 09/30/17 15:17:00 CDT Promethazin 2017- No 12.5 mg = M emoria e 7-23 0.5 mL, l 20:17: Injection, IM, Once PRN for vomiting, first dose 09/30/17 15:17:00 CDT Ondansetron No 4 mg = 2 Me moria 7-23 mL, l 20:17: Injection, IV Push, q15min PRN for nausea, order duration: 2 doses, first dose 09/30/17 15:17:00 CDT, stop date Limited # of times Levalbutero No 0.63 mg = M emoria l 0.21 09-30 3 mL, l MG/ML 20:17: Soln, NEB, [place] Inhalant 00 Once PRN Solution for [Xopenex] wheezing, first dose 09/30/17 15:17:00 CDT Demerol HCl No 12.5 mg = M emoria 7-23 0.5 mL, l 20:17: Injection, IV Push, Once PRN for shivers, first dose 09/30/17 15:17:00 CDT Dilaudid 0 No 0.5 mg = Memor ia 23 0.5 mL, l 20:17: Injection, IV Push, q10min PRN for pain severe (7-10), first dose 09/30/17 15:17:00 CDT Saline Lock 2017-0 No 10 mL, Sean carly Flush 09-30 Soln, IV l 20:17: Push, As Indicated PRN for flush, first dose 09/30/17 15:17:00 CDT LR 1,000 mL 0 No 1,000 mL, M emoria 7-23 IV, 75 l 20:17: mL/hr, [place] 00 start date 09/30/17 15:17:00 CDT ondansetron 2018-0 No 4 mg = 2 Me moria 7-23 mL, l 20:15: Injection, [place] 00 IV, Once, first dose 09/30/17 15:15:00 CDT, [...] ia 7-23 0.2 mL, l 20:14: Injection, [place] 00 IV, Once, first dose 09/30/17 15:14:00 CDT, stop date 09/30/17 15:14:00 CDT glycopyrrol 2018-0 No 0.2 mg = 1 Memoria ate 7-23 mL, l 20:14: Injection, [place] 00 IV, Once, first dose 09/30/17 15:14:00 CDT, stop date 09/30/17 15:14:00 CDT ePHEDrine 2018-0 No 10 mg = Memor ia 7-23 0.2 mL, l 20:14: Injection, [place] 00 IV, Once, first dose 09/30/17 15:14:00 CDT, stop date 09/30/17 15:14:00 CDT glycopyrrol 2018-0 No 0.2 mg = 1 Memoria ate 7-23 mL, l 20:14: Injection, [place] 00 IV, Once, first dose 09/30/17 15:14:00 CDT, stop date 09/30/17 15:14:00 CDT ePHEDrine 2018-0 No 10 mg = Memor ia 7-23 0.2 mL, l 20:14: Injection, [place] 00 IV, Once, first dose 09/30/17 15:14:00 CDT, stop date 09/30/17 15:14:00 CDT dexamethaso 2018-0 No 8 mg = 2 Me moria ne 7-23 mL, l 20:08: Injection, [place] 00 IV, Once, first dose 09/30/17 15:08:00 CDT, stop date 09/30/17 15:08:00 CDT ePHEDrine 2018-0 No 10 mg = Memor ia 7-23 0.2 mL, l 20:08: Injection, [place] 00 IV, Once, first dose 09/30/17 15:08:00 CDT, stop date 09/30/17 15:08:00 CDT dexamethaso 2018-0 No 8 mg = 2 Me moria ne 7-23 mL, l 20:08: Injection, [place] 00 IV, Once, first dose 09/30/17 15:08:00 CDT, stop date 09/30/17 15:08:00 CDT ePHEDrine 2018-0 No 10 mg = Memor ia 7-23 0.2 mL, l 20:08: Injection, [place] 00 IV, Once, first dose 09/30/17 15:08:00 CDT, stop date 09/30/17 15:08:00 CDT dexamethaso 2018-0 No 8 mg = 2 Me moria ne 7-23 mL, l 20:08: Injection, [place] 00 IV, [...] carly 7-23 4.5 mL, l 20:04: Injection, [place] 00 IV, Once, first dose 09/30/17 15:04:00 CDT, stop date 09/30/17 15:04:00 CDT propofol 2018-0 No 100 mg = Memor ia 7-23 10 mL, l 19:59: Emulsion, [place] 00 IV, Once, first dose 09/30/17 14:59:00 CDT, stop date 09/30/17 14:59:00 CDT lidocaine 2018-0 No 3 mL, Memoria 7-23 Injection, l 19:59: IV, Once, 00 first dose 09/30/17 14:59:00 CDT, stop date 09/30/17 14:59:00 CDT fentaNYL 2018-0 No 150 mcg = Sean carly 7-23 3 mL, l 19:59: Injection, [place] IV, Once, first dose 09/30/17 14:59:00 CDT, stop date 09/30/17 14:59:00 CDT succinylcho 2018-0 No 120 mg = 6 Memoria line 7-23 mL, l 19:59: Injection, [place] 00 IV, Once, first dose 09/30/17 14:59:00 CDT, stop date 09/30/17 14:59:00 CDT rocuronium 2018-0 No 5 mg = 0.5 M emoria 7-23 mL, l 19:59: Injection, [place] 00 [...] carly 7-23 3 mL, l 19:59: Injection, [place] 00 IV, Once, first dose 09/30/17 14:59:00 CDT, stop date 09/30/17 14:59:00 CDT succinylcho 2018-0 No 120 mg = 6 Memoria line 7-23 mL, l 19:59: Injection, [place] 00 IV, Once, first dose 09/30/17 14:59:00 CDT, stop date 09/30/17 14:59:00 CDT rocuronium 2018-0 No 5 mg = 0.5 M emoria 7-23 mL, l 19:59: Injection, [place] 00 IV, Once, first dose 09/30/17 14:59:00 CDT, stop date 09/30/17 14:59:00 CDT propofol 2018-0 No 100 mg = Memor ia 7-23 10 mL, l 19:59: Emulsion, [place] 00 IV, Once, first dose 09/30/17 14:59:00 CDT, stop date 09/30/17 14:59:00 CDT lidocaine 2018-0 No 3 mL, Memoria 7-23 Injection, l 19:59: IV, Once, [place] 00 first dose 09/30/17 14:59:00 CDT, stop date 09/30/17 14:59:00 CDT fentaNYL 2018-0 No 150 mcg = Sean carly 7-23 3 mL, l 19:59: Injection, [place] 00 IV, Once, first dose 09/30/17 14:59:00 CDT, stop date 09/30/17 14:59:00 CDT succinylcho 2018-0 No 120 mg = 6 Memoria line 7-23 mL, l 19:59: Injection, [place] 00 IV, Once, first dose 09/30/17 14:59:00 CDT, stop date 09/30/17 14:59:00 CDT rocuronium 2018-0 No 5 mg = 0.5 M emoria 7-23 mL, l 19:59: Injection, [place] 00 IV, Once, first dose 09/30/17 14:59:00 CDT, stop date 09/30/17 14:59:00 CDT fentaNYL 2018-0 No 50 mcg = 1 Mem oria 7-23 mL, l 19:48: Injection, [place] 00 IV, Once, first dose 09/30/17 14:48:00 CDT, stop date 09/30/17 14:48:00 CDT fentaNYL 2018-0 No 50 mcg = 1 Mem oria 7-23 mL, l 19:48: Injection, [place] 00 IV, Once, first dose 09/30/17 14:48:00 CDT, stop date 09/30/17 14:48:00 CDT fentaNYL 2018-0 No 50 mcg = 1 Mem oria 7-23 mL, l 19:48: Injection, [place] 00 IV, Once, first dose 09/30/17 14:48:00 CDT, stop date 09/30/17 14:48:00 CDT LR 1,000 mL 2018-0 No 1,000 mL, M emoria 7-23 IV, 30 l 18:05: mL/hr, [place] start date 09/30/17 13:05:00 CDT Lidocaine 2018-0 No 0.2 mL, Memor ia 2% 0.2 mL 7-23 Injection, l IV Start 18:05: [facility] [[facility]] 00 us, Once PRN for other (see comment), first dose 09/30/17 13:05:00 CDT LR 1,000 mL 2018-0 No 1,000 mL, M emoria 7-23 IV, 30 l 18:05: mL/hr, [place] 00 start date 09/30/17 13:05:00 CDT Lidocaine 2018-0 No 0.2 mL, Memor ia 2% 0.2 mL 7-23 Injection, l IV Start 18:05: [facility]cutaneo [facility] 00 us, Once PRN for other (see comment), first dose 09/30/17 13:05:00 CDT LR 1,000 mL 2018-0 No 1,000 mL, M emoria 7-23 IV, 30 l 18:05: mL/hr, start date 09/30/17 13:05:00 CDT Lidocaine 2018-0 No 0.2 mL, Memor ia 2% 0.2 mL 7-23 Injection, l IV Start 18:05: [facility]cutaneo [facility] [[facility]] 00 us, Once PRN for other (see comment), first dose 09/30/17 13:05:00 CDT Lisinopril 2018-0 Yes 40 mg, Memor ia 7-10 Oral, l 14:42: Daily, pt [place] 00 inst not to take am of sx, 0 Refill(s), htn NIFEdipine 2018-0 Yes 60 mg = 1 Me moria 60 mg oral 7-10 tabs, l tablet, 14:42: Oral, [place] extended 00 qNoon, pt release inst to take if he is scheduled for an afternoon sx, 0 Refill(s), htn Lisinopril 2018-0 Yes 40 mg, Memor ia 7-10 Oral, l 14:42: Daily, pt [place] 00 inst not to take am of sx, 0 Refill(s), htn NIFEdipine 2018-0 Yes 60 mg = 1 Me moria 60 mg oral 7-10 tabs, l tablet, 14:42: Oral, [place] extended 00 qNoon, pt release inst to take if he is scheduled for an afternoon sx, 0 Refill(s), htn Lisinopril 20180 Yes 40 mg, Memor ia 7-10 Oral, l 14:42: Daily, pt [place] 00 inst not to take am of sx, 0 Refill(s), htn NIFEdipine 20180 Yes 60 mg = 1 Me moria 60 mg oral 7-10 tabs, l tablet, 14:42: Oral, [place] extended 00 qNoon, pt release inst to take if he is scheduled for an afternoon sx, 0 Refill(s), htn vortioxetin 20180 Yes 10 mg = 1 M emoria e 10 MG 7-10 tabs, l Oral Tablet 14:37: Oral, qPM, [place] [Trintellix 00 0 ] Refill(s), depression multivitami 20180 Yes 1 tab, Sean carly n 7-10 Oral, l 14:37: Daily, 0 [place] 00 Refill(s), supplement Nitroglycer 0 Yes 1 tab, SL, Memoria in 7-10 PRN as l 14:37: needed for [place] 00 chest pain, last time used , 0 Refill(s), angina vortioxetin 20180 Yes 10 mg = 1 M emoria e 10 MG 7-10 tabs, l Oral Tablet 14:37: Oral, qPM, [place] [Trintellix 00 0 ] Refill(s), depression multivitami 20180 Yes 1 tab, Sean carly n 7-10 Oral, l 14:37: Daily, 0 [place] 00 Refill(s), supplement Nitroglycer 20180 Yes 1 tab, SL, Memoria in 7-10 PRN as l 14:37: needed for [place] 00 chest pain, last time used , 0 Refill(s), angina vortioxetin 2018-0 Yes 10 mg = 1 M emoria e 10 MG 7-10 tabs, l Oral Tablet 14:37: Oral, qPM, [place] [Trintellix 00 0 ] Refill(s), depression multivitami 20180 Yes 1 tab, Sean carly n 7-10 Oral, l 14:37: Daily, 0 [place] 00 Refill(s), supplement Nitroglycer 20180 Yes 1 tab, SL, Memoria in 7-10 PRN as l 14:37: needed for [place] 00 chest pain, last time used , 0 [...] 7-10 tabs, l Mononitrate 14:36: Oral, qAM, [place] 60 MG 00 # 30 tabs, Extended 0 Release Refill(s), Tablet angina Saw Yes 1 tab, Memoria [place]ullen 7-10 Oral, BID, l 14:36: 0 [place] 00 Refill(s), supplement 12 HR Yes 500 mg = 1 Memori a ranolazine 7-10 tabs, l 500 MG 14:36: Oral, BID, Ven[place]ia nn Extended 00 # 60 tabs, Release 0 Tablet Refill(s), [Ranexa] chest pains gabapentin Yes 600 mg, Sean carly 7-10 Oral, BID, l 14:36: pt inst ok 00 to take am of sx, 0 Refill(s), neuropathy carvedilol Yes 12.5 mg = Me moria 12.5 MG 7-10 1 tabs, l Oral Tablet 14:36: Oral, BID, [place] 00 pt inst to take the am of sx, # 60 tabs, 0 Refill(s), htn biotin 1000 Yes 1,000 mcg M emoria mcg oral 7-10 = 1 tabs, l tablet 14:36: Oral, [place] 00 Daily, # 30 tabs, 0 Refill(s), supplement atorvastati Yes See Memori a n 80 mg 7-10 Instructio l oral tablet 14:36: ns, 1 tab H ermann 00 q Saturday, Saturday and , 0 Refill(s), supplement Levoxyl Yes 100 mcg, Memori a 7-10 Oral, qAM, l 14:36: pt inst to [place] 00 take am of sx, 0 Refill(s), thyroid Regular Yes See Memoria Insulin, 7-10 Instructio l Human 100 14:36: ns, [place] UNT/ML 00 Subcutaneo Injectable us, bid Solution before [Humulin R] meals, pt inst to not take am of sx, 0 Refill(s), diabetes NPH Yes See Memoria Insulin, 7-10 Instructio l Human 100 14:36: ns, [place] UNT/ML 00 Subcutaneo Injectable us BID Pt Suspension inst to [Humulin N] not take am of sx, 0 Refill(s), diabetes Aspirin 81 Yes 81 mg = 1 Me moria MG Oral 7-10 tabs, l Tablet 14:36: Oral, [place] 00 Daily, 0 Refill(s), heart health Vitamin D3 Yes 2,000 Memori a 2000 intl 7-10 IntUnit = l units oral 14:36: 1 caps, Herm edward capsule 00 Oral, BID, 0 Refill(s), supplement clopidogrel Yes 75 mg = 1 M emoria 75 MG Oral 7-10 tabs, l Tablet 14:36: Oral, qAM, Vneecia nn [Plavix] 00 0 Refill(s), blood thinner/st ents 24 HR Yes 60 mg = 1 Memoria Isosorbide 7-10 tabs, l Mononitrate 14:36: Oral, qAM, Arnie 60 MG 00 # 30 tabs, Extended 0 Release Refill(s), Tablet angina Saw Yes 1 tab, Memoria Cullen 7-10 Oral, BID, l 14:36: 0 [place] 00 Refill(s), supplement 12 HR Yes 500 mg = 1 Memori a ranolazine 7-10 tabs, l 500 MG 14:36: Oral, BID, Venecia nn Extended 00 # 60 tabs, Release 0 Tablet Refill(s), [Ranexa] chest pains gabapentin 2018 Yes 600 mg, Sean carly 7-10 Oral, BID, l 14:36: pt inst ok 00 to take am of sx, 0 Refill(s), neuropathy carvedilol Yes 12.5 mg = Me moria 12.5 MG 7-10 1 tabs, l Oral Tablet 14:36: Oral, BID, Arnie 00 pt inst to take the am of sx, # 60 tabs, 0 Refill(s), htn biotin 1000 Yes 1,000 mcg M emoria mcg oral 7-10 = 1 tabs, l tablet 14:36: Oral, [place] Daily, # 30 tabs, 0 Refill(s), supplement atorvastati Yes See Memori a n 80 mg 7-10 Instructio l oral tablet 14:36: ns, 1 tab H ermann q Saturday, Saturday and , 0 Refill(s), supplement Levoxyl Yes 100 mcg, Memori a 7-10 Oral, qAM, l 14:36: pt inst to [place] 00 take am of sx, 0 Refill(s), thyroid Regular Yes See Memoria Insulin, 7-10 Instructio l Human 100 14:36: ns, [place] UNT/ML 00 Subcutaneo Injectable us, bid Solution before [Humulin R] meals, pt inst to not take am of sx, 0 Refill(s), diabetes NPH Yes See Memoria Insulin, 7-10 Instructio l Human 100 14:36: ns, [place] UNT/ML 00 Subcutaneo Injectable us BID Pt Suspension inst to [Humulin N] not take am of sx, 0 Refill(s), diabetes Aspirin 81 2018 Yes 81 mg = 1 Me moria MG Oral 7-10 tabs, l Tablet 14:36: Oral, [place] 00 Daily, 0 Refill(s), heart health Vitamin [...] 7-10 tabs, l Mononitrate 14:36: Oral, qAM, Arnie 60 MG 00 # 30 tabs, Extended 0 Release Refill(s), Tablet angina Saw Yes 1 tab, Memoria Cullen 7-10 Oral, BID, l 14:36: 0 [place] 00 Refill(s), supplement 12 HR Yes 500 mg = 1 Memori a ranolazine 7-10 tabs, l 500 MG 14:36: Oral, BID, Venecia nn Extended 00 # 60 tabs, Release 0 Tablet Refill(s), [Ranexa] chest pains gabapentin Yes 600 mg, Sean carly 7-10 Oral, BID, l 14:36: pt inst ok to take am of sx, 0 Refill(s), neuropathy carvedilol Yes 12.5 mg = Me moria 12.5 MG 7-10 1 tabs, l Oral Tablet 14:36: Oral, BID, 00 pt inst to take the am of sx, # 60 tabs, 0 Refill(s), htn biotin 1000 Yes 1,000 mcg M emoria mcg oral 7-10 = 1 tabs, l tablet 14:36: Oral, [place] 00 Daily, # 30 tabs, 0 Refill(s), supplement atorvastati Yes See Memori a n 80 mg 7-10 Instructio l oral tablet 14:36: ns, 1 tab H ermann 00 q Saturday, Saturday and , 0 Refill(s), supplement Levoxyl Yes 100 mcg, Memori a 7-10 Oral, qAM, l 14:36: pt inst to [place] 00 take am of sx, 0 Refill(s), thyroid Regular Yes See Memoria Insulin, 7-10 Instructio l Human 100 14:36: ns, [place] UNT/ML 00 Subcutaneo Injectable us, bid Solution before [Humulin R] meals, pt inst to not take am of sx, 0 Refill(s), diabetes NPH Yes See Abrahamoria Insulin, 7-10 Instructio l Human 100 14:36: ns, [place] UNT/ 00 Subcutaneo Injectable us BID Pt Suspension [...] l oral tablet 19:43: Q12H, # 60 [place] 00 tab, 3 Refill(s) tamsulosin 2016-03 Yes 0.4 mg = 1 M emoria 0.4 mg oral 1-14 cap, PO, l capsule 19:43: After [place] 00 Breakfast, # 30 cap, 5 Refill(s) carvedilol 2016-03 Yes 12.5 mg = Me moria 12.5 mg 1-14 1 tab, PO, l oral tablet 19:43: Q12H, # 60 [place]nie 00 tab, 3 Refill(s) tamsulosin 2016-03 Yes 0.4 mg = 1 M emoria 0.4 mg oral 1-14 cap, PO, l capsule 19:43: After [place] 00 Breakfast, # 30 cap, 5 Refill(s) [...] a 1-14 tab, l 17:00: Route: PO, [place] 00 Drug form: TAB, Daily, Start date: 01/22/17 11:00:00 ER NURSE, Duration: 30 day, Stop date: 02/21/17 9:00:00 ER NURSE hydrochloro 2017-1 No Notes: Sean carly thiazide 25 1-14 (Same as: l mg oral 17:00: Hydrodiuri Herm edward tablet 00 l) With food. Benicar 2016- No 40 mg, 2 Memori a 1-14 tab, l 17:00: Route: PO, [place] 00 Drug form: TAB, Daily, Start date: 01/22/17 11:00:00 ER NURSE, Duration: 30 day, Stop date: 02/21/17 9:00:00 ER NURSE hydrochloro 2017- No Notes: Sean carly thiazide 25 1-14 (Same as: l mg oral 17:00: Hydrodiuri Herm edward tablet 00 l) With food. Benicar 2016-03 No 40 mg, 2 Memori a 1-14 tab, l 17:00: Route: PO, [place] 00 Drug form: TAB, Daily, Start date: 01/22/17 11:00:00 ER NURSE, Duration: 30 day, Stop date: 02/21/17 9:00:00 ER NURSE hydrochloro 2017-1 No Notes: Sean carly thiazide 25 1-14 (Same as: l mg oral 17:00: Hydrodiuri Herm edward tablet 00 l) With food. Hydrochloro 2017- No 1 tab, Sean carly thiazide 1-14 Route: PO, l 12.5 MG / 15:50: Drug Form: Mike rmann Olmesartan 00 TAB, medoxomil Dosing 40 MG Oral Weight Tablet 96.2, kg, [Benicar Daily, HCT Start 40/12.5] date: 01/22/17 9:50:00 ER NURSE, Duration: 30 day, Stop date: 02/21/17 9:49:00 ER NURSE Hydrochloro 2017- No 1 tab, Sean carly thiazide 1-14 Route: PO, l 12.5 MG / 15:50: Drug Form: Mike rmann Olmesartan 00 TAB, medoxomil Dosing 40 MG Oral Weight Tablet 96.2, kg, [Benicar Daily, HCT Start 40/12.5] date: 01/22/17 9:50:00 ER NURSE, Duration: 30 day, Stop date: 02/21/17 9:49:00 ER NURSE Hydrochloro 2016-03 No 1 tab, Sean carly thiazide 1-14 Route: PO, l 12.5 MG / 15:50: Drug Form: Mike kumar Olmesartan 00 TAB, medoxomil Dosing 40 MG Oral Weight Tablet 96.2, kg, [Benicar Daily, HCT Start 4012.5] date: 01/22/17 9:50:00 ER NURSE, Duration: 30 day, Stop date: 02/21/17 9:49:00 ER NURSE normal 2016-03 No 1,000 mL, Memori a saline 0.9% 1-14 Rate: 75 l IV 1,000 mL 15:21: ml/hr, Herm edward 00 Infuse over: 13.3 hr, Route: IV, Dosing Weight 96.2 kg, Total Volume: 1,000, Priority: STAT, Start date: 01/22/17 9:21:00 ER NURSE, Duration: 24 hr, Stop date: 01/23/17 9:20:00 ER NURSE, 2.06, m2 normal 2016-03 No 1,000 mL, Memori a saline 0.9% 1-14 Rate: 75 l IV 1,000 mL 15:21: ml/hr, Herm edward 00 Infuse over: 13.3 hr, Route: IV, Dosing Weight 96.2 kg, Total Volume: 1,000, Priority: STAT, Start date: 01/22/17 9:21:00 ER NURSE, Duration: 24 hr, Stop date: 01/23/17 9:20:00 ER NURSE, 2.06, m2 normal 2016-03 No 1,000 mL, Memori a saline 0.9% 1-14 Rate: 75 l IV 1,000 mL 15:21: ml/hr, Herm edward 00 Infuse over: 13.3 hr, Route: IV, Dosing Weight 96.2 kg, Total Volume: 1,000, Priority: STAT, Start date: 01/22/17 9:21:00 ER NURSE, Duration: 24 hr, Stop date: 01/23/17 9:20:00 ER NURSE, 2.06, m2 Flomax 2016-03 No Notes: Memoria 1-14 (Same As: l 14:30: Flomax) [place] 00 "Do Not Crush" Flomax 2016-03 No Notes: Memoria 1-14 (Same As: l 14:30: Flomax) [place] 00 "Do Not Crush" Flomax 2016-03 No Notes: Memoria 1-14 (Same As: l 14:30: Flomax) [place] 00 "Do Not Crush" atorvastati 2016-03 No Notes: Sean carly n 1-14 (Same as: l 03:00: Lipitor) [place] 00 Coreg 2016-03 No Notes: Memoria 1-14 Give with l 03:00: food. Arnie 00 (Same As: Coreg) atorvastati 2016-03 No Notes: Sean carly n 1-14 (Same as: l 03:00: Lipitor) [place] 00 Coreg 2016-03 No Notes: Memoria 1-14 Give with l 03:00: food. [place] 00 (Same As: Coreg) atorvastati 2016-03 No Notes: Sean carly n 1-14 (Same as: l 03:00: Lipitor) [place] 00 Coreg 2016-03 No Notes: Memoria 1-14 Give with l 03:00: food. [place] 00 (Same As: Coreg) Acetylcyste 2016-03 No Notes: [...] sodium, 1-13 porcine l porcine 22:00: heparin [place] 2500 UNT/ML 00 Injectable Solution heparin 2016-03 No Notes: Memoria sodium, 1-13 porcine l porcine 22:00: heparin [place] 2500 UNT/ML 00 Injectable Solution heparin 2016-03 No Notes: Memoria sodium, 1-13 porcine l porcine 22:00: heparin [place] 2500 UNT/ML 00 Injectable Solution Enoxaparin 2016-03 No Notes: Memor ia 1-13 (Same as: l 18:00: Lovenox) Enoxaparin 2016-03 No Notes: Memor ia 1-13 (Same as: l 18:00: Lovenox) Enoxaparin 2016-03 No Notes: Memor ia 1-13 (Same as: l 18:00: Lovenox) normal 2016-03 No 1,000 mL, Memori a saline 0.9% 1-13 Rate: 75 l IV 1,000 mL 17:35: ml/hr, Herm edward 00 Infuse over: 13.3 hr, Route: IV, Dosing Weight 96.2 kg, Total Volume: 1,000, Priority: STAT, Start date: 01/21/17 11:35:00 ER NURSE, Duration: 30 day, Stop date: 02/20/17 11:34:00 ER NURSE, 2.06, m2 Hydralazine 2016-03 No Notes: Sean carly 1-13 (Same as: l 17:35: Apresoline Arnie 00 ) Push over 5 minutes normal 2016-03 No 1,000 mL, Memori a saline 0.9% 1-13 Rate: 75 l IV 1,000 mL 17:35: ml/hr, Herm edward 00 Infuse over: 13.3 hr, Route: IV, Dosing Weight 96.2 kg, Total Volume: 1,000, Priority: STAT, Start date: 01/21/17 11:35:00 ER NURSE, Duration: 30 day, Stop date: 02/20/17 11:34:00 ER NURSE, 2.06, m2 Hydralazine 2016-03 No Notes: Sean carly 1-13 (Same as: l 17:35: Apresoline Arnie ) Push over 5 minutes normal 2016-03 No 1,000 mL, Memori a saline 0.9% 1-13 Rate: 75 l IV 1,000 mL 17:35: ml/hr, Herm edward 00 Infuse over: 13.3 hr, Route: IV, Dosing Weight 96.2 kg, Total Volume: 1,000, Priority: STAT, Start date: 01/21/17 11:35:00 ER NURSE, Duration: 30 day, Stop date: 02/20/17 11:34:00 ER NURSE, 2.06, m2 Hydralazine 2016-03 No Notes: Sean [...] 1-13 PO, BID, 0 l 15:47: Refill(s) [place] 00 Niacin 2016-03 Yes 1,000 mg, Memori a 1-13 PO, BID, 0 l 15:47: Refill(s) [place] 00 Saw 2016-03 Yes 2, PO, Memoria Cullen 1-13 BID, 0 l 15:45: Refill(s) Saw 2016-03 Yes 2, PO, Memoria Cullen 1-13 BID, 0 l 15:45: Refill(s) Saw 2016-03 Yes 2, PO, Memoria Cullen 1-13 BID, 0 l 15:45: Refill(s) [place] Regular 2016-03 Yes SUB-Q, Memoria Insulin, 1-13 [...] 10 l Human 100 15:41: mL, 0 [place] UNT/ML 00 Refill(s) Injectable Suspension [Humulin N] NPH 2016-03 Yes 84, SUB-Q, Memoria Insulin, 1-13 BID, # 10 l Human 100 15:41: mL, 0 [place] UNT/ML 00 Refill(s) Injectable Suspension [Humulin N] NPH 2016-03 Yes 84, SUB-Q, Memoria Insulin, 1-13 BID, # 10 l Human 100 15:41: mL, 0 [place] UNT/ML 00 Refill(s) Injectable Suspension [Humulin N] aspirin 81 2016-03 No Notes: Do Me moria mg tablet, 03-23 not crush l enteric 15:00: or chew. [place] n coated 00 (Same As: Ecotrin) isosorbide 2016-03 No Notes: Memor ia mononitrate 03-23 (Same l extended 15:00: as:Imdur) Herm edward release 00 "Do Not Crush" Take on empty stomach/ full glass of water. Do not crush gabapentin 2016-03 No Notes: Memor ia 600 MG Oral 03-23 (Same as: l Tablet 15:00: Neurontin) Venecia nn 00 12 HR 2016-03 No Notes: Memoria ranolazine 03-23 Same as l 500 MG 15:00: Ranexa "Do Venecia nn Extended 00 Not Crush" Release Tablet [Ranexa] metoprolol 2016-03 No Notes: Memor ia extended - (Same as: l release 15:00: Toprol XL) Herm edward 00 May split tab, but do not crush. Plavix 2016-03 No Notes: Memoria 1-13 (Same As: l 15:00: Plavix) [place] 00 Humulin N 2016-03 No Notes: Memori a - Roll in l 15:00: palms of [place] 00 hands gently; Do not shake vigorously . (Same as: NovoLIN N, Humulin N) Do not hold insulin without contacting prescriber "single patient use only" WASTE: F/P - Black; E - Municipal Trash Bin Stable for 14 days at room temperatur e Expires in days from ____Date Saline 2016-03 No Notes: Memoria Flush 0.9% -13 (Same as: l 15:00: BD [place] 00 Posiflush) aspirin 81 2016-03 No Notes: Do Me moria mg tablet, -13 not crush l enteric 15:00: or chew. [place] n coated 00 (Same As: Ecotrin) isosorbide 2016-03 No Notes: Memor ia mononitrate - (Same l extended 15:00: as:Imdur) Herm edward release 00 "Do Not Crush" Take on empty stomach/ full glass of water. Do not crush gabapentin 2016-03 No Notes: Memor ia 600 MG Oral 03-23 (Same as: l Tablet 15:00: Neurontin) Venecia [...] 1-13 Roll in l 15:00: palms of [place] 00 hands gently; Do not shake vigorously . (Same as: NovoLIN N, Humulin N) Do not hold insulin without contacting prescriber "single patient use only" WASTE: F/P - Black; E - Municipal Trash Bin Stable for 14 days at room temperatur e Expires in days from ____Date Saline 2016-03 No Notes: Memoria Flush 0.9% 1-13 (Same as: l 15:00: BD [place] 00 Posiflush) aspirin 81 2016-03 No Notes: [...] No Notes: Memor ia 600 MG Oral 03-23 (Same as: l Tablet 15:00: Neurontin) Venecia nn 00 12 HR 2016-03 No Notes: Memoria ranolazine - Same as l 500 MG 15:00: Ranexa "Do Venecia nn Extended 00 Not Crush" Release Tablet [Ranexa] metoprolol 2016-03 No Notes: Memor ia extended - (Same as: l release 15:00: Toprol XL) Herm ewdard 00 May split tab, but do not crush. Plavix 2016-03 No Notes: Memoria 1-13 (Same As: l 15:00: Plavix) [place] 00 Humulin N 2016-03 No Notes: Memori a - Roll in l 15:00: palms of [place] 00 hands gently; Do not shake vigorously . (Same as: NovoLIN N, Humulin N) Do not hold insulin without contacting prescriber "single patient use only" WASTE: F/P - Black; E - Municipal Trash Bin Stable for 14 days at room temperatur e Expires in days from ____Date Saline 2016-03 No Notes: Memoria Flush 0.9% - (Same as: l 15:00: BD [place] 00 Posiflush) Vitamin D3 2016-03 Yes 4,000 Memori a 2000 intl 03-23 IntlUnit = l units oral 12:51: 2 cap, PO, H ermann capsule 00 Daily, # 100 cap, 3 Refill(s) Vitamin D3 2016-03 Yes 4,000 Memori a 2000 intl 03-23 IntlUnit = l units oral 12:51: 2 [...] a 1-13 Take 1 l 12:30: hour [place] 00 before or 2 hours after meal; Enteral feeds may interefere with the absorption of this medication . (Same as:Levothr oid, Synthroid) Glucagon 2016-03 No 1 mg, Memoria 1-13 Route: IM, l 10:52: Drug form: [place] 00 PDR/INJ, PRN, Dosing Weight 96.2, kg, PRN Blood Glucose Results, Start date: 01/21/17 4:52:00 ER NURSE, Duration: 30 day, Stop date: 02/20/17 4:51:00 ER NURSE Dextrose 2016-03 No 25 gm, 50 Sean carly 50% Syringe 1-13 mL, Route: l 10:52: IVP, Drug 00 Form: INJ, Dosing Weight 96.2, kg, PRN, PRN Blood Glucose Results, Start date: 01/21/17 4:52:00 ER NURSE, Duration: 30 day, Stop date: 02/20/17 4:51:00 ER NURSE Insulin 2016-03 No Notes: Memoria Lispro 1-13 Roll in l 10:52: palms of [place] 00 hands gently; Do not shake `vigorousl y. (Same as: Humalog ) "Single Patient Use Only " WASTE: F/P - Black; E - Municipal Trash Bin Stable for 28 days at room temperatur e. Expires in days from ____Date Glucagon 2016-03 No 1 mg, Memoria 1-13 Route: IM, l 10:52: Drug form: [place] 00 PDR/INJ, PRN, Dosing Weight 96.2, kg, PRN Blood Glucose Results, Start date: 01/21/17 4:52:00 ER NURSE, Duration: 30 day, Stop date: 02/20/17 4:51:00 ER NURSE Dextrose 2016-03 No 25 gm, 50 Sean carly 50% Syringe 1-13 mL, Route: l 10:52: IVP, Drug [place] 00 Form: INJ, Dosing Weight 96.2, kg, PRN, PRN Blood Glucose Results, Start date: 01/21/17 4:52:00 ER NURSE, Duration: 30 day, Stop date: 02/20/17 4:51:00 ER NURSE Insulin 2016-03 No Notes: Memoria Lispro 1-13 [...] 1-13 Route: IM, l 10:52: Drug form: [place] 00 PDR/INJ, PRN, Dosing Weight 96.2, kg, PRN Blood Glucose Results, Start date: 01/21/17 4:52:00 ER NURSE, Duration: 30 day, Stop date: 02/20/17 4:51:00 ER NURSE Dextrose 2016-03 No 25 gm, 50 Sean carly 50% Syringe 1-13 mL, Route: l 10:52: IVP, Drug [place] 00 Form: INJ, Dosing Weight 96.2, kg, PRN, PRN Blood Glucose Results, Start date: 01/21/17 4:52:00 ER NURSE, Duration: 30 day, Stop date: 02/20/17 4:51:00 ER NURSE Insulin 2016-03 No Notes: Memoria Lispro 1-13 Roll in l 10:52: palms of [place] 00 hands gently; Do not shake `vigorousl [...] tab, CHEW, l Tablet 10:12: Daily, 0 [place] 00 Refill(s) multivitami 2016-03 Yes 1 tab, Sean carly n -13 Daily, 0 l 10:12: Refill(s) [place] 00 clopidogrel 2016-03 Yes 75 mg = 1 M emoria 75 MG Oral -13 tab, PO, l Tablet 10:12: Daily, 0 [place] [Plavix] 00 Refill(s) atorvastati 2016-03 Yes 80 mg = 1 M emoria n 80 mg -13 tab, one l oral tablet 10:12: tablet on H ermann 00 Saturday, Saturday, PM, 0 Refill(s) gabapentin 2016-03 Yes 600 mg = 1 M emoria 600 MG Oral -13 tab, PO, l Tablet 10:12: BID, 0 [place] 00 Refill(s) Hydrochloro 2016-03 No 1 tab, PO, Memoria thiazide -13 QMon, 0 l 12.5 MG / 10:12: [...] microgram l tablet 10:12: = 1 tab, [place] 00 PO, Daily, # 30 tab, 0 Refill(s) metoprolol 2016-03 No 200 mg = 1 M emoria 200 mg oral -13 tab, PO, l tablet, 10:12: Daily, 0 [place] n extended 00 Refill(s) release Vitamin D3 2016-03 No 2,000 Memori a 2000 intl -13 IntlUnit = l units oral 10:12: 1 cap, PO, H ermann capsule 00 Daily, # 100 cap, 3 Refill(s) Aspirin 81 2016-03 Yes 81 mg = 1 Me moria MG Chewable -13 tab, CHEW, l Tablet 10:12: Daily, 0 [place] 00 Refill(s) multivitami 2016-03 Yes 1 tab, Sean carly n -13 Daily, 0 l 10:12: Refill(s) [place] 00 clopidogrel 2016-03 Yes 75 mg = 1 M emoria 75 MG Oral -13 tab, PO, l Tablet 10:12: Daily, 0 [place] [Plavix] 00 Refill(s) atorvastati 2016-03 Yes 80 mg = 1 M emoria n 80 mg -13 tab, one l oral tablet 10:12: tablet on H ermann Saturday, Saturday, PM, 0 Refill(s) gabapentin 2016-03 Yes 600 mg = 1 M emoria 600 MG Oral -13 tab, PO, l Tablet 10:12: BID, 0 [place] 00 Refill(s) Hydrochloro 2016-03 No 1 tab, PO, Memoria thiazide -13 QMon, 0 l 12.5 MG / 10:12: Refill(s) [facility] Olmesartan 00 medoxomil 40 MG Oral Tablet [Benicar HCT 40/12.5] 12 HR 2016-03 Yes 1,000 mg = Memori a ranolazine -13 2 tab, PO, l 500 MG 10:12: BID, 0 [place] Extended 00 Refill(s) Release Tablet [Ranexa] Levothyroxi [...] microgram l tablet 10:12: = 1 tab, [place] 00 PO, Daily, # 30 tab, 0 [...] n 1-13 Daily, 0 l 10:12: Refill(s) [place] 00 clopidogrel 2016-03 Yes 75 mg = [...] tab, PO, l Tablet 10:12: BID, 0 [place] 00 Refill(s) Hydrochloro 2016-03 No 1 tab, PO, Memoria thiazide 1-13 QMon, 0 l 12.5 MG / 10:12: Refill(s) Her [facility] Olmesartan 00 medoxomil 40 MG Oral Tablet [Benicar HCT 40/12.5] 12 HR 2016-03 Yes 1,000 mg = Memori a ranolazine 1-13 2 tab, PO, l 500 MG 10:12: BID, 0 [place] Extended 00 Refill(s) Release Tablet [Ranexa] Levothyroxi [...] microgram l tablet 10:12: = 1 tab, [place] 00 PO, Daily, # 30 tab, 0 Refill(s) metoprolol 2016-03 No 200 mg = 1 M emoria 200 mg oral 1-13 tab, PO, l tablet, 10:12: Daily, 0 [place] n extended 00 Refill(s) release hydrochloro 2016-03 No Notes: Sean carly thiazide 25 1-13 (Same as: l mg oral 10:05: Hydrodiuri Herm edward tablet 00 l) [facility], 2 Memori a 1-13 tab, l 10:05: Route: PO, [place] 00 Drug form: TAB, Daily, Start date: 01/21/17 4:05:00 ER NURSE, Duration: 30 day, Stop date: 02/19/17 9:00:00 ER NURSE hydrochloro 2016-03 No Notes: Sean carly thiazide 25 1-13 (Same as: l mg oral 10:05: Hydrodiuri Herm edward tablet 00 l) With food. icar 2016-03 No 40 mg, 2 Memori a 1-13 tab, l 10:05: Route: PO, [place] 00 Drug form: TAB, Daily, Start date: 01/21/17 4:05:00 ER NURSE, Duration: 30 day, Stop date: 02/19/17 9:00:00 ER NURSE hydrochloro 2016-03 No Notes: Sean carly thiazide 25 1-13 (Same as: l mg oral 10:05: Hydrodiuri Herm edward tablet 00 l) With food. Benicar 2017- No 40 mg, 2 Memori a 1-13 tab, l 10:05: Route: PO, [place] 00 Drug form: TAB, Daily, Start date: 01/21/17 4:05:00 ER NURSE, Duration: 30 day, Stop date: 02/19/17 9:00:00 ER NURSE Hydrochloro 2017- No 1 tab, Sean carly thiazide 1-13 Route: PO, l 12.5 MG / 10:00: Drug Form: Mike rmann Olmesartan 00 TAB, medoxomil Dosing 40 MG Oral Weight Tablet 96.2, kg, [Benicar Daily, HCT Start 40/12.5] date: 01/21/17 4:00:00 ER NURSE, Duration: 30 day, Stop date: 02/20/17 3:59:00 ER NURSE Hydrochloro 2017- No 1 tab, Sean carly thiazide 1-13 Route: PO, l 12.5 MG / 10:00: Drug Form: Mike rmann Olmesartan 00 TAB, medoxomil Dosing 40 MG Oral Weight Tablet 96.2, kg, [Benicar Daily, HCT Start 40/12.5] date: 01/21/17 4:00:00 ER NURSE, Duration: 30 day, Stop date: 02/20/17 3:59:00 ER NURSE Hydrochloro 2017- No 1 tab, Sean carly thiazide 1-13 Route: PO, l 12.5 MG / 10:00: Drug Form: Mike rmann Olmesartan 00 TAB, medoxomil Dosing 40 MG Oral Weight Tablet 96.2, kg, [Benicar Daily, HCT Start 40/12.5] date: 01/21/17 4:00:00 ER NURSE, Duration: 30 day, Stop date: 02/20/17 3:59:00 ER NURSE Nicardipine 2016- No Notes: Sean carly 1-13 Same as: l 09:: Cardene Concentrat ion: (0.2 mg /1 ml ) Nicardipine 2016- No Notes: Sean carly 1-13 Same as: l 09:28: Cardene Concentrat ion: (0.2 mg /1 ml ) Nicardipine 2016-03 No Notes: Sean carly - Same as: l 09:28: Cardene [place] 00 Concentrat ion: (0.2 mg /1 ml ) Nitroglycer 2016-03 No Notes: Sean carly in 03-23 (Same l 09:25: as:Nitroqu [place] 00 ick, Nitrostat) "Do Not Crush" Sublingual tablet Morphine 2016-03 No Notes: Memoria 03-23 Preservati l 09:25: ve free. Arnie 00 (Same as: Morphine Sulfate-PF ) Ondansetron 2016-03 No Notes: Sean carly 03-23 (Same as: l 09:25: Zofran) [place] 00 Saline 2016-03 No Notes: Memoria Flush 0.9% - (Same as: l 09:25: BD [place] 00 Posiflush) Nitroglycer 2016-03 No Notes: Sean carly in 03-23 (Same l 09:25: as:Nitroqu [place] 00 ick, Nitrostat) "Do Not Crush" Sublingual tablet Morphine 2016-03 No Notes: Memoria 03-23 Preservati l 09:25: ve free. [place] (Same as: Morphine Sulfate-PF ) Ondansetron 2016-03 No Notes: Sean carly 03-23 (Same as: l 09:25: Zofran) [place] 00 Saline 2016-03 No Notes: Memoria Flush 0.9% - (Same as: l 09:25: BD [place] 00 Posiflush) Nitroglycer 2016-03 No Notes: Sean carly in 03-23 (Same l 09:25: as:Nitroqu [place] 00 ick, Nitrostat) "Do Not Crush" Sublingual tablet Morphine 2016-03 No Notes: Memoria - Preservati l 09:25: ve free. [place] 00 (Same as: Morphine Sulfate-PF ) Ondansetron 2016-03 No Notes: Sean carly - (Same as: l 09:25: Zofran) [place] 00 Saline 2016-03 No Notes: Memoria Flush 0.9% 1-13 (Same as: l 09:25: BD [place] 00 [...] Group gauge x gauge x gauge x 5/16" 16" 07/24" carvedilol carvedilol No carvedilol [place] [...] 14:50:00 159 mm[Hg] [facility] Diastolic blood 2021-11-22 14:50:00 69 mm[Hg] [facility] Heart rate 2021-11-22 14:50:00 58 /min [facility] Respiratory rate 2021-11-22 14:50:00 12 /min [facility] in 2021-11-22 14:50:00 98 /min [facility] Arterial blood by [facility] Pulse oximetry Branch Body temperature 2021-11-22 14:24:00 36.11 [facility]hya [facility] Body height 2021-11-14 15:23:00 177.8 cm [facility] Body weight 2021-11-14 15:23:00 90.7 kg [facility] BMI 2021-11-14 15:23:00 28.69 kg/m2 [facility] Systolic blood 2021-11-22 14:30:00 128 mm[Hg] [facility] Diastolic blood 2021-11-22 14:30:00 69 mm[Hg] [facility] Heart rate 2021-11-22 14:30:00 54 /min [facility] Respiratory rate 2021-11-22 14:30:00 22 /min [facility] Oxygen saturation in 2021-11-22 14:30:00 99 /min [facility] [place] [facility] Body temperature 2021-11-22 14:24:00 36.11 Sandhya [facility] Body height 2021-11-14 15:23:00 177.8 cm [facility] Body weight 2021-11-14 15:23:00 90.7 kg [facility] BMI 2021-11-14 15:23:00 28.69 kg/m2 [facility] Systolic blood 2020-05-25 14:35:00 127 mm[Hg] [facility] Diastolic blood 2020-05-25 14:35:00 53 mm[Hg] [facility] Heart rate 2020-05-25 14:35:00 54 /min [facility] Oxygen saturation in 2020-05-25 14:35:00 98 /min [facility] Respiratory rate 2020-05-25 14:25:00 16 /min [facility] Body temperature 2020-05-25 14:18:00 36.67 [facility] Body height 2020-05-25 01:15:00 177.8 cm [facility] Body weight 2020-05-25 01:15:00 90.719 kg [facility] BMI 2020-05-25 01:15:00 28.70 kg/m2 [facility] BP Diastolic 2018-05-20 00:00:00 62 mm[Hg] [facility] Height 2018-05-20 00:00:00 70 [in_i] [facility] BMI (Body Mass 2018-05-20 00:00:00 28.7 kg/m2 [facility] BP Systolic 2018-05-20 00:00:00 128 mm[Hg] [facility] Body Weight 2018-05-20 00:00:00 200 [lb_av] [facility] BP Diastolic 2018-04-24 00:00:00 60 mm[Hg] [facility] Height 2018-04-24 00:00:00 70 [in_i] [facility] BMI (Body Mass 2018-04-24 00:00:00 31.6 kg/m2 [facility] BP Systolic 2018-04-24 00:00:00 132 mm[Hg] [facility] Body Weight 2018-04-24 00:00:00 220 [lb_av] [facility] BP Diastolic 2018-04-03 00:00:00 62 mm[Hg] [facility] Height 2018-04-03 00:00:00 70 [in_i] [facility] BMI (Body Mass 2018-04-03 00:00:00 31.6 kg/m2 [facility] side trimmer Medical Index) Group BP Systolic 2018-04-03 00:00:00 138 mm[Hg] [facility] Body Weight 2018-04-03 00:00:00 220 [lb_av] [facility] BP Diastolic 2018-03-20 00:00:00 62 mm[Hg] [facility] Height 2018-03-20 00:00:00 70 [in_i] [facility] BMI (Body Mass 2018-03-20 00:00:00 31.7 kg/m2 [facility] Medical Index) Group BP Systolic 2018-03-20 00:00:00 138 mm[Hg] [facility] Body Weight 2018-03-20 00:00:00 220.9 [lb_av] [facility] Respitory Rate 2017-09-30 22:54:00 [facility] [place] Respitory Rate 2017-09-30 22:00:00 [facility] [place] Systolic (mm Hg) 2017-09-30 22:00:00 Sean rial [place] Diastolic (mm Hg) 2017-09-30 22:00:00 Mem orial [place] Heart Rate 2017-09-30 22:00:00 [facility] [place] Systolic (mm Hg) 2017-09-30 21:50:00 Sean rial [place] Diastolic (mm Hg) 2017-09-30 21:50:00 Mem orial [place] Respitory Rate 2017-09-30 21:50:00 [facility] [place] Heart Rate 2017-09-30 21:50:00 [facility] [place] Heart Rate 2017-09-30 21:40:00 [facility] [place] Systolic (mm Hg) 2017-09-30 21:40:00 Sean rial [place] Diastolic (mm Hg) 2017-09-30 21:40:00 Mem orial [place] Temperature Oral (F) 2017-09-30 21:20:00 36.6 Sandhya [facility] [place] Height 2017-09-30 18:21:00 177.8 cm [facility] [place] Temperature Oral (F) 2017-09-30 18:21:00 36.7 Sand[facility]a [facility] [place] Height 2017-09-16 19:53:00 177.8 cm [facility] Systolic (mm Hg) 2017-01-22 21:30:00 Sean rial [place] Diastolic (mm Hg) 2017-01-22 21:30:00 Mem orial [place] Respitory Rate 2017-01-22 21:30:00 Memori [facility] [place] Systolic (mm Hg) 2017-01-22 21:00:00 Sean rial [place] Diastolic (mm Hg) 2017-01-22 21:00:00 Mem orial [place] Respitory Rate 2017-01-22 21:00:00 Mem[facility] [place] Systolic (mm Hg) 2017-01-22 20:00:00 Sean rial [place] Diastolic (mm Hg) 2017-01-22 20:00:00 Mem orial [place] Respitory Rate 2017-01-22 20:00:00 [facility] [place] Temperature Oral (F) 2017-01-22 18:00:00 [facility]1 [facility] (F) 2017-01-22 15:00:00 98.1 F [facility] Temperature Oral (F) 2017-01-22 12:00:00 98.2 F Umesh Gaitan Weight 2017-01-21 09:23:00 Umesh Gaitan Height 2017-01-21 09:23:00 152.4 cm Umesh Gaitan BMI Calculated 2017-01-21 09:23:00 Shayy Pereyra Procedures Procedure Date / Time Performing Source Performed Clinician PHACOEMULSIFICATION OF 2021-11-22 Arturo Hernandez [facility] CATARACT WITH INTRAOCULAR 13:46:00 [facility] LENS IMPLANT POCT GLUCOSE(AGE >30DAYS) 2021-11-22 Samson Agarwal [facility] 13:04:00 Medical Branch POCT GLUCOSE(AGE >30DAYS) 2021-11-22 Samson Agarwal [facility] 13:04:00 Medical Branch DAY SURGERY - [facility] 2021-11-22 Doctor Unassigned, [facility] 05:01:00 [place] [facility] ASSIGNMENT OF BENEFITS 2021-11-06 Doctor Unassigned, [facility] 17:33:49 [place] [facility] POCT GLUCOSE (AUTOMATED) 2020-05-25 Arturo Hernandez [facility] 12:52:00 Medical Branch DAY SURGERY - [facility] 2020-05-25 Doctor Unassigned, [facility] 05:01:00 [place] [facility] COVID-19 (ID NOW RAPID 2020-05-24 Arturo Hernandez [facility] TESTING) 16:49:00 Medical Branch ASSIGNMENT OF BENEFITS 2020-05-16 Doctor Unassigned, [facility] 22:05:16 [place] [facility] unlisted imaging order 2018-03-20 [facility] 00:00:[address], abdomen + pelvis, w/ 2018-03-20 [facility] 00:00:00 Group REPAIR HERNIA INGUINAL 2017-09-30 [facility] LAPAROSCOPIC-INITIAL [id number] 20:24:00 (Right)<sup>1</sup> REPAIR HERNIA UMBILICAL-OLDER 2017-09-30 Me morial Arnie THAN 5 YEARS OLD-REDUCIBLE 20:24:00 [id number] (Other)<sup>2</sup> heart cath<sup>3</sup> 2017-01-09 [facility] 00:00:00 hernia repair 2008-03-11 [facility] 00:00:00 Shoulder Surgery Procedure 2007-03-11 [facility] sx to stop nosebleed 2006-03-11 [facility] rmann 00:00:00 gall bladder removed 2005-03-11 [facility] rmann 00:00:00 Inguinal Hernia Repair (Surg) [facility] Cholecyst[facility] Shoulder repair [facility] colonoscopy [facility] laser eye sx<sup>4</sup> Memoria l Arnie shoulder sx [facility] Encounters Start End Encounter Admission Attending Care Care Encounter Source Date/Time Date/Time Type Type Clinicians Facility Department ID 2021-01-08 Outpatient R [facility] OPH [id number] Univers 04:15:18 [facility] 2021-11-22 2021-11-22 Outpatient R [facility] OPH [id number] Univers 07:51:00 10:07:00 [facility] 2021-11-22 2021-11-22 [facility] [id number] Univers 07:51:00 10:07:00 Encounter Arturo VALLE 350.1.13.10 [place] [id number] [facility] 071 Branch 2021-11-22 2021-11-22 [facility] [id number] Univers 09:00:00 09:34:00 Arturo VALLE 350.1.13.10 [place] [id number] [facility] 020 Branch 2021-11-22 2021-11-22 Orders Doctor SHERIFF 1.2.840.114 [id number] Univers 00:00:00 00:00:00 Only Unassigned, GALO 350.1.13.10 ity of [place] [facility] 4.2.7.2.686 Alan as [id number] [place] [address] Branch 2021-11-20 2021-11-20 Laboratory Only, Adc Test [facility] 1.2.840. 114 [id number] Univers 10:15:00 10:30:00 Only Arturo Hernandez 350.1.13.1 0 [place] [id number] [address] 2021-11-20 2021-11-20 [facility] [id number] Univers 10:15:00 10:15:00 ARTURO masters [facility] 2021-11-06 2021-11-06 Department [employer] Gonzalo, Adc Lab Main [facility] 1.2.8 40.114 [id number] Univers 13:00:00 13:15:00 Visit Arturo Hernandez 350.1.13.1 0 [place] PROF[place] [id number] [address] 2021-11-06 2021-11-06 [facility] [id number] Univers 13:00:00 13:00:00 ARTURO masters [facility] 2021-11-06 2021-11-06 Orders Doctor JAZIEL 1.2.840.114 [id number] Univers 00:00:00 00:00:00 Only Unassigned, GALO 350.1.13.10 ity of [place] [facility] 4.2.7.2.686 Alan as [id number] [address] 2020-05-25 2020-05-25 [facility] [id number] Univers 07:30:00 09:49:00 Encounter Arturo Valle 350.1.13.10 [place] Surgical [id number] [facility] [address] [place] 2020-05-25 2020-05-25 Orders Doctor JAZIEL 1.2.840.114 [id number] Univers 00:00:00 00:00:00 Only Unassigned, GALO 350.1.13.10 ity of [place] [facility] 4.2.7.2.686 Alan as [id number] [address] 2020-05-24 2020-05-24 Laboratory Only, Adc Test [facility] 1.2.840. 114 [id number] Univers 11:19:37 11:34:37 Only DavidArturo 350.1.13.1 0 ity of [place] 4.2.7.2.686 [facility] [id number] [address] 2020-05-24 2020-05-24 Outpatient Booker [facility] [id number] Univers 11:30:00 11:30:00 ARTURO itdimitris [facility] 2020-05-16 2020-05-16 Department [employer] Gonzalo, Adc Lab Main [facility] 1.2.8 40.114 [id number] Univers 16:05:25 16:20:25 Visit Arturo Hernandez 350.1.13.1 0 ity [facility] 4.2.7.2.686 [facility] [id number] [place] [address] 2020-05-16 2020-05-16 Outpatient Booker HERNANDEZ [facility] [id number] Univers 15:45:00 15:45:00 ARTURO dimitris [facility] 2020-05-16 2020-05-16 Orders Doctor SHERIFF 1.2.840.114 [id number] Univers 00:00:00 00:00:00 Only Unassigned, GALO 350.1.13.10 ity of [place] [facility] 4.2.7.2.686 Alan [id number] [address] 2020-01-27 2020-01-27 Outpatient IHDE_G [facility] [id number] [place] 02:20:00 02:20:00 1118 Medical Group 2019-11-03 2019-11-03 Outpatient IHDE_G [facility] [id number] [place] 11:36:00 11:36:00 0825 Medical Group 2018-05-20 2018-05-20 [place] [facility] [place] - [id number] [place] 00:00:00 00:00:00 Phillip Mendosa MD: Medical Medica [address], General [address], [place] [address] , Ph. [phone] 2018-04-24 2018-04-24 [facility] [place] - [address] [place] 00:00:00 00:00:00 Phillip Mendosa MD: Medical Medica [address], General [address], [place] [address] , Ph. [phone] 2018-04-03 2018-04-03 [place] [facility] [place] - [address] [facility] 00:00:00 00:00:00 Phillip Mendosa MD: Medical Medica [address], General [address], [place] [address] , Ph. [phone] 2018-03-20 2018-03-20 [place] [facility] [place] - [address] [facility] 00:00:00 00:00:00 Phillip Mendosa MD: [facility] Medica [address], General [address], [place] [address] , Ph. [phone] 2017-09-30 2017-09-30 Outpatient [facility] 6517 2 Memoria 17:39:22 22:58:00 [facility] 2017-09-30 2017-09-30 Outpatient nullFlavo [facility] 6517 2 Memoria 17:39:22 22:58:00 [facility] 2017-09-30 2017-09-30 Outpatient Redd De [id number] 12:39:22 17:58:00 Vik Desir 2017-09-30 2017-09-30 Outpatient nullFlavo [facility] [id number] Memoria 12:39:22 17:58:00 booker trevizo [place] 2017-01-21 2017-01-22 [facility] [id number] Memoria 09:02:00 21:45:[address] 2017-01-21 2017-01-22 [facility] [id number] Memoria 09:02:00 21:45:[address] 2017-01-21 2017-01-22 [facility] [id number] 03:02:00 15:45:00 Monalisa 17 Yvonne Results Test Description Test Time Test Comments Results Result Comments Source POCT Glucose 2021-11-22 13:04:00 Test Item Value Reference Range Interpretation Comme nts POCT Glu (age>30days) (test code = 3342) 216 mg/dL 70-110 A Lab Interpretation (test code = 49766-5) Abnormal [facility] [id number] 13:04:00 Test Item Value Reference Range Interpretation Comments POCT Glu (age>30days) (test code = 216 mg/dL 70-110 A 3342) Lab Interpretation (test code = Abnormal 84699-5) [facility] GLUCOSE (AUTOMATED)2020-05-25 13:06:02 Test Item Value Reference Range Interpretation Comments POCT GLU (test code = 5060502621) 156 mg/dL 70-110 H Lab Interpretation (test code = Abnormal 39973-8) [facility] [id number] 12:52:00 Test Item Value Reference Range Interpretation Comments POCT Glu (age>30days) (test code = 157 mg/dL 70-110 A 3342) Lab Interpretation (test code = Abnormal 77934-2) [facility] NOW RAPID TESTING)2020-05-24 18:04:41 Test Item Value Reference Range Interpretation Comments SARS-CoV-2 Rapid ID NOW Not Detected Not Detected (test code = 45406-6) CHRISTI (test code = CHRISTI) ID NOW COVID-19 Assay is an isothermal nucleic acid amplification test intended for the qualitative detection of nucleic acid from SARS-CoV-2 viral RNA in nasopharyngeal (RADIOLOGICAL EQUIPMENT SPECIALIST) specimens. It is used under Emergency Use [...] indicated. Lab Interpretation Normal (test code = 25819-8) [facility] [id number] 12:39:00 Test Item Value Reference Range Interpretation Comments POC-GLUCOSE METER 139 mg/dL 70-110 H TESTED AT [facility] 6720 (BEAKER) (test code = [facility] 1538) [address] POCT-GLUCOSE [id number] 08:20:00 Test Item Value Reference Range Interpretation Comments POC-GLUCOSE METER 168 mg/dL 70-110 H TESTED AT [place] [address] (BEAKER) (test code = [facility] 1538) [address] BASIC METABOLIC [id number] 05:59:00 Test Item Value Reference Range Interpretation [...] NOT APPLICABLE FOR DIALYSIS PATIEN TS. PROTHROMBIN [id number] 05:50:00 Test Item Value Reference Range Interpretation Comments PROTIME (BEAKER) (test code = 13.8 seconds 11.7-14.7 759) INR (BEAKER) (test code = 370) 1.1 <=5.9 RECOMMENDED COUMADIN/WARFARIN INR THERAPY RANGESSTANDARD DOSE: 2.0 - 3.0 Includes: PROPHYLAXIS for venous thrombosis, systemic embolization; TREATMENT for venous thrombosis and/or pulmonary embolus.HIGH RISK: Target INR is 2.5-3.5 for patients with mechanical heart valves.CBC W/PLT COUNT & AUTO [id number] 05:32:00 Test Item Value Reference Range Interpretation [...] (BEAKER) (test code = 2801) U/S, RENAL, [id number] 23:57:00Reason for exam:->retention, rising creatinineFINAL REPORT U/S, [...] Minor Verified Date/Time: 05/05/2018 23:57:18 Reading Location: [address] Reading Room POCT-GLUCOSE METER 2018-05-05 22:19:00 Test Item Value Reference Range Interpretation Comments POC-GLUCOSE METER 186 mg/dL 70-110 H TESTED AT [facility] 6720 ([facility]) (test code = NILSRUDDY Booker [facility] 1538) [address] POCT-GLUCOSE [id number] 18:59:00 Test Item Value Reference Range Interpretation Comments POC-GLUCOSE METER 223 mg/dL 70-110 H TESTED AT [facility] 6720 ([facility]) (test code = [place] [facility] 1538) [address] BASIC METABOLIC [id number] 14:10:00 Test Item Value Reference Range Interpretation [...] NOT APPLICABLE FOR DIALYSIS PATIEN TS. POCT-GLUCOSE [id number] 08:27:00 Test Item Value Reference Range Interpretation Comments POC-GLUCOSE METER 156 mg/dL 70-110 H TESTED AT [facility] 6720 (BEAKER) (test code = [place] 1538) [address] BASIC METABOLIC [id number] 05:13:00 Test Item Value Reference Range Interpretation [...] PATIEN TS. CBC W/PLT COUNT & AUTO [id number] 05:03:00 Test Item Value Reference Range Interpretation [...] IMMATURE GRANULOCYTES-RELATIVE 2 % 0-1 H PERCENT ([facility]) (test code = 2801) PROTHROMBIN TIME/[id number] 05:00:00 Test Item Value Reference Range Interpretation Comments PROTIME ([facility]) (test code = 14.7 seconds 11.7-14.7 759) INR ([facility]) (test code = 370) 1.1 <=5.9 RECOMMENDED COUMADIN/WARFARIN INR THERAPY RANGESSTANDARD DOSE: 2.0 - 3.0 Includes: PROPHYLAXIS for venous thrombosis, systemic embolization; TREATMENT for venous thrombosis and/or pulmonary embolus.HIGH RISK: Target INR is 2.5-3.5 for patients with mechanical heart valves.POCT-GLUCOSE [id number] 20:56:00 Test Item Value Reference Range Interpretation Comments POC-GLUCOSE METER 301 mg/dL 70-110 H Notified Booker Rock MD/TESTED ([facility]) (test code = AT [address] 1538) [facility] 7703 0 POCT-GLUCOSE [id number] 17:41:00 Test Item Value Reference Range Interpretation Comments POC-GLUCOSE METER 288 mg/dL 70-110 H TESTED AT [place] [address] ([facility]) (test code = [place] 1538) [address] POCT-GLUCOSE [id number] 14:20:00 Test Item Value Reference Range Interpretation Comments POC-GLUCOSE METER 237 mg/dL 70-110 H TESTED AT [place] [address] ([facility]) (test code = [place] [facility] 1538) [address] POCT-GLUCOSE [id number] 11:48:00 Test Item Value Reference Range Interpretation Comments POC-GLUCOSE METER 193 mg/dL 70-110 H TESTED AT [place] [address] ([facility]) (test code = [place] [facility] 1538) [address] POCT-GLUCOSE [id number] 06:23:00 Test Item Value Reference Range Interpretation Comments POC-GLUCOSE METER 161 mg/dL 70-110 H TESTED AT [place] [address] ([facility]) (test code = [place] 1538) [address] HEPATIC FUNCTION [id number] 05:35:00 Test Item Value Reference Range Interpretation Comments TOTAL PROTEIN ([facility]) (test code = 6.3 gm/dL 6.0-8.3 770) [...] = 30 U/L 6-55 347) BASIC METABOLIC [id number] 05:35:00 Test Item Value Reference Range Interpretation [...] S NOT APPLICABLE FOR DIALYSIS PATIEN TS. [id number] 05:13:00 Test Item Value Reference Range Interpretation [...] 2.5-3.5 for patients with mechanical heart valves.PROTHROMBIN TIME/[id number] 05:12:00 Test Item Value Reference Range Interpretation [...] mechanical heart valves.CBC W/PLT COUNT & AUTO [id number] 04:52:00 Test Item Value Reference Range Interpretation [...] PERCENT (BEAKER) (test code = 2801) POCT-GLUCOSE [id number] 22:02:00 Test Item Value Reference Range Interpretation Comments POC-GLUCOSE METER 204 mg/dL 70-110 H TESTED AT [facility] 6720 (BEAKER) (test code = [place] 1538) [address] CBC W Auto Differential panel - [id number] 08:17:00 Test Item Value Reference Range Interpretation Comments white blood count (test code = 11.7 K/uL 4.0-12.3 white blood count) red blood count (test code = red 4.31 M/uL 3.80-5.80 blood count) Hemoglobin [Mass/volume] in Blood 13.8 g/dL 11.67-17.22 (test code = 718-7) hematocrit (test code = hematocrit) 40.5 % 35.0-51.0 Erythrocyte mean corpuscular volume 94.0 fL 78-96 [Entitic volume] (test code = 42449-4) Erythrocyte mean corpuscular 31.9 pg 26.8-33.4 hemoglobin [Entitic mass] (test code = 60842-1) mean corpuscular HGB conc (test 34.0 g/dL 32.3-36.7 code = mean corpuscular HGB conc) red cell distribution width (test 12.2 % 11.6-15.4 code = red cell distribution width) Platelets [#/volume] in Blood (test 149 K/uL 115-328 code = 00148-8) Platelet mean volume [Entitic 8.0 fL 8.4-11.8 L volume] in Blood (test code = 69002-4) Neutrophils [#/volume] in Blood by 76 37.0-80.0 Automated count (test code = 751-8) lymphocyte (test code = lymphocyte) 16 10-50 Monocytes [#/volume] in Blood by 2 0-12 Manual count (test code = 743-5) eosinophil (test code = eosinophil) 6 0-7 Platelets [#/volume] in Blood by normal normal Automated count (test code = 777-3) [facility] - Serum or Plasma [...] Serum or Plasma (test code = 6768-6) [facility]2018-07-23 18:54:00 Test Item Value Reference Range Interpretation Comments Blood Glucose, Capillary (test code = 83 74-106 Blood Glucose, Capillary) [id number] 18:54:00 Test Item Value Reference Range Interpretation Comments Blood Glucose, Capillary (test code = 83 74-106 Blood Glucose, Capillary) [id number] 18:54:00 Test Item Value Reference Range Interpretation Comments Blood Glucose, Capillary (test code = 83 74-106 Blood Glucose, Capillary) [place] [id number] 09:25:00 Test Item Value Reference Range Interpretation Comments Creatinine Lvl (test code = Creatinine 1.45 0.50-1.40 Lvl) [facility]2017-11-14 09:25:00 Test Item Value Reference Range Interpretation Comments BUN (test code = BUN) 16 7-22 [place] [id number] 09:25:00 Test Item Value Reference Range Interpretation Comments Glucose Lvl (test code = Glucose Lvl) 111 70-99 [facility]2017-11-14 09:25:00 Test Item Value Reference Range Interpretation Comments AGAP (test code = AGAP) 9.6 10.0-20.0 [place] [id number] 09:25:00 Test Item Value Reference Range Interpretation Comments CO2 (test code = CO2) 28 24-32 [place] [id number] 09:25:00 Test Item Value Reference Range Interpretation Comments eGFR (test code = eGFR) 47 [place] 552997-11-14 09:25:00 Test Item Value Reference Range Interpretation Comments Calcium Lvl (test code = Calcium Lvl) 8.7 8.5-10.5 [facility]2017-11-14 09:25:00 Test Item Value Reference Range Interpretation Comments Chloride Lvl (test code = Chloride Lvl) 106 95-109 [facility]2017-11-14 09:25:00 Test Item Value Reference Range Interpretation Comments Potassium Lvl (test code = Potassium 3.6 3.5-5.1 Lvl) [facility]2017-11-14 09:25:00 Test Item Value Reference Range Interpretation Comments Sodium Lvl (test code = Sodium Lvl) 140 135-145 [facility]2017-11-14 09:25:00 Test Item Value Reference Range Interpretation Comments Magnesium Lvl (test code = Magnesium 1.8 1.8-2.4 Lvl) [id number] 09:25:00 Test Item Value Reference Range Interpretation Comments CHD Risk (test code = CHD Risk) 3.15 4.00-7.30 [facility] [id number] 09:25:00 Test Item Value Reference Range Interpretation Comments VLDL (test code = VLDL) 41 [place] [address]-11-14 09:25:00 Test Item Value Reference Range Interpretation Comments LDL (Calculated) (test code = LDL 43 (Calculated)) [facility] [id number] 09:25:00 Test Item Value Reference Range Interpretation Comments HDL (test code = HDL) 39 [facility] [id number] 09:25:00 Test Item Value Reference Range Interpretation Comments Chol (test code = Chol) 123 [facility] [id number] 09:25:00 Test Item Value Reference Range Interpretation Comments Trig (test code = Trig) 205 [facility]2017-11-14 09:25:00 Test Item Value Reference Range Interpretation Comments Creatinine Lvl (test code = Creatinine 1.45 0.50-1.40 Lvl) [facility]2017-11-14 09:25:00 Test Item Value Reference Range Interpretation Comments BUN (test code = BUN) 16 7-22 [facility]2017-11-14 09:25:00 Test Item Value Reference Range Interpretation Comments Glucose Lvl (test code = Glucose Lvl) 111 70-99 [facility]2017-11-14 09:25:00 Test Item Value Reference Range Interpretation Comments AGAP (test code = AGAP) 9.6 10.0-20.0 [facility]2017-11-14 09:25:00 Test Item Value Reference Range Interpretation Comments CO2 (test code = CO2) 28 24-32 [place] 552997-11-14 09:25:00 Test Item Value Reference Range Interpretation Comments eGFR (test code = eGFR) 47 [place] 552997-11-14 09:25:00 Test Item Value Reference Range Interpretation Comments Calcium Lvl (test code = Calcium Lvl) 8.7 8.5-10.5 [place] 552997-11-14 09:25:00 Test Item Value Reference Range Interpretation Comments Chloride Lvl (test code = Chloride Lvl) 106 95-109 [facility]2017-11-14 09:25:00 Test Item Value Reference Range Interpretation Comments Potassium Lvl (test code = Potassium 3.6 3.5-5.1 Lvl) [facility]2017-11-14 09:25:00 Test Item Value Reference Range Interpretation Comments Sodium Lvl (test code = Sodium Lvl) 140 135-145 [facility]2017-11-14 09:25:00 Test Item Value Reference Range Interpretation Comments Magnesium Lvl (test code = Magnesium 1.8 1.8-2.4 Lvl) [place] 705887-11-14 09:25:00 Test Item Value Reference Range Interpretation Comments CHD Risk (test code = CHD Risk) 3.15 4.00-7.30 [id number] 09:25:00 Test Item Value Reference Range Interpretation Comments VLDL (test code = VLDL) 41 [place] [address]-11-14 09:25:00 Test Item Value Reference Range Interpretation Comments LDL (Calculated) (test code = LDL 43 (Calculated)) [place] [address]-11-14 09:25:00 Test Item Value Reference Range Interpretation Comments HDL (test code = HDL) 39 [place] [address]-11-14 09:25:00 Test Item Value Reference Range Interpretation Comments Chol (test code = Chol) 123 [facility] [id number] 09:25:00 Test Item Value Reference Range Interpretation Comments Trig (test code = Trig) 205 [facility]2017-11-14 09:25:00 Test Item Value Reference Range Interpretation Comments Creatinine Lvl (test code = Creatinine 1.45 0.50-1.40 Lvl) [facility]2017-11-14 09:25:00 Test Item Value Reference Range Interpretation Comments BUN (test code = BUN) 16 7-22 [facility]2017-11-14 09:25:00 Test Item Value Reference Range Interpretation Comments Glucose Lvl (test code = Glucose Lvl) 111 70-99 [place] [id number] 09:25:00 Test Item Value Reference Range Interpretation Comments AGAP (test code = AGAP) 9.6 10.0-20.0 [facility]2017-11-14 09:25:00 Test Item Value Reference Range Interpretation Comments CO2 (test code = CO2) 28 24-32 [place] [id number] 09:25:00 Test Item Value Reference Range Interpretation Comments eGFR (test code = eGFR) 47 [facility]2017-11-14 09:25:00 Test Item Value Reference Range Interpretation Comments Calcium Lvl (test code = Calcium Lvl) 8.7 8.5-10.5 [facility]2017-11-14 09:25:00 Test Item Value Reference Range Interpretation Comments Chloride Lvl (test code = Chloride Lvl) 106 95-109 [facility]2017-11-14 09:25:00 Test Item Value Reference Range Interpretation Comments Potassium Lvl (test code = Potassium 3.6 3.5-5.1 Lvl) [facility]2017-11-14 09:25:00 Test Item Value Reference Range Interpretation Comments Sodium Lvl (test code = Sodium Lvl) 140 135-145 [facility]2017-11-14 09:25:00 Test Item Value Reference Range Interpretation Comments Magnesium Lvl (test code = Magnesium 1.8 1.8-2.4 Lvl) [id number] Test Item Value Reference Range Interpretation Comments CHD Risk (test code = CHD Risk) 3.15 4.00-7.30 [place] [id number] 09:25:00 Test Item Value Reference Range Interpretation Comments VLDL (test code = VLDL) 41 [facility]TPY[facility]4420[facility] 09:25:00 Test Item Value Reference Range Interpretation Comments LDL (Calculated) (test code = LDL 43 (Calculated)) [id number] 09:25:00 Test Item Value Reference Range Interpretation Comments HDL (test code = HDL) 39 [facility] HospitalRpgjzpoDOICLD7561-98-11 09:25:00 Test Item Value Reference Range Interpretation Comments Chol (test code = Chol) 123 [facility] Ho[id number] 09:25:00 Test Item Value Reference Range Interpretation Comments Trig (test code = Trig) 205 [facility] AND [id number] 23:42:00 Test Item Value Reference Range Interpretation Comments UA RBC (test code = 0-2 /HPF See_Comment [Automa bettye message] The UA RBC) system which ge nerated this result tra nsmitted reference range : <=2. The reference range was not used to interpr et this result as cory l/abnormal. [facility] [id number] 23:42:00 Test Item Value Reference Range Interpretation Comments UA Bacteria (test code = None Seen (01/21/17 UA Bacteria) 5:42 PM) [facility] AND [id number] 23:42:00 Test Item Value Reference Range Interpretation Comments UA Sq Epi (test code = UA Sq Occasional /LPF Epi) [facility] [id number] 23:42:00 Test Item Value Reference Range Interpretation Comments UA WBC (test code = UA WBC) 0-2 /HPF [facility] [id number] 23:42:00 Test Item Value Reference Range Interpretation Comments Micro? (test code = Performed (01/21/17 5:42 Micro?) PM) [facility] [id number] 23:42:00 Test Item Value Reference Range Interpretation Comments UA Nitrite (test code Negative (01/21/17 5:42 = UA Nitrite) PM) [facility] [id number] 23:42:00 Test Item Value Reference Range Interpretation Comments UA Leuk Est (test Negative (01/21/17 5:42 code = UA Leuk Est) PM) [facility] AND [id number] 23:42:00 Test Item Value Reference Range Interpretation Comments UA Protein (test code = UA Protein) 100 mg/dL [facility] AND [id number] 23:42:00 Test Item Value Reference Range Interpretation Comments UA Glucose (test code = UA Glucose) 500 mg/dL [facility] AND [id number] 23:42:00 Test Item Value Reference Range Interpretation Comments UA Spec Grav (test code = UA Spec 1.025 1 Grav) [facility] AND [id number] 23:42:00 Test Item Value Reference Range Interpretation Comments UA pH (test code = UA pH) 5.5 1 5.0-8.0 [facility] AND [id number] 23:42:00 Test Item Value Reference Range Interpretation Comments UA Blood (test code = Negative (01/21/17 5:42 UA Blood) PM) [facility] AND [id number] 23:42:00 Test Item Value Reference Range Interpretation Comments UA Urobilinogen (test code = UA 0.2 0.1-1.0 Urobilinogen) [facility] AND [id number] 23:42:00 Test Item Value Reference Range Interpretation Comments UA Ketones (test code Negative *NA*(01/21/17 = UA Ketones) 5:42 PM) [facility] AND [id number] 23:42:00 Test Item Value Reference Range Interpretation Comments UA Bili (test code = Negative *NA*(01/21/17 UA Bili) 5:42 PM) [facility] AND [id number] 23:42:00 Test Item Value Reference Range Interpretation Comments UA Turbidity (test code = Clear (01/21/17 5:42 UA Turbidity) PM) [facility] AND [id number] 23:42:00 Test Item Value Reference Range Interpretation Comments UA Color (test code = Yellow *NA*(01/21/17 UA Color) 5:42 PM) [facility] [id number] 23:42:00 Test Item Value Reference Range Interpretation Comments U Creatinine (test code = U 154.00 Creatinine) [facility] [id number] 23:42:00 Test Item Value Reference Range Interpretation Comments U Protein (test code = U Protein) 156.0 [facility]2017-11-13 23:42:00 Test Item Value Reference Range Interpretation Comments U Prot/Creat (test code = U Prot/Creat) 1.0 [facility]2017-11-13 23:42:00 Test Item Value Reference Range Interpretation Comments U Osmolality (test code = U Osmolality) 590 300-800 [facility]2017-11-13 23:42:00 Test Item Value Reference Range Interpretation Comments U Chloride (test code = U Chloride) 148 [facility]2017-11-13 23:42:00 Test Item Value Reference Range Interpretation Comments U Potassium (test code = U Potassium) 42.4 [facility]2017-11-13 23:42:00 Test Item Value Reference Range Interpretation Comments U Sodium (test code = U Sodium) 114 [facility]2017-11-13 23:42:00 Test Item Value Reference Range Interpretation Comments U Creatinine (test code = U 154.00 Creatinine) [facility] AND [id number] 23:42:00 Test Item Value Reference Range Interpretation Comments UA RBC (test code = 0-2 /HPF See_Comment [Automa bettye message] The UA RBC) system which ge nerated this result tra nsmitted reference range : <=2. The reference range was not used to interpr et this result as cory l/abnormal. [facility] AND [id number] 23:42:00 Test Item Value Reference Range Interpretation Comments UA Bacteria (test code = None Seen (01/21/17 UA Bacteria) 5:42 PM) [facility] AND [id number] 23:42:00 Test Item Value Reference Range Interpretation Comments UA Sq Epi (test code = UA Sq Occasional /LPF Epi) [facility] AND [id number] 23:42:00 Test Item Value Reference Range Interpretation Comments UA WBC (test code = UA WBC) 0-2 /HPF [facility] AND [id number] 23:42:00 Test Item Value Reference Range Interpretation Comments Micro? (test code = Performed (01/21/17 5:42 Micro?) PM) [facility] AND [id number] 23:42:00 Test Item Value Reference Range Interpretation Comments UA Nitrite (test code Negative (01/21/17 5:42 = UA Nitrite) PM) [facility] AND [id number] 23:42:00 Test Item Value Reference Range Interpretation Comments UA Leuk Est (test Negative (01/21/17 5:42 code = UA Leuk Est) PM) [facility] AND [id number] 23:42:00 Test Item Value Reference Range Interpretation Comments UA Protein (test code = UA Protein) 100 mg/dL [facility] AND [id number] 23:42:00 Test Item Value Reference Range Interpretation Comments UA Glucose (test code = UA Glucose) 500 mg/dL [facility] AND [id number] 23:42:00 Test Item Value Reference Range Interpretation Comments UA Spec Grav (test code = UA Spec 1.025 1 Grav) [facility] AND [id number] 23:42:00 Test Item Value Reference Range Interpretation Comments UA pH (test code = UA pH) 5.5 1 5.0-8.0 [facility] AND [id number] 23:42:00 Test Item Value Reference Range Interpretation Comments UA Blood (test code = Negative (01/21/17 5:42 UA Blood) PM) [facility] AND [id number] 23:42:00 Test Item Value Reference Range Interpretation Comments UA Urobilinogen (test code = UA 0.2 0.1-1.0 Urobilinogen) [facility] AND [id number] 23:42:00 Test Item Value Reference Range Interpretation Comments UA Ketones (test code Negative *NA*(01/21/17 = UA Ketones) 5:42 PM) [facility] AND [id number] 23:42:00 Test Item Value Reference Range Interpretation Comments UA Bili (test code = Negative *NA*(01/21/17 UA Bili) 5:42 PM) [facility] AND [id number] 23:42:00 Test Item Value Reference Range Interpretation Comments UA Turbidity (test code = Clear (01/21/17 5:42 UA Turbidity) PM) [facility] AND [id number] 23:42:00 Test Item Value Reference Range Interpretation Comments UA Color (test code = Yellow *NA*(01/21/17 UA Color) 5:42 PM) [facility]2017-11-13 23:42:00 Test Item Value Reference Range Interpretation Comments U Creatinine (test code = U 154.00 Creatinine) [facility]2017-11-13 23:42:00 Test Item Value Reference Range Interpretation Comments U Protein (test code = U Protein) 156.0 [facility]2017-11-13 23:42:00 Test Item Value Reference Range Interpretation Comments U Prot/Creat (test code = U Prot/Creat) 1.0 [facility]2017-11-13 23:42:00 Test Item Value Reference Range Interpretation Comments U Osmolality (test code = U Osmolality) 590 300-800 [facility]2017-11-13 23:42:00 Test Item Value Reference Range Interpretation Comments U Chloride (test code = U Chloride) 148 [facility]2017-11-13 23:42:00 Test Item Value Reference Range Interpretation Comments U Potassium (test code = U Potassium) 42.4 [facility]2017-11-13 23:42:00 Test Item Value Reference Range Interpretation Comments U Sodium (test code = U Sodium) 114 [facility]2017-11-13 23:42:00 Test Item Value Reference Range Interpretation Comments U Creatinine (test code = U 154.00 Creatinine) [facility] AND [id number] 23:42:00 Test Item Value Reference Range Interpretation Comments UA RBC (test code = 0-2 /HPF See_Comment [Automa bettye message] The UA RBC) system which ge nerated this result tra nsmitted reference range : <=2. The reference range was not used to interpr et this result as cory l/abnormal. [facility] AND [id number] 23:42:00 Test Item Value Reference Range Interpretation Comments UA Bacteria (test code = None Seen (01/21/17 UA Bacteria) 5:42 PM) [facility] AND [id number] 23:42:00 Test Item Value Reference Range Interpretation Comments UA Sq Epi (test code = UA Sq Occasional /LPF Epi) [facility] [id number] 23:42:00 Test Item Value Reference Range Interpretation Comments UA WBC (test code = UA WBC) 0-2 /HPF [facility] AND [id number] 23:42:00 Test Item Value Reference Range Interpretation Comments Micro? (test code = Performed (01/21/17 5:42 Micro?) PM) [facility] AND [id number] 23:42:00 Test Item Value Reference Range Interpretation Comments UA Nitrite (test code Negative (01/21/17 5:42 = UA Nitrite) PM) [facility] AND [id number] 23:42:00 Test Item Value Reference Range Interpretation Comments UA Leuk Est (test Negative (01/21/17 5:42 code = UA Leuk Est) PM) [facility] AND [id number] 23:42:00 Test Item Value Reference Range Interpretation Comments UA Protein (test code = UA Protein) 100 mg/dL [facility] AND [id number] 23:42:00 Test Item Value Reference Range Interpretation Comments UA Glucose (test code = UA Glucose) 500 mg/dL [facility] AND [id number] 23:42:00 Test Item Value Reference Range Interpretation Comments UA Spec Grav (test code = UA Spec 1.025 1 Grav) [facility] AND [id number] 23:42:00 Test Item Value Reference Range Interpretation Comments UA pH (test code = UA pH) 5.5 1 5.0-8.0 [facility] AND [id number] 23:42:00 Test Item Value Reference Range Interpretation Comments UA Blood (test code = Negative (01/21/17 5:42 UA Blood) PM) [facility] AND [id number] 23:42:00 Test Item Value Reference Range Interpretation Comments UA Urobilinogen (test code = UA 0.2 0.1-1.0 Urobilinogen) [facility] AND [id number] 23:42:00 Test Item Value Reference Range Interpretation Comments UA Ketones (test code Negative *NA*(01/21/17 = UA Ketones) 5:42 PM) [facility] AND [id number] 23:42:00 Test Item Value Reference Range Interpretation Comments UA Bili (test code = Negative *NA*(01/21/17 UA Bili) 5:42 PM) [facility] AND [id number] 23:42:00 Test Item Value Reference Range Interpretation Comments UA Turbidity (test code = Clear (01/21/17 5:42 UA Turbidity) PM) [facility] [id number] 23:42:00 Test Item Value Reference Range Interpretation Comments UA Color (test code = Yellow *NA*(01/21/17 UA Color) 5:42 PM) [facility] [id number] 23:42:00 Test Item Value Reference Range Interpretation Comments U Creatinine (test code = U 154.00 Creatinine) [facility] [id number] 23:42:00 Test Item Value Reference Range Interpretation Comments U Protein (test code = U Protein) 156.0 [facility] [id number] 23:42:00 Test Item Value Reference Range Interpretation Comments U Prot/Creat (test code = U Prot/Creat) 1.0 [facility] [id number] 23:42:00 Test Item Value Reference Range Interpretation Comments U Osmolality (test code = U Osmolality) 590 300-800 [facility] [id number] 23:42:00 Test Item Value Reference Range Interpretation Comments U Chloride (test code = U Chloride) 148 [facility] [id number] 23:42:00 Test Item Value Reference Range Interpretation Comments U Potassium (test code = U Potassium) 42.4 [facility] [id number] 23:42:00 Test Item Value Reference Range Interpretation Comments U Sodium (test code = U Sodium) 114 [facility] [id number] 23:42:00 Test Item Value Reference Range Interpretation Comments U Creatinine (test code = U 154.00 Creatinine) [facility] [id number] 19:38:00 Test Item Value Reference Range Interpretation Comments Total CK (test code = Total CK) 173 12-191 [facility]AC [id number] 19:38:00 Test Item Value Reference Range Interpretation Comments Troponin-I (test code 0.36 See_Comment [Auto mated message] The = Troponin-I) system which g enerated this result transmit bettye reference range : <=0.40. The reference r naif was not used to interpr et this result as cory l/abnormal. [facility] [id number] 19:38:00 Test Item Value Reference Range Interpretation Comments CK-MB INDEX (test 2.7 See_Comment [Automate d message] The code = CK-MB INDEX) system w [employer] generated this result transmit bettye reference range : <=2.5. The reference range was not used to interpr et this result as cory l/abnormal. [facility] [employer] [place]annCAR[employer]AC [id number] 19:38:00 Test Item Value Reference Range Interpretation Comments CK MB (test code = CK MB) 4.7 0.5-3.6 [facility] HermannCARDIAC [id number] 19:38:00 Test Item Value Reference Range Interpretation Comments Total CK (test code = Total CK) 173 191 [facility] [employer] BristolannCARDIAC [id number] 19:38:00 Test Item Value Reference Range Interpretation Comments Troponin-I (test code 0.36 See_Comment [Auto mated message] The = Troponin-I) system which g enerated this result transmit bettye reference range : <=0.40. The reference r naif was not used to interpr et this result as cory l/abnormal. [facility] [employer]2017-11-13 19:38:00 Test Item Value Reference Range Interpretation Comments CK-MB INDEX (test 2.7 See_Comment [Automate d message] The code = CK-MB INDEX) system w [employer] generated this result transmit bettye reference range : <=2.5. The reference range was not used to interpr et this result as cory l/abnormal. [facility] [employer]CARMove[employer]AC [id number] 19:38:00 Test Item Value Reference Range Interpretation Comments CK MB (test code = CK MB) 4.7 0.5-3.6 [facility] [employer] BristolannCARDIAC [id number] 19:38:00 Test Item Value Reference Range Interpretation Comments Total CK (test code = Total CK) 173 191 [facility] TriptrottingCARDIAC [id number] 19:38:00 Test Item Value Reference Range Interpretation Comments Troponin-I (test code 0.36 See_Comment [Auto mated message] The = Troponin-I) system which g enerated this result transmit bettye reference range : <=0.40. The reference r naif was not used to interpr et this result as cory l/abnormal. [employer]annCARDIAC [id number] 19:38:00 Test Item Value Reference Range Interpretation Comments CK-MB INDEX (test 2.7 See_Comment [Automate d message] The code = CK-MB INDEX) system w [employer] generated this result transmit bettye reference range : <=2.5. The reference range was not used to interpr et this result as cory l/abnormal. [facility] [id number] 19:38:00 Test Item Value Reference Range Interpretation Comments CK MB (test code = CK MB) 4.7 0.5-3.6 [facility]CARD[facility] [id number] 15:33:00 Test Item Value Reference Range Interpretation Comments Total CK (test code = Total CK) 223 12-191 [facility] [id number] 15:33:00 Test Item Value Reference Range Interpretation Comments Troponin-I (test code 0.39 See_Comment [Auto mated message] The = Troponin-I) system which g enerated this result transmit bettye reference range : <=0.40. The reference r naif was not used to interpr et this result as cory l/abnormal. [facility]annCARD[facility]AC [id number] 15:33:00 Test Item Value Reference Range Interpretation Comments CK-MB INDEX (test 2.6 See_Comment [Automate d message] The code = CK-MB INDEX) system w [employer] generated this result transmit bettye reference range : <=2.5. The reference range was not used to interpr et this result as cory l/abnormal. [facility]annCARD[facility]AC [id number] 15:33:00 Test Item Value Reference Range Interpretation Comments CK MB (test code = CK MB) 5.9 0.5-3.6 [facility]annSPECIAL [id number] 15:33:00 Test Item Value Reference Range Interpretation Comments Hgb A1C (test code = Hgb A1C) 7.3 [facility]annCARD[facility]AC [id number] 15:33:00 Test Item Value Reference Range Interpretation Comments Total CK (test code = Total CK) 223 12-191 [facility]annCARD[facility]AC [id number] 15:33:00 Test Item Value Reference Range Interpretation Comments Troponin-I (test code 0.39 See_Comment [Auto mated message] The = Troponin-I) system which g enerated this result transmit bettye reference range : <=0.40. The reference r naif was not used to interpr et this result as cory l/abnormal. [facility] TriptrottingCARMovein[employer]AC [id number] 15:33:00 Test Item Value Reference Range Interpretation Comments CK-MB INDEX (test 2.6 See_Comment [Automate d message] The code = CK-MB INDEX) system w [facility] generated this result transmit bettye reference range : <=2.5. The reference range was not used to interpr et this result as cory l/abnormal. [facility] [employer]AC [id number] 15:33:00 Test Item Value Reference Range Interpretation Comments CK MB (test code = CK MB) 5.9 0.5-3.6 [facility]annOcarina TechnologiesIAL [id number] 15:33:00 Test Item Value Reference Range Interpretation Comments Hgb A1C (test code = Hgb A1C) 7.3 [facility] [employer]2017-11-13 15:33:00 Test Item Value Reference Range Interpretation Comments Total CK (test code = Total CK) 223 12-191 [facility] StephenvilleSe[employer] [id number] 15:33:00 Test Item Value Reference Range Interpretation Comments Troponin-I (test code 0.39 See_Comment [Auto mated message] The = Troponin-I) system which g enerated this result transmit bettye reference range : <=0.40. The reference r naif was not used to interpr et this result as cory l/abnormal. [facility] [employer]2017-11-13 15:33:00 Test Item Value Reference Range Interpretation Comments CK-MB INDEX (test 2.6 See_Comment [Automate d message] The code = CK-MB INDEX) system w [employer] generated this result transmit bettye reference range : <=2.5. The reference range was not used to interpr et this result as cory l/abnormal. [facility] [employer] [id number] 15:33:00 Test Item Value Reference Range Interpretation Comments CK MB (test code = CK MB) 5.9 0.5-3.6 [facility] [employer] BristolannOcarina TechnologiesIAL [id number] 15:33:00 Test Item Value Reference Range Interpretation Comments Hgb A1C (test code = Hgb A1C) 7.3 [facility] St[id number] 11:07:00 Test Item Value Reference Range Interpretation Comments Lymphocytes # (test code = Lymphocytes 1.3 1.0-5.5 #) [facility] [id number] 11:07:00 Test Item Value Reference Range Interpretation Comments Monocytes # (test code 0.5 See_Comment [Aut omated message] The = Monocytes #) system which generated this result tra nsmitted reference range : <=0.8. The reference r naif was not used to int erpret this result as normal/abnormal . [facility]annCARDIAC [id number] 11:07:00 Test Item Value Reference Range Interpretation Comments Total CK (test code = Total CK) 232 12-191 [facility] [id number] 11:07:00 Test Item Value Reference Range Interpretation Comments Troponin-I (test code 0.43 See_Comment [Auto mated message] The = Troponin-I) system which g enerated this result transmit bettye reference range : <=0.40. The reference r naif was not used to interpr et this result as cory l/abnormal. [facility] [id number] 11:07:00 Test Item Value Reference Range Interpretation Comments CK MB (test code = CK MB) 6.1 0.5-3.6 [facility] [id number] 11:07:00 Test Item Value Reference Range Interpretation Comments CK-MB INDEX (test 2.6 See_Comment [Automate d message] The code = CK-MB INDEX) [facility] hospital generated this result transmit bettye reference range : <=2.5. The reference range was not used to interpr et this result as cory l/abnormal. [facility]annCHEM [id number] 11:07:00 Test Item Value Reference Range Interpretation Comments Phosphorus (test code = Phosphorus) 2.0 2.5-4.5 [facility]annCHEM [id number] 11:07:00 Test Item Value Reference Range Interpretation Comments Magnesium Lvl (test code = Magnesium 1.9 1.8-2.4 Lvl) [facility] StephenvilleXtmrmhvWNKAJBMAVRRB7342-60-60 11:07:00 Test Item Value Reference Range Interpretation Comments AGAP (test code = AGAP) 11.8 10.0-20.0 [facility]ZqvmatoLWRWSNODRGVT5886-92-69 11:07:00 Test Item Value Reference Range Interpretation Comments eGFR (test code = eGFR) 43 [facility] CenterAjwatctAMSKNFSXEARF8177-84-77 11:07:00 Test Item Value Reference Range Interpretation Comments Calcium Lvl (test code = Calcium Lvl) 9.2 8.5-10.5 [facility] CenterFlqeeyzVRELPGOOJMYL1509-22-39 11:07:00 Test Item Value Reference Range Interpretation Comments BUN (test code = BUN) 15 7-22 [facility] CenterHctyymxYUQHJDRSVRPJ3134-51-83 11:07:00 Test Item Value Reference Range Interpretation Comments Glucose Lvl (test code = Glucose Lvl) 223 70-99 [facility] CenterKcogwvsSEAQZEXMJZQO5408-35-77 11:07:00 Test Item Value Reference Range Interpretation Comments Sodium Lvl (test code = Sodium Lvl) 137 135-145 [facility] CenterZiokjtjJUSMSSRARDPC7706-18-87 11:07:00 Test Item Value Reference Range Interpretation Comments Potassium Lvl (test code = Potassium 3.8 3.5-5.1 Lvl) [facility] CenterMzrqrvcTWNAJDBBYJOY8443-26-46 11:07:00 Test Item Value Reference Range Interpretation Comments Chloride Lvl (test code = Chloride Lvl) 104 95-109 [facility] CenterNuscbubOEIOIOPKKHEX9752-80-59 11:07:00 Test Item Value Reference Range Interpretation Comments CO2 (test code = CO2) 25 24-32 [facility] CenterRpptjeaBHTUEZEVXPMK5711-30-19 11:07:00 Test Item Value Reference Range Interpretation Comments Creatinine Lvl (test code = Creatinine 1.55 0.50-1.40 Lvl) [facility]MdvumnwYMEWZVXRWC7244-78-20 11:07:00 Test Item Value Reference Range Interpretation Comments Platelet (test code = Platelet) 110 133-450 [facility] TexasLtlnpsfIXDBCBIHJO1030-66-57 11:07:00 Test Item Value Reference Range Interpretation Comments MPV (test code = MPV) 9.0 7.4-10.4 [facility] TexasOwdxqsuFKAMSYGNUV2276-25-68 11:07:00 Test Item Value Reference Range Interpretation Comments MCH (test code = MCH) 31.9 pg 27.0-31.0 [facility] TexasInduwlpOMYFXBLHNU1008-58-15 11:07:00 Test Item Value Reference Range Interpretation Comments Hgb (test code = Hgb) 16.2 14.0-18.0 [facility] TexasXnyelvaQDNELDBJNS3559-72-88 11:07:00 Test Item Value Reference Range Interpretation Comments Hct (test code = Hct) 47.6 42.0-54.0 [facility] TexasWnexbhuQQQBEOGAXU0778-36-48 11:07:00 Test Item Value Reference Range Interpretation Comments MCV (test code = MCV) 93.9 80.0-94.0 [facility] TexasVjesajiWLTCCUJGFZ6140-64-68 11:07:00 Test Item Value Reference Range Interpretation Comments RDW (test code = RDW) 13.0 11.5-14.5 [facility] TexasIcjvyfbPHUVMAUPYX9112-14-56 11:07:00 Test Item Value Reference Range Interpretation Comments MCHC (test code = MCHC) 34.0 32.0-36.0 [facility] TexasLkfkvizCVKHULWVAV0474-18-29 11:07:00 Test Item Value Reference Range Interpretation Comments WBC X 10x3 (test code = WBC X 10x3) 8.5 3.7-10.4 [facility] TexasRgfkpukBJNBRZNHEJ1756-18-83 11:07:00 Test Item Value Reference Range Interpretation Comments RBC X 10x6 (test code = RBC X 10x6) 5.07 4.70-6.10 [facility] TexasUmzpipbVDJXFNSDFU6849-54-77 11:07:00 Test Item Value Reference Range Interpretation Comments Basophils (test code = 0.5 See_Comment [Aut omated message] The Basophils) system which ge nerated this result tra nsmitted reference range : <=1.0. The reference r naif was not used to int erpret this result as normal/abnormal . [facility] TexasEbizyopVBWYFGOABR9101-85-41 11:07:00 Test Item Value Reference Range Interpretation Comments Segs-Bands # (test code = Segs-Bands #) 6.6 1.5-8.1 [facility] TexasCvlzsnjYNRTCBANUD6232-84-85 11:07:00 Test Item Value Reference Range Interpretation Comments Eosinophils (test code = 0.9 See_Comment [A utomated message] The Eosinophils) system which ge nerated this result tra nsmitted reference range : <=4.0. The reference r naif was not used to int erpret this result as normal/abnormal . [facility]OupilcqQIVWUZZBTC3178-26-79 11:07:00 Test Item Value Reference Range Interpretation Comments Lymphocytes (test code = Lymphocytes) 14.9 20.0-40.0 [facility] CenterTefohwcFBFSUKPROQ4282-78-80 11:07:00 Test Item Value Reference Range Interpretation Comments Monocytes (test code = Monocytes) 6.1 2.0-12.0 [facility] CenterRbibbcwCQIVYRLMQH6943-30-42 11:07:00 Test Item Value Reference Range Interpretation Comments Segs (test code = Segs) 77.6 45.0-75.0 [facility] CenterAixvdciOOAWRSVZUO1218-47-79 11:07:00 Test Item Value Reference Range Interpretation Comments Eosinophils # (test code 0.1 See_Comment [A utomated message] The = Eosinophils #) system whic h generated this result tra nsmitted reference range : <=0.5. The reference r naif was not used to int erpret this result as normal/abnormal . [facility] CenterZfzlpviDCYCJCXXQE6418-97-53 11:07:00 Test Item Value Reference Range Interpretation Comments Lymphocytes # (test code = Lymphocytes 1.3 1.0-5.5 #) [facility] CenterFskzaxfJZKUEBHOPB8357-80-11 11:07:00 Test Item Value Reference Range Interpretation Comments Monocytes # (test code 0.5 See_Comment [Aut omated message] The = Monocytes #) system which generated this result tra nsmitted reference range : <=0.8. The reference r naif was not used to int erpret this result as normal/abnormal . [facility] StephenvilleGoAlbert2017-11-13 11:07:00 Test Item Value Reference Range Interpretation Comments Total CK (test code = Total CK) 232 12-191 [facility] HospitalPlaid incLQHFJGY3861-38-08 11:07:00 Test Item Value Reference Range Interpretation Comments Troponin-I (test code 0.43 See_Comment [Auto mated message] The = Troponin-I) system which g enerated this result transmit bettye reference range : <=0.40. The reference r naif was not used to interpr et this result as cory l/abnormal. [facility] StephenvilleGoAlbert2017-11-13 11:07:00 Test Item Value Reference Range Interpretation Comments CK MB (test code = CK MB) 6.1 0.5-3.6 [facility]villeannCARDIAC ZJOILFQ1210-10-87 11:07:00 Test Item Value Reference Range Interpretation Comments CK-MB INDEX (test 2.6 See_Comment [Automate d message] The code = CK-MB INDEX) system w [facility] generated this result transmit bettye reference range : <=2.5. The reference range was not used to interpr et this result as cory l/abnormal. [facility] StephenvilleHalotechnicsCHEM ZGQBC1202-65-80 11:07:00 Test Item Value Reference Range Interpretation Comments Phosphorus (test code = Phosphorus) 2.0 2.5-4.5 [facility] StephenvilleHalotechnicsCHEM [id number] 11:07:00 Test Item Value Reference Range Interpretation Comments Magnesium Lvl (test code = Magnesium 1.9 1.8-2.4 Lvl) [facility] HospitalZrxtkmtDMAKCGRPYNLM1056-55-64 11:07:00 Test Item Value Reference Range Interpretation Comments AGAP (test code = AGAP) 11.8 10.0-20.0 [facility] HospitalBozghlcNHSNPJRHJFLQ8520-58-19 11:07:00 Test Item Value Reference Range Interpretation Comments eGFR (test code = eGFR) 43 [facility] HospitalDmitonhBKIPOZIZUAVU0043-71-06 11:07:00 Test Item Value Reference Range Interpretation Comments Calcium Lvl (test code = Calcium Lvl) 9.2 8.5-10.5 [facility] HospitalGovarmdVVQDFCAVCWFS1651-37-65 11:07:00 Test Item Value Reference Range Interpretation Comments BUN (test code = BUN) 15 7-22 [facility] HospitalBzgfveaSQAUQDLWKCTM0910-89-55 11:07:00 Test Item Value Reference Range Interpretation Comments Glucose Lvl (test code = Glucose Lvl) 223 70-99 [facility] HospitalItfgelqJTJEIRUNTFAF9962-16-87 11:07:00 Test Item Value Reference Range Interpretation Comments Sodium Lvl (test code = Sodium Lvl) 137 135-145 [facility] CenterIuhhekaYSCYFKSJURLI1831-70-47 11:07:00 Test Item Value Reference Range Interpretation Comments Potassium Lvl (test code = Potassium 3.8 3.5-5.1 Lvl) [facility] CenterKsloptuALLQODLSYQRA0116-93-27 11:07:00 Test Item Value Reference Range Interpretation Comments Chloride Lvl (test code = Chloride Lvl) 104 95-109 [facility] CenterMdravcmGDLOBGZCSPNX8047-32-94 11:07:00 Test Item Value Reference Range Interpretation Comments CO2 (test code = CO2) 25 24-32 [facility] StephenvilleZmzvzlpTFSASIZDSYYH8683-77-52 11:07:00 Test Item Value Reference Range Interpretation Comments Creatinine Lvl (test code = Creatinine 1.55 0.50-1.40 Lvl) [facility] CenterIzpcmtfUIMXKIEACN5604-73-70 11:07:00 Test Item Value Reference Range Interpretation Comments Platelet (test code = Platelet) 110 133-450 [facility] TexasMimtuyoTNUWCBBIUF3579-97-28 11:07:00 Test Item Value Reference Range Interpretation Comments MPV (test code = MPV) 9.0 7.4-10.4 [facility] TexasUdexouaIHWGVVFDRW8576-77-16 11:07:00 Test Item Value Reference Range Interpretation Comments MCH (test code = MCH) 31.9 pg 27.0-31.0 [facility] TexasBwgweudAVKWXNGSKB3705-29-13 11:07:00 Test Item Value Reference Range Interpretation Comments Hgb (test code = Hgb) 16.2 14.0-18.0 [facility] TexasZwsxuxwEEEGLCAFQW8134-65-39 11:07:00 Test Item Value Reference Range Interpretation Comments Hct (test code = Hct) 47.6 42.0-54.0 [facility] TexasEklljbmINBPEAJSBP5535-83-27 11:07:00 Test Item Value Reference Range Interpretation Comments MCV (test code = MCV) 93.9 80.0-94.0 [facility] TexasNwaowkoXDKGMSIXEA2228-68-43 11:07:00 Test Item Value Reference Range Interpretation Comments RDW (test code = RDW) 13.0 11.5-14.5 [facility] TexasOiequucXLPISGCEQM3373-94-18 11:07:00 Test Item Value Reference Range Interpretation Comments MCHC (test code = MCHC) 34.0 32.0-36.0 [facility] TexasZyviriiFDYVNYRAFN5321-05-79 11:07:00 Test Item Value Reference Range Interpretation Comments WBC X 10x3 (test code = WBC X 10x3) 8.5 3.7-10.4 [facility] TexasFsfgjufHVYBMDEKJF7898-29-06 11:07:00 Test Item Value Reference Range Interpretation Comments RBC X 10x6 (test code = RBC X 10x6) 5.07 4.70-6.10 [facility] TexasRvwapokZYIJDQFIIO4947-47-73 11:07:00 Test Item Value Reference Range Interpretation Comments Basophils (test code = 0.5 See_Comment [Aut omated message] The Basophils) system which ge nerated this result tra nsmitted reference range : <=1.0. The reference r niaf was not used to int erpret this result as normal/abnormal . [facility] TexasKivjmhaOTBNZPQHTI4699-23-66 11:07:00 Test Item Value Reference Range Interpretation Comments Segs-Bands # (test code = Segs-Bands #) 6.6 1.5-8.1 [facility] TexasFyfgtiwZRUCRYGWMP6476-42-52 11:07:00 Test Item Value Reference Range Interpretation Comments Eosinophils (test code = 0.9 See_Comment [A utomated message] The Eosinophils) system which ge nerated this result tra nsmitted reference range : <=4.0. The reference r naif was not used to int erpret this result as normal/abnormal . [facility] TexasNosnhceCSNPXQIOWP3112-59-24 11:07:00 Test Item Value Reference Range Interpretation Comments Lymphocytes (test code = Lymphocytes) 14.9 20.0-40.0 [facility] TexasWmotpcuWIZZETSEMI2896-79-34 11:07:00 Test Item Value Reference Range Interpretation Comments Monocytes (test code = Monocytes) 6.1 2.0-12.0 [facility] TexasPiwvktrOIJECGJALS6955-99-90 11:07:00 Test Item Value Reference Range Interpretation Comments Segs (test code = Segs) 77.6 45.0-75.0 [facility] TexasKonhiumYYHVHOKSPC5574-17-75 11:07:00 Test Item Value Reference Range Interpretation Comments Eosinophils # (test code 0.1 See_Comment [A utomated message] The = Eosinophils #) system [facility] generated this result tra nsmitted reference range : <=0.5. The reference r naif was not used to int erpret this result as normal/abnormal . [facility] TexasOupgqftMRMVKFNKEB7020-53-06 11:07:00 Test Item Value Reference Range Interpretation Comments Lymphocytes # (test code = Lymphocytes 1.3 1.0-5.5 #) [facility] TexasAujtchnXXSUZXZHLV9032-28-51 11:07:00 Test Item Value Reference Range Interpretation Comments Monocytes # (test code 0.5 See_Comment [Aut omated message] The = Monocytes #) system which generated this result tra nsmitted reference range : <=0.8. The reference r naif was not used to int erpret this result as normal/abnormal . [facility]CARD[facility]AC UBAKGCC0588-89-71 11:07:00 Test Item Value Reference Range Interpretation Comments Total CK (test code = Total CK) 232 12-191 [facility]villeannCARDIAC EFVUATE6446-84-33 11:07:00 Test Item Value Reference Range Interpretation Comments Troponin-I (test code 0.43 See_Comment [Auto mated message] The = Troponin-I) system which g enerated this result transmit bettye reference range : <=0.40. The reference r naif was not used to interpr et this result as cory l/abnormal. [facility] HermannCARDIAC NUXFNRG7085-04-84 11:07:00 Test Item Value Reference Range Interpretation Comments CK MB (test code = CK MB) 6.1 0.5-3.6 [facility]villeannCARDIAC PNYFXLE6892-16-26 11:07:00 Test Item Value Reference Range Interpretation Comments CK-MB INDEX (test 2.6 See_Comment [Automate d message] The code = CK-MB INDEX) system w [facility] generated this result transmit bettye reference range : <=2.5. The reference range was not used to interpr et this result as cory l/abnormal. [facility] [employer] BristolannCHEM WDDXN9469-40-47 11:07:00 Test Item Value Reference Range Interpretation Comments Phosphorus (test code = Phosphorus) 2.0 2.5-4.5 [facility] [employer] BristolannCHEM [id number] 11:07:00 Test Item Value Reference Range Interpretation Comments Magnesium Lvl (test code = Magnesium 1.9 1.8-2.4 Lvl) [facility] StephenvilleRqaogauCDPNYOSYJEMN3828-75-41 11:07:00 Test Item Value Reference Range Interpretation Comments AGAP (test code = AGAP) 11.8 10.0-20.0 [facility] BplenqrIWNTRRSSEBPX1756-68-91 11:07:00 Test Item Value Reference Range Interpretation Comments eGFR (test code = eGFR) 43 [facility] StephenvilleWesxncrKRKPUUHXNXBG9068-73-86 11:07:00 Test Item Value Reference Range Interpretation Comments Calcium Lvl (test code = Calcium Lvl) 9.2 8.5-10.5 [facility] StephenvilleJvahznaASYHMEPOZYIA9053-48-31 11:07:00 Test Item Value Reference Range Interpretation Comments BUN (test code = BUN) 15 7-22 [facility] CenterFeekofcHOLKTQLVPMJE2981-45-36 11:07:00 Test Item Value Reference Range Interpretation Comments Glucose Lvl (test code = Glucose Lvl) 223 70-99 [facility] CenterOmtaqoyULPFQDSRUQFG0860-98-65 11:07:00 Test Item Value Reference Range Interpretation Comments Sodium Lvl (test code = Sodium Lvl) 137 135-145 [facility] CenterSceatgzWJVXDOAEXRLD5380-32-84 11:07:00 Test Item Value Reference Range Interpretation Comments Potassium Lvl (test code = Potassium 3.8 3.5-5.1 Lvl) [facility] CenterWsjjwihYFTGROHPZMJI3007-79-04 11:07:00 Test Item Value Reference Range Interpretation Comments Chloride Lvl (test code = Chloride Lvl) 104 95-109 [facility] CenterUlwfjyoYKMWHLNQBBSU0229-88-29 11:07:00 Test Item Value Reference Range Interpretation Comments CO2 (test code = CO2) 25 24-32 [facility] CenterZkdtqylQFWMLOCIHAWQ3246-87-07 11:07:00 Test Item Value Reference Range Interpretation Comments Creatinine Lvl (test code = Creatinine 1.55 0.50-1.40 Lvl) [facility] TexasMjvmhruJTUDYNTUEN4716-66-18 11:07:00 Test Item Value Reference Range Interpretation Comments Platelet (test code = Platelet) 110 133-450 [facility] TexasGafwwtdXSXINJKZKF4469-22-23 11:07:00 Test Item Value Reference Range Interpretation Comments MPV (test code = MPV) 9.0 7.4-10.4 [facility] TexasYsqbmtpKAWZIQDVVQ2540-28-98 11:07:00 Test Item Value Reference Range Interpretation Comments MCH (test code = MCH) 31.9 pg 27.0-31.0 [facility] TexasNfdyyqjFKJYLFWMKM4722-67-31 11:07:00 Test Item Value Reference Range Interpretation Comments Hgb (test code = Hgb) 16.2 14.0-18.0 [facility] TexasWjfncitFQJMNSLZFD9490-28-24 11:07:00 Test Item Value Reference Range Interpretation Comments Hct (test code = Hct) 47.6 42.0-54.0 [facility] TexasQfvetlfRMADPITYSR0826-88-51 11:07:00 Test Item Value Reference Range Interpretation Comments MCV (test code = MCV) 93.9 80.0-94.0 [facility] TexasOmzcbabSUVAZBBWSB0145-69-74 11:07:00 Test Item Value Reference Range Interpretation Comments RDW (test code = RDW) 13.0 11.5-14.5 [facility] TexasAtjzzepFLTRTZAKTP2231-30-71 11:07:00 Test Item Value Reference Range Interpretation Comments MCHC (test code = MCHC) 34.0 32.0-36.0 [facility] TexasKflywioHYQDHKSWSQ5529-29-92 11:07:00 Test Item Value Reference Range Interpretation Comments WBC X 10x3 (test code = WBC X 10x3) 8.5 3.7-10.4 [facility] TexasMzikzztDRRQVIFHIX1058-93-83 11:07:00 Test Item Value Reference Range Interpretation Comments RBC X 10x6 (test code = RBC X 10x6) 5.07 4.70-6.10 [facility] TexasGraoijiOKODSWENFM3647-95-12 11:07:00 Test Item Value Reference Range Interpretation Comments Basophils (test code = 0.5 See_Comment [Aut omated message] The Basophils) system which ge nerated this result tra nsmitted reference range : <=1.0. The reference r naif was not used to int erpret this result as normal/abnormal . [facility] TexasGewftkrNEUBNLRSNU7688-68-44 11:07:00 Test Item Value Reference Range Interpretation Comments Segs-Bands # (test code = Segs-Bands #) 6.6 1.5-8.1 [facility] TexasCfethrfHMPYLLMWTL1202-76-68 11:07:00 Test Item Value Reference Range Interpretation Comments Eosinophils (test code = 0.9 See_Comment [A utomated message] The Eosinophils) system which ge nerated this result tra nsmitted reference range : <=4.0. The reference r naif was not used to int erpret this result as normal/abnormal . [facility] TexasDcxujetQRHOZKBCWF7348-10-76 11:07:00 Test Item Value Reference Range Interpretation Comments Lymphocytes (test code = Lymphocytes) 14.9 20.0-40.0 [facility] TexasWqdppfgHGNTVTZATN0405-31-54 11:07:00 Test Item Value Reference Range Interpretation Comments Monocytes (test code = Monocytes) 6.1 2.0-12.0 [facility] TexasKrkpgtxZDVXGCUDYN4010-32-00 11:07:00 Test Item Value Reference Range Interpretation Comments Segs (test code = Segs) 77.6 45.0-75.0 [facility] TexasCkpralfYHYKDHXOKJ8494-78-56 11:07:00 Test Item Value Reference Range Interpretation Comments Eosinophils # (test code 0.1 See_Comment [A utomated message] The = Eosinophils #) system whic h generated this result tra nsmitted reference range : <=0.5. The reference r naif was not used to int erpret this result as normal/abnormal . [facility]
[2022-03-01] MEDS ORDERED: LIDOCAINE 1% MPF 5 ML VIAL ONE (20:48)
[2022-03-01] MEDS ORDERED: TDAP (DIPHTH,PERTUSS(ACELL),TET VAC) 0.5 ML VIAL IMVAC ONE (20:48)
--- NOTE | 2022-03-01 20:57 | RAD REPORT ---
EXAM DESCRIPTION: CT - CTHCSPWOC - 03/01/2022 8:33 pm CLINICAL HISTORY: Trauma, head and neck injury. fall, head injury COMPARISON: Head C Spine Mpr Wo Con dated 02/26/2022 TECHNIQUE: Axial 5 mm thick images of the head were obtained. Axial 2 mm thick images of the cervical spine were obtained with sagittal and coronal reconstruction images generated and reviewed. All CT scans are performed using dose optimization technique as appropriate and may include automated exposure control or mA/KV adjustment according to patient size. FINDINGS: CT HEAD WITHOUT CONTRAST: No acute hemorrhage, hydrocephalus or extra-axial collection is identified.No areas of brain edema or midline shift. Right forehead hematoma. Moderate chronic small vessel ischemic changes. The paranasal sinuses and mastoids are clear.The calvarium is intact. CT CERVICAL SPINE WITHOUT CONTRAST: No fracture or subluxation.No prevertebral soft tissues swelling is identified. Bridging osteophytes at C4-5. Neural foraminal narrowing is present bilaterally which is moderate to severe at C5-6 and C6 -7. Moderate central spinal stenosis suspected at these levels. Mild carotid artery calcifications. IMPRESSION: No acute intracranial or cervical spine findings.
--- NOTE | 2022-03-01 21:26 | EDPHYS ---
Physician Documentation [facility] Name: Fred Bloom III Age: 81 yrs Sex: Male : 1940 Arrival Date: 03/01/2022 Time: 20:17 Bed 20 Private MD: ED Physician Pat De La Garza HPI: 03/01 20:20 This 81 yrs old Male presents to ER via Unassigned with complaints of fall, head injury.sd2 20:20 81 yo M presents via EMS with CC of fall with head injury. Reports he was getting out sd2 of a chair and lost his footing hitting his head on a tile floor. Endorses brief LOC for a few seconds and associated headache that wraps around to the back of his head. Lacerations noted to forehead by EMS with controlled bleeding. pt is on Plavix for prior MO with stents. Denies neck or back pain. Unknown last tetanus. . Historical: - Allergies: 20:18 PENICILLINS; as6 - PMHx: 20:18 basal carcinoma- resolved; Diabetes - IDDM; Hyperlipidemia; Hypertension; as6 Hypothyroidism; Myocardial infarction; NOSE BLEEDS; sciatica; - PSHx: 20:18 cardiac stent; as6 - Immunization history:: Client reports receiving the 2nd dose of the Covid vaccine, [employer] Last tetanus immunization: unknown, Pneumococcal vaccine is up to date, Flu vaccine is up to date. - Social history:: Smoking status: Patient denies any tobacco usage or history of. ROS: 20:20 Constitutional: Negative for fever, chills, and weight loss, Eyes: Negative for injury, sd2 pain, redness, and discharge, Neck: Negative for injury, pain, and swelling, Cardiovascular: Negative for chest pain, palpitations, and edema, Respiratory: Negative for shortness of breath, cough, wheezing. Abdomen/GI: Negative for abdominal pain, nausea, vomiting, diarrhea. Back: Negative for injury and pain, MS/Extremity: Negative for injury and deformity, Skin: Negative for injury, rash, and discoloration, Positive for laceration Neuro: Positive for headache, Negative for numbness and tingling. Exam: 20:20 Constitutional: This is a well developed, well nourished patient who is awake, alert, sd2 and in no acute distress. Head/Face: Normocephalic, superficial lacerations noted to right side of forehead with controlled bleeding Eyes: EOMI, normal conjunctiva bilaterally Neck: Trachea midline, no thyromegaly or masses palpated, and no cervical lymphadenopathy. Supple, full range of motion without nuchal rigidity, or vertebral point tenderness. No Meningismus. Chest/axilla: Normal chest wall appearance and motion. Nontender with no deformity. Cardiovascular: Regular rate and rhythm with a normal S1 and S2. No gallops, murmurs, or rubs. 2+ distal pulses. Respiratory: Lungs have equal breath sounds bilaterally, clear to auscultation and percussion. No rales, rhonchi or wheezes noted. No increased work of breathing, no retractions or nasal flaring. Abdomen/GI: Soft, non-tender, with normal bowel sounds. No guarding or rebound. No evidence of tenderness throughout. Back: No spinal tenderness. No costovertebral tenderness. Full range of motion. Skin: Warm, dry with normal turgor. Normal color with no rashes, no lesions, and no evidence of cellulitis. MS/ Extremity: Pulses equal, no cyanosis. Neurovascular intact. Full, normal range of motion. Ambulatory without difficulty. Neuro: Awake and alert, GCS 15, oriented to person, place, time, and situation. Cranial nerves II-XII grossly intact. Motor strength 5/5 in all extremities. Sensory grossly intact. Cerebellar exam normal. Normal gait. Psych: Awake, alert, with orientation to person, place and time. Behavior, mood, and affect are within normal limits. Vital Signs: 20:17 BP 101 / 53; Pulse 76; Resp 18 S; Temp 97.7(O); Pulse Ox 100% on R/A; Weight 90.72 kg as6 (R); Height 5 ft. 10 in. (177.80 cm) (R); Pain 6/10; 21:20 BP 116 / 62; Pulse 74; Resp 18 S; Pulse Ox 100% on R/A; as6 20:17 Body Mass Index 28.70 (90.72 kg, 177.80 cm) as6 Lakia Coma Score: 20:22 Eye Response: spontaneous(4). Verbal Response: oriented(5). Motor Response: obeys as6 commands(6). Total: 15. Trauma Score (Adult): 20:22 Eye Response: spontaneous(1); Verbal Response: oriented(1); Motor Response: obeys as6 commands(2); Systolic BP: > 89 mm Hg(4); Respiratory Rate: 10 to 29 per min(4); [place] Score: 15; Trauma Score: 12 Laceration: 21:22 Wound Repair of 4cm ( 1.6in ) subcutaneous laceration to face. Linear shaped.. sd2 Hemostasis noted.. Distal neuro/vascular/tendon intact. Anesthesia: Wound infiltrated with 3 mls of 1% lidocaine. Wound prep: Simple cleansing, Wound irrigation. Skin closed with 3 5-0 Prolene using interrupted sutures and sterile technique. Dressed with 4x4's. Patient tolerated well. 21:22 Wound Repair of 3cm ( 1.2in ) subcutaneous laceration to face and forehead. Linear sd2 shaped.. Hemostasis noted.. Distal neuro/vascular/tendon intact. Anesthesia: Wound infiltrated with 2 mls of 1% lidocaine. Wound prep: Simple cleansing, Wound irrigation. Skin closed with 2 5-0 Prolene using interrupted sutures and sterile technique. Dressed with 4x4's. Patient tolerated well. MDM: 20:20 Patient medically screened. sd2 20:20 Differential diagnosis: Differential diagnosis includes but is not limited to: sd2 Fracture, contusion, abrasion, closed head injury, pneumothorax, intra-abdominal injury, intracranial hemorrhage, spinal injury among others. Data reviewed: vital signs, nurses notes, EMS record. 21:22 Data reviewed: radiologic studies. Counseling: I had a detailed discussion with the sd2 patient and/or guardian regarding: the historical points, exam findings, and any diagnostic results supporting the discharge/admit diagnosis, radiology results, the need for outpatient follow up, to return to the emergency department if symptoms worsen or persist or if there are any questions or concerns that arise at home. Medical screen evaluation completed. EMTALA emergency medical condition absent. ED course: Imaging reviewed with no acute traumatic abnormalities. Tetanus updated and lacerations repaired without complication. Advised of continued wound care and need for outpatient follow up of head injury. Verbalizes understanding of discharge plan and strict return precautions. . 03/01 20:25 Order name: CT Head C Spine; Complete Time: 21:01 sd2 03/01 20:25 Order name: Suture Tray at Bedside; Complete Time: 20:54 sd2 03/01 20:25 Order name: Prolene, Sutures; Complete Time: 20:54 sd2 Administered Medications: 20:52 Drug: Tetanus-Diphtheria Toxoid Adult 0.5 ml {Concrete Mixer: [employer] ([employer]). Exp: kd3 12/02/2022. Lot #: [id number]. } Route: IM; Site: right deltoid; 21:50 Follow up: Response: (VIS) Vaccine information sheet provided today. Questions and/or as6 concerns addressed. VIS edition date: Oct 14, 2020.; No adverse reaction 21:20 Drug: Lidocaine (1 %) 5 ml {Note: administered by provider .} Volume: 5 ml; Route: as6 Infiltration; 21:50 Follow up: Response: No adverse reaction as6 21:40 Drug: traMADol 50 mg Route: PO; as6 21:50 Follow up: Response: No adverse reaction as6 Disposition Summary: 03/01/22 21:25 Discharge Ordered Location: Home sd2 Problem: new sd2 Symptoms: have improved sd2 Condition: Stable sd2 Diagnosis - Closed head injury sd2 - Forehead lacerations sd2 Followup: sd2 - With: Private Physician - When: 2 - 3 days - Reason: Recheck today's complaints, Continuance of care, Re-evaluation by your physician Discharge Instructions: - Discharge Summary Sheet sd2 - Concussion, Adult sd2 - Head Injury, Adult sd2 - Facial Laceration sd2 Forms: - Medication Reconciliation Form sd2 - Thank You Letter sd2 - Antibiotic Education sd2 - Prescription Opioid Use sd2 Signatures: Dispatcher [employer] Adithya Bustos RN RN as6 Meagan Morales RN RN kd3 Pat De La Garza MD MD sd2 Corrections: (The following items were deleted from the chart) 20: 20:20 81 yo M presents via EMS with CC of fall with head injury. Reports he was getting sd2 out of a chair and lost his footing hitting his head on a tile floor. Endorses brief LOC for a few seconds and associated headache that wraps around to the back of his head. Lacerations noted to forehead by EMS with controlled bleeding. pt is on Plavix for prior MO with stents. Denies neck or back pain. . sd2
--- NOTE | 2022-03-01 21:26 | ER ---
Nurse's Notes [facility] Name: Fred Bloom III Age: 81 yrs Sex: Male : 1940 Arrival Date: 03/01/2022 Time: 20:17 Bed 20 Private MD: Diagnosis: Closed head injury;Forehead lacerations Presentation: 03/01 20:20 Chief complaint: EMS states: pt was walking to sink and tripped over his feet. unknown as6 LOC pt takes blood thinners, pt has a laceration to forehead. at time of triage GCS 15. Coronavirus screen: At this time, the client does not indicate any symptoms associated with coronavirus-19. Ebola Screen: No symptoms or risks identified at this time. Initial Sepsis Screen: Does the patient meet any 2 criteria? No. Patient's initial sepsis screen is negative. Does the patient have a suspected source of infection? No. Patient's initial sepsis screen is negative. Risk Assessment: Do you want to hurt yourself or someone else? Patient reports no desire to harm self or others. Onset of symptoms was March 01, 2022. 20:20 Acuity: RASHMI 3 as6 20:20 Method Of Arrival: EMS: [facility] as6 20:21 Care prior to arrival: IV initiated. 20 GA, in the left antecubital area, Glucose as6 check: 275. Mechanism of Injury: Fall from standing position. Trauma event details: Injury occurred in the [facility], Injury occurred: at home. Injury occurred: March 01, 2022. Trauma Activation: Alert Physician: ED Physician; Name: ; Notified At: ; Arrived At: Physician: General Surgeon; Name: ; Notified At: ; Arrived At: Physician: Radiology; Name: ; Notified At: ; Arrived At: Physician: Respiratory; Name: ; Notified At: ; Arrived At: Physician: Lab; Name: ; Notified At: ; Arrived At: Historical: - Allergies: 20:18 PENICILLINS; as6 - PMHx: 20:18 basal carcinoma- resolved; Diabetes - IDDM; Hyperlipidemia; Hypertension; as6 Hypothyroidism; Myocardial infarction; NOSE BLEEDS; sciatica; - PSHx: 20:18 cardiac stent; as6 - Immunization history:: Client reports receiving the 2nd dose of the Covid vaccine, [employer] Last tetanus immunization: unknown, Pneumococcal vaccine is up to date, Flu vaccine is up to date. - Social history:: Smoking status: Patient denies any tobacco usage or history of. Screenin:24 [facility] ED Fall Risk Assessment (Adult) History of falling in the last 3 months, as6 including since admission Yes- single mechanical fall (1 pt) Confusion or Disorientation No (0 pts) Intoxicated or Sedated No (0 pts) Impaired Gait No (0 pts) Mobility Assist Device Used No (0 pt) Altered Elimination No (0 pt) Score/Fall Risk Level 0 - 2 = Low Risk Oriented to surroundings, Maintained a safe environment. Abuse screen: Denies threats or abuse. Denies injuries from another. Nutritional screening: No deficits noted. Tuberculosis screening: No symptoms or risk factors identified. Primary Survey: 20:22 NO uncontrolled hemorrhage observed. A: The client is awake and alert. The airway is as6 patent. Breathing/Chest: Spontaneous respiratory effort, equal unlabored respirations, breath sounds clear bilaterally, regular pattern, symmetrical chest rise and fall. Circulation: No external hemorrhage present. Regular and strong central pulse, skin warm/dry/normal color. Disability Pupils are equal, round, reactive to light and accommodation. Client is alert. Exposure/Environment: All clothing and personal items were removed. Forensic evidence collection is not deemed to be indicated at this time. Items placed in patient belonging bag. A warming method has been applied: A warm blanket has been provided to the patient. 21:50 Reassessment Alertness and Airway: Awake and alert. The airway is patent. Breathing: as6 Spontaneous respiratory effort, equal unlabored respirations, breath sounds clear bilaterally, regular pattern with symmetrical chest rise and fall. Circulation: No external hemorrhage noted. Regular and strong central pulse, skin warm/dry/normal color. Disability: Pupils Pupils are equal, round, reactive to light and accomodation. Alert. Assessment: 20:23 General: Appears in no apparent distress. Behavior is calm, cooperative. Pain: as6 Complains of pain in head. Neuro: Level of Consciousness is awake, alert, obeys commands, Oriented to person, place, time, situation, Reports headache. EENT: No deficits noted. Cardiovascular: Capillary refill < 3 seconds Patient's skin is warm and dry. Respiratory: Respiratory effort is even, unlabored, Respiratory pattern is regular, symmetrical. GI: No deficits noted. : No deficits noted. Derm: Wound noted forehead Wound is laceration, forehead is swollen. Vital Signs: 20:17 BP 101 / 53; Pulse 76; Resp 18 S; Temp 97.7(O); Pulse Ox 100% on R/A; Weight 90.72 kg as6 (R); Height 5 ft. 10 in. (177.80 cm) (R); Pain 6/10; 21:20 BP 116 / 62; Pulse 74; Resp 18 S; Pulse Ox 100% on R/A; as6 20:17 Body Mass Index 28.70 (90.72 kg, 177.80 cm) as6 [place] Coma Score: 20:22 Eye Response: spontaneous(4). Verbal Response: oriented(5). Motor Response: obeys as6 commands(6). Total: 15. Trauma Score (Adult): 20:22 Eye Response: spontaneous(1); Verbal Response: oriented(1); Motor Response: obeys as6 commands(2); Systolic BP: > 89 mm Hg(4); Respiratory Rate: 10 to 29 per min(4); [place] Score: 15; Trauma Score: 12 ED Course: 20:17 Patient arrived in ED. as6 20:18 Arm band placed on. as6 20:20 Pat De La Garza MD is Attending Physician. sd2 20:21 Triage completed. as6 20:24 Placed in gown. Bed in low position. Call light in reach. Side rails up X2. as6 20:24 Patient maintains SpO2 saturation greater than 95% on room air. Thermoregulation: warm as6 blanket given to patient. 20:26 Adithya Mae, SHASHI is Primary Nurse. as6 20:35 CT Head C Spine In Process Unspecified. EDMS 21:52 Assist provider with laceration repair on forehead that was between 2.6 to 7.5 cm using as6 sutures. Set up tray. Performed by Pat De La Garza MD Patient tolerated well. 21:52 IV discontinued, intact, bleeding controlled, No redness/swelling at site. Pressure as6 dressing applied. Administered Medications: 20:52 Drug: Tetanus-Diphtheria Toxoid Adult 0.5 ml {Adjunct English Instructor: [employer] ([employer]). Exp: kd3 12/02/2022. Lot #: [id number]. } Route: IM; Site: right deltoid; 21:50 Follow up: Response: (VIS) Vaccine information sheet provided today. Questions and/or as6 concerns addressed. VIS edition date: Oct 14, 2020.; No adverse reaction 21:20 Drug: Lidocaine (1 %) 5 ml {Note: administered by provider .} Volume: 5 ml; Route: as6 Infiltration; 21:50 Follow up: Response: No adverse reaction as6 21:40 Drug: traMADol 50 mg Route: PO; as6 21:50 Follow up: Response: No adverse reaction as6 Medication: 21:51 Vaccine Information Statement (VIS) provided today. Questions and/or concerns as6 addressed. VIS edition date: October 14, 2020. Intake: 20:22 PO: 0ml; Total: 0ml. as6 Outcome: 21:25 Discharge ordered by . sd2 21:51 Discharged to home via wheelchair, with family. as6 21:51 Condition: stable 21:51 Patient's length of stay was not longer than 2 hours. 21:52 Discharge instructions given to patient, family, Instructed on discharge instructions, as6 follow up and referral plans. wound care, Demonstrated understanding of instructions, follow-up care, wound care. 21:53 Patient left the ED. as6 Signatures: Dispatcher [employer] Adithya Bustos RN RN as6 Meagan Morales RN RN kd3 Pat De La Garza MD MD sd2
[2022-03-01] MEDS ORDERED: TRAMADOL HCL 50 MG TAB ONE (21:34)
[2022-03-01 22:17] VITALS: TEMP 97.7; O2SAT 100
[2022-03-01 22:18] VITALS: BP 116/62
== END 2022-03-01 21:53 | disposition home or self-care (01) ==
LOC: ER 20:12
PROC: 0JQ10ZZ Repair Face Subcutaneous Tissue and Fascia, Open Approach (ICD-10-PCS; principal; 2022-03-01)
DX: S01.81XA Laceration without foreign body of other part of head, initial encounter (principal); S09.8XXA Other specified injuries of head, initial encounter; Z23 Encounter for immunization; I10 Essential (primary) hypertension; Z95.818 Presence of other cardiac implants and grafts; Z88.0 Allergy status to penicillin
CPT/HCPCS: 70450; 72125; 90471; 99284; 12013; J2001

== ENCOUNTER 2022-03-09 16:32 | Emergency (ER) | payer OTHER ==
--- OUTSIDE RECORDS SUMMARY | 2022-03-09 16:43 | XMS REPORT | Continuity of Care Document ---
:[address] [facility] t Address [address] [place] [address] Care Team Providers Name Role Phone No, Pcp [facility] Primary Care Physician Unavailable ARTURO HERNANDEZ Attending Clinician Unavailable Arturo Hernandez MD Attending Clinician Doctor Unassigned, [place] Attending Clinician Unavailable Only, Adc Test Attending [...] Type Policy Number Effective Date Expiration Date [facility] [id number] [address] [facility] 00:00:00 PPO [employer] (MEDICARE [id number] REPLACEMENT/ADVANTA GE - PPO) Problems Condition Condition Condition Status Onset Resolution Last Treating Co mments Source Name Details Category Date Date Treatment Clinician Date Hematoma Hematoma Disease [facility] HYPERTENSI HYPERTENS Diagnosis Active 2016-032017-01-25 Memoria VE WILLIAM - 21:59:00 l EMERGENCY EMERGENCY 00:00: Herm edward Active 00 01/20/2017 [facility] Arnie Coronary Coronary Problem Active 2016-032017-10-02 Memoria arterioscl arterioscl 03-11 04:00:43 l erosis erosis 00:00: Arnie (disorder) (disorder) 00 Active 01/09/2017 Problem 10/02/2017 2 stents placed , pt was feeling "discomfor t " in his chest, went to ER and some test were done that led to a heart cath where 2 stents were placed,
2 stents 2aced [facility] Hypertensi Hypertens Problem Active 2017-10-02 Memoria ve william 03-11 04:00:43 l disorder, disorder, 00:00: Herm edward systemic systemic 00 arterial arterial (disorder) (disorder) Active 03/11/1979 Problem 10/02/2017 [facility] Diabetes Diabetes Problem Active 2017-10-02 Memoria mellitus mellitus 03-11 04:00:43 l (disorder) (disorder) 00:00: He rmann Active 03/11/1978 Problem 10/02/2017 fbs- 80-200, HgbA1c done 09-10-17 was 7.0, takes 2 different insulins bid [facility] Hyperlipid Problem Resolve 2017-01-25 Memoria emia Hyperlipid d 03:41:16 l (disorder) emia [place] n (disorder) Resolved Problem 01/25/2017 [facility] Peripheral Periphera Problem Resolve 2017-01-25 Memoria nerve l nerve d 03:41:16 l disease disease Arnie (disorder) (disorder) Resolved Problem 01/25/2017 [facility] Malignant Malignant Problem Resolve 2017-10-02 Memoria [...] (disorder) He rmann Active Problem 10/02/2017 [facility] Inguinal Inguinal Problem Active 2017-10-02 Memoria hernia hernia 04:00:43 l (disorder) (disorder) He rmann Active Problem 10/02/2017 [facility] Neuropathy Neuropath Problem Active 2017-10-02 Memoria (disorder) y 04:00:43 l (disorder) [place] n Active Problem 10/02/2017 related to diabetes [facility] Pain Pain Problem Active 2017-10-02 Memor ia (finding) (finding) 04:00:43 l Active [place] Problem 10/02/2017 right groin, ingunial hernia [facility] Umbilical Umbilical Problem Active 2017-10-02 Memoria hernia hernia 04:00:43 l (disorder) (disorder) He rmann Active Problem 10/02/2017 [facility] HYPERTENSI HYPERTENS Diagnosis Active 2017-01-25 Memoria VE URGENCY WILLIAM 21:59:00 l URGENCY [place] [facility] [place] Chest Chest Problem Resolve 2016-2017-10-02 2017-10-02 Memoria [...] 09-30 04:00:43 04:00:43 l hernia, hernia, 05:00: [place] without without 00 obstructio obstructio n or [...] 223 [facility] adverse 00:00: Medical reaction 00 [place] penicill penicill Active Memori a in<sup>1 in<sup>1 l , , [place] 2</sup> 2</sup> penicill 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) NO KNOWN Drug Active [facility]GIE [facility] [place] [facility] PENICILL Allergy Active Severe Other [place] to da substan Medical e Group Social History Social Habit Start Date Stop Date Quantity Comments Source History SDOH [facility]d [facility] r Drinks History SDOH [facility] Alcohol Binge Medical Reena ter History SDOH [facility]TH[facility] Alcohol Comment Medical C enter Exposure to 2021-11-06 2021-11-16 Not sure [facility]-CoV-2 00:00:00 17:07:00 [facility] (event) Branch History SDOH 2018-05-04 2018-05-[address] [facility] Alcohol Frequency 00:00:00 00:00:00 [facility] Tobacco use and 2018-05-03 2018-05-[address] [facility] k[facility] exposure 00:00:00 00:00:00 [facility] Alcohol intake 2018-05-03 2018-05-[address] [facility] 00:00:00 00:00:00 non-drinker of Medical Ce nter alcohol (finding) Social History 2017-01-21 2017-01-21 [facility] 09:44:26 09:44:26 Sex [birth year] At [birth year] BERTHA De Guzman 00:00:00 00:00:00 [facility] Smoking Status Start Date Stop Date Source Unknown if ever smoked [facility] Social History [facility] Medications Ordered Filled Start Stop Current Ordering [...] Sat [place] intraocular 00 :36 11/22/21 at Ri dical injection 0914, Branch Until Sat11/22/21 at 0937, Routine, Intra-op EPINEPHrine 2021- No PRN, Unive rs 1:1,000 (1 11-22 Starting ity of mg/mL) 14:04: 14:37 on Sat (ADRENALIN) 00 :36 11/22/21 at Ri dical injection 0904, Branch Until Sat11/22/21 at [...] Sat [place] (HYLENEX) 00 :36 11/22/21 at [facility] luci injection 0856, Branch Until Sat11/22/21 [...] 00 :00 dose, On Medic al 0.5% [facility] Branch (MYDRIATIC 11/22/21 at #5) [...] by mouth ity of tablet 10:07: daily. [address] aspirin 81 Yes 81mg Take 81 mg U nivers mg chewable -14 by mouth ity of tablet 10:07: daily. [address] insulin NPH Yes 48U inject 48 U nivers human 9-14 Units ity of isophane 10:07: [place] (HUMULIN N 58 skin 2 Medical PEN SC) (two) Branch times daily. insulin Yes Inject as Unive rs regular, 9-14 directed. ity of human 10:07: Sliding [place] (HUMULIN R 58 scale Medical REGULAR Branch U-100 INSULN INJECTION) furosemide Yes 20mg Take 20 mg U nivers 20 mg 9-14 by mouth ity of tablet 10:07: daily. [address] atorvastati Yes 80mg Take 80 mg Univers n 80 mg 9-14 by mouth ity of tablet 10:07: every [address] Medical Saturday and Branch Saturday in the evening. Takes sun, tue, thur carvediloL 0 Yes 12.5mg Take 12.5 Univers 12.5 mg 9-14 mg by ity of tablet 10:07: mouth 2 [place] [address] (two) Medical times Branch daily with meals. gabapentin 0 Yes Take by Univ ers ER 600 mg 9-14 mouth 2 ity of tablet, 10:07: (two) [place] extended times Medical release 24 daily. Branch hr tamsulosin 0 Yes 1{capsu Take 1 Un pat 0.4 mg 24 9-14 le} capsule by ity of hr capsule 10:07: mouth in [facility] as 58 the Medical morning. Branch lisinopriL 0 Yes 10mg Take 10 mg U nivers 10 mg 9-14 by mouth ity of tablet 10:07: daily. [place] [address] Medical Branch vortioxetin 0 Yes 1{tbl} Take 1 Un pat e 9-14 tablet by ity of (TRINTELLIX 10:07: mouth [place] ) 10 mg Tab 58 daily. Medica l Branch isosorbide 0 Yes 60mg Take 60 mg U nivers mononitrate 9-14 by mouth. ity of 60 mg 24 hr 10:07: [place] tablet 58 Medical Branch NIFEdipine 2021-0 Yes 15mg Take 15 mg U nivers ER 30 mg 9-14 by mouth ity of tablet 10:07: in the [place] [address] morning. Medical Branch ranolazine 0 Yes 500mg Take 500 Un pat 500 mg 12 9-14 mg by ity of hr tablet 10:07: mouth 2 [place] [address] (two) Medical times Branch daily. levothyroxi 0 Yes 100ug Take 100 U nivers ne 100 mcg 9-14 mcg by ity of tablet 10:07: mouth. [place] [address] Medical Branch Saw 0 Yes 2{capsu Take 2 [facility] [place] 9-14 le} capsules ity of Fruit 450 [...] mg by ity of 10:07: mouth in [place] [address] the Medical morning Branch and 1,000 mg in the evening. Take with meals. multivitami Yes 1{capsu Take 1 U nivers n capsule 9-14 le} capsule by ity of 10:07: mouth in [place] [address] the Medical morning. Branch BIOTIN, Yes 1000ug 1,000 mcg Uni vers BULK, MISC 9-14 daily. ity of 10:07: [address] vit C/vit E Yes 1{tbl} Take 1 Un pat ac/selenium 9-14 tablet by ity of /ginkgo 10:07: mouth [place] (MEMORY 58 daily. Medical COMPLEX Prevagen Branch ORAL) clopidogreL Yes 75mg Take 75 mg Univers 75 mg 9-14 by mouth ity of tablet 10:07: daily. [address] aspirin 81 Yes 81mg Take 81 mg U nivers mg chewable 9-14 by mouth ity of tablet 10:07: daily. [address] Branch insulin NPH Yes 48U inject 48 U nivers human 9-14 Units ity of isophane 10:07: under the [facility] s (HUMULIN N 58 skin 2 Medical PEN SC) (two) Branch times daily. insulin Yes Inject as Unive rs regular, 9-14 directed. ity of human 10:07: Sliding [place] (HUMULIN R 58 scale Medical REGULAR Branch U-100 INSULN INJECTION) furosemide Yes 20mg Take 20 mg U nivers 20 mg 9-14 by mouth ity of tablet 10:07: daily. [address] Branch atorvastati Yes 80mg Take 80 mg Univers n 80 mg 9-14 by mouth ity of tablet 10:07: every [place] [address] Saturday, Medical Saturday and Branch Saturday in the evening. Takes sun, tue, thur carvediloL Yes 12.5mg Take 12.5 Univers 12.5 mg 9-14 mg by ity of tablet 10:07: mouth 2 [place] 58 (two) Medical times Branch daily with meals. gabapentin 2021-0 Yes Take by Univ ers ER 600 mg 9-14 mouth 2 ity of tablet, 10:07: (two) [place] extended 58 times Medical release 24 daily. Branch hr tamsulosin 2021-0 Yes 1{capsu Take 1 Un pat 0.4 mg 24 9-14 le} capsule by ity of hr capsule 10:07: mouth in [facility] as 58 the Medical morning. Branch lisinopriL 2021-0 Yes 10mg Take 10 mg U nivers 10 mg 9-14 by mouth ity of tablet 10:07: daily. [place] [address] Medical Branch vortioxetin 2021-0 Yes 1{tbl} Take 1 Un pat e 9-14 tablet by ity of (TRINTELLIX 10:07: mouth [place] ) 10 mg Tab 58 daily. Medica l Branch isosorbide 2021-0 Yes 60mg Take 60 mg U nivers mononitrate 9-14 by mouth. ity of 60 mg 24 hr 10:07: [place] tablet Medical Branch NIFEdipine 2021-0 Yes 15mg Take 15 mg U nivers ER 30 mg 9-14 by mouth ity of tablet 10:07: in the [place] [address] morning. Medical Branch ranolazine 2021-0 Yes 500mg Take 500 Un pat 500 mg 12 9-14 mg by ity of hr tablet 10:07: mouth 2 [place] [address] (two) Medical times Branch daily. levothyroxi 2021-0 Yes 100ug Take 100 U nivers ne 100 mcg 9-14 mcg by ity of tablet 10:07: mouth. [place] [address] Medical Branch Saw 2021-0 Yes 2{capsu Take 2 [facility] [place] 9-14 le} capsules ity of Fruit 450 [...] mg by ity of 10:07: mouth in [place] [address] the Medical morning Branch and 1,000 mg in the evening. Take with meals. multivitami Yes 1{capsu Take 1 U nivers n capsule 9-14 le} capsule by ity of 10:07: mouth in [place] [address] the Medical morning. Branch BIOTIN, Yes 1000ug 1,000 mcg Uni vers BULK, MISC 9-14 daily. ity of 10:07: [place] [address] Medical Branch vit C/vit E Yes 1{tbl} Take 1 Un pat ac/selenium 9-14 tablet by ity of /ginkgo 10:07: mouth [place] (MEMORY 58 daily. Medical COMPLEX Prevagen Branch ORAL) clopidogreL Yes 75mg Take 75 mg Univers 75 mg 9-14 by mouth ity of tablet 10:07: daily. [address] Branch aspirin 81 0 Yes 81mg Take 81 mg U nivers mg chewable 9-14 by mouth ity of tablet 10:07: daily. [place] [address] Medical Branch insulin NPH Yes 48U inject 48 U nivers human 9-14 Units ity of isophane 10:07: [place] the [place] (HUMULIN N 58 skin 2 Medical PEN SC) (two) Branch times daily. insulin Yes Inject as Unive rs regular, 9-14 directed. ity of human 10:07: Sliding [place] (HUMULIN R 58 scale Medical REGULAR Branch U-100 INSULN INJECTION) furosemide Yes 20mg Take 20 mg U nivers 20 mg 9-14 by mouth ity of tablet 10:07: daily. [address] Branch atorvastati Yes 80mg Take 80 mg Univers n 80 mg 9-14 by mouth ity of tablet 10:07: every [place] [address] Saturday, Medical Saturday and Branch Saturday in the evening. Takes sun, tue, thur carvediloL Yes 12.5mg Take 12.5 Univers 12.5 mg 9-14 mg by ity of tablet 10:07: mouth 2 [place] [address] (two) Medical times Branch daily with meals. gabapentin Yes Take by Univ ers ER 600 mg 9-14 mouth 2 ity of tablet, 10:07: (two) [place] extended times Medical release 24 daily. Branch hr tamsulosin Yes 1{capsu Take 1 Un pat 0.4 mg 24 9-14 le} capsule by ity of hr capsule 10:07: mouth in [facility] [place] [facility] 58 the Medical morning. Branch lisinopriL Yes 10mg Take 10 mg U nivers 10 mg 9-14 by mouth ity of tablet 10:07: daily. [place] [address] Medical Branch vortioxetin Yes 1{tbl} Take 1 Un pat e 9-14 tablet by ity of (TRINTELLIX 10:07: mouth [place] ) 10 mg Tab 58 daily. Medica l Branch isosorbide Yes 60mg Take 60 mg U nivers mononitrate 9-14 by mouth. ity of 60 mg 24 hr 10:07: [place] tablet 58 Medical Branch NIFEdipine Yes 15mg Take 15 mg U nivers ER 30 mg 9-14 by mouth ity of tablet 10:07: in the [place] [address] morning. Medical Branch ranolazine Yes 500mg Take 500 Un pat 500 mg 12 9-14 mg by ity of hr tablet 10:07: mouth 2 [place] [address] (two) Medical times Branch daily. levothyroxi Yes 100ug Take 100 U nivers ne 100 mcg 9-14 mcg by ity of tablet 10:07: mouth. [place] [address] Medical Branch Saw Yes 2{capsu Take 2 [facility] [place] 9-14 le} capsules ity of Fruit 450 [...] mg by ity of 10:07: mouth in [place] [address] the Medical morning Branch and 1,000 mg in the evening. Take with meals. multivitami Yes 1{capsu Take 1 U nivers n capsule 9-14 le} capsule by ity of 10:07: mouth in [place] [address] the Medical morning. Branch BIOTIN, Yes 1000ug 1,000 mcg Uni vers BULK, MISC 9-14 daily. ity of 10:07: [place] 58 [facility] Branch vit C/vit E Yes 1{tbl} [...] capsule by ity of 16:59: mouth in [place] 20 the Medical morning. Branch BIOTIN, Yes 1000ug 1,000 mcg Uni vers BULK, MISC 9-08 daily. ity of 16:59: [place] 20 [facility] vit C/vit E Yes 1{tbl} Take 1 Un pat ac/selenium 9-08 tablet by ity of /ginkgo 16:59: mouth [place] (MEMORY 20 daily. Medical COMPLEX Prevagen Branch ORAL) clopidogreL Yes 75mg Take 75 mg Univers 75 mg 908 by mouth ity of tablet 16:45: daily. [address] aspirin 81 Yes 81mg Take 81 mg U nivers mg chewable 08 by mouth ity of tablet 16:45: daily. [address] insulin NPH Yes 48U inject 48 U nivers human 11-16 Units ity of isophane 16:45: [place] (HUMULIN N 34 skin 2 Medical PEN SC) (two) Branch times daily. insulin Yes Inject as Unive rs regular, 08 directed. ity of human 16:45: Sliding [place] (HUMULIN R 34 scale Medical REGULAR Branch U-100 INSULN INJECTION) furosemide Yes 20mg Take 20 mg U nivers 20 mg 08 by mouth ity of tablet 16:45: daily. [address] atorvastati Yes 80mg Take 80 mg Univers n 80 mg 08 by mouth ity of tablet 16:45: every [place] [address] Saturday, Medical Saturday and Branch Saturday in the evening. Takes sun, tue, thur carvediloL 0 Yes 12.5mg Take 12.5 Univers 12.5 mg 9-08 mg by ity of tablet 16:45: mouth 2 [place] [address] (two) Medical times [place] daily with meals. gabapentin 0 Yes Take by Univ ers ER 600 mg 9-08 mouth 2 ity of tablet, 16:45: (two) [place] extended times Medical release 24 daily. Branch hr tamsulosin 0 Yes 1{capsu Take 1 Un pat 0.4 mg 24 9-08 le} capsule by ity of hr capsule 16:45: mouth in [place] [address] the Medical morning. Branch lisinopriL 0 Yes 10mg Take 10 mg U nivers 10 mg 9-08 by mouth ity of tablet 16:45: daily. [address] Branch vortioxetin Yes 1{tbl} Take 1 Un pat e 9-08 tablet by ity of (TRINTELLIX 16:45: mouth [place] ) 10 mg Tab 34 daily. Medica l Branch isosorbide 0 Yes 60mg Take 60 mg U nivers mononitrate 9-08 by mouth. ity of 60 mg 24 hr 16:45: [place] [address] Medical Branch NIFEdipine 0 Yes 15mg Take 15 mg U nivers ER 30 mg 9-08 by mouth ity of tablet 16:45: in the [place] [address] morning. Medical Branch ranolazine 0 Yes 500mg Take 500 Un pat 500 mg 12 9-08 mg by ity of hr tablet 16:45: mouth 2 [place] [address] (two) Medical times Branch daily. levothyroxi 0 Yes 100ug Take 100 U nivers ne 100 mcg 9-08 mcg by ity of tablet 16:45: mouth. [address] Branch Saw 0 Yes 2{capsu Take 2 [facility] [place] 9-08 le} capsules ity of Fruit 450 16:45: by mouth 2 [place] mg [facility] (two) Medical times [place] daily. Cholecalcif 0 Yes 1{capsu Take 1 [...] } needed. ity of TEST STRP 00:00: [facility] 00 Medical Branch ACCU-CHEK Yes 1{strip 1 Strip as Univers HUDSON PLUS 8-11 } needed. ity of TEST STRP 00:00: [facility] 00 Medical Branch ACCU-CHEK Yes 1{strip 1 Strip as Univers HUDSON PLUS 8-11 } needed. ity of TEST STRP 00:00: [facility] 00 Medical Branch ACCU-CHEK Yes 1{strip 1 Strip as Univers HUDSON PLUS 8-11 } needed. ity of TEST STRP 00:00: [facility] 00 Medical Branch Saw Yes Take by [facility] [place] 3-17 mouth. ity of Fruit 450 15:03: [place] mg Cap 36 [facility] Branch Cholecalcif Yes Take by Uni vers marion, 3-17 mouth. ity of Vitamin D3, 15:03: [place] (VITAMIN 36 Medical D3) 50 mcg Branch (2,000 unit) capsule niacin 500 Yes 500mg Take 500 Un pat mg tablet 3-17 mg by ity of 15:03: mouth [place] 36 daily with Medical breakfast. Branch clopidogreL Yes 75mg Take 75 mg Univers (PLAVIX) 75 3-17 by mouth ity of mg tablet 15:03: daily. [address] Branch aspirin 81 Yes 81mg Take 81 mg U nivers mg chewable 3-17 by mouth ity of tablet 15:03: daily. [address] Branch insulin NPH Yes 46U inject [...] ity o f mg tablet 15:03: daily. [address] Branch atorvastati Yes 80mg Take 80 mg Univers n 80 mg 3-17 by mouth ity of tablet 15:03: at [place] [address] bedtime. Medical Branch carvediloL Yes 12.5mg Take 12.5 Univers 12.5 mg 3-17 mg by ity of tablet 15:03: mouth 2 [place] [address] (two) Medical times [place] daily with meals. gabapentin Yes Take by [facility] ers ER 600 mg 3-17 mouth 2 ity of tablet, 15:03: (two) [place] extended times Medical release 24 daily. Branch hr tamsulosin Yes Take by [facility] ers HCl 3-17 mouth. ity of (TAMSULOSIN 15:03: [place] ORAL) Medical Branch lisinopriL Yes 10mg Take 10 mg U nivers 10 mg 3-17 by mouth ity of tablet 15:03: daily. [place] [address] Medical Branch vortioxetin Yes Take by Uni [...] mouth 3 ity of capsule 15:03: (three) [place] [address] times Medical daily. Branch ranolazine Yes 500mg Take 500 Un pat (RANEXA) 3-17 mg by ity of 500 mg 12 15:03: mouth 2 [place] hr tablet 36 (two) Medical times Branch daily. levothyroxi Yes 100ug Take 100 U nivers ne 3-17 mcg by ity of (LEVOXYL) 15:03: mouth. [place] 100 mcg Medical tablet Branch Saw Yes Take by [facility] [place] 3-17 mouth. ity of Fruit 450 15:03: [place] mg Cap [address] [place] [address] Branch Cholecalcif Yes Take by Uni vers marion, 3-17 mouth. ity of Vitamin D3, 15:03: [place] (VITAMIN Medical D3) 50 mcg [place] (2,000 unit) capsule niacin 500 Yes 500mg Take 500 Un pat mg tablet 3-17 mg by ity of 15:03: mouth [place] [address] daily with Medical breakfast. Branch clopidogreL Yes 75mg Take 75 mg Univers (PLAVIX) 75 3-17 by mouth ity of mg tablet 15:03: daily. [address] Branch aspirin 81 Yes 81mg Take 81 mg U nivers mg chewable 3-17 by mouth ity of tablet 15:03: daily. [address] Branch insulin NPH Yes 46U inject 46 U nivers human 3-17 Units ity of isophane 15:03: under the [place] (HUMULIN N 36 skin 2 Medical PEN SC) (two) Branch times daily. insulin Yes Inject as Unive rs regular, 3-17 directed. ity of human 15:03: Sliding [place] (HUMULIN R 36 scale Medical REGULAR Branch U-100 INSULN INJECTION) furosemide Yes 20mg Take 20 mg U nivers (LASIX) 20 3-17 by mouth ity o f mg tablet 15:03: daily. [address] Branch atorvastati Yes 80mg Take 80 mg Univers n 80 mg 3-17 by mouth ity of tablet 15:03: at [place] [address] bedtime. Medical Branch carvediloL Yes 12.5mg Take 12.5 Univers 12.5 mg 3-17 mg by ity of tablet 15:03: mouth 2 [place] [address] (two) Medical times [place] daily with meals. gabapentin Yes Take by [facility] ers ER 600 mg 3-17 mouth 2 ity of tablet, 15:03: (two) [place] extended 36 times Medical release 24 daily. [place] hr tamsulosin Yes Take by [facility] ers HCl 3-17 mouth. ity of (TAMSULOSIN 15:03: [place] ORAL) 36 [facility] Branch lisinopriL Yes 10mg Take 10 mg U nivers 10 mg 3-17 by mouth ity of tablet 15:03: daily. [address] vortioxetin Yes Take by [facility] vers e 3-17 mouth. ity of (TRINTELLIX 15:03: [place] ) 10 mg Tab [address] [place] [address] isosorbide Yes 60mg Take 60 mg U nivers mononitrate 3-17 by mouth. ity of 60 mg 24 hr 15:03: [place] tablet [address] [place] [address] NIFEdipine Yes 15mg Take 15 mg U nivers 20 mg 3-17 by mouth 3 ity of capsule 15:03: (three) [place] 36 times Medical daily. [place] ranolazine Yes 500mg Take 500 Un pat (RANEXA) 3-17 mg by ity of 500 mg 12 15:03: mouth 2 [place] hr tablet 36 (two) Medical times [place] daily. levothyroxi Yes 100ug Take 100 U nivers ne 3-17 mcg by ity of (LEVOXYL) 15:03: mouth. [place] 100 mcg 36 Medical tablet [place] water for Yes PRN, Univers irrigation 3-17 Starting ity o f irrigation 14:02: Sat [place] solution 00 05/25/20 at Medic al 0902, [place] Until Discontinu ed, Routine, Intra-op sodium 0 Yes PRN, Univers chloride 3-17 Starting ity of (NS) 14:02: Sat [place] injection 00 05/25/20 at Medi luci 0902, [place] Until Discontinu ed, Routine, Intra-op neomycin-po 0 Yes PRN, Univer s lymyxin-dex 3-17 Starting ity of amethasone 14:02: Wed [place] (MAXITROL) 00 05/25/20 at [facility] ical 3.5 0902, Branch mg/g-10,000 Until unit/g-0.1 Discontinu % ed, ophthalmic Routine, ointment Intra-op Hyaluronida Yes PRN, Univer s se, Human 05-25 Starting ity of Recomb. 14:01: Sat (HYLENEX) 00 05/25/20 at [facility] luci injection 0901, [place] Until Discontinu ed, Routine, Intra-op gentamicin 0 Yes PRN, Univers injection 05-25 Starting ity of 14:01: Sat05/25/20 at [facility] 0901, [place] Until Discontinu ed, DORIAN, Intra-op eye block 0 Yes PRN, Univers syringe 11 05-25 Starting ity o f mL 14:01: Sat05/25/20 at [facility] 0901, [place] Until Discontinu ed, Intra-op EPINEPHrine Yes PRN, Univer s 1:1,000 (1 05-25 Starting ity o f mg/mL) 14:00: Sat (ADRENALIN) 05/25/20 at Ri dical injection 0900, [place] Until Discontinu ed, Routine, Intra-op DUOVISC Yes PRN, Univers (DUOVISC 05-25 Starting ity of VISCO 14:00: Sat ELASTIC) 3 05/25/20 at [facility] ical %-4 %(0.5 0900, Branch mL) 1 % Until (0.55 mL) Discontinu intraocular ed, injection Routine, Intra-op dexamethaso Yes PRN, Univer s ne 05-25 Starting ity of (DECADRON 14:00: Sat PHOSPHATE) 00 05/25/20 at [facility] ical injection 0900, [place] Until Discontinu ed, Routine, Intra-op ceFAZolin Yes PRN, Univers (ANCEF) 05-25 Starting ity of injection 13:59: Sat05/25/20 at [facility] 0859, [place] Until Discontinu ed, DORIAN, Intra-op carbachoL 0 Yes PRN, Univers (MIOSTAT) 05-25 Starting ity of 0.01 % 13:59: Wed [place] intraocular 00 05/25/20 at Ri dical injection 0859, Branch Until Discontinu ed, Routine, Intra-op balanced Yes PRN, Univers salt irrig -17 Starting ity o f soln comb1 13:59: Sat [place] (BSS PLUS) 00 05/25/20 at [facility] ical ophthalmic 0859, Branch solution Until 500 mL bag Discontinu ed, Routine, Intra-op mydriatic 2020- No .5mL 0.5 mL, Univ ers #5 05-25 Right Eye, ity of ophthalmic 12:45: 12:52 ONCE, 1 Alan as solution 00 :00 dose, Sat Medica l 0.5 mL 05/25/20 at [place] syringe 0745, Routine clopidogreL Yes 75mg Take 75 mg Univers (PLAVIX) 75 -17 by mouth ity of mg tablet 10:03: daily. [address] aspirin 81 Yes 81mg Take 81 mg U nivers mg chewable 17 by mouth ity of tablet 10:03: daily. [address] insulin NPH Yes 46U inject 46 U nivers human 3-17 Units ity of isophane 10:03: under the Good [facility] (HUMULIN N 36 skin 2 Medical PEN SC) (two) Branch times daily. insulin Yes Inject as Unive rs regular, 3-17 directed. ity of human 10:03: Sliding [place] (HUMULIN R 36 scale Medical REGULAR Branch U-100 INSULN INJECTION) furosemide Yes 20mg Take 20 mg U nivers (LASIX) 20 -17 by mouth ity o f mg tablet 10:03: daily. [address] Branch atorvastati Yes 80mg Take 80 mg Univers n 80 mg -17 by mouth ity of tablet 10:03: at [place] [address] bedtime. [facility] Branch carvediloL Yes 12.5mg Take 12.5 Univers 12.5 mg 3-17 mg by ity of tablet 10:03: mouth 2 [place] [address] (two) Medical times [place] daily with meals. gabapentin Yes Take by Univ ers ER 600 mg 3-17 mouth 2 ity of tablet, 10:03: (two) [place] extended times Medical release 24 daily. [place] hr tamsulosin Yes Take by Univ ers HCl 3-17 mouth. ity of (TAMSULOSIN 10:03: [place] ORAL) Medical Branch lisinopriL Yes 10mg Take 10 mg U nivers 10 mg 3-17 by mouth ity of tablet 10:03: daily. [place] [address] Medical Branch vortioxetin Yes Take by Uni vers e 3-17 mouth. ity of (TRINTELLIX 10:03: [place] ) 10 mg Tab Medical Branch isosorbide Yes 60mg Take 60 mg U nivers mononitrate 3-17 by mouth. ity of 60 mg 24 hr 10:03: [place] tablet Medical Branch NIFEdipine Yes 15mg Take 15 mg U nivers 20 mg 3-17 by mouth 3 ity of capsule 10:03: (three) [place] [address] times Medical daily. Branch ranolazine Yes 500mg Take 500 Un pat (RANEXA) 3-17 mg by ity of 500 mg 12 10:03: mouth 2 [place] tablet 36 (two) Medical times Branch daily. levothyroxi Yes 100ug Take 100 U nivers ne 3-17 mcg by ity of (LEVOXYL) 10:03: mouth. [place] 100 mcg Medical tablet Branch Saw Yes Take by [facility] 3-17 mouth. ity of Fruit 450 10:03: [place] mg Cap Medical Branch Cholecalcif Yes Take by Uni vers [place], 3-17 mouth. ity of Vitamin D3, 10:03: [place] (VITAMIN [address] [place] [address] D3) 50 mcg [place] (2,000 unit) capsule niacin 500 Yes 500mg Take 500 Un pat mg tablet 3-17 mg by ity of 10:03: mouth [place] [address] daily with Medical breakfast. Branch clopidogreL Yes 75mg Take 75 mg Univers (PLAVIX) 75 3-17 by mouth ity of mg tablet 10:03: daily. [address] Branch aspirin 81 0 Yes 81mg Take 81 mg U nivers mg chewable 3-17 by mouth ity of tablet 10:03: daily. [address] Branch insulin NPH Yes 46U inject [...] ity o f mg tablet 10:03: daily. [place] [address] Medical Branch atorvastati Yes 80mg Take 80 mg Univers n 80 mg 3-17 by mouth ity of tablet 10:03: at [place] [address] bedtime. Medical Branch carvediloL Yes 12.5mg Take 12.5 Univers 12.5 mg 3-17 mg by ity of tablet 10:03: mouth 2 [place] [address] (two) Medical times Branch daily with meals. gabapentin Yes Take by [facility] ers ER 600 mg 3-17 mouth 2 ity of tablet, 10:03: (two) [place] extended times Medical release 24 daily. Branch hr tamsulosin Yes Take by [facility] ers HCl 3-17 mouth. ity of (TAMSULOSIN 10:03: [place] ORAL) Medical Branch lisinopriL Yes 10mg Take 10 mg U nivers 10 mg 3-17 by mouth ity of tablet 10:03: daily. [place] [address] Medical Branch vortioxetin Yes Take by Uni [...] mouth 3 ity of capsule 10:03: (three) [place] [address] times Medical daily. Branch ranolazine Yes 500mg Take 500 Un pat (RANEXA) 3-17 mg by ity of 500 mg 12 10:03: mouth 2 [place] hr tablet 36 (two) Medical times Branch daily. levothyroxi 2021-0 Yes 100ug Take 100 U nivers ne 3-17 mcg by ity of (LEVOXYL) 10:03: mouth. [place] 100 mcg 36 Medical tablet Branch Saw Yes Take by [facility] 3-17 mouth. ity of Fruit 450 10:03: [place] mg Cap 36 Medical Branch Cholecalcif Yes Take by Uni vers [place], 3-17 mouth. ity of Vitamin D3, 10:03: [place] (VITAMIN 36 Medical D3) 50 mcg Branch [...] Center capsule mouth daily For your prostate. tamsulosin Yes .4mg QD Take 1 [facility] [...] by mouth [facility] s tablet 16:33: daily. [address] atorvastati Yes 80mg [id number] Take [address] [facility] n (LIPITOR) 2-26 [id number] by mouth 3 [facility] 80 MG 16:33: [...] tablet 31 (two) Center times daily. isosorbide Yes 60mg QD Take [address] mononitrate 2-26 by mouth Luke s (IMDUR) 60 16:33: daily. Medic al MG 24 hr 31 Center tablet multivitami 0 Yes 1{capsu QD Take [address] n capsule 2-26 le} capsule by Luke s 16:33: mouth Medical 31 daily. [place] niacin 500 Yes 500mg Take [address] MG tablet 2-26 mg by [facility] 16:33: mouth 2 Medical 31 (two) Center times daily with breakfast and dinner. NIFEdipine Yes 30mg QD Take 30 mg C [...] daily before meals Use as directed . levothyroxi Yes hypothyroid 100ug Take 100 [facility] [...] capsule 31 (two) Center times daily. cholecalcif 0 Yes 2000U Q.5D Take 2,[address] [place], 2-26 Units by [facility] vitamin D3, 16:33: mouth 2 Med ical 2,000 unit 31 (two) Center Cap times daily. aspirin 81 Yes 81mg QD Take [address] MG chewable 2-26 by mouth Luke s tablet 16:33: daily. Medical 31 Center atorvastati Yes 80mg Q.[id number] Take [address] [facility] (LIPITOR) 2-26 [id number] by mouth 3 [facility] 80 MG 16:33: 3W (three) Medical tablet 31 times a Center week. carvedilol Yes 12.5mg Take 12.[address] (COREG) 2-26 mg by [facility] 12.5 MG 16:33: mouth 2 Medical tablet 31 (two) Center times daily with breakfast and dinner. gabapentin Yes 600mg Q.5D Take [address] (NEURONTIN) 2-26 mg by [facility] 600 MG 16:33: mouth 2 Medical tablet 31 (two) Center times daily. isosorbide Yes 60mg QD Take [address] mononitrate 2-26 by mouth Luke s (IMDUR) 60 16:33: daily. Medic al MG 24 hr 31 Center tablet insulin Yes type [address] [facility] regular 2-26 diabetes subcutaneo Berta kes (HUMULIN R 16:33: mellitus usly 3 M edical REGULAR 31 (three) Center U-100 times INSULN) 100 daily with unit/mL meals Use injection as directed . multivitami Yes 1{capsu QD Take [address] n capsule 2-26 le} capsule by Luke s 16:33: mouth Medical 31 daily. [place] niacin 500 Yes 500mg Take [address] MG tablet 2-26 mg by [facility] 16:33: mouth 2 Medical 31 (two) Center times daily with breakfast and dinner. NIFEdipine Yes 30mg QD Take 30 mg C [...] before meals Use as directed . insulin 2019-0 Yes type [address] [facility] regular 2-26 diabetes subcutaneo Berta kes (HUMULIN R 16:33: mellitus usly 3 M edical REGULAR 31 (three) Center U-100 times INSULN) 100 daily with unit/mL meals Use injection as directed . ondansetron 2019-0 Yes 4mg Take [address] (ZOFRAN) 4 2-26 by mouth [facility] MG tablet 16:33: every 6 Medic al 31 (six) Center hours as needed for Nausea. ondansetron 2019-0 Yes 4mg Take [address] (ZOFRAN) 4 2-26 by mouth [facility] MG tablet 16:33: every 6 Medic al 31 (six) Center hours as needed for Nausea. levothyroxi Yes hypothyroid 100ug Take [address] ne 2-26 ism mcg by [facility]ukes (SYNTHROID, 16:33: mouth Medic al LEVOTHROID) 31 Every Center 100 MCG morning on tablet an empty stomach. clopidogrel 2019-0 Yes 75mg QD Take [address] (PLAVIX) 75 2-26 by mouth Luke s mg tablet 16:33: daily. Medica l 31 Center ranolazine 2018-0 Yes 500mg Q.5D Take [address] (RANEXA) 2-26 mg by [facility] 500 MG 12 16:33: mouth 2 Medic al hr tablet 31 (two) Center times daily. saw 2019-0 Yes 900mg Q.5D Take [address] palmetto 2-26 mg by [facility] 500 MG 16:33: mouth 2 Medical capsule 31 (two) Center times daily. acetaminoph 2019 Yes pain 1{tbl} Take [address] en-codeine 2-26 tablet by Luke s (TYLENOL 00:00: mouth Medical #3) 300-30 00 every 6 Center mg per (six) tablet hours as needed for Pain. Max Daily Amount: 4 tablets acetaminoph 2019-0 Yes pain 1{tbl} Take [address] en-codeine 2-26 tablet by Luke s (TYLENOL 00:00: mouth Medical #3) 300-30 00 every 6 Center mg per (six) tablet hours as needed for Pain. Max Daily Amount: 4 tablets Novolin N Novolin N 2019-0 No Novolin N [place] NPH U-100 NPH U-100 1-10 NPH U-100 da Insulin Insulin 00:00: Insulin Medi luci isophane isophane 00 isophane Cedric up 100 unit/mL 100 unit/mL 100 subcutaneou subcutaneou unit/mL s susp 84 s susp 84 subcutaneo units units us susp 84 units [facility] [place] mL, Memoria Medication 09-30 Soln-IV, l 21:28: IV, Once, first dose 09/30/17 16:28:00 CDT, stop date 09/30/17 16:28:00 CDT [facility] [place] mL, Memoria Medication 09-30 Soln-IV, l 21:28: IV, Once, first dose 09/30/17 16:28:00 CDT, stop date 09/30/17 16:28:00 CDT [facility] [place] 900 mL, Memoria Medication 09-30 Soln-IV, l 21:28: IV, Once, first dose 09/30/17 16:28:00 CDT, stop date 09/30/17 16:28:00 CDT [facility] [place] mL, Memoria Medication 09-30 Soln-IV, l 21:28: IV, Once, first dose 09/30/17 16:28:00 CDT, stop date 09/30/17 16:28:00 CDT fentaNYL No 50 mcg = 1 Mem oria 7-23 mL, l 21:18: Injection, [place] 00 IV, Once, first dose 09/30/17 16:18:00 CDT, stop date 09/30/17 16:18:00 CDT fentaNYL 2017- No 50 mcg = 1 Mem oria 7-23 mL, l 21:18: Injection, [place] 00 IV, Once, first dose 09/30/17 16:18:00 CDT, stop date 09/30/17 16:18:00 CDT fentaNYL 2017- No 50 mcg = 1 Mem oria 7-23 mL, l 21:18: Injection, [place] 00 IV, Once, first dose 09/30/17 16:18:00 CDT, stop date 09/30/17 16:18:00 CDT fentaNYL 2018-0 No 50 mcg = 1 Mem oria 7-23 mL, l 21:18: Injection, [place] 00 IV, Once, first dose 09/30/17 16:18:00 [...] ia 7-23 0.5 mL, l 21:01: Injection, [place] 00 IV, Once, first dose 09/30/17 16:01:00 [...] ia 7-23 0.2 mL, l 20:18: Injection, [place] IV, Once, first dose 09/30/17 15:18:00 CDT, stop date 09/30/17 15:18:00 CDT ePHEDrine 2018-0 No 10 mg = Memor ia 7-23 0.2 mL, l 20:18: Injection, [place] IV, Once, first dose 09/30/17 15:18:00 CDT, stop date 09/30/17 15:18:00 CDT ePHEDrine 2018-0 No 10 mg = Memor ia 7-23 0.2 mL, l 20:18: Injection, [place] IV, Once, first dose 09/30/17 15:18:00 CDT, stop date 09/30/17 15:18:00 CDT ePHEDrine 2018-0 No 10 mg = Memor ia 7-23 0.2 mL, l 20:18: Injection, [place] 00 IV, Once, first dose 09/30/17 15:18:00 CDT, stop date 09/30/17 15:18:00 CDT Misc 2018-0 No 1,000 mL, Memoria Medication 09-30 Soln-IV, l 20:17: IV, Once, [place] 00 first dose 09/30/17 15:17:00 CDT, stop date 09/30/17 15:17:00 CDT Diphenhydra 2018-0 No 25 mg = Mem oria mine 7-23 0.5 mL, l 20:17: Injection, [place] 00 IV Push, Once PRN for itching, first dose 09/30/17 15:17:00 CDT Labetalol 2018-0 No 5 mg = 1 Sean carly 7-23 mL, l 20:17: Injection, [place] 00 IV Push, As Indicated PRN for hypertensi on, first dose 09/30/17 15:17:00 CDT Hydralazine 2017- No 10 mg = Mem oria 7-23 0.5 mL, l 20:17: Injection, [place] 00 IV Push, As Indicated PRN for hypertensi on, first dose 09/30/17 15:17:00 CDT Promethazin 2017- No 12.5 mg = M emoria e 7-23 0.5 mL, l 20:17: Injection, [place] 00 IM, Once PRN for vomiting, first dose 09/30/17 15:17:00 CDT Ondansetron No 4 mg = 2 Me moria 7-23 mL, l 20:17: Injection, [place] 00 IV Push, q15min PRN for nausea, order [...] emoria 7-23 0.5 mL, l 20:17: Injection, [place] 00 IV Push, Once PRN for shivers, first dose 09/30/17 15:17:00 CDT Dilaudid 2017-0 No 0.5 mg = Memor ia 7-23 0.5 mL, l 20:17: Injection, [place] 00 IV Push, q10min PRN for pain severe (7-10), first dose 09/30/17 15:17:00 CDT Saline Lock 2018-0 No 10 mL, Sean carly Flush 23 Soln, IV l 20:17: Push, As [place] 00 Indicated PRN for flush, first dose 09/30/17 15:17:00 CDT LR 1,000 mL 2017-0 No 1,000 mL, M emoria 7- IV, 75 l 20:17: mL/hr, start date 09/30/17 15:17:00 CDT Misc 2017-0 No 1,000 mL, Memoria Medication 09-30 Soln-IV, l 20:17: IV, Once, first dose 09/30/17 15:17:00 CDT, stop date 09/30/17 15:17:00 CDT Diphenhydra 2017-0 No 25 mg = Mem oria mine - 0.5 mL, l 20:17: Injection, IV Push, Once PRN for itching, first dose 09/30/17 15:17:00 CDT Labetalol No 5 mg = 1 Sean carly 7-23 mL, l 20:17: Injection, IV Push, As Indicated PRN for hypertensi on, first dose 09/30/17 15:17:00 CDT Hydralazine No 10 mg = Mem oria - [...] 2017-0 No 10 mL, Sean carly Flush - Soln, IV l 20:17: Push, As Indicated PRN for flush, first dose 09/30/17 15:17:00 CDT LR 1,000 mL 0 No 1,000 mL, M emoria 7-23 IV, 75 l 20:17: mL/hr, start date [...] HCl No 12.5 mg = M emoria - 0.5 mL, l 20:17: Injection, IV Push, Once PRN for shivers, first dose 09/30/17 15:17:00 CDT Dilaudid No 0.5 mg = Memor ia 09-30 0.5 mL, l 20:17: Injection, IV Push, q10min PRN for pain severe (7-10), first dose 09/30/17 15:17:00 CDT Saline Lock No 10 mL, Sean carly Flush 09-30 Soln, IV l 20:17: Push, As Indicated PRN for flush, first dose 09/30/17 15:17:00 CDT LR 1,000 mL No 1,000 mL, M emoria 09-30 IV, 75 l 20:17: mL/hr, start date 09/30/17 15:17:00 CDT Misc No 1,000 mL, Memoria Medication 09-30 Soln-IV, l 20:17: IV, Once, first dose 09/30/17 15:17:00 CDT, stop date 09/30/17 15:17:00 CDT Diphenhydra No 25 mg = Mem oria mine 09-30 0.5 mL, l 20:17: Injection, IV Push, Once PRN for itching, first dose 09/30/17 15:17:00 CDT Labetalol 2018-0 No 5 mg = 1 Sean carly 7-23 mL, l 20:17: Injection, [place] IV Push, As Indicated PRN for hypertensi on, first dose 09/30/17 15:17:00 CDT Hydralazine 2017-0 No 10 mg = Mem oria 7-23 0.5 mL, l 20:17: Injection, [place] 00 IV Push, As Indicated PRN for hypertensi on, first dose 09/30/17 15:17:00 CDT Promethazin 2018-0 No 12.5 mg = M emoria e 7-23 0.5 mL, l 20:17: Injection, [place] 00 IM, Once PRN for vomiting, first dose 09/30/17 15:17:00 CDT Ondansetron 2017-0 No 4 mg = 2 Me moria 7-23 mL, l 20:17: Injection, [place] 00 IV Push, q15min PRN for nausea, order duration: 2 doses, first dose 09/30/17 15:17:00 CDT, stop date Limited # of times Levalbutero 2018-0 No 0.63 mg = M emoria l 0.21 7-23 3 mL, l MG/ML 20:17: Soln, [place] FINLEY Inhalant 00 Once PRN Solution for [Xopenex] wheezing, first dose 09/30/17 15:17:00 CDT Demerol HCl 2018-0 No 12.5 mg = M emoria 7-23 0.5 mL, l 20:17: Injection, [place] 00 IV Push, Once PRN for shivers, first dose 09/30/17 15:17:00 CDT Dilaudid 2018-0 No 0.5 mg = Memor ia 7-23 0.5 mL, l 20:17: Injection, [place] 00 IV Push, q10min PRN for pain severe (7-10), first dose 09/30/17 15:17:00 CDT Saline Lock 2018-0 No 10 mL, Sean carly Flush 7-23 Soln, IV l 20:17: Push, As [place] 00 Indicated PRN for flush, first dose 09/30/17 15:17:00 CDT LR 1,000 mL 2018-0 No 1,000 mL, M emoria 7-23 IV, 75 l 20:17: mL/hr, start date 09/30/17 15:17:00 CDT ondansetron 2018-0 [...] Me moria 7-23 mL, l 20:15: Injection, [place] 00 IV, Once, first dose 09/30/17 15:15:00 CDT, stop date 09/30/17 15:15:00 CDT clindamycin 2018-0 No 900 mg, Mem oria 7-23 Soln-IV, l 20:15: IV, Once, first dose 09/30/17 15:15:00 CDT, stop date 09/30/17 15:15:00 CDT ondansetron 2018-0 No 4 mg = 2 Me moria 7-23 mL, l 20:15: Injection, [place] 00 IV, Once, first dose 09/30/17 15:15:00 CDT, stop date 09/30/17 15:15:00 CDT clindamycin 2018-0 No 900 mg, Mem oria 7-23 Soln-IV, l 20:15: IV, Once, [place] 00 first dose 09/30/17 15:15:00 CDT, stop date 09/30/17 15:15:00 CDT glycopyrrol 2018-0 No 0.2 mg = 1 Memoria ate 7-23 mL, l 20:14: Injection, [place] 00 IV, Once, first dose 09/30/17 15:14:00 CDT, stop date 09/30/17 15:14:00 CDT ePHEDrine 2018-0 No 10 mg = Memor ia 7-23 0.2 mL, l 20:14: Injection, [place] 00 IV, Once, first dose 09/30/17 15:14:00 CDT, stop date 09/30/17 15:14:00 CDT glycopyrrol 2018-0 No 0.2 mg = 1 Memoria ate 7-23 mL, l 20:14: Injection, [place] 00 IV, Once, first dose 09/30/17 15:14:00 CDT, stop date 09/30/17 15:14:00 CDT ePHEDrine 2018-0 No 10 mg = Memor ia 7-23 0.2 mL, l 20:14: Injection, [place] 00 IV, Once, first dose 09/30/17 15:14:00 CDT, stop date 09/30/17 15:14:00 CDT glycopyrrol 2018-0 No 0.2 mg = 1 Memoria ate 7-23 mL, l 20:14: Injection, [place] 00 IV, Once, first dose 09/30/17 15:14:00 CDT, stop date 09/30/17 15:14:00 CDT ePHEDrine 2018-0 No 10 mg = Memor ia 7-23 0.2 mL, l 20:14: Injection, [place] 00 IV, Once, first dose 09/30/17 15:14:00 CDT, stop date 09/30/17 15:14:00 CDT glycopyrrol 2018-0 No 0.2 mg = 1 Memoria ate 7-23 mL, l 20:14: Injection, [place] 00 IV, [...] moria ne 7-23 mL, l 20:08: Injection, [place] 00 IV, Once, first dose 09/30/17 15:08:00 [...] ia 7-23 0.2 mL, l 20:08: Injection, [place] 00 IV, Once, first dose 09/30/17 15:08:00 CDT, stop date 09/30/17 15:08:00 CDT rocuronium 2018-0 No 45 mg = Sean carly 7-23 4.5 mL, l 20:04: Injection, [place] 00 IV, Once, first dose 09/30/17 15:04:00 CDT, stop date 09/30/17 15:04:00 CDT rocuronium 2018-0 No 45 mg = Sean carly 7-23 4.5 mL, l 20:04: Injection, [place] IV, Once, first dose 09/30/17 15:04:00 CDT, stop date 09/30/17 15:04:00 CDT rocuronium 2018-0 No 45 mg = Sean carly 7-23 4.5 mL, l 20:04: Injection, [place] 00 IV, Once, first dose 09/30/17 15:04:00 CDT, stop date 09/30/17 15:04:00 CDT rocuronium 2018-0 No 45 mg = Sean carly 7-23 4.5 mL, l 20:04: Injection, [place] 00 IV, Once, first dose 09/30/17 15:04:00 CDT, stop date 09/30/17 15:04:00 CDT propofol 2018-0 No 100 mg = Memor ia 7-23 10 mL, l 19:59: Emulsion, [place] 00 IV, Once, first dose 09/30/17 14:59:00 [...] Memoria line 7-23 mL, l 19:59: Injection, [place] 00 IV, Once, first dose 09/30/17 14:59:00 CDT, stop date 09/30/17 14:59:00 CDT rocuronium 2018-0 No 5 mg = 0.5 M emoria 7-23 mL, l 19:59: Injection, [place] 00 IV, Once, first dose 09/30/17 14:59:00 CDT, stop date 09/30/17 14:59:00 CDT propofol 2018-0 No 100 mg = Memor ia 7-23 10 mL, l 19:59: Emulsion, [place] 00 IV, Once, first dose 09/30/17 14:59:00 [...] ia 7-23 10 mL, l 19:59: Emulsion, [place] 00 IV, Once, first dose 09/30/17 14:59:00 CDT, stop date 09/30/17 14:59:00 CDT lidocaine 2018-0 No 3 mL, Memoria 7-23 Injection, l 19:59: IV, Once, [place] 00 first dose 09/30/17 14:59:00 CDT, stop date 09/30/17 14:59:00 CDT fentaNYL 2018-0 No 150 mcg = Sean carly 7-23 3 mL, l 19:59: Injection, [place] 00 IV, Once, first dose 09/30/17 14:59:00 CDT, stop date 09/30/17 14:59:00 CDT succinylcho 2018-0 No 120 mg = 6 Memoria line 7-23 mL, l 19:59: Injection, [place] 00 IV, Once, first dose 09/30/17 14:59:00 CDT, stop date 09/30/17 14:59:00 CDT rocuronium 2018-0 No 5 mg = 0.5 M emoria 7-23 mL, l 19:59: Injection, [place] 00 IV, Once, first dose 09/30/17 14:59:00 CDT, stop date 09/30/17 14:59:00 CDT propofol 2018-0 No 100 mg = Memor ia 7-23 10 mL, l 19:59: Emulsion, [place] 00 IV, Once, first dose 09/30/17 14:59:00 CDT, stop date 09/30/17 14:59:00 CDT lidocaine 2018-0 No 3 mL, Memoria 7-23 Injection, l 19:59: IV, Once, first dose 09/30/17 14:59:00 CDT, stop date 09/30/17 14:59:00 CDT fentaNYL 2018-0 No 150 mcg = Sean carly 7-23 3 mL, l 19:59: Injection, [place] 00 IV, Once, first dose 09/30/17 14:59:00 CDT, stop date 09/30/17 14:59:00 CDT succinylcho 2018-0 No 120 mg = 6 Memoria line 7-23 mL, l 19:59: Injection, [place] 00 IV, Once, first dose 09/30/17 14:59:00 CDT, stop date 09/30/17 14:59:00 CDT rocuronium 2018-0 No 5 mg = 0.5 M emoria 7-23 mL, l 19:59: Injection, [place] 00 IV, Once, first dose 09/30/17 14:59:00 CDT, stop date 09/30/17 14:59:00 CDT fentaNYL 2018-0 No 50 mcg = 1 Mem oria 7-23 mL, l 19:48: Injection, [place] 00 IV, Once, first dose 09/30/17 14:48:00 [...] Mem oria 7-23 mL, l 19:48: Injection, [place] 00 IV, Once, first dose 09/30/17 14:48:00 CDT, stop date 09/30/17 14:48:00 CDT LR 1,000 mL 2018-0 No 1,000 mL, M emoria 7-23 IV, 30 l 18:05: mL/hr, [place] start date 09/30/17 13:05:00 CDT Lidocaine 2018-0 No 0.2 mL, Memor ia 2% 0.2 mL - Injection, l IV Start 18:05: [place] [[facility]] us, Once PRN for other (see comment), first dose 09/30/17 13:05:00 CDT LR 1,000 mL 2018-0 No 1,000 mL, M emoria 7-23 IV, 30 l 18:05: mL/hr, [place] start date 09/30/17 13:05:00 CDT Lidocaine 2018-0 No 0.2 mL, Memor ia 2% 0.2 mL - Injection, l IV Start 18:05: [place]cutaneo [place] [[facility]] 00 us, Once PRN for other (see comment), first dose 09/30/17 13:05:00 CDT LR 1,000 mL 2018-0 No 1,000 mL, M emoria 7-23 IV, 30 l 18:05: mL/hr, [place] 00 start date 09/30/17 13:05:00 CDT Lidocaine 2018-0 No 0.2 mL, Memor ia 2% 0.2 mL - Injection, [facility] , Once PRN for other (see comment), first dose 09/30/17 13:05:00 CDT LR 1,000 mL 2018-0 No 1,000 mL, M emoria 7-23 IV, 30 l 18:05: mL/hr, start date 09/30/17 13:05:00 CDT Lidocaine 2018-0 No 0.2 mL, Memor ia 2% 0.2 mL 09-30 Injection, l IV Start 18:05[facility] , Once PRN for other (see comment), first dose 09/30/17 13:05:00 CDT Lisinopril 2018-0 Yes 40 mg, Memor ia 7-10 Oral, l 14:42: Daily, pt [place] 00 inst not to take am of sx, 0 Refill(s), htn NIFEdipine 2018-0 Yes 60 mg = 1 Me moria 60 mg oral 7-10 tabs, l tablet, 14:42: Oral, [place] extended 00 qNoon, pt release inst to take if he is scheduled for an afternoon sx, 0 Refill(s), htn Lisinopril 2018-0 Yes 40 mg, Memor ia 7-10 Oral, l 14:42: Daily, pt [place] 00 inst not to take am of [...] am of sx, 0 Refill(s), htn NIFEdipine Yes 60 mg = 1 Me moria 60 mg oral 7-10 tabs, l tablet, 14:42: Oral, [place] extended 00 qNoon, pt release inst to take if he is scheduled for an afternoon sx, 0 Refill(s), htn Lisinopril 2018 Yes 40 mg, Memor ia 7-10 Oral, l 14:42: Daily, pt [place] 00 inst not to take am of sx, 0 Refill(s), htn NIFEdipine Yes 60 mg = 1 Me moria 60 mg oral 7-10 tabs, l tablet, 14:42: Oral, [place] extended 00 qNoon, pt release inst to take if he is scheduled for an afternoon sx, 0 Refill(s), htn vortioxetin Yes 10 mg = 1 M emoria e 10 MG 7-10 tabs, l Oral Tablet 14:37: Oral, qPM, [place] [Trintellix 00 0 ] Refill(s), depression multivitami 0 Yes 1 tab, Sean carly n 7-10 Oral, l 14:37: Daily, 0 [place] 00 Refill(s), supplement Nitroglycer 0 Yes 1 tab, SL, Memoria in 7-10 PRN as l 14:37: needed for [place] 00 chest pain, last time used , 0 Refill(s), angina vortioxetin 2018-0 Yes 10 mg = 1 M emoria e 10 MG 7-10 tabs, l Oral Tablet 14:37: Oral, qPM, [place] [Trintellix 00 0 ] Refill(s), depression multivitami 20180 Yes 1 tab, Sean carly n 7-10 Oral, l 14:37: Daily, 0 [place] 00 Refill(s), supplement Nitroglycer 20180 Yes 1 tab, SL, Memoria in 7-10 PRN as l 14:37: needed for chest pain, last time used , 0 Refill(s), angina vortioxetin 2018-0 Yes 10 mg = 1 M emoria e 10 MG 7-10 tabs, l Oral Tablet 14:37: Oral, qPM, [place] [Trintellix 00 0 ] Refill(s), depression multivitami Yes 1 tab, Sean carly n 7-10 Oral, l 14:37: Daily, 0 [place] 00 Refill(s), supplement Nitroglycer Yes 1 tab, [...] Daily, 0 [place] 00 Refill(s), supplement Nitroglycer Yes 1 tab, SL, Memoria in 7-10 PRN as l 14:37: needed for Arnie chest pain, last time used , 0 Refill(s), angina Aspirin 81 Yes 81 mg = 1 Me moria MG Oral 7-10 tabs, l Tablet 14:36: Oral, Arnie 00 Daily, 0 Refill(s), heart [employer] Vitamin D3 Yes 2,000 Memori a 2000 [...] Tablet angina Saw Yes 1 tab, Memoria [place] 7-10 Oral, BID, l 14:36: 0 Arnie 00 Refill(s), supplement 12 HR Yes 500 mg = 1 Memori a ranolazine 7-10 tabs, l 500 MG 14:36: Oral, BID, Venecia nn Extended 00 # 60 tabs, Release 0 Tablet Refill(s), [Ranexa] chest pains gabapentin Yes 600 mg, Sean carly 7-10 Oral, BID, l 14:36: pt inst ok [place] 00 to take am of sx, 0 Refill(s), neuropathy carvedilol Yes 12.5 mg = Me moria 12.5 MG 7-10 1 tabs, l Oral Tablet 14:36: Oral, BID, [place] 00 pt inst to take the am [...] 7-10 Instructio l Human 100 14:36: ns, [place] UNT/ML 00 Subcutaneo Injectable us, bid Solution before [Humulin R] meals, pt inst to not take am of sx, 0 Refill(s), diabetes NPH Yes See Memoria Insulin, 7-10 Instructio l Human 100 14:36: ns, [place] UNT/ML 00 Subcutaneo Injectable us BID Pt [...] 7-10 tabs, l Mononitrate 14:36: Oral, qAM, [place] 60 MG 00 # 30 tabs, Extended 0 Release Refill(s), Tablet angina Saw Yes 1 tab, Memoria [place] 7-10 Oral, BID, l 14:36: 0 Arnie [...] = 1 tabs, l tablet 14:36: Oral, [place] 00 Daily, # 30 tabs, 0 Refill(s), [...] 14:36: ns, Arnie UNT/ML 00 Subcutaneo Injectable us, bid Solution [...] Oral 7-10 tabs, l Tablet 14:36: Oral, [place] 00 Daily, 0 Refill(s), heart health Vitamin [...] 7-10 tabs, l Mononitrate 14:36: Oral, qAM, [place] 60 MG 00 # 30 tabs, Extended 0 Release Refill(s), Tablet angina Saw Yes 1 tab, Memoria [place] 7-10 Oral, BID, l 14:36: 0 Arnie [...] tabs, l Oral Tablet 14:36: Oral, BID, [place] 00 pt inst to take the am of sx, # 60 tabs, 0 Refill(s), htn biotin 1000 Yes 1,000 mcg M emoria mcg oral 7-10 = 1 tabs, l tablet 14:36: Oral, [place] 00 Daily, # 30 tabs, 0 Refill(s), supplement atorvastati Yes See Memori a n 80 mg 7-10 Instructio l oral tablet 14:36: ns, 1 tab H ermann 00 q Saturday, Saturday and , 0 Refill(s), supplement Levoxyl Yes 100 mcg, Memori a 7-10 Oral, qAM, l 14:36: pt inst to [place] 00 take am of sx, 0 Refill(s), thyroid Regular Yes See Memoria Insulin, 7-10 Instructio l Human 100 14:36: ns, [place] UNT/ML 00 Subcutaneo Injectable us, bid Solution before [Humulin R] meals, pt inst to not take am of sx, 0 Refill(s), diabetes NPH Yes See Memoria Insulin, 7-10 Instructio l Human 100 14:36: ns, [place] UNT/ML 00 Subcutaneo Injectable us BID Pt [...] 7-10 tabs, l Mononitrate 14:36: Oral, qAM, [place] 60 MG 00 # 30 tabs, Extended 0 Release Refill(s), Tablet angina Saw Yes 1 tab, Memoria [place] 7-10 Oral, BID, l 14:36: 0 [place] 00 Refill(s), supplement 12 HR Yes 500 mg = 1 Memori a ranolazine 7-10 tabs, l 500 MG 14:36: Oral, BID, Venecia nn Extended 00 # 60 tabs, Release 0 Tablet Refill(s), [Ranexa] chest pains gabapentin Yes 600 mg, Sean caryl 7-10 Oral, BID, l 14:36: pt inst ok [place] 00 to take am of sx, 0 Refill(s), neuropathy carvedilol Yes 12.5 mg = Me moria 12.5 MG 7-10 1 tabs, l Oral Tablet 14:36: Oral, BID, [place] 00 pt inst to take the am of sx, # 60 tabs, 0 Refill(s), htn biotin 1000 Yes 1,000 mcg M emoria mcg oral 710 = 1 tabs, l tablet 14:36: Oral, [place] 00 Daily, # 30 tabs, 0 Refill(s), supplement atorvastati Yes See Memori a n 80 mg 7-10 Instructio l oral tablet 14:36: ns, 1 tab H ermann 00 q Saturday, Saturday and , 0 Refill(s), supplement Levoxyl Yes 100 mcg, Memori a 7-10 Oral, qAM, l 14:36: pt inst to 00 take am of sx, 0 Refill(s), thyroid Regular Yes See Memoria Insulin, 7-10 Instructio l Human 100 14:36: ns, [place] UNT/ML 00 Subcutaneo Injectable us, bid Solution [...] l oral tablet 19:43: Q12H, # 60 [place] 00 tab, 3 Refill(s) tamsulosin 2016-03 Yes 0.4 mg = 1 M emoria 0.4 mg oral 1-14 cap, PO, l capsule 19:43: After [place] 00 Breakfast, # 30 cap, 5 Refill(s) carvedilol 2016-03 Yes 12.5 mg = Me moria 12.5 mg 1-14 1 tab, PO, l oral tablet 19:43: Q12H, # 60 Arnie 00 tab, 3 Refill(s) tamsulosin 2016-03 Yes 0.4 mg = 1 M emoria 0.4 mg oral 1-14 cap, PO, l capsule 19:43: After [place] 00 Breakfast, # 30 cap, 5 Refill(s) carvedilol 2016-03 Yes 12.5 mg = Me moria 12.5 mg 1-14 1 tab, PO, l oral tablet 19:43: Q12H, # 60 [place] 00 tab, 3 Refill(s) tamsulosin 2016-03 Yes 0.4 mg = 1 M emoria 0.4 mg oral 1-14 cap, PO, l capsule 19:43: After Breakfast, # 30 cap, 5 Refill(s) Benicar 2016-03 No 40 mg, 2 Memori a 1-14 tab, l 17:00: Route: PO, [place] 00 Drug form: TAB, Daily, Start date: 01/22/17 11:00:00 COLON THERAPIST, Duration: 30 day, Stop date: 02/21/17 9:00:00 COLON THERAPIST hydrochloro 2017- No Notes: Sean carly thiazide 25 1-14 (Same as: l mg oral 17:00: Hydrodiuri Herm edward tablet 00 l) With food. Benicar 2016-03 No 40 mg, 2 Memori a 1-14 tab, l 17:00: Route: PO, [place] 00 Drug form: TAB, Daily, Start date: 01/22/17 11:00:00 COLON THERAPIST, Duration: 30 day, Stop date: 02/21/17 9:00:00 COLON THERAPIST hydrochloro 2017- No Notes: Sean carly thiazide 25 1-14 (Same as: l mg oral 17:00: Hydrodiuri Herm edward tablet 00 l) With food. Benicar 2016-03 No 40 mg, 2 Memori a 1-14 tab, l 17:00: Route: PO, [place] 00 Drug form: TAB, Daily, Start date: 01/22/17 11:00:00 COLON THERAPIST, Duration: 30 day, Stop date: 02/21/17 9:00:00 COLON THERAPIST hydrochloro 2017- No Notes: Sean carly thiazide 25 1-14 (Same as: l mg oral 17:00: Hydrodiuri Herm edward tablet 00 l) With food. Benicar 2016-03 No 40 mg, 2 Memori a 1-14 tab, l 17:00: Route: PO, [place] 00 Drug form: TAB, Daily, Start date: 01/22/17 11:00:00 COLON THERAPIST, Duration: 30 day, Stop date: 02/21/17 9:00:00 COLON THERAPIST hydrochloro 2017-1 No Notes: Sean carly thiazide 25 1-14 (Same as: l mg oral 17:00: Hydrodiuri Herm edward tablet 00 l) With food. Hydrochloro 2017- No 1 tab, Sean carly thiazide 1-14 Route: PO, l 12.5 MG / 15:50: Drug Form: He rmann Olmesartan 00 TAB, medoxomil Dosing 40 MG Oral Weight Tablet 96.2, kg, [Benicar Daily, HCT Start 40/12.5] date: 01/22/17 9:50:00 COLON THERAPIST, Duration: 30 day, Stop date: 02/21/17 9:49:00 COLON THERAPIST Hydrochloro 2017-1 No 1 tab, Sean carly thiazide 1-14 Route: PO, l 12.5 MG / 15:50: Drug Form: Mike kumar Olmesartan 00 TAB, medoxomil Dosing 40 MG Oral Weight Tablet 96.2, kg, [Benicar Daily, HCT Start 40/12.5] date: 01/22/17 9:50:00 COLON THERAPIST, Duration: 30 day, Stop date: 02/21/17 9:49:00 COLON THERAPIST Hydrochloro 2017-1 No 1 tab, Sean carly thiazide 1-14 Route: PO, l 12.5 MG / 15:50: Drug Form: Mike kumar Olmesartan 00 TAB, medoxomil Dosing 40 MG Oral Weight Tablet 96.2, kg, [Benicar Daily, HCT Start 40/12.5] date: 01/22/17 9:50:00 COLON THERAPIST, Duration: 30 day, Stop date: 02/21/17 9:49:00 COLON THERAPIST Hydrochloro 2017-1 No 1 tab, Sean carly thiazide 1-14 Route: PO, l 12.5 MG / 15:50: Drug Form: Mike kumar Olmesartan 00 TAB, medoxomil Dosing 40 MG Oral Weight Tablet 96.2, kg, [Benicar Daily, HCT Start 40/12.5] date: 01/22/17 9:50:00 COLON THERAPIST, Duration: 30 day, Stop date: 02/21/17 9:49:00 COLON THERAPIST normal 2016-1 No 1,000 mL, Memori a saline 0.9% 14 Rate: 75 l IV 1,000 mL 15:21: ml/hr, Herm edward 00 Infuse over: 13.3 hr, Route: IV, Dosing Weight 96.2 kg, Total Volume: 1,000, Priority: STAT, Start date: 01/22/17 9:21:00 COLON THERAPIST, Duration: 24 hr, Stop date: 01/23/17 9:20:00 COLON THERAPIST, 2.06, m2 normal 2016-03 No 1,000 mL, Memori a saline 0.9% 1-14 Rate: 75 l IV 1,000 mL 15:21: ml/hr, Herm edward 00 Infuse over: 13.3 hr, Route: IV, Dosing Weight 96.2 kg, Total Volume: 1,000, Priority: STAT, Start date: 01/22/17 9:21:00 COLON THERAPIST, Duration: 24 hr, Stop date: 01/23/17 9:20:00 COLON THERAPIST, 2.06, m2 normal 2016-03 No 1,000 mL, Memori a saline 0.9% 1-14 Rate: 75 l IV 1,000 mL 15:21: ml/hr, Herm edward 00 Infuse over: 13.3 hr, Route: IV, Dosing Weight 96.2 kg, Total Volume: 1,000, Priority: STAT, Start date: 01/22/17 9:21:00 COLON THERAPIST, Duration: 24 hr, Stop date: 01/23/17 9:20:00 COLON THERAPIST, 2.06, m2 normal 2016-03 No 1,000 mL, Memori a saline 0.9% 1-14 Rate: 75 l IV 1,000 mL 15:21: ml/hr, Herm edward 00 Infuse over: 13.3 hr, Route: IV, Dosing Weight 96.2 kg, Total Volume: 1,000, Priority: STAT, Start date: 01/22/17 9:21:00 COLON THERAPIST, Duration: 24 hr, Stop date: 01/23/17 9:20:00 COLON THERAPIST, 2.06, m2 Flomax 2016-03 No Notes: Memoria -14 (Same As: l 14:30: Flomax) Arnie 00 "Do Not Crush" Flomax 2016-03 No Notes: Memoria - (Same As: l 14:30: Flomax) [place] 00 "Do Not Crush" Flomax 2016-03 No Notes: Memoria - (Same As: l 14:30: Flomax) [place] 00 "Do Not Crush" Flomax 2016-03 No Notes: Memoria -14 (Same As: l 14:30: Flomax) [place] 00 "Do Not Crush" atorvastati 2016-03 No Notes: Sean carly n -14 (Same as: l 03:00: Lipitor) [place] 00 Coreg 2016-03 No Notes: Memoria 1-14 Give with l 03:00: food. Arnie 00 (Same As: Coreg) atorvastati 2016-03 No Notes: Sean carly n 1-14 (Same as: l 03:00: Lipitor) Arnie Coreg 2016-03 No Notes: Memoria 1-14 Give with l 03:00: food. Arnie (Same As: Coreg) atorvastati 2016-03 No Notes: Sean carly n 1-14 (Same as: l 03:00: Lipitor) Arnie Coreg 2016-03 No Notes: Memoria 1-14 Give with l 03:00: food. Arnie (Same As: Coreg) atorvastati 2016-03 No Notes: Sean carly n 1-14 (Same as: l 03:00: Lipitor) [place] 00 Coreg 2016-03 No Notes: Memoria 1-14 Give with l 03:00: food. Ar[place] 00 (Same As: Coreg) Acetylcyste 2016-03 No [...] sodium, 1-13 porcine l porcine 22:00: heparin [place] 2500 UNT/ML 00 Injectable Solution heparin 2016-03 No Notes: Memoria sodium, 1-13 porcine l porcine 22:00: heparin [place] 2500 UNT/ML 00 Injectable Solution heparin 2016-03 No Notes: Memoria sodium, 1-13 porcine l porcine 22:00: heparin [place] 2500 UNT/ML 00 Injectable Solution Enoxaparin 2016-03 No Notes: Memor ia 1-13 (Same as: l 18:00: Lovenox) Ar[place] 00 Enoxaparin 2016-03 No Notes: Memor ia 1-13 (Same as: l 18:00: Lovenox) Arnie Enoxaparin 2016-03 No Notes: Memor ia 1-13 (Same as: l 18:00: Lovenox) [place] 00 Enoxaparin 2016-03 No Notes: Memor ia 1-13 (Same as: l 18:00: Lovenox) Arnie normal 2016-03 No 1,000 mL, Memori a saline 0.9% 1-13 Rate: 75 l IV 1,000 mL 17:35: ml/hr, Herm edward 00 Infuse over: 13.3 hr, Route: IV, Dosing Weight 96.2 kg, Total Volume: 1,000, Priority: STAT, Start date: 01/21/17 11:35:00 COLON THERAPIST, Duration: 30 day, Stop date: 02/20/17 11:34:00 COLON THERAPIST, 2.06, m2 Hydralazine 2016-03 No Notes: Sean carly 1-13 (Same as: l 17:35: Apresoline [place] ) Push over 5 minutes normal 2016-03 No 1,000 mL, Memori a saline 0.9% 1-13 Rate: 75 l IV 1,000 mL 17:35: ml/hr, Herm edward 00 Infuse over: 13.3 hr, Route: IV, Dosing Weight 96.2 kg, Total Volume: 1,000, Priority: STAT, Start date: 01/21/17 11:35:00 COLON THERAPIST, Duration: 30 day, Stop date: 02/20/17 11:34:00 COLON THERAPIST, 2.06, m2 Hydralazine 2016-03 No Notes: Sean carly 1-13 (Same as: l 17:35: Apresoline [place] 00 ) Push over 5 minutes normal 2016-03 No 1,000 mL, Memori a saline 0.9% 1-13 Rate: 75 l IV 1,000 mL 17:35: ml/hr, Herm edward 00 Infuse over: 13.3 hr, Route: IV, Dosing Weight 96.2 kg, Total Volume: 1,000, Priority: STAT, Start date: 01/21/17 11:35:00 COLON THERAPIST, Duration: 30 day, Stop date: 02/20/17 11:34:00 COLON THERAPIST, 2.06, m2 Hydralazine 2016-03 No Notes: Sean carly 1-13 (Same as: l 17:35: Apresoline [place] 00 ) Push over 5 minutes normal 2016-03 No 1,000 mL, Memori a saline 0.9% 03-23 Rate: 75 l IV 1,000 mL 17:35: ml/hr, Herm edward Infuse over: 13.3 hr, Route: IV, Dosing Weight 96.2 kg, Total Volume: 1,000, Priority: STAT, Start date: 01/21/17 11:35:00 COLON THERAPIST, Duration: 30 day, Stop date: 02/20/17 11:34:00 COLON THERAPIST, 2.06, m2 Hydralazine 2016-03 No Notes: Sean carly 1-13 (Same as: l 17:35: Apresoline [place] ) Push over 5 minutes Acetaminoph 2016-03 [...] 1-13 PO, BID, 0 l 15:47: Refill(s) [place] 00 Niacin 2016-03 Yes 1,000 mg, Memori a 1-13 PO, BID, 0 l 15:47: Refill(s) Niacin 2016-03 Yes 1,000 mg, Memori a 1-13 PO, BID, 0 l 15:47: Refill(s) [place] 00 Saw 2016-03 Yes 2, PO, Memoria [place] 1-13 BID, 0 l 15:45: Refill(s) [place] 00 Saw 2016-03 Yes 2, PO, Memoria [place] 1-13 BID, 0 l 15:45: Refill(s) [place] 00 Saw 2016-03 Yes 2, PO, Memoria [place] 1-13 BID, 0 l 15:45: Refill(s) [place] 00 Saw 2016-03 Yes 2, PO, Memoria [place] 1-13 BID, 0 l 15:45: Refill(s) [place] 00 Regular 2016-03 Yes SUB-Q, Memoria Insulin, [...] 10 l Human 100 15:41: mL, 0 [place] UNT/ML 00 Refill(s) Injectable Suspension [Humulin N] NPH 2016-03 Yes 84, SUB-Q, Memoria Insulin, 1-13 BID, # 10 l Human 100 15:41: mL, 0 [place] UNT/ML 00 Refill(s) Injectable Suspension [Humulin N] NPH 2016-03 Yes 84, SUB-Q, Memoria Insulin, 1-13 BID, # 10 l Human 100 15:41: mL, 0 [place] UNT/ML 00 Refill(s) Injectable Suspension [Humulin N] [...] 03-23 (Same as: l Tablet 15:00: Neurontin) Vneecia nn 00 12 HR 2016-03 No Notes: Memoria ranolazine 03-23 Same as l 500 MG 15:00: Ranexa "Do Venecia nn Extended 00 Not Crush" Release Tablet [Ranexa] metoprolol 2016-03 No Notes: Memor ia extended 03-23 (Same as: l release 15:00: Toprol XL) Herm edward 00 May split tab, but do not crush. Plavix 2016-03 No Notes: Memoria -13 (Same As: l 15:00: Plavix) [place] 00 Humulin N 2016-03 No Notes: Memori [...] No Notes: Memor ia 600 MG Oral -13 (Same as: l Tablet 15:00: Neurontin) Venecia [...] Memoria 1-13 (Same As: l 15:00: Plavix) [place] 00 Humulin N 2016-03 No Notes: Memori a 1-13 Roll in l 15:00: palms of [place] 00 hands gently; Do not shake vigorously . (Same as: NovoLIN N, Humulin N) Do not hold insulin without contacting prescriber "single patient use only" WASTE: F/P - Black; E - Municipal Trash Bin Stable for 14 days at room temperatur e Expires in days from ____Date Saline 2016-03 No Notes: Memoria Flush 0.9% 1-13 (Same as: l 15:00: BD [place] 00 Posiflush) aspirin 81 2016-03 No Notes: Do Me moria mg tablet, -13 not crush l enteric 15:00: or chew. [place] n coated 00 (Same As: Ecotrin) isosorbide 2016-03 No Notes: Memor ia mononitrate 1-13 (Same l extended 15:00: as:Imdur) Herm edward release 00 "Do Not Crush" Take on empty stomach/ full glass of water. Do not crush gabapentin 2016-03 No Notes: Memor ia 600 MG Oral 1-13 (Same as: l Tablet 15:00: Neurontin) Venecia nn 00 12 HR 2016-03 No Notes: Memoria ranolazine 1-13 Same as l 500 MG 15:00: Ranexa "Do Venecia nn Extended 00 Not Crush" Release Tablet [Ranexa] metoprolol 2016-03 No Notes: Memor ia extended 1-13 (Same as: l release 15:00: Toprol XL) Herm edward 00 May split tab, but do not crush. Plavix 2016-03 No Notes: Memoria 1-13 (Same As: l 15:00: Plavix) [place] 00 Humulin N 2016-03 No Notes: Memori a 1- Roll in l 15:00: palms of [place] 00 hands gently; Do not shake vigorously . (Same as: NovoLIN N, Humulin N) Do not hold insulin without contacting prescriber "single patient use only" WASTE: F/P - Black; E - Municipal Trash Bin Stable for 14 days at room temperatur e Expires in days from ____Date Saline 2016-03 No Notes: Memoria Flush 0.9% - (Same as: l 15:00: BD [place] Posiflush) aspirin 81 2016-03 No Notes: Do Me moria mg tablet, 1-13 not crush l enteric 15:00: or chew. [place] n coated 00 (Same As: Ecotrin) isosorbide 2016-03 No Notes: Memor ia mononitrate 1-13 (Same l extended 15:00: as:Imdur) Herm edward release 00 "Do Not Crush" Take on empty stomach/ full glass of water. Do not crush gabapentin 2016-03 No Notes: Memor ia 600 MG Oral 1-13 (Same as: l Tablet 15:00: Neurontin) Venecia nn 00 12 HR 2016-03 No Notes: Memoria ranolazine 1-13 Same as l 500 MG 15:00: Ranexa "Do Venecia nn Extended 00 Not Crush" Release Tablet [Ranexa] metoprolol 2016-03 No Notes: Memor ia extended 03-23 (Same as: l release 15:00: Toprol XL) Herm edward 00 May split tab, but do not crush. Plavix 2016-03 No Notes: Memoria 03-23 (Same As: l 15:00: Plavix) [place] 00 Humulin N 2016-03 No Notes: Memori a 03-23 Roll in l 15:00: palms of [place] 00 hands gently; Do not shake vigorously . (Same as: NovoLIN N, Humulin N) Do not hold insulin without contacting prescriber "single patient use only" WASTE: F/P - Black; E - Municipal Trash Bin Stable for 14 days at room temperatur e Expires in days from ____Date Saline 2016-03 No Notes: Memoria Flush 0.9% 03-23 (Same as: l 15:00: BD [place] 00 Posiflush) Vitamin D3 2016-03 Yes 4,000 Memori a 1999 intl 03-23 IntlUnit = l units oral 12:51: 2 cap, PO, H ermann capsule 00 Daily, # 100 cap, 3 Refill(s) Vitamin D3 2016-03 Yes 4,000 Memori a 2000 intl 03-23 IntlUnit = l units oral 12:51: 2 cap, PO, H ermann capsule 00 Daily, # 100 cap, 3 Refill(s) Vitamin D3 2016-03 Yes 4,000 Memori a 1999 intl 03-23 IntlUnit = l units oral 12:51: 2 cap, PO, H ermann capsule 00 Daily, # 100 cap, 3 Refill(s) Vitamin D3 2016-03 Yes 4,000 Memori a 2000 intl 03-23 IntlUnit = l units oral 12:51: 2 cap, PO, H ermann capsule 00 Daily, # 100 cap, 3 Refill(s) Thyroxine 2016-03 No Notes: Memori a -13 Take 1 l 12:30: hour [place] 00 before or 2 hours after meal; [...] a 1-13 Take 1 l 12:30: hour [place] 00 before or 2 hours after meal; [...] 1-13 Route: IM, l 10:52: Drug form: [place] 00 PDR/INJ, PRN, Dosing Weight 96.2, kg, PRN Blood Glucose Results, Start date: 01/21/17 4:52:00 COLON THERAPIST, Duration: 30 day, Stop date: 02/20/17 4:51:00 COLON THERAPIST Dextrose 2016-03 No 25 gm, 50 Sean carly 50% Syringe 1-13 mL, Route: l 10:52: IVP, Drug Form: INJ, Dosing Weight 96.2, kg, PRN, PRN Blood Glucose Results, Start date: 01/21/17 4:52:00 COLON THERAPIST, Duration: 30 day, Stop date: 02/20/17 4:51:00 COLON THERAPIST Insulin 2016-03 No Notes: Memoria Lispro 1-13 Roll in l 10:52: palms of [place] 00 hands gently; Do not shake `vigorousl [...] Blood Glucose Results, Start date: 01/21/17 4:52:00 COLON THERAPIST, Duration: 30 day, Stop date: 02/20/17 4:51:00 COLON THERAPIST Dextrose 2016-03 No 25 gm, 50 Sean carly 50% Syringe 1-13 mL, Route: l 10:52: IVP, Drug [place] 00 Form: INJ, Dosing Weight 96.2, kg, PRN, PRN Blood Glucose Results, Start date: 01/21/17 4:52:00 COLON THERAPIST, Duration: 30 day, Stop date: 02/20/17 4:51:00 COLON THERAPIST Insulin 2016-03 No Notes: Memoria Lispro 1-13 Roll in l 10:52: palms of [place] 00 hands gently; Do not shake `vigorousl [...] Blood Glucose Results, Start date: 01/21/17 4:52:00 COLON THERAPIST, Duration: 30 day, Stop date: 02/20/17 4:51:00 COLON THERAPIST Dextrose 2016-03 No 25 gm, 50 Sean carly 50% Syringe 1-13 mL, Route: l 10:52: IVP, Drug Arnie 00 Form: INJ, Dosing Weight 96.2, kg, PRN, PRN Blood Glucose Results, Start date: 01/21/17 4:52:00 COLON THERAPIST, Duration: 30 day, Stop date: 02/20/17 4:51:00 COLON THERAPIST Insulin 2016-03 No Notes: Memoria Lispro 1-13 Roll in l 10:52: palms of [place] 00 hands gently; Do not shake `vigorousl y. (Same as: Humalog ) "Single Patient Use Only " WASTE: F/P - Black; E - Municipal Trash Bin Stable for 28 days at room temperatur e. Expires in days from ____Date Glucagon 2016-03 No 1 mg, Memoria 1- Route: IM, l 10:52: Drug form: Ar[place] 00 PDR/INJ, PRN, Dosing Weight 96.2, kg, PRN Blood Glucose Results, Start date: 01/21/17 4:52:00 COLON THERAPIST, Duration: 30 day, Stop date: 02/20/17 4:51:00 COLON THERAPIST Dextrose 2016-03 No 25 gm, 50 Sean carly 50% Syringe 1-13 mL, Route: l 10:52: IVP, Drug Form: INJ, Dosing Weight 96.2, kg, PRN, PRN Blood Glucose Results, Start date: 01/21/17 4:52:00 COLON THERAPIST, Duration: 30 day, Stop date: 02/20/17 4:51:00 COLON THERAPIST Insulin 2016-03 No Notes: Memoria Lispro 1- Roll in l 10:52: palms of hands gently; Do not shake `vigorousl y. (Same as: Humalog ) "Single Patient Use Only " WASTE: F/P - Black; E - [employer] Trash Bin Stable for 28 days at room temperatur e. Expires in days from ____Date clopidogrel 2016-03 Yes 75 mg = 1 M emoria 75 MG Oral 1-13 tab, PO, l Tablet 10:12: Daily, 0 Arnie [Plavix] 00 Refill(s) atorvastati 2016-03 Yes 80 mg = 1 M emoria n 80 mg 1-13 tab, one l oral tablet 10:12: tablet on H ermsaturday, Saturday, PM, 0 Refill(s) gabapentin 2016-03 Yes [...] tab, PO, l Tablet 10:12: Daily, 0 [place] [Plavix] 00 Refill(s) atorvastati 2016-03 Yes 80 mg = 1 M emoria n 80 mg -13 tab, one l oral tablet 10:12: tablet on H ermann 00 Saturday, Saturday, PM, 0 Refill(s) gabapentin 2016-03 Yes 600 mg = 1 M emoria 600 MG Oral 1-13 tab, PO, l Tablet 10:12: BID, 0 [place] 00 Refill(s) Hydrochloro 2016-03 No 1 tab, PO, Memoria thiazide 1-13 QMon, 0 l 12.5 MG / 10:12: Refill(s) Her gayle Olmesartan 00 medoxomil 40 MG Oral Tablet [...] 60 mg = 1 Me moria mononitrate -13 tab, PO, l 60 mg oral 10:12: QAM, 0 Venecia nn tablet, 00 Refill(s) extended release biotin 1000 2016-03 Yes 1,000 Memor ia mcg oral 1-13 microgram l tablet 10:12: = 1 tab, [place] 00 PO, Daily, # 30 tab, 0 [...] tab, CHEW, l Tablet 10:12: Daily, 0 [place] 00 Refill(s) multivitami 2016-03 Yes 1 tab, Sean carly n 1-13 Daily, 0 l 10:12: Refill(s) [place] 00 clopidogrel 2016-03 Yes 75 mg = 1 M emoria 75 MG Oral 1-13 tab, PO, l Tablet 10:12: Daily, 0 [place] [Plavix] 00 Refill(s) atorvastati 2016-03 Yes 80 mg = 1 M emoria n 80 mg -13 tab, one l oral tablet 10:12: tablet on H ermann 00 Saturday, Saturday, PM, 0 Refill(s) gabapentin 2016-03 Yes 600 mg = 1 M emoria 600 MG Oral 1-13 tab, PO, l Tablet 10:12: BID, 0 [place] 00 Refill(s) Hydrochloro 2016-03 No 1 tab, PO, Memoria thiazide 1-13 QMon, 0 l 12.5 MG / 10:12: Refill(s) Her araujo Olmesartan 00 medoxomil 40 MG Oral Tablet [Benicar HCT 40/12.5] 12 HR 2016-03 Yes 1,000 mg = Memori a ranolazine -13 2 tab, PO, l 500 MG 10:12: BID, 0 [place] Extended 00 Refill(s) Release Tablet [Ranexa] Levothyroxi [...] tab, PO, l Tablet 10:12: Daily, 0 [place] [Plavix] 00 Refill(s) atorvastati 2016-03 Yes 80 [...] PO, l 500 MG 10:12: BID, 0 [place] Extended 00 Refill(s) Release Tablet [Ranexa] Levothyroxi [...] microgram l tablet 10:12: = 1 tab, [place] 00 PO, Daily, # 30 tab, 0 Refill(s) metoprolol 2016-03 No 200 mg = 1 M emoria 200 mg oral 1-13 tab, PO, l tablet, 10:12: Daily, 0 [place] n extended 00 Refill(s) release Vitamin D3 2016-03 No 2,000 Memori a 2000 intl 1-13 IntlUnit = l units oral 10:12: 1 cap, PO, H ermann capsule 00 Daily, # 100 cap, 3 Refill(s) Aspirin 81 2016-03 Yes 81 mg = 1 Me moria MG Chewable 1-13 tab, CHEW, l Tablet 10:12: Daily, 0 [place] 00 Refill(s) multivitami 2016-03 Yes 1 tab, Sean carly n 1-13 Daily, 0 l 10:12: Refill(s) [place] 00 hydrochloro 2016-03 No Notes: Sean carly thiazide 25 1-13 (Same as: l mg oral 10:05: Hydrodiuri Herm edward tablet 00 l) [facility]. [facility] No 40 mg, 2 Memori a 1-13 tab, l 10:05: Route: PO, [place] 00 Drug form: TAB, Daily, Start date: 01/21/17 4:05:00 COLON THERAPIST, Duration: 30 day, Stop date: 02/19/17 9:00:00 COLON THERAPIST hydrochloro 2016-03 No Notes: Sean carly thiazide 25 1-13 (Same as: l mg oral 10:05: Hydrodiuri Herm edward tablet 00 l) With food. [facility] 2016[facility] No 40 mg, 2 Memori a 1-13 tab, l 10:05: Route: PO, [place] 00 Drug form: TAB, Daily, Start date: 01/21/17 4:05:00 COLON THERAPIST, Duration: 30 day, Stop date: 02/19/17 9:00:00 COLON THERAPIST hydrochloro 2016-03 No Notes: Sean carly thiazide 25 1-13 (Same as: l mg oral 10:05: Hydrodiuri Herm edward tablet 00 l) With food. [facility] 2016[facility] No 40 mg, 2 Memori a 1-13 tab, l 10:05: Route: PO, [place] 00 Drug form: TAB, Daily, Start date: 01/21/17 4:05:00 COLON THERAPIST, Duration: 30 day, Stop date: 02/19/17 9:00:00 COLON THERAPIST hydrochloro 2016-03 No Notes: Sean carly thiazide 25 1-13 (Same as: l mg oral 10:05: Hydrodiuri Herm edward tablet 00 l) With food. [facility] 2016[facility] No 40 mg, 2 Memori a 1-13 tab, l 10:05: Route: PO, [place] 00 Drug form: TAB, Daily, Start date: 01/21/17 4:05:00 COLON THERAPIST, Duration: 30 day, Stop date: 02/19/17 9:00:00 COLON THERAPIST Hydrochloro 2017- No 1 tab, Sean carly thiazide 1-13 Route: PO, l 12.5 MG / 10:00: Drug Form: Mike rmann Olmesartan 00 TAB, medoxomil Dosing 40 MG Oral Weight Tablet 96.2, kg, [Benicar Daily, HCT Start 40/12.5] date: 01/21/17 4:00:00 COLON THERAPIST, Duration: 30 day, Stop date: 02/20/17 3:59:00 COLON THERAPIST Hydrochloro 2017- No 1 tab, Sean carly thiazide 1-13 Route: PO, l 12.5 MG / 10:00: Drug Form: Mike rmann Olmesartan 00 TAB, medoxomil Dosing 40 MG Oral Weight Tablet 96.2, kg, [Benicar Daily, HCT Start 40/12.5] date: 01/21/17 4:00:00 COLON THERAPIST, Duration: 30 day, Stop date: 02/20/17 3:59:00 COLON THERAPIST Hydrochloro 2017- No 1 tab, Sean carly thiazide 1-13 Route: PO, l 12.5 MG / 10:00: Drug Form: Mike rmann Olmesartan 00 TAB, medoxomil Dosing 40 MG Oral Weight Tablet 96.2, kg, [Benicar Daily, HCT Start 40/12.5] date: 01/21/17 4:00:00 COLON THERAPIST, Duration: 30 day, Stop date: 02/20/17 3:59:00 COLON THERAPIST Hydrochloro 2017- No 1 tab, Sean carly thiazide 1-13 Route: PO, l 12.5 MG / 10:00: Drug Form: Mike rmedward Olmesartan 00 TAB, medoxomil Dosing 40 MG Oral Weight Tablet 96.2, kg, [Benicar Daily, HCT Start 40/12.5] date: 01/21/17 4:00:00 COLON THERAPIST, Duration: 30 day, Stop date: 02/20/17 3:59:00 COLON THERAPIST Nicardipine 2016- No Notes: Sean carly 1-13 Same as: l 09:: Dayron Nelson Concentrat ion: (0.2 mg /1 ml ) Nicardipine 2017- No Notes: Sean carly 1-13 Same as: l 09:: Cardene Arnie 00 Concentrat ion: (0.2 mg /1 ml ) Nicardipine 2016-03 No Notes: Sean carly - Same as: l 09:28: Cardene [place] 00 Concentrat ion: (0.2 mg /1 ml ) Nicardipine 2016-03 No Notes: Sean craly - Same as: l 09:28: Cardene Arnie 00 Concentrat ion: (0.2 mg /1 ml ) Nitroglycer 2016-03 No Notes: Sean carly in - (Same l 09:25: as:Nitroqu Arnie 00 ick, Nitrostat) "Do Not Crush" Sublingual tablet Morphine 2016-03 No Notes: Memoria - Preservati l 09:25: ve free. Arnie 00 (Same as: Morphine Sulfate-PF ) Ondansetron 2016-03 No Notes: Sean carly - (Same as: l 09:25: Zofran) Arnie 00 Saline 2016-03 No Notes: Memoria Flush 0.9% - (Same as: l 09:25: BD [place] 00 Posiflush) Nitroglycer 2016-03 No Notes: Sean carly in 03-23 (Same l 09:25: as:Nitroqu [place] 00 ick, Nitrostat) "Do Not Crush" Sublingual tablet Morphine 2016-03 No Notes: Memoria - Preservati l 09:25: ve free. [place] 00 (Same as: Morphine Sulfate-PF ) Ondansetron 2016-03 No Notes: Sean carly -13 (Same as: l 09:25: Zofran) [place] 00 Saline 2016-03 No Notes: Memoria Flush 0.9% 1-13 (Same as: l 09:25: BD [place] 00 Posiflush) Nitroglycer 2016-03 No Notes: Sean carly in 03-23 (Same l 09:25: as:Nitroqu [place] 00 ick, Nitrostat) "Do Not Crush" Sublingual tablet Morphine 2016-03 No Notes: Memoria 1-13 Preservati l 09:25: ve free. Arnie 00 (Same as: Morphine Sulfate-PF ) Ondansetron 2016-03 No Notes: Sean carly 1-13 (Same as: l 09:25: Zofran) [place] 00 Saline 2016-03 No Notes: Memoria Flush 0.9% 03-23 (Same as: l 09:25: BD Posiflush) Nitroglycer 2016-03 No Notes: Sean carly in 03-23 (Same l 09:25: as:Nitroqu ick, Nitrostat) "Do Not Crush" Sublingual tablet Morphine 2016-03 No Notes: Memoria 03-23 Preservati l 09:25: ve free. (Same as: Morphine Sulfate-PF ) Ondansetron 2016-03 No Notes: Sean carly 03-23 (Same as: l 09:25: Zofran) Saline 2016-03 No Notes: Memoria Flush 0.9% 03-23 (Same as: l 09:25: BD Posiflush) acetaminoph acetaminoph No acetaminop [place] [...] Group gauge x gauge x gauge x 07/24" 07/24" 07/24" carvedilol carvedilol No carvedilol [place] 12.5 [...] 14:50:00 159 mm[Hg] Univer sity of pressure [facility] Diastolic blood 2021-11-22 14:50:00 69 mm[Hg] Unive rsity of [facility] [place] Heart rate 2021-11-22 14:50:00 58 /min [facility] Respiratory rate 2021-11-22 14:50:00 12 /min Univ ersity of [facility] Branch Oxygen saturation in 2021-11-22 14:50:00 98 /min University of Arterial blood by [facility] Pulse oximetry Branch Body temperature 2021-11-22 14:24:00 36.11 Sandhya [facility] ersity [facility] [place] Body height 2021-11-14 15:23:00 177.8 cm [facility] Body weight 2021-11-14 15:23:00 90.7 kg [facility] BMI 2021-11-14 15:23:00 28.69 kg/m2 [facility] Systolic blood 2021-11-22 14:30:00 128 mm[Hg] Univer sity of [facility] [place] Diastolic blood 2021-11-22 14:30:00 69 mm[Hg] Unive rsity of [facility] [place] Heart rate 2021-11-22 14:30:00 54 /min [facility] Respiratory rate 2021-11-22 14:30:00 22 /min [facility] Oxygen saturation in 2021-11-22 14:30:00 99 /min University of Arterial blood by [facility] Pulse oximetry Branch Body temperature 2021-11-22 14:24:00 36.11 Sandhya [facility] [place] [facility] [place] Body height 2021-11-14 15:23:00 177.8 cm [facility] Body weight 2021-11-14 15:23:00 90.7 kg [facility] BMI 2021-11-14 15:23:00 28.69 kg/m2 [facility] Systolic blood 2020-05-25 14:35:00 127 mm[Hg] Univer sity of pressure [facility] Diastolic blood 2020-05-25 14:35:00 53 mm[Hg] Unive rsity of pressure [facility] Heart rate 2020-05-25 14:35:00 54 /min [facility] Oxygen saturation in 2020-05-25 14:35:00 98 /min [facility] Arterial blood by [facility] Pulse oximetry [place] Respiratory rate 2020-05-25 14:25:00 16 /min [facility] Body temperature 2020-05-25 14:18:00 36.67 Sandhya [facility] height 2020-05-25 01:15:00 177.8 cm [facility] Body weight 2020-05-25 01:15:00 90.719 kg [facility] BMI 2020-05-25 01:15:00 28.70 kg/m2 [facility] BP Diastolic 2018-05-20 00:00:00 62 mm[Hg] [facility] Height 2018-05-20 00:00:00 70 [in_i] [facility] BMI (Body Mass 2018-05-20 00:00:00 28.7 kg/m2 [facility]) Group BP Systolic 2018-05-20 00:00:00 128 mm[Hg] [facility] Body Weight 2018-05-20 00:00:00 200 [lb_av] [facility] BP Diastolic 2018-04-24 00:00:00 60 mm[Hg] [facility] Height 2018-04-24 00:00:00 70 [in_i] [facility] BMI (Body Mass 2018-04-24 00:00:00 31.6 kg/m2 [facility]) Group BP Systolic 2018-04-24 00:00:00 132 mm[Hg] [facility] Body Weight 2018-04-24 00:00:00 220 [lb_av] [facility] BP Diastolic 2018-04-03 00:00:00 62 mm[Hg] [facility] Height 2018-04-03 00:00:00 70 [in_i] [facility] BMI (Body Mass 2018-04-03 00:00:00 31.6 kg/m2 [facility]) Group BP Systolic 2018-04-03 00:00:00 138 mm[Hg] [facility] Body Weight 2018-04-03 00:00:00 220 [lb_av] [facility] BP Diastolic 2018-03-20 00:00:00 62 mm[Hg] [facility] Height 2018-03-20 00:00:00 70 [in_i] [facility] BMI (Body Mass 2018-03-20 00:00:00 31.7 kg/m2 [facility] Index) Group BP Systolic 2018-03-20 00:00:00 138 mm[Hg] [facility] Body Weight 2018-03-20 00:00:00 220.9 [lb_av] [facility] Respitory Rate 2017-09-30 22:54:00 Memori al [place] Respitory Rate 2017-09-30 22:00:00 Memori al [place] Systolic (mm Hg) 2017-09-30 22:00:00 Sean rial [place] Diastolic (mm Hg) 2017-09-30 22:00:00 Mem orial [place] Heart Rate 2017-09-30 22:00:00 Memorial [place] Systolic (mm Hg) 2017-09-30 21:50:00 Sean rial [place] Diastolic (mm Hg) 2017-09-30 21:50:00 Mem orial [place] Respitory Rate 2017-09-30 21:50:00 Memori al [place] Heart Rate 2017-09-30 21:50:00 [facility] [place] Heart Rate 2017-09-30 21:40:00 Memorial [place]nie Systolic (mm Hg) 2017-09-30 21:40:00 Sean rial [place] Diastolic (mm Hg) 2017-09-30 21:40:00 Mem orial [place] Temperature Oral (F) 2017-09-30 21:20:00 36.6 Sandhya [facility] [place] Height 2017-09-30 18:21:00 177.8 cm [facility] [place] Temperature Oral (F) 2017-09-30 18:21:00 36.7 Sandhya [facility] [place] Height 2017-09-16 19:53:00 177.8 cm [facility] [place] Systolic (mm Hg) 2017-01-22 21:30:00 Sean rial [place] Diastolic (mm Hg) 2017-01-22 21:30:00 Mem orial [place] Respitory Rate 2017-01-22 21:30:00 Memori al [place] Systolic (mm Hg) 2017-01-22 21:00:00 Sean rial [place] Diastolic (mm Hg) 2017-01-22 21:00:00 Mem orial [place] Respitory Rate 2017-01-22 21:00:00 Memori al [place] Systolic (mm Hg) 2017-01-22 20:00:00 Sean rial [place] Diastolic (mm Hg) 2017-01-22 20:00:00 Mem orial [place] Respitory Rate 2017-01-22 20:00:00 Memori al [place] Temperature Oral (F) 2017-01-22 18:00:00 98.1 F [facility] [place] Temperature Oral (F) 2017-01-22 15:00:00 98.1 F [facility] [place] Temperature Oral (F) 2017-01-22 12:00:00 98.2 F [facility] [place] Weight 2017-01-21 09:23:00 [facility] [place] Height 2017-01-21 09:23:00 152.4 cm [facility] [place] BMI Calculated 2017-01-21 09:23:00 Memori al [place] Procedures Procedure Date / Time Performing Source Performed Clinician PHACOEMULSIFICATION OF 2021-11-22 Arturo Hernandez [facility] CATARACT WITH INTRAOCULAR 13:46:00 Medica l Branch LENS IMPLANT POCT GLUCOSE(AGE >30DAYS) 2021-11-22 Samson Agarwal [facility] 13:04:00 Medical Branch POCT GLUCOSE(AGE >30DAYS) 2021-11-22 Samson Agarwal [facility] 13:04:00 Medical Branch DAY SURGERY - ADC 2021-11-22 Doctor Unassigned, [facility] 05:01:00 [place] [facility] ASSIGNMENT OF BENEFITS 2021-11-06 Doctor Unassigned, [facility] 17:33:49 [place] [facility] POCT GLUCOSE (AUTOMATED) 2020-05-25 Arturo Hernandez [facility] 12:52:00 Medical Branch DAY SURGERY - ADC 2020-05-25 Doctor Unassigned, [facility] 05:01:00 [place] [facility] COVID-19 (ID NOW RAPID 2020-05-24 Arturo Hernandez [facility] TESTING) 16:49:00 Medical [place] ASSIGNMENT OF BENEFITS 2020-05-16 Doctor Unassigned, [facility] 22:05:16 [place] [facility] unlisted imaging order 2018-03-20 [facility] 00:00:[address], abdomen + pelvis, w/ 2018-03-20 [facility] contrast 00:00:00 Group REPAIR HERNIA INGUINAL 2017-09-30 [facility] LAPAROSCOPIC-INITIAL [id number] 20:24:00 (Right)<sup>1</sup> REPAIR HERNIA UMBILICAL-OLDER 2017-09-30 Me morial Arnie THAN 5 YEARS OLD-REDUCIBLE 20:24:00 [id number] (Other)<sup>2</sup> heart cath<sup>3</sup> 2017-01-09 [facility] 00:00:00 hernia repair 2008-03-11 [facility] 00:00:00 Shoulder Surgery Procedure 2007-03-11 [facility] 00:00:00 Group sx to stop nosebleed 2006[facility]03[facility]11 [facility]00 [facility] 2005[facility]03[facility]11 [facility] Chole[facility] Shoulder repair [facility] colonoscopy [facility] laser eye sx<sup>4</sup> Memoria l [place] shoulder sx [facility] Inguinal Hernia Repair (Surg) Ruperto lowery [facility] Group Encounters Start End Encounter Admission Attending Care Care Encounter Source Date/Time Date/Time Type Type Clinicians Facility Department ID 2021-01-08 Outpatient R DAVID [facility] OPH [id number] Univers 04:15:18 ARTURO [facility] [facility] 2021-11-22 2021-11-22 Outpatient R ADVID [facility] OPH [id number] Univers 07:51:00 10:07:00 [facility] 2021-11-22 2021-11-22 Hospital ANN Hernandez [id number] Univers 07:51:00 10:07:00 Encounter Arturo VALLE [id number] [place] [id number] [facility] 071 Branch 2021-11-22 2021-11-22 Surgery David [facility] [id number] Univers 09:00:00 09:34:00 Arturo Marr TORI 350.1.13.10 [place] [id number] [facility] 020 Branch 2021-11-22 2021-11-22 Orders Doctor JAZIEL [id number] Univers 00:00:00 00:00:00 Only Unassigned, GALO 350.1.13.10 [facility] [address] [facility] 4.2.7.2.686 Alan as [phone] [facility] 009 Branch 2021-11-20 2021-11-20 Laboratory Only, Adc Test [facility] 1.2.840. 114 [id number] Univers 10:15:00 10:30:00 Only Arturo Hernandez 350.1.13.1 0 [place] [id number] [facility] 353 [place] 2021-11-20 2021-11-20 Outpatient R DAVID [facility] [id number] Univers 10:15:00 10:15:00 ARTURO [facility] 2021-11-06 2021-11-06 [employer] Gonzalo, Adc Lab Main [facility] 1.2.8 40.114 [id number] Univers 13:00:00 13:15:00 Visit Arturo Hernandez 350.1.13.1 0 [place] PROFESS[place] [id number] [facility] 353 [facility] 2021-11-06 2021-11-06 Outpatient R DAVID [facility] [id number] Univers 13:00:00 13:00:00 ARTURO [facility] 2021-11-06 2021-11-06 Orders Doctor SHERIFF 1.2.840.114 [id number] Univers 00:00:00 00:00:00 Only Unassigned, GALO 350.1.13.10 ity [place] [facility] 4.2.7.2.686 Alan as [id number] [facility] 009 [place] 2020-05-25 2020-05-25 Hospital David [facility] [id number] Univers 07:30:00 09:49:00 Encounter Arturo Valle 350.1.13.10 [place] of [place] Surgical [id number] [facility] 071 [place] 2020-05-25 2020-05-25 Orders Doctor JAZIEL 1.2.840.114 [id number] Univers 00:00:00 00:00:00 Only Unassigned, GALO 350.1.13.10 ity of [place] [facility]OSP[facility] 4.2.7.2.686 Alan as [id number] [facility] 009 [place] 2020-05-24 2020-05-24 Laboratory Only, Adc Test [facility] 1.2.840. 114 [id number] Univers 11:19:37 11:34:37 Only Arturo Hernandez Tori 350.1.13.1 0 [place] [id number] [facility] 353 [place] 2020-05-24 2020-05-24 Outpatient R DAVID [facility] [id number] Univers 11:30:00 11:30:00 ARTURO [facility] 2020-05-16 2020-05-16 [employer] [place], Adc Lab Main [facility] 1.2.8 40.114 [id number] Univers 16:05:25 16:20:25 Visit Arturo Hernandez Tori 350.1.13.1 0 [place] of [place] Profess[place] [id number] [address] 2020-05-16 2020-05-16 Outpatient R DAVID [facility] [id number] Univers 15:45:00 15:45:00 ARTURO [facility] 2020-05-16 2020-05-16 Orders Doctor SHERIFF 1.2.840.114 [id number] Univers 00:00:00 00:00:00 Only Unassigned, GALO 350.1.13.10 ity of [place] [facility] 4.2.7.2.686 Alan as [id number] [address] 2020-01-27 2020-01-27 Outpatient IHDE_G [facility] [id number] [place] 02:20:00 02:20:00 1118 [facility] 2019-11-03 2019-11-03 Outpatient IHDE_G [facility] [id number] [place] 11:36:00 11:36:00 0825 [facility] 2018-05-20 2018-05-20 [facility] [place] - [address] [place] 00:00:00 00:00:00 [facility] [address], [address], surgery [place] [address] , Ph. [phone] 2018-04-24 2018-04-24 [place] [facility] [place] [facility] [place] - [address] [place] 00:00:00 00:00:00 Phillip Mendosa [facility]: [facility] [address], General [address], surgery [place] [address] , Ph. [phone] 2018-04-03 2018-04-03 [place] [facility] [place] [facility] [place] - [address] [place] 00:00:00 00:00:00 Phillip Georges 0124 ashley Farmer MD: [address], General [address], surgery [place] [address] , Ph. [phone] 2018-03-20 2018-03-20 [place] [facility] [place] [place] - [address] [place] 00:00:00 00:00:00 Phillip Georges 011Bing Mendosa [facility]: [facility] [address], General [address], surgery [place] [address] , Ph. [phone] 2017-09-30 2017-09-30 [facility]patient [id number] 17:39[facility]22 22:58:00 zhao Gaitan [facility] 2017-09-30 2017-09-30 Outpatient [facility] 6517 [id number] Memoria 17:39:22 22:58:00 [facility] 2017-09-30 2017-09-30 Outpatient Tramaine Bowles [id number] 12:39:22 17:58:00 Vik Desir 2017-09-30 2017-09-30 Outpatient [facility] [address] Memoria 12:39:22 17:58:00 r [facility] 2017-01-21 2017-01-22 Inpatient [facility] [id number] Memoria 09:02:00 21:45:[address] 2017-01-21 2017-01-22 Inpatient [facility] [id number] Memoria 09:02:00 21:45:[address] 2017-01-21 2017-01-22 Outpatient ANATOLY Healy [facility] [id number] 03:02:00 15:45:00 Monalisa 17 Yvonne Results Test Description Test Time Test Comments Results Result Comments Source POCT Glucose 2021-11-22 13:04:00 Test Item Value Reference Range Interpretation Comme nts POCT Glu (age>30days) (test code = 3342) 216 mg/dL 70-110 A Lab Interpretation (test code = 24579-9) Abnormal [facility] [id number] 13:04:00 Test Item Value Reference Range Interpretation Comments POCT Glu (age>30days) (test code = 216 mg/dL 70-110 A 3342) Lab Interpretation (test code = Abnormal 87069-8) [facility] GLUCOSE (AUTOMATED)2020-05-25 13:06:02 Test Item Value Reference Range Interpretation Comments POCT GLU (test code = 9033738642) 156 mg/dL 70-110 H Lab Interpretation (test code = Abnormal 52499-6) [facility] [id number] 12:52:00 Test Item Value Reference Range Interpretation Comments POCT Glu (age>30days) (test code = 157 mg/dL 70-110 A 3342) Lab Interpretation (test code = Abnormal 10860-4) [facility]ID [facility]2020-05-24 18:04:41 Test Item Value Reference Range Interpretation Comments SARS-CoV-2 Rapid ID NOW Not Detected Not Detected (test code = 47174-1) CHRISTI (test code = CHRISTI) ID NOW COVID-19 Assay is an isothermal nucleic acid amplification test intended for the qualitative detection of nucleic acid from SARS-CoV-2 viral RNA in nasopharyngeal (HEALTH EDUCATION TEACHER) specimens. It is used under Emergency Use [...] indicated. Lab Interpretation Normal (test code = 74024-0) [facility] [id number] 12:39:00 Test Item Value Reference Range Interpretation Comments POC-GLUCOSE METER 139 mg/dL 70-110 H TESTED AT [place] [address] [facility] (test code = [facility] 1538) [address] POCT-GLUCOSE [id number] 08:20:00 Test Item Value Reference Range Interpretation Comments POC-GLUCOSE METER 168 mg/dL 70-110 H TESTED AT [place] [address] ([facility] (test code = [facility] 1538) [address] BASIC METABOLIC [id number] 05:59:00 Test Item Value Reference Range Interpretation [...] NOT APPLICABLE FOR DIALYSIS PATIEN TS. PROTHROMBIN TIME/[id number] 05:50:00 Test Item Value Reference Range Interpretation Comments PROTIME (BEAKER) (test code = 13.8 seconds 11.7-14.7 759) INR (BEAKER) (test code = 370) 1.1 <=5.9 RECOMMENDED COUMADIN/WARFARIN INR THERAPY RANGESSTANDARD DOSE: 2.0 - 3.0 Includes: PROPHYLAXIS for venous thrombosis, systemic embolization; TREATMENT for venous thrombosis and/or pulmonary embolus.HIGH RISK: Target INR is 2.5-3.5 for patients with mechanical heart valves.CBC W/PLT COUNT & AUTO [id number] 05:32:00 Test Item Value Reference Range Interpretation [...] (BEAKER) (test code = 2801) U/S, RENAL, [id number] 23:57:00Reason for exam:->retention, rising creatinineFINAL REPORT U/S, [...] to void during the examination. Signed: Hay Minorort Verified Date/Time: 05/05/2018 23:57:18 Reading Location: [facility] C0[facility] Transitional Reading Room POCT-GLUCOSE METER 2018-05-05 22:19:00 Test Item Value Reference Range Interpretation Comments POC-GLUCOSE METER 186 mg/dL 70-110 H TESTED AT [facility] 6720 (BEAKER) (test code = TEMIT[place] Celeste [place] 1538) [address] POCT-GLUCOSE [id number] 18:59:00 Test Item Value Reference Range Interpretation Comments POC-GLUCOSE METER 223 mg/dL 70-110 H TESTED AT [facility] 6720 (BEAKER) (test code = [place] Cel[place] 1538) [address] BASIC METABOLIC [id number] 14:10:00 Test Item Value Reference Range Interpretation [...] NOT APPLICABLE FOR DIALYSIS PATIEN TS. POCT-GLUCOSE [id number] 08:27:00 Test Item Value Reference Range Interpretation Comments POC-GLUCOSE METER 156 mg/dL 70-110 H TESTED AT [facility] 6720 (BEAKER) (test code = TEM[place] Celeste [place] 1538) [address] BASIC METABOLIC [id number] 05:13:00 Test Item Value Reference Range Interpretation [...] PATIEN TS. CBC W/PLT COUNT & AUTO [id number] 05:03:00 Test Item Value Reference Range Interpretation [...] PERCENT (BEAKER) (test code = 2801) PROTHROMBIN TIME/[id number] 05:00:00 Test Item Value Reference Range Interpretation Comments PROTIME (BEAKER) (test code = 14.7 seconds 11.7-14.7 759) INR (BEAKER) (test code = 370) 1.1 <=5.9 RECOMMENDED COUMADIN/WARFARIN INR THERAPY RANGESSTANDARD DOSE: 2.0 - 3.0 Includes: PROPHYLAXIS for venous thrombosis, systemic embolization; TREATMENT for venous thrombosis and/or pulmonary embolus.HIGH RISK: Target INR is 2.5-3.5 for patients with mechanical heart valves.POCT-GLUCOSE [id number] 20:56:00 Test Item Value Reference Range Interpretation Comments POC-GLUCOSE METER 301 mg/dL 70-110 H Notified R Pranav BURROUGHS/TESTED (GAMAL) (test code = AT [facility] 67[address] [place]AN 1538) [facility] 7703 0 POCT-GLUCOSE [id number] 17:41:00 Test Item Value Reference Range Interpretation Comments POC-GLUCOSE METER 288 mg/dL 70-110 H TESTED AT [facility] 6720 (GAMAL) (test code = TEMITOPE Celeste [facility] 1538) [address] POCT-GLUCOSE [id number] 14:20:00 Test Item Value Reference Range Interpretation Comments POC-GLUCOSE METER 237 mg/dL 70-110 H TESTED AT [facility] 6720 (BEAKER) (test code = TEMITOPE Celeste [place] 1538) [address] POCT-GLUCOSE [id number] 11:48:00 Test Item Value Reference Range Interpretation Comments POC-GLUCOSE METER 193 mg/dL 70-110 H TESTED AT [facility] 6720 (BEAKER) (test code = [place] Cel[place] 1538) [address] POCT-GLUCOSE [id number] 06:23:00 Test Item Value Reference Range Interpretation Comments POC-GLUCOSE METER 161 mg/dL 70-110 H TESTED AT [facility] 6720 (BEAKER) (test code = [place] Cel[place] 1538) [address] HEPATIC FUNCTION [id number] 05:35:00 Test Item Value Reference Range Interpretation [...] = 30 U/L 6-55 347) BASIC METABOLIC [id number] 05:35:00 Test Item Value Reference Range Interpretation [...] S NOT APPLICABLE FOR DIALYSIS PATIEN TS. PT/[id number] 05:13:00 Test Item Value Reference Range Interpretation [...] 2.5-3.5 for patients with mechanical heart valves.PROTHROMBIN TIME/[id number] 05:12:00 Test Item Value Reference Range Interpretation [...] mechanical heart valves.CBC W/PLT COUNT & AUTO [id number] 04:52:00 Test Item Value Reference Range Interpretation [...] PERCENT (BEAKER) (test code = 2801) POCT-GLUCOSE [id number] 22:02:00 Test Item Value Reference Range Interpretation Comments POC-GLUCOSE METER 204 mg/dL 70-110 H TESTED AT [facility] 6720 (BEAKER) (test code = TEMITOPE [place] 1538) [address] CBC W Auto Differential panel - [id number] 08:17:00 Test Item Value Reference Range Interpretation Comments white blood count (test code = 11.7 K/uL 4.0-12.3 white blood count) red blood count (test code = red 4.31 M/uL 3.80-5.80 blood count) Hemoglobin [Mass/volume] in Blood 13.8 g/dL 11.67-17.22 (test code = 718-7) hematocrit (test code = hematocrit) 40.5 % 35.0-51.0 Erythrocyte mean corpuscular volume 94.0 fL 78-96 [Entitic volume] (test code = 00617-4) Erythrocyte mean corpuscular 31.9 pg 26.8-33.4 hemoglobin [Entitic mass] (test code = 53925-5) mean corpuscular HGB conc (test 34.0 g/dL 32.3-36.7 code = mean corpuscular HGB conc) red cell distribution width (test 12.2 % 11.6-15.4 code = red cell distribution width) Platelets [#/volume] in Blood (test 149 K/uL 115-328 code = 19595-6) Platelet mean volume [Entitic 8.0 fL 8.4-11.8 L volume] in Blood (test code = 63518-2) Neutrophils [#/volume] in Blood by 76 37.0-80.0 Automated count (test code = 751-8) lymphocyte (test code = lymphocyte) 16 10-50 Monocytes [#/volume] in Blood by 2 0-12 Manual count (test code = 743-5) eosinophil (test code = eosinophil) 6 0-7 Platelets [#/volume] in Blood by normal normal Automated count (test code = 777-3) [facility] - Serum or [...] Serum or Plasma (test code = 6768-6) [facility]2018-07-23 18:54:00 Test Item Value Reference Range Interpretation Comments Blood Glucose, Capillary (test code = 83 74-106 Blood Glucose, Capillary) [id number] 18:54:00 Test Item Value Reference Range Interpretation Comments Blood Glucose, Capillary (test code = 83 74-106 Blood Glucose, Capillary) [id number] 18:54:00 Test Item Value Reference Range Interpretation Comments Blood Glucose, Capillary (test code = 83 74-106 Blood Glucose, Capillary) [id number] 18:54:00 Test Item Value Reference Range Interpretation Comments Blood Glucose, Capillary (test code = 83 74-106 Blood Glucose, Capillary) [facility]2017-11-14 09:25:00 Test Item Value Reference Range Interpretation Comments Creatinine Lvl (test code = Creatinine 1.45 0.50-1.40 Lvl) [facility]2017-11-14 09:25:00 Test Item Value Reference Range Interpretation Comments BUN (test code = BUN) 16 7-22 [place] 385267-11-14 09:25:00 Test Item Value Reference Range Interpretation Comments Glucose Lvl (test code = Glucose Lvl) 111 70-99 [facility]2017-11-14 09:25:00 Test Item Value Reference Range Interpretation Comments AGAP (test code = AGAP) 9.6 10.0-20.0 [place] 385267-11-14 09:25:00 Test Item Value Reference Range Interpretation Comments CO2 (test code = CO2) 28 24-32 [facility]2017-11-14 09:25:00 Test Item Value Reference Range Interpretation Comments eGFR (test code = eGFR) 47 [facility]2017-11-14 09:25:00 Test Item Value Reference Range Interpretation Comments Calcium Lvl (test code = Calcium Lvl) 8.7 8.5-10.5 [place] 385267-11-14 09:25:00 Test Item Value Reference Range Interpretation Comments Chloride Lvl (test code = Chloride Lvl) 106 95-109 [facility]2017-11-14 09:25:00 Test Item Value Reference Range Interpretation Comments Potassium Lvl (test code = Potassium 3.6 3.5-5.1 Lvl) [facility]2017-11-14 09:25:00 Test Item Value Reference Range Interpretation Comments Sodium Lvl (test code = Sodium Lvl) 140 135-145 [facility]2017-11-14 09:25:00 Test Item Value Reference Range Interpretation Comments Magnesium Lvl (test code = Magnesium 1.8 1.8-2.4 Lvl) [facility] CenterXcspfstRYOWAY6372-75-46 09:25:00 Test Item Value Reference Range Interpretation Comments CHD Risk (test code = CHD Risk) 3.15 4.00-7.30 [facility] CenterQammuqiRNEXPE3163-00-94 09:25:00 Test Item Value Reference Range Interpretation Comments VLDL (test code = VLDL) 41 [facility] CenterYadlkutSGXUQW3127-95-26 09:25:00 Test Item Value Reference Range Interpretation Comments LDL (Calculated) (test code = LDL 43 (Calculated)) [facility] FallsMommgsbNDHXMT6414-19-87 09:25:00 Test Item Value Reference Range Interpretation Comments HDL (test code = HDL) 39 [facility] FallsDtgcxrrTKSKYV1551-42-83 09:25:00 Test Item Value Reference Range Interpretation Comments Chol (test code = Chol) 123 [facility] CenterGaiiyspAZVNHY7661-70-81 09:25:00 Test Item Value Reference Range Interpretation Comments Trig (test code = Trig) 205 [facility]2017-11-14 09:25:00 Test Item Value Reference Range Interpretation Comments Creatinine Lvl (test code = Creatinine 1.45 0.50-1.40 Lvl) [facility]2017-11-14 09:25:00 Test Item Value Reference Range Interpretation Comments BUN (test code = BUN) 16 7-22 [facility]2017-11-14 09:25:00 Test Item Value Reference Range Interpretation Comments Glucose Lvl (test code = Glucose Lvl) 111 70-99 [facility]2017-11-14 09:25:00 Test Item Value Reference Range Interpretation Comments AGAP (test code = AGAP) 9.6 10.0-20.0 [facility]2017-11-14 09:25:00 Test Item Value Reference Range Interpretation Comments CO2 (test code = CO2) 28 24-32 [facility]2017-11-14 09:25:00 Test Item Value Reference Range Interpretation Comments eGFR (test code = eGFR) 47 [facility]2017-11-14 09:25:00 Test Item Value Reference Range Interpretation Comments Calcium Lvl (test code = Calcium Lvl) 8.7 8.5-10.5 [facility]2017-11-14 09:25:00 Test Item Value Reference Range Interpretation Comments Chloride Lvl (test code = Chloride Lvl) 106 95-109 [facility]2017-11-14 09:25:00 Test Item Value Reference Range Interpretation Comments Potassium Lvl (test code = Potassium 3.6 3.5-5.1 Lvl) [facility]2017-11-14 09:25:00 Test Item Value Reference Range Interpretation Comments Sodium Lvl (test code = Sodium Lvl) 140 135-145 [facility]2017-11-14 09:25:00 Test Item Value Reference Range Interpretation Comments Magnesium Lvl (test code = Magnesium 1.8 1.8-2.4 Lvl) [facility] CenterPmmydzqCVAOGD6307-35-66 09:25:00 Test Item Value Reference Range Interpretation Comments CHD Risk (test code = CHD Risk) 3.15 4.00-7.30 [place] [address]-11-14 09:25:00 Test Item Value Reference Range Interpretation Comments VLDL (test code = VLDL) [address]11-14 09:25:00 Test Item Value Reference Range Interpretation Comments LDL (Calculated) (test code = LDL 43 (Calculated)) [place] [address]-11-14 09:25:00 Test Item Value Reference Range Interpretation Comments HDL (test code = HDL) 39 [place] [address]-11-14 09:25:00 Test Item Value Reference Range Interpretation Comments Chol (test code = Chol) 123 [place] [address]-11-14 09:25:00 Test Item Value Reference Range Interpretation Comments Trig (test code = Trig) 205 [facility]2017-11-14 09:25:00 Test Item Value Reference Range Interpretation Comments Creatinine Lvl (test code = Creatinine 1.45 0.50-1.40 Lvl) [facility]2017-11-14 09:25:00 Test Item Value Reference Range Interpretation Comments BUN (test code = BUN) 16 7-22 [facility]2017-11-14 09:25:00 Test Item Value Reference Range Interpretation Comments Glucose Lvl (test code = Glucose Lvl) 111 70-99 [facility]2017-11-14 09:25:00 Test Item Value Reference Range Interpretation Comments AGAP (test code = AGAP) 9.6 10.0-20.0 [facility]2017-11-14 09:25:00 Test Item Value Reference Range Interpretation Comments CO2 (test code = CO2) 28 24-32 [place] 385267-11-14 09:25:00 Test Item Value Reference Range Interpretation Comments eGFR (test code = eGFR) 47 [facility]2017-11-14 09:25:00 Test Item Value Reference Range Interpretation Comments Calcium Lvl (test code = Calcium Lvl) 8.7 8.5-10.5 [facility]2017-11-14 09:25:00 Test Item Value Reference Range Interpretation Comments Chloride Lvl (test code = Chloride Lvl) 106 95-109 [facility]2017-11-14 09:25:00 Test Item Value Reference Range Interpretation Comments Potassium Lvl (test code = Potassium 3.6 3.5-5.1 Lvl) [facility]2017-11-14 09:25:00 Test Item Value Reference Range Interpretation Comments Sodium Lvl (test code = Sodium Lvl) 140 135-145 [facility]2017-11-14 09:25:00 Test Item Value Reference Range Interpretation Comments Magnesium Lvl (test code = Magnesium 1.8 1.8-2.4 Lvl) [facility] CenterYibzltmJPSCQP5489-66-01 09:25:00 Test Item Value Reference Range Interpretation Comments CHD Risk (test code = CHD Risk) 3.15 4.00-7.30 [place] 771267-11-14 09:25:00 Test Item Value Reference Range Interpretation Comments VLDL (test code = VLDL) 41 [place] [address]-11-14 09:25:00 Test Item Value Reference Range Interpretation Comments LDL (Calculated) (test code = LDL 43 (Calculated)) [place] [address]-11-14 09:25:00 Test Item Value Reference Range Interpretation Comments HDL (test code = HDL) 39 [place] [address]-11-14 09:25:00 Test Item Value Reference Range Interpretation Comments Chol (test code = Chol) 123 [facility] CenterWwhgcsxLDZYGY1109-84-51 09:25:00 Test Item Value Reference Range Interpretation Comments Trig (test code = Trig) 205 [facility]2017-11-14 09:25:00 Test Item Value Reference Range Interpretation Comments Creatinine Lvl (test code = Creatinine 1.45 0.50-1.40 Lvl) [facility]2017-11-14 09:25:00 Test Item Value Reference Range Interpretation Comments BUN (test code = BUN) 16 7-22 [facility]2017-11-14 09:25:00 Test Item Value Reference Range Interpretation Comments Glucose Lvl (test code = Glucose Lvl) 111 70-99 [facility]2017-11-14 09:25:00 Test Item Value Reference Range Interpretation Comments AGAP (test code = AGAP) 9.6 10.0-20.0 [facility]2017-11-14 09:25:00 Test Item Value Reference Range Interpretation Comments CO2 (test code = CO2) 28 24-32 [facility]2017-11-14 09:25:00 Test Item Value Reference Range Interpretation Comments eGFR (test code = eGFR) 47 [facility]2017-11-14 09:25:00 Test Item Value Reference Range Interpretation Comments Calcium Lvl (test code = Calcium Lvl) 8.7 8.5-10.5 [facility]2017-11-14 09:25:00 Test Item Value Reference Range Interpretation Comments Chloride Lvl (test code = Chloride Lvl) 106 95-109 [facility]2017-11-14 09:25:00 Test Item Value Reference Range Interpretation Comments Potassium Lvl (test code = Potassium 3.6 3.5-5.1 Lvl) [facility]2017-11-14 09:25:00 Test Item Value Reference Range Interpretation Comments Sodium Lvl (test code = Sodium Lvl) 140 135-145 [facility]2017-11-14 09:25:00 Test Item Value Reference Range Interpretation Comments Magnesium Lvl (test code = Magnesium 1.8 1.8-2.4 Lvl) [facility] CenterElkwpwnPWXEMP1530-53-95 09:25:00 Test Item Value Reference Range Interpretation Comments CHD Risk (test code = CHD Risk) 3.15 4.00-7.30 [facility] FallsDnmmnoqMTSHXS2823-45-72 09:25:00 Test Item Value Reference Range Interpretation Comments VLDL (test code = VLDL) 41 [place] [address]-11-14 09:25:00 Test Item Value Reference Range Interpretation Comments LDL (Calculated) (test code = LDL 43 (Calculated)) [place] 771267-11-14 09:25:00 Test Item Value Reference Range Interpretation Comments HDL (test code = HDL) 39 [facility] CenterKuspcgaFVNAIL9819-25-83 09:25:00 Test Item Value Reference Range Interpretation Comments Chol (test code = Chol) 123 [facility] CenterWvvdbnnZSAFDE3798-01-68 09:25:00 Test Item Value Reference Range Interpretation Comments Trig (test code = Trig) 205 [facility] AND [id number] 23:42:00 Test Item Value Reference Range Interpretation Comments UA RBC (test code = 0-2 /HPF See_Comment [Automa bettye message] The UA RBC) system which ge nerated this result tra nsmitted reference range : <=2. The reference range was not used to interpr et this result as cory l/abnormal. [facility] AND [id number] 23:42:00 Test Item Value Reference Range Interpretation Comments UA Bacteria (test code = None Seen (01/21/17 UA Bacteria) 5:42 PM) [facility] [id number] 23:42:00 Test Item Value Reference Range Interpretation Comments UA Sq Epi (test code = UA Sq Occasional /LPF Epi) [facility] [id number] 23:42:00 Test Item Value Reference Range Interpretation Comments UA WBC (test code = UA WBC) 0-2 /HPF [facility] [id number] 23:42:00 Test Item Value Reference Range Interpretation Comments Micro? (test code = Performed (01/21/17 5:42 Micro?) PM) [facility] [id number] 23:42:00 Test Item Value Reference Range Interpretation Comments UA Nitrite (test code Negative (01/21/17 5:42 = UA Nitrite) PM) [facility] [id number] 23:42:00 Test Item Value Reference Range Interpretation Comments UA Leuk Est (test Negative (01/21/17 5:42 code = UA Leuk Est) PM) [facility] AND [id number] 23:42:00 Test Item Value Reference Range Interpretation Comments UA Protein (test code = UA Protein) 100 mg/dL [facility] [id number] 23:42:00 Test Item Value Reference Range Interpretation Comments UA Glucose (test code = UA Glucose) 500 mg/dL [facility] [id number] 23:42:00 Test Item Value Reference Range Interpretation Comments UA Spec Grav (test code = UA Spec 1.025 1 Grav) [facility] AND [id number] 23:42:00 Test Item Value Reference Range Interpretation Comments UA pH (test code = UA pH) 5.5 1 5.0-8.0 [facility] [id number] 23:42:00 Test Item Value Reference Range Interpretation Comments UA Blood (test code = Negative (01/21/17 5:42 UA Blood) PM) [facility] AND [id number] 23:42:00 Test Item Value Reference Range Interpretation Comments UA Urobilinogen (test code = UA 0.2 0.1-1.0 Urobilinogen) [facility] [id number] 23:42:00 Test Item Value Reference Range Interpretation Comments UA Ketones (test code Negative *NA*(01/21/17 = UA Ketones) 5:42 PM) [facility] [id number] 23:42:00 Test Item Value Reference Range Interpretation Comments UA Bili (test code = Negative *NA*(01/21/17 UA Bili) 5:42 PM) [facility] [id number] 23:42:00 Test Item Value Reference Range Interpretation Comments UA Turbidity (test code = Clear (01/21/17 5:42 UA Turbidity) PM) [facility] AND [id number] 23:42:00 Test Item Value Reference Range Interpretation Comments UA Color (test code = Yellow *NA*(01/21/17 UA Color) 5:42 PM) [facility]2017-11-13 23:42:00 Test Item Value Reference Range Interpretation Comments U Creatinine (test code = U 154.00 Creatinine) [facility]2017-11-13 23:42:00 Test Item Value Reference Range Interpretation Comments U Protein (test code = U Protein) 156.0 [facility]2017-11-13 23:42:00 Test Item Value Reference Range Interpretation Comments U Prot/Creat (test code = U Prot/Creat) 1.0 [facility] [id number] 23:42:00 Test Item Value Reference Range Interpretation Comments U Osmolality (test code = U Osmolality) 590 300-800 [facility]2017-11-13 23:42:00 Test Item Value Reference Range Interpretation Comments U Chloride (test code = U Chloride) 148 [facility]2017-11-13 23:42:00 Test Item Value Reference Range Interpretation Comments U Potassium (test code = U Potassium) 42.4 [facility] [id number] 23:42:00 Test Item Value Reference Range Interpretation Comments U Sodium (test code = U Sodium) 114 [facility] [id number] 23:42:00 Test Item Value Reference Range Interpretation Comments U Creatinine (test code = U 154.00 Creatinine) [facility] [id number] 23:42:00 Test Item Value Reference Range Interpretation Comments UA RBC (test code = 0-2 /HPF See_Comment [Automa bettye message] The UA RBC) system which ge nerated this result tra nsmitted reference range : <=2. The reference range was not used to interpr et this result as cory l/abnormal. [facility] [id number] 23:42:00 Test Item Value Reference Range Interpretation Comments UA Bacteria (test code = None Seen (01/21/17 UA Bacteria) 5:42 PM) [facility] AND [id number] 23:42:00 Test Item Value Reference Range Interpretation Comments UA Sq Epi (test code = UA Sq Occasional /LPF Epi) [facility] AND [id number] 23:42:00 Test Item Value Reference Range Interpretation Comments UA WBC (test code = UA WBC) 0-2 /HPF [facility] AND [id number] 23:42:00 Test Item Value Reference Range Interpretation Comments Micro? (test code = Performed (01/21/17 5:42 Micro?) PM) [facility] [id number] 23:42:00 Test Item Value Reference Range Interpretation Comments UA Nitrite (test code Negative (01/21/17 5:42 = UA Nitrite) PM) [facility] AND [id number] 23:42:00 Test Item Value Reference Range Interpretation Comments UA Leuk Est (test Negative (01/21/17 5:42 code = UA Leuk Est) PM) [facility] [id number] 23:42:00 Test Item Value Reference Range Interpretation Comments UA Protein (test code = UA Protein) 100 mg/dL [facility] AND [id number] 23:42:00 Test Item Value Reference Range Interpretation Comments UA Glucose (test code = UA Glucose) 500 mg/dL [facility] [id number] 23:42:00 Test Item Value Reference Range Interpretation Comments UA Spec Grav (test code = UA Spec 1.025 1 Grav) [facility] [id number] 23:42:00 Test Item Value Reference Range Interpretation Comments UA pH (test code = UA pH) 5.5 1 5.0-8.0 [facility] AND [id number] 23:42:00 Test Item Value Reference Range Interpretation Comments UA Blood (test code = Negative (01/21/17 5:42 UA Blood) PM) [facility] [id number] 23:42:00 Test Item Value Reference Range Interpretation Comments UA Urobilinogen (test code = UA 0.2 0.1-1.0 Urobilinogen) [facility] [id number] 23:42:00 Test Item Value Reference Range Interpretation Comments UA Ketones (test code Negative *NA*(01/21/17 = UA Ketones) 5:42 PM) [facility] [id number] 23:42:00 Test Item Value Reference Range Interpretation Comments UA Bili (test code = Negative *NA*(01/21/17 UA Bili) 5:42 PM) [facility] [id number] 23:42:00 Test Item Value Reference Range Interpretation Comments UA Turbidity (test code = Clear (01/21/17 5:42 UA Turbidity) PM) [facility] AND [id number] 23:42:00 Test Item Value Reference Range Interpretation Comments UA Color (test code = Yellow *NA*(01/21/17 UA Color) 5:42 PM) [facility]2017-11-13 23:42:00 Test Item Value Reference Range Interpretation Comments U Creatinine (test code = U 154.00 Creatinine) [facility]2017-11-13 23:42:00 Test Item Value Reference Range Interpretation Comments U Protein (test code = U Protein) 156.0 [facility]2017-11-13 23:42:00 Test Item Value Reference Range Interpretation Comments U Prot/Creat (test code = U Prot/Creat) 1.0 [facility]2017-11-13 23:42:00 Test Item Value Reference Range Interpretation Comments U Osmolality (test code = U Osmolality) 590 300-800 [facility]2017-11-13 23:42:00 Test Item Value Reference Range Interpretation Comments U Chloride (test code = U Chloride) 148 [facility]2017-11-13 23:42:00 Test Item Value Reference Range Interpretation Comments U Potassium (test code = U Potassium) 42.4 [facility]2017-11-13 23:42:00 Test Item Value Reference Range Interpretation Comments U Sodium (test code = U Sodium) 114 [facility]2017-11-13 23:42:00 Test Item Value Reference Range Interpretation Comments U Creatinine (test code = U 154.00 Creatinine) [facility] [id number] 23:42:00 Test Item Value Reference Range Interpretation Comments UA RBC (test code = 0-2 /HPF See_Comment [Automa bettye message] The UA RBC) system which ge nerated this result tra nsmitted reference range : <=2. The reference range was not used to interpr et this result as cory l/abnormal. [facility] [id number] 23:42:00 Test Item Value Reference Range Interpretation Comments UA Bacteria (test code = None Seen (01/21/17 UA Bacteria) 5:42 PM) [facility] [id number] 23:42:00 Test Item Value Reference Range Interpretation Comments UA Sq Epi (test code = UA Sq Occasional /LPF Epi) [facility] [id number] 23:42:00 Test Item Value Reference Range Interpretation Comments UA WBC (test code = UA WBC) 0-2 /HPF [facility] [id number] 23:42:00 Test Item Value Reference Range Interpretation Comments Micro? (test code = Performed (01/21/17 5:42 Micro?) PM) [facility] [id number] 23:42:00 Test Item Value Reference Range Interpretation Comments UA Nitrite (test code Negative (01/21/17 5:42 = UA Nitrite) PM) [facility] AND [id number] 23:42:00 Test Item Value Reference Range Interpretation Comments UA Leuk Est (test Negative (01/21/17 5:42 code = UA Leuk Est) PM) [facility] [id number] 23:42:00 Test Item Value Reference Range Interpretation Comments UA Protein (test code = UA Protein) 100 mg/dL [facility] [id number] 23:42:00 Test Item Value Reference Range Interpretation Comments UA Glucose (test code = UA Glucose) 500 mg/dL [facility] [id number] 23:42:00 Test Item Value Reference Range Interpretation Comments UA Spec Grav (test code = UA Spec 1.025 1 Grav) [facility] [id number] 23:42:00 Test Item Value Reference Range Interpretation Comments UA pH (test code = UA pH) 5.5 1 5.0-8.0 [facility] [id number] 23:42:00 Test Item Value Reference Range Interpretation Comments UA Blood (test code = Negative (01/21/17 5:42 UA Blood) PM) [facility] [id number] 23:42:00 Test Item Value Reference Range Interpretation Comments UA Urobilinogen (test code = UA 0.2 0.1-1.0 Urobilinogen) [facility] AND [id number] 23:42:00 Test Item Value Reference Range Interpretation Comments UA Ketones (test code Negative *NA*(01/21/17 = UA Ketones) 5:42 PM) [facility] [id number] 23:42:00 Test Item Value Reference Range Interpretation Comments UA Bili (test code = Negative *NA*(01/21/17 UA Bili) 5:42 PM) [facility] [id number] 23:42:00 Test Item Value Reference Range Interpretation Comments UA Turbidity (test code = Clear (01/21/17 5:42 UA Turbidity) PM) [facility] [id number] 23:42:00 Test Item Value Reference Range Interpretation Comments UA Color (test code = Yellow *NA*(01/21/17 UA Color) 5:42 PM) [facility] [id number] 23:42:00 Test Item Value Reference Range Interpretation Comments U Creatinine (test code = U 154.00 Creatinine) [facility] [id number] 23:42:00 Test Item Value Reference Range Interpretation Comments U Protein (test code = U Protein) 156.0 [facility]2017-11-13 23:42:00 Test Item Value Reference Range Interpretation Comments U Prot/Creat (test code = U Prot/Creat) 1.0 [facility] [id number] 23:42:00 Test Item Value Reference Range Interpretation Comments U Osmolality (test code = U Osmolality) 590 300-800 [facility]2017-11-13 23:42:00 Test Item Value Reference Range Interpretation Comments U Chloride (test code = U Chloride) 148 [facility] [id number] 23:42:00 Test Item Value Reference Range Interpretation Comments U Potassium (test code = U Potassium) 42.4 [facility]2017-11-13 23:42:00 Test Item Value Reference Range Interpretation Comments U Sodium (test code = U Sodium) 114 [facility]2017-11-13 23:42:00 Test Item Value Reference Range Interpretation Comments U Creatinine (test code = U 154.00 Creatinine) [facility] [id number] 23:42:00 Test Item Value Reference Range Interpretation Comments UA RBC (test code = 0-2 /HPF See_Comment [Automa bettye message] The UA RBC) system which ge nerated this result tra nsmitted reference range : <=2. The reference range was not used to interpr et this result as cory l/abnormal. [facility] AND [id number] 23:42:00 Test Item Value Reference Range Interpretation Comments UA Bacteria (test code = None Seen (01/21/17 UA Bacteria) 5:42 PM) [facility] AND [id number] 23:42:00 Test Item Value Reference Range Interpretation Comments UA Sq Epi (test code = UA Sq Occasional /LPF Epi) [facility] [id number] 23:42:00 Test Item Value Reference Range Interpretation Comments UA WBC (test code = UA WBC) 0-2 /HPF [facility] AND [id number] 23:42:00 Test Item Value Reference Range Interpretation Comments Micro? (test code = Performed (01/21/17 5:42 Micro?) PM) [facility] [id number] 23:42:00 Test Item Value Reference Range Interpretation Comments UA Nitrite (test code Negative (01/21/17 5:42 = UA Nitrite) PM) [facility] AND [id number] 23:42:00 Test Item Value Reference Range Interpretation Comments UA Leuk Est (test Negative (01/21/17 5:42 code = UA Leuk Est) PM) [facility] AND [id number] 23:42:00 Test Item Value Reference Range Interpretation Comments UA Protein (test code = UA Protein) 100 mg/dL [facility] AND [id number] 23:42:00 Test Item Value Reference Range Interpretation Comments UA Glucose (test code = UA Glucose) 500 mg/dL [facility] AND [id number] 23:42:00 Test Item Value Reference Range Interpretation Comments UA Spec Grav (test code = UA Spec 1.025 1 Grav) [facility] AND [id number] 23:42:00 Test Item Value Reference Range Interpretation Comments UA pH (test code = UA pH) 5.5 1 5.0-8.0 [facility] AND [id number] 23:42:00 Test Item Value Reference Range Interpretation Comments UA Blood (test code = Negative (01/21/17 5:42 UA Blood) PM) [facility] AND [id number] 23:42:00 Test Item Value Reference Range Interpretation Comments UA Urobilinogen (test code = UA 0.2 0.1-1.0 Urobilinogen) [facility] AND [id number] 23:42:00 Test Item Value Reference Range Interpretation Comments UA Ketones (test code Negative *NA*(01/21/17 = UA Ketones) 5:42 PM) [facility] AND [id number] 23:42:00 Test Item Value Reference Range Interpretation Comments UA Bili (test code = Negative *NA*(01/21/17 UA Bili) 5:42 PM) [facility] AND [id number] 23:42:00 Test Item Value Reference Range Interpretation Comments UA Turbidity (test code = Clear (01/21/17 5:42 UA Turbidity) PM) [facility] AND [id number] 23:42:00 Test Item Value Reference Range Interpretation Comments UA Color (test code = Yellow *NA*(01/21/17 UA Color) 5:42 PM) [facility] [id number] 23:42:00 Test Item Value Reference Range Interpretation Comments U Creatinine (test code = U 154.00 Creatinine) [facility] [id number] 23:42:00 Test Item Value Reference Range Interpretation Comments U Protein (test code = U Protein) 156.0 [facility] [id number] 23:42:00 Test Item Value Reference Range Interpretation Comments U Prot/Creat (test code = U Prot/Creat) 1.0 [facility] [id number] 23:42:00 Test Item Value Reference Range Interpretation Comments U Osmolality (test code = U Osmolality) 590 300-800 [facility] [id number] 23:42:00 Test Item Value Reference Range Interpretation Comments U Chloride (test code = U Chloride) 148 [facility] [id number] 23:42:00 Test Item Value Reference Range Interpretation Comments U Potassium (test code = U Potassium) 42.4 [facility] [id number] 23:42:00 Test Item Value Reference Range Interpretation Comments U Sodium (test code = U Sodium) 114 [facility] [id number] 23:42:00 Test Item Value Reference Range Interpretation Comments U Creatinine (test code = U 154.00 Creatinine) [facility]2017-11-13 19:38:00 Test Item Value Reference Range Interpretation Comments Total CK (test code = Total CK) 173 12-191 [facility] CenterDelta [facility]2017-11-13 19:38:00 Test Item Value Reference Range Interpretation Comments Troponin-I (test code 0.36 See_Comment [Auto mated message] The = Troponin-I) system which g enerated this result transmit bettye reference range : <=0.40. The reference r naif was not used to interpr et this result as cory l/abnormal. [facility]2017-11-13 19:38:00 Test Item Value Reference Range Interpretation Comments CK-MB INDEX (test 2.7 See_Comment [Automate d message] The code = CK-MB INDEX) system w [facility] generated this result transmit bettye reference range : <=2.5. The reference range was not used to interpr et this result as cory l/abnormal. [facility] [employer] [id number] 19:38:00 Test Item Value Reference Range Interpretation Comments CK MB (test code = CK MB) 4.7 0.5-3.6 [facility] [employer]CARDIAC [id number] 19:38:00 Test Item Value Reference Range Interpretation Comments Total CK (test code = Total CK) 173 12-191 [facility] [employer] [id number] 19:38:00 Test Item Value Reference Range Interpretation Comments Troponin-I (test code 0.36 See_Comment [Auto mated message] The = Troponin-I) system which g enerated this result transmit bettye reference range : <=0.40. The reference r naif was not used to interpr et this result as cory l/abnormal. [facility] [employer]2017-11-13 19:38:00 Test Item Value Reference Range Interpretation Comments CK-MB INDEX (test 2.7 See_Comment [Automate d message] The code = CK-MB INDEX) system w [employer] generated this result transmit bettye reference range : <=2.5. The reference range was not used to interpr et this result as cory l/abnormal. [facility] [employer] [id number] 19:38:00 Test Item Value Reference Range Interpretation Comments CK MB (test code = CK MB) 4.7 0.5-3.6 [facility] CenterStudyAppsAC [id number] 19:38:00 Test Item Value Reference Range Interpretation Comments Total CK (test code = Total CK) 173 12-191 [facility] [employer] [id number] 19:38:00 Test Item Value Reference Range Interpretation Comments Troponin-I (test code 0.36 See_Comment [Auto mated message] The = Troponin-I) system which g enerated this result transmit bettye reference range : <=0.40. The reference r naif was not used to interpr et this result as cory l/abnormal. [facility] [employer] [id number] 19:38:00 Test Item Value Reference Range Interpretation Comments CK-MB INDEX (test 2.7 See_Comment [Automate d message] The code = CK-MB INDEX) system w vish[employer] generated this result transmit bettye reference range : <=2.5. The reference range was not used to interpr et this result as cory l/abnormal. [facility] [employer] [id number] 19:38:00 Test Item Value Reference Range Interpretation Comments CK MB (test code = CK MB) 4.7 0.5-3.6 [facility] OmarannCARTrustGoAC [id number] 19:38:00 Test Item Value Reference Range Interpretation Comments Total CK (test code = Total CK) 173 12191 [facility] [employer] [id number] 19:38:00 Test Item Value Reference Range Interpretation Comments Troponin-I (test code 0.36 See_Comment [Auto mated message] The = Troponin-I) system which g enerated this result transmit bettye reference range : <=0.40. The reference r naif was not used to interpr et this result as cory l/abnormal. [facility] [employer]2017-11-13 19:38:00 Test Item Value Reference Range Interpretation Comments CK-MB INDEX (test 2.7 See_Comment [Automate d message] The code = CK-MB INDEX) system w vishnu generated this result transmit bettye reference range : <=2.5. The reference range was not used to interpr et this result as cory l/abnormal. [facility] [employer]2017-11-13 19:38:00 Test Item Value Reference Range Interpretation Comments CK MB (test code = CK MB) 4.7 0.5-3.6 [facility] [employer] [id number] 15:33:00 Test Item Value Reference Range Interpretation Comments Total CK (test code = Total CK) 223 12-191 [facility] CenterSecond Decimal [id number] 15:33:00 Test Item Value Reference Range Interpretation Comments Troponin-I (test code 0.39 See_Comment [Auto mated message] The = Troponin-I) system which g enerated this result transmit bettye reference range : <=0.40. The reference r naif was not used to interpr et this result as cory l/abnormal. [facility] [employer] [id number] 15:33:00 Test Item Value Reference Range Interpretation Comments CK-MB INDEX (test 2.6 See_Comment [Automate d message] The code = CK-MB INDEX) system w [employer] generated this result transmit bettye reference range : <=2.5. The reference range was not used to interpr et this result as cory l/abnormal. [facility]ARD[facility] [id number] 15:33:00 Test Item Value Reference Range Interpretation Comments CK MB (test code = CK MB) 5.9 0.5-3.6 [facility]annSPECIAL [id number] 15:33:00 Test Item Value Reference Range Interpretation Comments Hgb A1C (test code = Hgb A1C) 7.3 [facility]annCARDIAC [id number] 15:33:00 Test Item Value Reference Range Interpretation Comments Total CK (test code = Total CK) 223 12-191 [facility] HermannCARDIAC [id number] 15:33:00 Test Item Value Reference Range Interpretation Comments Troponin-I (test code 0.39 See_Comment [Auto mated message] The = Troponin-I) system which g enerated this result transmit bettye reference range : <=0.40. The reference r naif was not used to interpr et this result as cory l/abnormal. [facility] [employer]CARDIAC [id number] 15:33:00 Test Item Value Reference Range Interpretation Comments CK-MB INDEX (test 2.6 See_Comment [Automate d message] The code = CK-MB INDEX) system w [employer] generated this result transmit bettye reference range : <=2.5. The reference range was not used to interpr et this result as cory l/abnormal. [facility] [employer]annCARDIAC [id number] 15:33:00 Test Item Value Reference Range Interpretation Comments CK MB (test code = CK MB) 5.9 0.5-3.6 [facility] BitePalannSPECIAL [id number] 15:33:00 Test Item Value Reference Range Interpretation Comments Hgb A1C (test code = Hgb A1C) 7.3 [facility]annCARDIAC [id number] 15:33:00 Test Item Value Reference Range Interpretation Comments Total CK (test code = Total CK) 223 12-191 [facility]annC[facility] [id number] 15:33:00 Test Item Value Reference Range Interpretation Comments Troponin-I (test code 0.39 See_Comment [Auto mated message] The = Troponin-I) system which g enerated this result transmit bettye reference range : <=0.40. The reference r naif was not used to interpr et this result as cory l/abnormal. [facility] [employer] [facility] [employer] ArtsannCARDIAC [id number] 15:33:00 Test Item Value Reference Range Interpretation Comments CK-MB INDEX (test 2.6 See_Comment [Automate d message] The code = CK-MB INDEX) system w [facility] generated this result transmit bettye reference range : <=2.5. The reference range was not used to interpr et this result as cory l/abnormal. [facility] [employer] SoftwareCARDIAC [id number] 15:33:00 Test Item Value Reference Range Interpretation Comments CK MB (test code = CK MB) 5.9 0.5-3.6 [facility] CenterannInflaRxIAL [id number] 15:33:00 Test Item Value Reference Range Interpretation Comments Hgb A1C (test code = Hgb A1C) 7.3 [facility] [employer] [id number] 15:33:00 Test Item Value Reference Range Interpretation Comments Total CK (test code = Total CK) 223 12-191 [facility] CenterSecond Decimal [id number] 15:33:00 Test Item Value Reference Range Interpretation Comments Troponin-I (test code 0.39 See_Comment [Auto mated message] The = Troponin-I) system which g enerated this result transmit bettye reference range : <=0.40. The reference r naif was not used to interpr et this result as cory l/abnormal. [facility] [employer]2017-11-13 15:33:00 Test Item Value Reference Range Interpretation Comments CK-MB INDEX (test 2.6 See_Comment [Automate d message] The code = CK-MB INDEX) system w [employer] generated this result transmit bettye reference range : <=2.5. The reference range was not used to interpr et this result as cory l/abnormal. [facility] [employer] [id number] 15:33:00 Test Item Value Reference Range Interpretation Comments CK MB (test code = CK MB) 5.9 0.5-3.6 [facility] BitePalannInflaRxIAL [id number] 15:33:00 Test Item Value Reference Range Interpretation Comments Hgb A1C (test code = Hgb A1C) 7.3 [facility] [id number] 11:07:00 Test Item Value Reference Range Interpretation Comments Total CK (test code = Total CK) 232 12-191 [facility]annCARD[facility] [id number] 11:07:00 Test Item Value Reference Range Interpretation Comments Troponin-I (test code 0.43 See_Comment [Auto mated message] The = Troponin-I) system which g enerated this result transmit bettye reference range : <=0.40. The reference r naif was not used to interpr et this result as cory l/abnormal. [facility] BitePalannCARTrustGoAC [id number] 11:07:00 Test Item Value Reference Range Interpretation Comments CK MB (test code = CK MB) 6.1 0.5-3.6 [facility]annCARTrustGoAC [id number] 11:07:00 Test Item Value Reference Range Interpretation Comments CK-MB INDEX (test 2.6 See_Comment [Automate d message] The code = CK-MB INDEX) system w [facility] generated this result transmit bettye reference range : <=2.5. The reference range was not used to interpr et this result as cory l/abnormal. [facility] BitePalannCHEM [id number] 11:07:00 Test Item Value Reference Range Interpretation Comments Phosphorus (test code = Phosphorus) 2.0 2.5-4.5 [facility] BitePalannCHEM [id number] 11:07:00 Test Item Value Reference Range Interpretation Comments Magnesium Lvl (test code = Magnesium 1.9 1.8-2.4 Lvl) [facility] [id number] 11:07:00 Test Item Value Reference Range Interpretation Comments AGAP (test code = AGAP) 11.8 10.0-20.0 [facility] XqmtaiwDBMAHYHTCMGJ8912-25-05 11:07:00 Test Item Value Reference Range Interpretation Comments eGFR (test code = eGFR) 43 [facility] LdjhpfdFHIWUFPXTDAY1704-52-48 11:07:00 Test Item Value Reference Range Interpretation Comments Calcium Lvl (test code = Calcium Lvl) 9.2 8.5-10.5 [facility] QmzpurfARVDLGLEMCSU2833-10-63 11:07:00 Test Item Value Reference Range Interpretation Comments BUN (test code = BUN) 15 7-22 [facility] HospitalRffyfjhPDAZELHWPBLA9898-82-56 11:07:00 Test Item Value Reference Range Interpretation Comments Glucose Lvl (test code = Glucose Lvl) 223 70-99 [facility] HospitalHcuknrpOUFHGISWIKTO6072-37-97 11:07:00 Test Item Value Reference Range Interpretation Comments Sodium Lvl (test code = Sodium Lvl) 137 135-145 [facility] HospitalRhrcvwyVFOUIWLJKALI4713-31-03 11:07:00 Test Item Value Reference Range Interpretation Comments Potassium Lvl (test code = Potassium 3.8 3.5-5.1 Lvl) [facility] HospitalHxuddytGMOQXXFEUHVX3851-86-14 11:07:00 Test Item Value Reference Range Interpretation Comments Chloride Lvl (test code = Chloride Lvl) 104 95-109 [facility] HospitalCovztycTVGZNHLCJTEF7417-17-07 11:07:00 Test Item Value Reference Range Interpretation Comments CO2 (test code = CO2) 25 24-32 [facility] HospitalYoycsnaXBDDNHNYAPPJ7701-06-26 11:07:00 Test Item Value Reference Range Interpretation Comments Creatinine Lvl (test code = Creatinine 1.55 0.50-1.40 Lvl) [facility] HospitalWquibycXZGDFKJLIL2531-00-49 11:07:00 Test Item Value Reference Range Interpretation Comments Platelet (test code = Platelet) 110 133-[address] [facility] HospitalZjnyrlxEMUOZQQDUK9719-77-35 11:07:00 Test Item Value Reference Range Interpretation Comments MPV (test code = MPV) 9.0 7.4-10.[address] [facility] HospitalSnbildcJDKDSRNAJL7416-77-95 11:07:00 Test Item Value Reference Range Interpretation Comments MCH (test code = MCH) 31.9 pg 27.0-31.[address] HospitalOzfsgvxMCBRSJFMKF3597-18-63 11:07:00 Test Item Value Reference Range Interpretation Comments Hgb (test code = Hgb) 16.2 14.0-18.[address] [facility] [facility] [facility] HospitalNuxaiizHRJXVWQZNA9332-51-82 11:07:00 Test Item Value Reference Range Interpretation Comments Hct (test code = Hct) 47.6 42.0-54.[address] [facility] HospitalLexkaihPDCTHINGGD6023-33-96 11:07:00 Test Item Value Reference Range Interpretation Comments MCV (test code = MCV) 93.9 80.0-94.[address] [facility] HospitalOpnfpttYJMLCDJOAR5384-35-82 11:07:00 Test Item Value Reference Range Interpretation Comments RDW (test code = RDW) 13.0 11.5-14.[address] [facility] HospitalDbonyjtEGHTIAVZFP7911-70-32 11:07:00 Test Item Value Reference Range Interpretation Comments MCHC (test code = MCHC) 34.0 32.0-36.[address] [facility] [facility] HospitalDfwawvzMOFGHTDNMV7321-41-39 11:07:00 Test Item Value Reference Range Interpretation Comments WBC X 10x3 (test code = WBC X 10x3) 8.5 3.7-10.[address] [facility] HospitalOsstpkwMPVOQGXRBZ5685-12-65 11:07:00 Test Item Value Reference Range Interpretation Comments RBC X 10x6 (test code = RBC X 10x6) 5.07 4.70-6.[address] [facility] [facility] HospitalYyljhwkSSEAWTCGJG1120-75-64 11:07:00 Test Item Value Reference Range Interpretation Comments Basophils (test code = 0.5 See_Comment [Aut omated message] The Basophils) system which ge nerated this result tra nsmitted reference range : <=1.0. The reference r naif was not used to int erpret this result as normal/abnormal . [facility] HospitalFqycnvlCFNCVANWQY5706-65-31 11:07:00 Test Item Value Reference Range Interpretation Comments Segs-Bands # (test code = Segs-Bands #) 6.6 1.5-8.[address] [facility] HospitalCcofpazJAJIGIJDHD0056-43-24 11:07:00 Test Item Value Reference Range Interpretation Comments Eosinophils (test code = 0.9 See_Comment [A utomated message] The Eosinophils) system which ge nerated this result tra nsmitted reference range : <=4.0. The reference r naif was not used to int erpret this result as normal/abnormal . [facility] HospitalAbrkzsvKHNPFNCLZQ5688-18-82 11:07:00 Test Item Value Reference Range Interpretation Comments Lymphocytes (test code = Lymphocytes) 14.9 20.0-40.[address] HospitalAxhuolaTBVOMOZMYW3876-63-48 11:07:00 Test Item Value Reference Range Interpretation Comments Monocytes (test code = Monocytes) 6.1 2.0-12.[address] [facility] HospitalCtfzuzxQKPOIVXSIQ0141-00-29 11:07:00 Test Item Value Reference Range Interpretation Comments Segs (test code = Segs) 77.6 45.0-75.[address] [facility] HospitalSeysogfRYRVPKGMYL1567-31-48 11:07:00 Test Item Value Reference Range Interpretation Comments Eosinophils # (test code 0.1 See_Comment [A utomated message] The = Eosinophils #) system whic h generated this result tra nsmitted reference range : <=0.5. The reference r naif was not used to int erpret this result as normal/abnormal . [facility] FallsMbuuncpCUWJLKKKJY1461-13-94 11:07:00 Test Item Value Reference Range Interpretation Comments Lymphocytes # (test code = Lymphocytes 1.3 1.0-5.5 #) [facility] FallsZmpbxetUFVKWXZYWK6651-41-00 11:07:00 Test Item Value Reference Range Interpretation Comments Monocytes # (test code 0.5 See_Comment [Aut omated message] The = Monocytes #) system which generated this result tra nsmitted reference range : <=0.8. The reference r naif was not used to int erpret this result as normal/abnormal . [facility] CenterSecond Decimal [id number] 11:07:00 Test Item Value Reference Range Interpretation Comments Total CK (test code = Total CK) 232 12-191 [facility] CenterDelta Systems Engineering2017-11-13 11:07:00 Test Item Value Reference Range Interpretation Comments Troponin-I (test code 0.43 See_Comment [Auto mated message] The = Troponin-I) system which g enerated this result transmit bettye reference range : <=0.40. The reference r naif was not used to interpr et this result as cory l/abnormal. [facility] CenterSecond Decimal [id number] 11:07:00 Test Item Value Reference Range Interpretation Comments CK MB (test code = CK MB) 6.1 0.5-3.6 [facility] CenterDelta [facility] Engineering2017-11-13 11:07:00 Test Item Value Reference Range Interpretation Comments CK-MB INDEX (test 2.6 See_Comment [Automate d message] The code = CK-MB INDEX) system w [facility] generated this result transmit bettye reference range : <=2.5. The reference range was not used to interpr et this result as cory l/abnormal. [facility] [employer] [id number] 11:07:00 Test Item Value Reference Range Interpretation Comments Phosphorus (test code = Phosphorus) 2.0 2.5-4.5 [facility]2017-11-13 11:07:00 Test Item Value Reference Range Interpretation Comments Magnesium Lvl (test code = Magnesium 1.9 1.8-2.4 Lvl) [facility] HospitalCfubpmeLNCBENASOIJJ6534-62-73 11:07:00 Test Item Value Reference Range Interpretation Comments AGAP (test code = AGAP) 11.8 10.0-20.0 [facility] HospitalPmlphssNKJNZELYBPPH1849-64-60 11:07:00 Test Item Value Reference Range Interpretation Comments eGFR (test code = eGFR) 43 [facility] HospitalIthdsoyQWVKTBTHRJWK5206-35-72 11:07:00 Test Item Value Reference Range Interpretation Comments Calcium Lvl (test code = Calcium Lvl) 9.2 8.5-10.5 [facility] HospitalOatcaedUXAFQOLAMOVR2760-39-41 11:07:00 Test Item Value Reference Range Interpretation Comments BUN (test code = BUN) 15 7-22 [facility] HospitalQspudfwHXTHZVDKIOFE2229-72-51 11:07:00 Test Item Value Reference Range Interpretation Comments Glucose Lvl (test code = Glucose Lvl) 223 70-99 [facility] HospitalLwiqqrgVSOMOLIDJCMY7731-09-20 11:07:00 Test Item Value Reference Range Interpretation Comments Sodium Lvl (test code = Sodium Lvl) 137 135-145 [facility] HospitalMjtyyjzSSHFHHJXESYR8213-20-18 11:07:00 Test Item Value Reference Range Interpretation Comments Potassium Lvl (test code = Potassium 3.8 3.5-5.1 Lvl) [facility] HospitalUubooqoRNSRFYBCABKD9302-34-80 11:07:00 Test Item Value Reference Range Interpretation Comments Chloride Lvl (test code = Chloride Lvl) 104 95-109 [facility] HospitalSfajwiiJOQRGMHYECXK3213-65-57 11:07:00 Test Item Value Reference Range Interpretation Comments CO2 (test code = CO2) 25 24-32 [facility] HospitalJdqhsvvHUQRRSLWGGOR2310-73-43 11:07:00 Test Item Value Reference Range Interpretation Comments Creatinine Lvl (test code = Creatinine 1.55 0.50-1.40 Lvl) [facility] HospitalNglydmqNTFNTLCOOH3090-83-50 11:07:00 Test Item Value Reference Range Interpretation Comments Platelet (test code = Platelet) 110 133-[address] [facility] HospitalOkotnxgWXSAOSJGFH4427-47-97 11:07:00 Test Item Value Reference Range Interpretation Comments MPV (test code = MPV) 9.0 7.4-10.[address] [facility] HospitalYywaqlvAOBUTMOMBV7760-51-22 11:07:00 Test Item Value Reference Range Interpretation Comments MCH (test code = MCH) 31.9 pg 27.0-31.[address] [facility] HospitalYmpliseRYNIEVBBBL7059-77-69 11:07:00 Test Item Value Reference Range Interpretation Comments Hgb (test code = Hgb) 16.2 14.0-18.[address] [facility] HospitalZmxsxxiPATCKZSNXW0565-96-08 11:07:00 Test Item Value Reference Range Interpretation Comments Hct (test code = Hct) 47.6 42.0-54.[address] [facility] [facility] HospitalGfoaconEJBKHSCDPW0336-78-06 11:07:00 Test Item Value Reference Range Interpretation Comments MCV (test code = MCV) 93.9 80.0-94.[address] [facility] HospitalGjyxtynVYXRPJHDWP9908-48-49 11:07:00 Test Item Value Reference Range Interpretation Comments RDW (test code = RDW) 13.0 11.5-14.[address] [facility] HospitalKinbqkqGSXVGMJTUW8033-70-08 11:07:00 Test Item Value Reference Range Interpretation Comments MCHC (test code = MCHC) 34.0 32.0-36.[address] [facility] [facility] HospitalTwmfvagIKEELCFOZC8500-96-63 11:07:00 Test Item Value Reference Range Interpretation Comments WBC X 10x3 (test code = WBC X 10x3) 8.5 3.7-10.[address] [facility] HospitalXmonzbiUNIPVAGZBV8479-98-66 11:07:00 Test Item Value Reference Range Interpretation Comments RBC X 10x6 (test code = RBC X 10x6) 5.07 4.70-6.[address] [facility] HospitalQvzfanzGPFIDBEUOC0913-99-05 11:07:00 Test Item Value Reference Range Interpretation Comments Basophils (test code = 0.5 See_Comment [Aut omated message] The Basophils) system which ge nerated this result tra nsmitted reference range : <=1.0. The reference r naif was not used to int erpret this result as normal/abnormal . [facility] HospitalLzhnxaeZTMOUEVGPV5425-58-58 11:07:00 Test Item Value Reference Range Interpretation Comments Segs-Bands # (test code = Segs-Bands #) 6.6 1.5-8.[address] [facility] HospitalKducgpmOKSZSHVRUN3645-84-37 11:07:00 Test Item Value Reference Range Interpretation Comments Eosinophils (test code = 0.9 See_Comment [A utomated message] The Eosinophils) system which ge nerated this result tra nsmitted reference range : <=4.0. The reference r naif was not used to int erpret this result as normal/abnormal . [facility] HospitalPapargwTDCFYPALHZ6777-68-56 11:07:00 Test Item Value Reference Range Interpretation Comments Lymphocytes (test code = Lymphocytes) 14.9 20.0-40.[address] [facility] HospitalBbtivqaRHOQEEOMDD3452-21-96 11:07:00 Test Item Value Reference Range Interpretation Comments Monocytes (test code = Monocytes) 6.1 2.0-12.[address] [facility] HospitalPcciogmECQRXPWSCD3232-16-99 11:07:00 Test Item Value Reference Range Interpretation Comments Segs (test code = Segs) 77.6 45.0-75.[address] [facility] HospitalEilheakNYATBLWJKQ9387-89-89 11:07:00 Test Item Value Reference Range Interpretation Comments Eosinophils # (test code 0.1 See_Comment [A utomated message] The = Eosinophils #) system whic h generated this result tra nsmitted reference range : <=0.5. The reference r naif was not used to int erpret this result as normal/abnormal . [facility] HospitalGehjsxsLOMHXHTISO6353-51-96 11:07:00 Test Item Value Reference Range Interpretation Comments Lymphocytes # (test code = Lymphocytes 1.3 1.0-5.5 #) [facility] HospitalUsjwuwyDLZQRUCIPZ4537-82-16 11:07:00 Test Item Value Reference Range Interpretation Comments Monocytes # (test code 0.5 See_Comment [Aut omated message] The = Monocytes #) system which generated this result tra nsmitted reference range : <=0.8. The reference r naif was not used to int erpret this result as normal/abnormal . [facility] OBJYPEU4216-01-05 11:07:00 Test Item Value Reference Range Interpretation Comments Total CK (test code = Total CK) 232 12-191 [facility] ZGUZBTE8567-17-11 11:07:00 Test Item Value Reference Range Interpretation Comments Troponin-I (test code 0.43 See_Comment [Auto mated message] The = Troponin-I) system which g enerated this result transmit bettye reference range : <=0.40. The reference r naif was not used to interpr et this result as cory l/abnormal. [facility]annCARDIAC BSUPQOU4886-82-61 11:07:00 Test Item Value Reference Range Interpretation Comments CK MB (test code = CK MB) 6.1 0.5-3.6 [facility] FallsCARDIAC DDHEVWU2851-42-48 11:07:00 Test Item Value Reference Range Interpretation Comments CK-MB INDEX (test 2.6 See_Comment [Automate d message] The code = CK-MB INDEX) system w [facility] generated this result transmit bettye reference range : <=2.5. The reference range was not used to interpr et this result as cory l/abnormal. [facility] CenterInversiones.comCHEM [id number] 11:07:00 Test Item Value Reference Range Interpretation Comments Phosphorus (test code = Phosphorus) 2.0 2.5-4.5 [facility] CenterInversiones.comCHEM [id number] 11:07:00 Test Item Value Reference Range Interpretation Comments Magnesium Lvl (test code = Magnesium 1.9 1.8-2.4 Lvl) [facility] CenterVtzfqncMMZCPPWQXTPC9972-07-20 11:07:00 Test Item Value Reference Range Interpretation Comments AGAP (test code = AGAP) 11.8 10.0-20.0 [facility] CenterSriffgjTAIWHRCPVTAM9388-48-32 11:07:00 Test Item Value Reference Range Interpretation Comments eGFR (test code = eGFR) 43 [facility]CkzbubjJFNZGJOFSDND4854-35-80 11:07:00 Test Item Value Reference Range Interpretation Comments Calcium Lvl (test code = Calcium Lvl) 9.2 8.5-10.5 [facility] CenterMrexqtkQBKOFNVUQENH4059-42-18 11:07:00 Test Item Value Reference Range Interpretation Comments BUN (test code = BUN) 15 7-22 [facility] CenterAnszceaOKKRSIGSOAGF0449-78-81 11:07:00 Test Item Value Reference Range Interpretation Comments Glucose Lvl (test code = Glucose Lvl) 223 70-99 [facility]QwxrzrhDGKGQKDWDVOB5305-82-52 11:07:00 Test Item Value Reference Range Interpretation Comments Sodium Lvl (test code = Sodium Lvl) 137 135-145 [facility] HospitalOniwzgrEDRDKMHDONGA2102-98-08 11:07:00 Test Item Value Reference Range Interpretation Comments Potassium Lvl (test code = Potassium 3.8 3.5-5.1 Lvl) [facility]KaulfbpMVOBVGEDSKNN2151-74-79 11:07:00 Test Item Value Reference Range Interpretation Comments Chloride Lvl (test code = Chloride Lvl) 104 95-109 [facility] HospitalFtruxfsAWLAKBRPELDD6732-50-09 11:07:00 Test Item Value Reference Range Interpretation Comments CO2 (test code = CO2) 25 24-32 [facility] HospitalHnlfmwkVVPKZTKYLOMJ5838-16-61 11:07:00 Test Item Value Reference Range Interpretation Comments Creatinine Lvl (test code = Creatinine 1.55 0.50-1.40 Lvl) [facility] HospitalPdigthhUVSLEPLBHY7611-87-23 11:07:00 Test Item Value Reference Range Interpretation Comments Platelet (test code = Platelet) 110 133-[address] [facility] HospitalFyjuoimTRQSMROLJD3593-55-93 11:07:00 Test Item Value Reference Range Interpretation Comments MPV (test code = MPV) 9.0 7.4-10.[address] HospitalIyqawthZTBNYTVMKG7733-98-50 11:07:00 Test Item Value Reference Range Interpretation Comments MCH (test code = MCH) 31.9 pg 27.0-31.[address] HospitalVxcvnzkICWPFRLCHJ0494-73-39 11:07:00 Test Item Value Reference Range Interpretation Comments Hgb (test code = Hgb) 16.2 14.0-18.[address] [facility] HospitalCgspsgpBDQMCYMGSD9349-15-75 11:07:00 Test Item Value Reference Range Interpretation Comments Hct (test code = Hct) 47.6 42.0-54.[address] [facility] HospitalLflvwjuEKVOPSDSDR4265-33-04 11:07:00 Test Item Value Reference Range Interpretation Comments MCV (test code = MCV) 93.9 80.0-94.[address] [facility] HospitalGhgcanhTQWCXODNOH6173-54-02 11:07:00 Test Item Value Reference Range Interpretation Comments RDW (test code = RDW) 13.0 11.5-14.[address] [facility] HospitalKlnuaowAZQSOVFCAZ8462-54-79 11:07:00 Test Item Value Reference Range Interpretation Comments MCHC (test code = MCHC) 34.0 32.0-36.[address] [facility] HospitalPlsqlyhFWJJERFMBC8859-89-68 11:07:00 Test Item Value Reference Range Interpretation Comments WBC X 10x3 (test code = WBC X 10x3) 8.5 3.7-10.[address] [facility] HospitalTjvivjmFRQVCPHHAN0009-53-36 11:07:00 Test Item Value Reference Range Interpretation Comments RBC X 10x6 (test code = RBC X 10x6) 5.07 4.70-6.[address] [facility] HospitalPjgesatWSNQAZZRHG1646-42-92 11:07:00 Test Item Value Reference Range Interpretation Comments Basophils (test code = 0.5 See_Comment [Aut omated message] The Basophils) system which ge nerated this result tra nsmitted reference range : <=1.0. The reference r naif was not used to int erpret this result as normal/abnormal . [facility] HospitalXwbldowIVGUYAWTHV4377-89-02 11:07:00 Test Item Value Reference Range Interpretation Comments Segs-Bands # (test code = Segs-Bands #) 6.6 1.5-8.[address] [facility] HospitalGrdusjmQRWJXKGVFL8563-89-68 11:07:00 Test Item Value Reference Range Interpretation Comments Eosinophils (test code = 0.9 See_Comment [A utomated message] The Eosinophils) system which ge nerated this result tra nsmitted reference range : <=4.0. The reference r naif was not used to int erpret this result as normal/abnormal . [facility] HospitalJzndaefRBAXRMGFBX4033-96-95 11:07:00 Test Item Value Reference Range Interpretation Comments Lymphocytes (test code = Lymphocytes) 14.9 20.0-40.[address] [facility] HospitalQfrbzdrMEAXJEJYJX3604-18-13 11:07:00 Test Item Value Reference Range Interpretation Comments Monocytes (test code = Monocytes) 6.1 2.0-12.[address] [facility] [facility] HospitalEmpnjklKOFHYNJAWY0740-66-86 11:07:00 Test Item Value Reference Range Interpretation Comments Segs (test code = Segs) 77.6 45.0-75.[address] [facility] HospitalVbeoarwZWHNHJYBKT9612-08-82 11:07:00 Test Item Value Reference Range Interpretation Comments Eosinophils # (test code 0.1 See_Comment [A utomated message] The = Eosinophils #) system whic h generated this result tra nsmitted reference range : <=0.5. The reference r naif was not used to int erpret this result as normal/abnormal . [facility] HospitalLmvvygdRWDSAOZHLZ0146-12-07 11:07:00 Test Item Value Reference Range Interpretation Comments Lymphocytes # (test code = Lymphocytes 1.3 1.0-5.5 #) [facility] FallsHkimrgoJZFXZHPNOK1982-69-40 11:07:00 Test Item Value Reference Range Interpretation Comments Monocytes # (test code 0.5 See_Comment [Aut omated message] The = Monocytes #) system which generated this result tra nsmitted reference range : <=0.8. The reference r naif was not used to int erpret this result as normal/abnormal . [facility] FallsCARAC YRYFRUM9354-25-07 11:07:00 Test Item Value Reference Range Interpretation Comments Total CK (test code = Total CK) 232 12-191 [facility] LOZBEIS3421-50-83 11:07:00 Test Item Value Reference Range Interpretation Comments Troponin-I (test code 0.43 See_Comment [Auto mated message] The = Troponin-I) system which g enerated this result transmit bettye reference range : <=0.40. The reference r naif was not used to interpr et this result as cory l/abnormal. [facility] [id number] 11:07:00 Test Item Value Reference Range Interpretation Comments CK MB (test code = CK MB) 6.1 0.5-3.6 [facility] TFMWIFT0213-15-01 11:07:00 Test Item Value Reference Range Interpretation Comments CK-MB INDEX (test 2.6 See_Comment [Automate d message] The code = CK-MB INDEX) system w [facility] generated this result transmit bettye reference range : <=2.5. The reference range was not used to interpr et this result as cory l/abnormal. [facility] CenterannCHEM [id number] 11:07:00 Test Item Value Reference Range Interpretation Comments Phosphorus (test code = Phosphorus) 2.0 2.5-4.5 [facility]annCHEM [id number] 11:07:00 Test Item Value Reference Range Interpretation Comments Magnesium Lvl (test code = Magnesium 1.9 1.8-2.4 Lvl) [facility] CenterEsahxraGTHMCGOBXVDX4556-91-96 11:07:00 Test Item Value Reference Range Interpretation Comments AGAP (test code = AGAP) 11.8 10.0-20.0 [facility] CenterOwzqjutDPTSEEORYAYZ8211-65-69 11:07:00 Test Item Value Reference Range Interpretation Comments eGFR (test code = eGFR) 43 [facility] HospitalTjmpfzcBANMCAOTGNAM9586-22-67 11:07:00 Test Item Value Reference Range Interpretation Comments Calcium Lvl (test code = Calcium Lvl) 9.2 8.5-10.5 [facility] HospitalObkzsbnQNFPBXEYPRVZ3331-57-29 11:07:00 Test Item Value Reference Range Interpretation Comments BUN (test code = BUN) 15 7-22 [facility] HospitalGptbfmlDALKWIXDNTOA8174-12-44 11:07:00 Test Item Value Reference Range Interpretation Comments Glucose Lvl (test code = Glucose Lvl) 223 70-99 [facility] HospitalEgrafjgWWPCQEZVEFUR0018-57-24 11:07:00 Test Item Value Reference Range Interpretation Comments Sodium Lvl (test code = Sodium Lvl) 137 135-145 [facility] HospitalAehzyxnAROSXJYRTRBH9650-45-88 11:07:00 Test Item Value Reference Range Interpretation Comments Potassium Lvl (test code = Potassium 3.8 3.5-5.1 Lvl) [facility] HospitalDpxkgqsHBCBZUKOUMFN8671-23-23 11:07:00 Test Item Value Reference Range Interpretation Comments Chloride Lvl (test code = Chloride Lvl) 104 95-109 [facility] HospitalRsddaapMYZFQZYEHGCU2234-46-17 11:07:00 Test Item Value Reference Range Interpretation Comments CO2 (test code = CO2) 25 24-32 [facility] HospitalAbofpozXIHBRVLTFVCD4794-39-91 11:07:00 Test Item Value Reference Range Interpretation Comments Creatinine Lvl (test code = Creatinine 1.55 0.50-1.40 Lvl) [facility] HospitalFbarhwoSWXGWTONWE9980-84-87 11:07:00 Test Item Value Reference Range Interpretation Comments Platelet (test code = Platelet) 110 133-[address] [facility] [facility] HospitalDwzptvsZTTZYLRWHH7731-77-57 11:07:00 Test Item Value Reference Range Interpretation Comments MPV (test code = MPV) 9.0 7.4-10.[address] [facility] HospitalKpdkonxJFCRXVEGSI7776-44-41 11:07:00 Test Item Value Reference Range Interpretation Comments MCH (test code = MCH) 31.9 pg 27.0-31.[address] [facility] HospitalVxvxkepECCKIZREMD6473-74-23 11:07:00 Test Item Value Reference Range Interpretation Comments Hgb (test code = Hgb) 16.2 14.0-18.[address] [facility] [facility] HospitalNtdsuroITPMZWKOPM8025-49-98 11:07:00 Test Item Value Reference Range Interpretation Comments Hct (test code = Hct) 47.6 42.0-54.[address] HospitalKbovdyoZZQMIPRMGM1645-03-94 11:07:00 Test Item Value Reference Range Interpretation Comments MCV (test code = MCV) 93.9 80.0-94.[address] [facility] HospitalDfwuqlpXCFHAJGXGB2470-87-83 11:07:00 Test Item Value Reference Range Interpretation Comments RDW (test code = RDW) 13.0 11.5-14.[address] [facility] HospitalXjcliwtYSEWADFBEF3460-77-72 11:07:00 Test Item Value Reference Range Interpretation Comments MCHC (test code = MCHC) 34.0 32.0-36.[address] [facility] HospitalHwxdcehNXVIEXINQF6568-81-52 11:07:00 Test Item Value Reference Range Interpretation Comments WBC X 10x3 (test code = WBC X 10x3) 8.5 3.7-10.[address] [facility] HospitalSihgndrTZKJDVMPXF0365-68-96 11:07:00 Test Item Value Reference Range Interpretation Comments RBC X 10x6 (test code = RBC X 10x6) 5.07 4.70-6.[address] [facility] HospitalDefzwnoLSKQNRXQHO7098-33-97 11:07:00 Test Item Value Reference Range Interpretation Comments Basophils (test code = 0.5 See_Comment [Aut omated message] The Basophils) system which ge nerated this result tra nsmitted reference range : <=1.0. The reference r naif was not used to int erpret this result as normal/abnormal . [facility] HospitalPoelzmnLYZCYXHATX0834-84-60 11:07:00 Test Item Value Reference Range Interpretation Comments Segs-Bands # (test code = Segs-Bands #) 6.6 1.5-8.[address] [facility] HospitalQktajdeQKTGTGNLCY1817-29-24 11:07:00 Test Item Value Reference Range Interpretation Comments Eosinophils (test code = 0.9 See_Comment [A utomated message] The Eosinophils) system which ge nerated this result tra nsmitted reference range : <=4.0. The reference r naif was not used to int erpret this result as normal/abnormal . [facility] HospitalBfseebaTTHYOVSGIV5779-65-44 11:07:00 Test Item Value Reference Range Interpretation Comments Lymphocytes (test code = Lymphocytes) 14.9 20.0-40.[address] [facility] HospitalYnrkqdbBUHKRBXFNY1203-47-74 11:07:00 Test Item Value Reference Range Interpretation Comments Monocytes (test code = Monocytes) 6.1 2.0-12.[address] [facility] HospitalTzipdjiURGACTWKGU6772-40-43 11:07:00 Test Item Value Reference Range Interpretation Comments Segs (test code = Segs) 77.6 45.0-75.[address] [facility] HospitalJrbybqiPAUPVCOYOS3722-89-10 11:07:00 Test Item Value Reference Range Interpretation Comments Eosinophils # (test code 0.1 See_Comment [A utomated message] The = Eosinophils #) system wh h generated this result tra nsmitted reference range : <=0.5. The reference r naif was not used to int erpret this result as normal/abnormal . [facility] HospitalKeyahkuJTWWYKQQBB8693-15-32 11:07:00 Test Item Value Reference Range Interpretation Comments Lymphocytes # (test code = Lymphocytes 1.3 1.0-5.5 #) [facility] HospitalShzpxjiVBOZQMJGEL7024-24-67 11:07:00 Test Item Value Reference Range Interpretation Comments Monocytes # (test code 0.5 See_Comment [Aut omated message] The = Monocytes #) system which generated this result tra nsmitted reference range : <=0.8. The reference r naif was not used to int erpret this result as normal/abnormal . [facility]
--- NOTE | 2022-03-09 16:50 | EDPHYS ---
Physician Documentation [facility] Name: Fred Bloom III Age: 81 yrs Sex: Male : 1940 Arrival Date: 03/09/2022 Time: 16:34 Bed IW3 Private MD: ED Physician Cheng Head HPI: 03/09 16:47 This 81 yrs old Male presents to ER via Ambulatory with complaints of Suture Removal. kb 16:47 The patient has sutures on the forehead. Previous treatment: The patient was initially kb treated 7 day(s) ago, the care was rendered at [facility], Treatment type: The patient's original treatment included sutures. Sutures/monique progress: The patient has no c/o's. The wound is well-healing with no redness, swelling, discharge, or dehiscence reported. The patient has not experienced similar symptoms in the past. The patient has not recently seen a physician. Historical: - Allergies: 16:40 PENICILLINS; hb - Immunization history:: Adult Immunizations up to date. - Social history:: Smoking status: Patient denies any tobacco usage or history of. ROS: 16:46 Constitutional: Negative for fever, chills, and weight loss. kb 16:46 Skin: Positive for of the forehead, 2 lacerations with sutures in place. 16:46 All other systems are negative. Exam: 16:46 Constitutional: This is a well developed, well nourished patient who is awake, alert, kb and in no acute distress. Head/Face: Normocephalic, atraumatic. ENT: Moist Mucous membranes Respiratory: Respirations even and unlabored. No increased work of breathing. Talking in full sentences MS/ Extremity: Pulses equal, no cyanosis. Neurovascular intact. Full, normal range of motion. Neuro: Awake and alert, GCS 15, oriented to person, place, time, and situation. Moves all extremities. Normal gait. 16:46 Skin: Wound recheck: Suture laceration closure: the wound is healing well, the edges are well approximated, no evidence of dehiscence, no drainage, no erythema, no swelling. Vital Signs: 16:41 Resp 16; Pain 0/10; hb Procedures: 16:45 Suture/Staple removal: Removed 5 sutures, from forehead, site appears well healed, kb Patient tolerated well. MDM: 16:37 Patient medically screened. kb 16:45 Data reviewed: vital signs, nurses notes. Counseling: I had a detailed discussion with kb the patient and/or guardian regarding: the historical points, exam findings, and any diagnostic results supporting the discharge/admit diagnosis, the need for outpatient follow up, a family practitioner, to return to the emergency department if symptoms worsen or persist or if there are any questions or concerns that arise at home. Administered Medications: No medications were administered Disposition: 17:05 Co-signature as Attending Physician, Cheng Head MD. rn Disposition Summary: 03/09/22 16:49 Discharge Ordered Location: Home kb Condition: Stable kb Diagnosis - Encounter for removal of sutures kb Followup: kb - With: Emergency Department - When: As needed - Reason: Worsening of condition Followup: kb - With: Private Physician - When: 2 - 3 days - Reason: Recheck today's complaints, Continuance of care, Re-evaluation by your physician Discharge Instructions: - Discharge Summary Sheet kb - Suture Removal, Care After kb Forms: - Medication Reconciliation Form kb - Thank You Letter kb - Antibiotic Education kb - Prescription Opioid Use kb Signatures: Adriana Olvera, BISI-C TRAIN CONTROL TECHNICIAN-Cheng Centeno MD MD rn Baxter, Heather, RN RN
--- NOTE | 2022-03-09 16:50 | ER ---
Nurse's Notes [facility] Name: Fred Bloom III Age: 81 yrs Sex: Male : 1940 Arrival Date: 03/09/2022 Time: 16:34 Bed IW3 Private MD: Diagnosis: Encounter for removal of sutures Presentation: 03/09 16:39 Chief complaint: Sutures to forehead 03/01, here for removal. Coronavirus screen: At hb this time, the client does not indicate any symptoms associated with coronavirus-19. Ebola Screen: No symptoms or risks identified at this time. Initial Sepsis Screen: Does the patient meet any 2 criteria? No. Patient's initial sepsis screen is negative. Does the patient have a suspected source of infection? No. Patient's initial sepsis screen is negative. Risk Assessment: Do you want to hurt yourself or someone else? Patient reports no desire to harm self or others. Onset of symptoms was March 09, 2022. 16:39 Method Of Arrival: Ambulatory hb 16:39 Acuity: RASHMI 4 hb Triage Assessment: 16:40 General: Appears in no apparent distress. Behavior is calm, cooperative. Pain: Denies hb pain. Neuro: Level of Consciousness is awake, alert, obeys commands, Oriented to person, place, time, situation. Cardiovascular: Patient's skin is warm and dry. Respiratory: Respiratory effort is even, unlabored, Respiratory pattern is regular, symmetrical. Historical: - Allergies: 16:40 PENICILLINS; hb - Immunization history:: Adult Immunizations up to date. - Social history:: Smoking status: Patient denies any tobacco usage or history of. Screenin:40 [facility] ED Fall Risk Assessment (Adult) Score/Fall Risk Level 0 - 2 = Low Risk hb Oriented to surroundings. Abuse screen: Denies threats or abuse. Denies injuries from another. Nutritional screening: No deficits noted. Tuberculosis screening: No symptoms or risk factors identified. Assessment: 16:40 General: See triage assessment. hb Vital Signs: 16:41 Resp 16; Pain 0/10; hb ED Course: 16:34 Patient arrived in ED. rg4 16:37 Adriana Olvera FNP-C is [facility]. kb 16:37 Cheng Head MD is Attending Physician. kb 16:40 Triage completed. hb 16:40 Arm band placed on. hb 16:40 Patient has correct armband on for positive identification. hb 16:40 No provider procedures requiring assistance completed. Patient did not have IV access hb during this emergency room visit. Administered Medications: No medications were administered Medication: 16:40 VIS not applicable for this client. hb Outcome: 16:49 Discharge ordered by . kb 16:57 Patient left the ED. hb Signatures: Adriana Olvera, MARYAMC BISI-Maryann Goldman RN RN Christel Ulloa rg4
== END 2022-03-09 16:57 | disposition home or self-care (01) ==
LOC: ER 16:32
DX: Z48.02 Encounter for removal of sutures (principal)
CPT/HCPCS: 99281

== ENCOUNTER 2024-12-05 20:48 | Emergency (ER) | payer OTHER ==
[2024-12-05 21:48] LABS: Absolute Lymphocytes (CBC) 1.0 K/uL (0.7-4.9); Hematocrit 40.4 % (39.6-49.0); Hemoglobin 13.8 g/dL (13.6-17.9); MCH 31.2 pg (27.0-35.0); MCHC 34.2 g/dL (32.0-36.0); MCV 91.2 fL (80-100); MPV 8.0 fL (7.6-11.3); Nucleated RBC Absolute Count 0.0 (0-0); Nucleated Red Blood Cells % 0.1 % (0-0); RBC Red Blood Cell Count 4.43 M/uL (4.33-5.43); White Blood Count 11.90 thou/uL (4.3-10.9)
[2024-12-05 22:07] LABS: ALT/SGPT 23.0 U/L (16-61); AST/SGOT 18.0 U/L (15-37); Albumin 3.4 g/dL (3.4-5.0); Albumin/Globulin Ratio 0.9 (1.1-1.8); Alkaline Phosphatase 95.0 U/L (45-117); Anion Gap 9.0 mEq/L (5.0-15.0); BUN Blood Urea Nitrogen 30.0 mg/dL (7-18); Globulin 3.7 g/dL (2.3-3.5); Glucose Level 198.0 mg/dL (74-106); Lipase 16.0 U/L (13-75); Potassium 4.0 mEq/L (3.5-5.1)
[2024-12-06] MEDS ORDERED: KETOROLAC 30 MG/ML INJ ONE (01:01)
[2024-12-06] MEDS ORDERED: FLEET ENEMA ADULT PR ONE (01:01)
[2024-12-06] MEDS ORDERED: LIDOCAINE HCL JELLY 2% 6 ML SYRINGE TOP ONE (01:02)
[2024-12-06] MEDS ORDERED: HYDRALAZINE HCL 20 MG/ML VIAL ONE (01:21)
--- NOTE | 2024-12-06 01:34 | ER ---
Nurse's Notes [facility] Name: Fred Bloom III Age: 84 yrs Sex: Male : 1940 Arrival Date: 12/05/2024 Time: 20:48 Bed 7 Private MD: Diagnosis: Constipation, unspecified;Other hemorrhoids Presentation: 12/05 21:08 Chief complaint: Patient states: C/o constipation and rectal pain. Last bowel movement cg was today. Coronavirus screen: Vaccine status: Patient reports receiving the 1st dose of the Covid vaccine. Ebola Screen: Patient negative for fever greater than or equal to 101.5 degrees Fahrenheit, and additional compatible Ebola Virus Disease symptoms. Initial Sepsis Screen: Does the patient meet any 2 criteria? No. Patient's initial sepsis screen is negative. Does the patient have a suspected source of infection? No. Patient's initial sepsis screen is negative. Risk Assessment: Do you want to hurt yourself or someone else? Patient reports no desire to harm self or others. Onset of symptoms was November 27, 2024. 21:08 Method Of Arrival: Ambulatory cg 21:08 Acuity: RASHMI 3 cg Triage Assessment: 21:34 General: Appears uncomfortable, Behavior is calm, cooperative. Pain: Complains of pain ha1 in abdomen Pain currently is 4 out of 10 on a pain scale. Quality of pain is described as crampy. Neuro: Level of Consciousness is awake, alert, obeys commands, Oriented to person, place, time, situation. Cardiovascular: Capillary refill < 3 seconds Patient's skin is warm and dry. Respiratory: Airway is patent Respiratory effort is even, unlabored, Respiratory pattern is regular, symmetrical. GI: Abdomen is round Reports constipation, cramping. Historical: - Allergies: 21:14 PENICILLINS; cg - PMHx: 21:14 Diabetes - IDDM; Hyperlipidemia; Hypertension; Hypothyroidism; Myocardial infarction; cg NOSE BLEEDS; sciatica; - PSHx: 21:14 cardiac stent; cg - Immunization history:: Adult Immunizations up to date. - Infectious Disease History:: Denies. - Social history:: Smoking status: Patient reports use of chewing tobacco. Patient/guardian denies using. Screenin:33 [facility] ED Fall Risk Assessment (Adult) History of falling in the last 3 months, ha1 including since admission No falls in past 3 months (0 pts) Confusion or Disorientation No (0 pts) Intoxicated or Sedated No (0 pts) Impaired Gait No (0 pts) Mobility Assist Device Used No (0 pt) Altered Elimination No (0 pt) Score/Fall Risk Level 0 - 2 = Low Risk Oriented to surroundings, Maintained a safe environment, Educated pt \T\ family on fall prevention, incl call for assistance when getting out of bed, Hourly rounding (assess needs \T\ fall precautionary measures) done. Abuse screen: Denies threats or abuse. Denies injuries from another. Nutritional screening: No deficits noted. Tuberculosis screening: No symptoms or risk factors identified. Assessment: 21:57 General: Appears in no apparent distress. comfortable, Behavior is calm, cooperative, bm8 appropriate for age. Pain: Denies pain. Neuro: No deficits noted. Level of Consciousness is awake, alert, obeys commands. Neuro: Oriented to person, place, time, situation, Appropriate for age. Cardiovascular: Denies chest pain, Capillary refill < 3 seconds in bilateral fingers Patient's skin is warm and dry. Respiratory: Airway is patent Trachea midline Respiratory effort is even, unlabored, Respiratory pattern is regular, symmetrical, Breath sounds are clear bilaterally. GI: Abdomen is round distended, Last BM at 20:00. Bowel sounds hypoactive in abdomen diffusely Abd is soft X 4 quads Abdomen is tender to palpation X 4 quads. Reports constipation. : No signs and/or symptoms were reported regarding the genitourinary system. EENT: No signs and/or symptoms were reported regarding the EENT system. Derm: No signs and/or symptoms reported regarding the dermatologic system. Musculoskeletal: No signs and/or symptoms reported regarding the musculoskeletal system. 23:57 Reassessment: Patient appears in no apparent distress at this time. Patient and/or cc6 family updated on plan of care and expected duration. Pain level reassessed. Patient is alert, oriented x 3, equal unlabored respirations, skin warm/dry/pink. pt up to restroom Patient denies pain at this time. Patient states feeling better. Patient states symptoms have improved. 12/06 01:12 Reassessment: Patient appears in no apparent distress at this time. Patient and/or cc6 family updated on plan of care and expected duration. Pain level reassessed. Patient is alert, oriented x 3, equal unlabored respirations, skin warm/dry/pink. assisted pt with enema. pt is currently waiting to use latrine. mobile commode placed in pt's room for ease. 01:38 Reassessment: pt is currently defecating into bedside commode. psychiatric Vital Signs: 12/05 21:11 BP 169 / 88; Pulse 87; Resp 18; Temp 97.9; Pulse Ox 96% ; Weight 95.25 kg; Height 5 ft. cg 10 in. ; Pain 0/10; 21:57 BP 200 / 88; Pulse 94; Resp 17; Temp 97.9; Pulse Ox 100% ; Pain 0/10; bm8 23:57 BP 200 / 110; Pulse 95; Resp 17; Temp 97.9; Pulse Ox 98% ; Pain 0/10; cc6 12/06 01:38 BP 182 / 100; Pulse 91; Resp 17; Temp 97.9; Pulse Ox 100% ; Pain 0/10; cc6 12/05 21:11 Body Mass Index 30.13 (95.25 kg, 177.8 cm) cg 12/05 21:11 Pain Scale: Adult cg 21:57 Pain Scale: Adult bm8 23:57 Pain Scale: Adult cc6 12/06 01:38 Pain Scale: Adult cc6 Gerald Coma Score: 12/05 21:57 Eye Response: spontaneous(4). Motor Response: obeys commands(6). Verbal Response: bm8 oriented(5). Total: 15. 23:57 Eye Response: spontaneous(4). Motor Response: obeys commands(6). Verbal Response: cc6 oriented(5). Total: 15. 12/06 01:38 Eye Response: spontaneous(4). Motor Response: obeys commands(6). Verbal Response: cc6 oriented(5). Total: 15. ED Course: 12/05 20:52 Patient arrived in ED. sj2 21:05 Adriana Olvera FNP-C [facility] kb 21:05 Ori Heredia MD is Attending Physician. kb 21:11 Triage completed. cg 21:33 CBC with Diff Sent. ha1 21:33 CMP Sent. ha1 21:33 Lipase Sent. ha1 21:33 Inserted saline lock: 20 gauge in right antecubital area, using aseptic technique. ha1 Blood collected. Flushed with 10 mL NS. 21:57 Jalen Carter, RN is Primary Nurse. bm8 21:57 No provider procedures requiring assistance completed. bm8 21:57 Arm band placed on right wrist. bm8 21:57 Patient has correct armband on for positive identification. Bed in low position. Call bm8 light in reach. Side rails up X 1. Adult w/ patient. Client placed on continuous cardiac and pulse oximetry monitoring. NIBP monitoring applied. Pulse ox on. NIBP on. Door closed. Noise minimized. Pillow given. Verbal reassurance given. Head of bed elevated. 22:56 Abdomen In Process Unspecified. EDMS 12/06 01:38 IV discontinued, intact, bleeding controlled, No redness/swelling at site. Pressure cc6 dressing applied. 01:38 Provided Education on: post er care. cc6 Administered Medications: 01:04 Drug: Ketorolac IVP 15 mg IVP once Route: IVP; Site: right antecubital; cc6 01:20 Follow up: Response: No adverse reaction cc6 01:04 Drug: Lidocaine Mucous Membrane Gel 2 % 1 application Mucous Membrane once Route: cc6 Mucous Membrane; 01:19 Follow up: Response: No adverse reaction cc6 01:04 Drug: Fleet Enema [place] 133 ml [place] once; may repeat once Route: [place]; cc6 01:19 Follow up: Response: No adverse reaction cc6 01:38 Drug: hydrALAZINE IVP 10 mg IVP once Route: IVP; Site: right antecubital; cc6 01:39 Follow up: Response: No adverse reaction cc6 Medication: 12/05 21:57 VIS not applicable for this client. bm8 Outcome: 12/06 01:33 Discharge ordered by MD. jurado 01:38 Discharged to home ambulatory, with family, cc6 01:38 Condition: stable 01:38 Discharge instructions given to patient, family, Instructed on discharge instructions, follow up and referral plans. no drinking with medication, no driving heavy equipment, medication usage, safety practices, Demonstrated understanding of instructions, follow-up care, medications, Prescriptions given X 02:39 Patient left the ED. bm8 Signatures: Dispatcher [employer] EDMI Adriana Olvera, BIS[employer]-Ligia Muse, RN RN Azeb Burgos RN RN ha1 Jalen Carter RN RN bm8 Ave Ortiz, RN RN cc6 Pradeep Cordova 2 Corrections: (The following items were deleted from the chart) 12/05 21:16 21:14 PMHx: basal carcinoma- resolved; cg cg 21:16 21:14 PMHx: blood pressure; cg cg 21:16 21:14 PMHx: blood pressure; cg cg 21:16 21:14 PMHx: blood pressure; cg cg 21:16 21:14 PMHx: blood pressure; cg cg 21:16 21:14 PMHx: blood pressure; cg cg 21:16 21:14 PMHx: blood pressure, lipid medications unknown; cg cg 21:37 21:34 : Reports inability to void, ha1 ha1
--- NOTE | 2024-12-06 01:34 | EDPHYS ---
Physician Documentation [facility] Name: Fred Bloom III Age: 84 yrs Sex: Male : 1940 Arrival Date: 12/05/2024 Time: 20:48 Bed 7 Private MD: ED Physician Ori Heredia HPI: 12/05 23:25 This 84 yrs old Male presents to ER via Ambulatory with complaints of Constipation. kb 23:25 Patient is a 84-year-old male who presents for constipation and abdominal pain. States kb he contacted his doctor who told them what to do to ease the constipation and he was able to have a bowel movement this evening. States he came in because he feels the urge to have a bowel movement but is unable to do so. Reports prior to this evening his last bowel movement was 8 days ago.. Historical: - Allergies: 21:14 PENICILLINS; cg - PMHx: 21:14 Diabetes - IDDM; Hyperlipidemia; Hypertension; Hypothyroidism; Myocardial infarction; cg NOSE BLEEDS; sciatica; - PSHx: 21:14 cardiac stent; cg - Immunization history:: Adult Immunizations up to date. - Infectious Disease History:: Denies. - Social history:: Smoking status: Patient reports use of chewing tobacco. Patient/guardian denies using. ROS: 23:25 Constitutional: As per HPI kb Exam: 23:25 Constitutional: This is a well developed, well nourished patient who is awake, alert, kb and in no acute distress. Head/Face: Normocephalic, atraumatic. ENT: Moist Mucous membranes Cardiovascular: Regular rate Respiratory: Respirations even and unlabored. No increased work of breathing. Talking in full sentences Skin: Warm, dry with normal turgor. Normal color. MS/ Extremity: Pulses equal, no cyanosis. Neurovascular intact. Full, normal range of motion. Neuro: Awake and alert, GCS 15, oriented to person, place, time, and situation. 23:25 Abdomen/GI: Inspection: abdomen appears normal, Bowel sounds: normal, Palpation: soft, in all quadrants, mild abdominal tenderness, in the left lower quadrant, 12/06 01:13 Abdomen/GI: Rectal exam: hemorrhoid(s), external, with associated bleeding, the exam is kb chaperoned by a family member, Vital Signs: 12/05 21:11 BP 169 / 88; Pulse 87; Resp 18; Temp 97.9; Pulse Ox 96% ; Weight 95.25 kg; Height 5 ft. cg 10 in. ; Pain 0/10; 21:57 BP 200 / 88; Pulse 94; Resp 17; Temp 97.9; Pulse Ox 100% ; Pain 0/10; bm8 23:57 BP 200 / 110; Pulse 95; Resp 17; Temp 97.9; Pulse Ox 98% ; Pain 0/10; cc6 12/06 01:38 BP 182 / 100; Pulse 91; Resp 17; Temp 97.9; Pulse Ox 100% ; Pain 0/10; cc6 12/05 21:11 Body Mass Index 30.13 (95.25 kg, 177.8 cm) cg 12/05 21:11 Pain Scale: Adult cg 21:57 Pain Scale: Adult bm8 23:57 Pain Scale: Adult cc6 12/06 01:38 Pain Scale: Adult cc6 Lakia Coma Score: 12/05 21:57 Eye Response: spontaneous(4). Motor Response: obeys commands(6). Verbal Response: bm8 oriented(5). Total: 15. 23:57 Eye Response: spontaneous(4). Motor Response: obeys commands(6). Verbal Response: cc6 oriented(5). Total: 15. 12/06 01:38 Eye Response: spontaneous(4). Motor Response: obeys commands(6). Verbal Response: cc6 oriented(5). Total: 15. MDM: 12/05 21:05 Medical Screening Exam initiated 12/06 00:37 Data reviewed: vital signs, nurses notes. Historians other than the Patient: adrien Spouse/Significant Other: . 00:46 Differential diagnosis: constipation, bowel obstruction, colitis. Counseling: I had a kb detailed discussion with the patient and/or guardian regarding the historical points, exam findings, and any diagnostic results supporting the discharge/admit diagnosis, lab results, radiology results, the need for outpatient follow up, a family practitioner, to return to the emergency department if symptoms worsen or persist or if there are any questions or concerns that arise at home. 12/05 21:14 Order name: CBC with Diff; Complete Time: 21:49 adrien 12/05 21:14 Order name: CMP; Complete Time: 22:37 kb 12/05 21:14 Order name: Lipase; Complete Time: 22:37 kb 12/05 22:56 Order name: Abdomen EDMS 12/05 21:14 Order name: IV Saline Lock; Complete Time: 21:33 kb 12/05 21:14 Order name: Labs collected and sent; Complete Time: 21:33 kb Administered Medications: 01:04 Drug: Ketorolac IVP 15 mg IVP once Route: IVP; Site: right antecubital; cc6 01:20 Follow up: Response: No adverse reaction cc6 01:04 Drug: Lidocaine Mucous Membrane Gel 2 % 1 application Mucous Membrane once Route: cc6 Mucous Membrane; 01:19 Follow up: Response: No adverse reaction cc6 01:04 Drug: Fleet Enema [place] 133 ml [place] once; may repeat once Route: [place]; cc6 01:19 Follow up: Response: No adverse reaction cc6 01:38 Drug: hydrALAZINE IVP 10 mg IVP once Route: IVP; Site: right antecubital; cc6 01:39 Follow up: Response: No adverse reaction cc6 Disposition: 19:32 Co-signature as Attending Physician, Ori Heredia MD I agree with the assessment sp4 and plan of care. I reviewed the patient's care provided by the Advanced Practice Provider and agree with the diagnosis and treatment plan. Disposition Summary: 12/06/24 01:33 Discharge Ordered Notes: Location: Home kb Condition: Stable kb Diagnosis - Constipation, unspecified kb - Other hemorrhoids kb Followup: kb - With: Emergency Department - When: As needed - Reason: Worsening of condition Followup: kb - With: Private Physician - When: 2 - 3 days - Reason: Recheck today's complaints, Continuance of care, Re-evaluation by your physician Discharge Instructions: - Discharge Summary Sheet kb - Constipation, Adult, [id number] kb - Hemorrhoids, [id number] kb Forms: - Medication Reconciliation Form kb - Antibiotic Education kb - Prescription Opioid Use kb - Patient Portal Instructions kb - Leadership Thank You Letter kb Signatures: Dispatcher [employer] [facility] Adriana Olvera FNP-C FNP-Ckb Garcia, Cindy RN RN Ori Santillan MD MD sp4 Ave Ortiz RN RN cc6 Corrections: (The following items were deleted from the chart) 12/05 21:14 21:14 CBC+H.LAB.BRZ ordered. EDMS EDMS 21:14 21:14 COMPREHENSIVE METABOLIC PANEL+C.LAB.BRZ ordered. EDMS EDMS 21:14 21:14 LIPASE+C.LAB.BRZ ordered. EDMS EDMS 21:14 21:14 Abdomen Pelvis W Con+CT.RAD.BRZ ordered. EDMS EDMS 21:16 21:14 PMHx: basal carcinoma- resolved; cg cg 21:16 21:14 PMHx: blood pressure; cg cg 21:16 21:14 PMHx: blood pressure; cg cg 21:16 21:14 PMHx: blood pressure; cg cg 21:16 21:14 PMHx: blood pressure; cg cg 21:16 21:14 PMHx: blood pressure; cg cg 21:16 21:14 PMHx: blood pressure, lipid medications unknown; cg cg
--- NOTE | 2024-12-06 01:45 | RAD REPORT ---
CLINICAL HISTORY: ABD PAIN COMPARISON: None. TECHNIQUE: CT ABDOMEN PELVIS WITHOUT IV CONTRAST on 12/05/2024 9:14 PM CDT This exam was performed according to our departmental dose-optimization program, which includes autom ated exposure control, adjustment of the mA and/or kV according to patient size and/or use of iterative reconstruction technique. FINDINGS: Lower lungs are clear. Abdomen: The liver is normal in appearance. There is no biliary dilatation. Cholecystectomy was perfo rmed. The pancreas and spleen are normal in appearance. Adrenal glands are normal. There is mild bilateral renal atrophy. Abdominal aorta is heavily calcified without aneurysm. There is no free air. There is no retroperiton eal adenopathy. Pelvis: There is large amount of stool throughout the colon. Urinary bladder is unremarkable. There i s no free fluid. Appendix is normal. Skeleton: There are no acute osseous findings. No suspicious bony lesions. IMPRESSION: No definite acute process. Electronically signed by: Al Sapp MD 12/06/2024 12:33 AM CDT RP Due to temporary technical issues with the PACS/HomeJab reporting system, reports are being melida d by the in-house radiologist without review as a courtesy to ensure prompt reporting the interpreting radiologist is fully responsible for the content of the report. Transcribed Date/Time: 12/06/2024 1:45 AM
[2024-12-06 03:21] VITALS: TEMP 97.9
[2024-12-06 03:26] VITALS: BP 182/100; O2SAT 100
== END 2024-12-06 02:39 | disposition home or self-care (01) ==
LOC: ER 20:48
DX: K59.00 Constipation, unspecified (principal); K64.8 Other hemorrhoids
CPT/HCPCS: 85025; 36415; 83690; 80053; 74176; 96375; 96374; 99284; J0360